=== PATIENT | female | born 1960 | race Caucasian/White ===

== ENCOUNTER 2023-10-16 20:24 | Inpatient (IN) ==
[2023-10-16 20:45] LABS: iSTAT Creatinine 1.2 mg/dl (0.6-1.3); iSTAT Hemoglobin 15.3 g/dl (12.0-16.0); iSTAT Ionized Calcium 1.15 mmol/l (1.12-1.32); iSTAT Potassium 4.1 mmol/L (3.3-5.0)
[2023-10-16] MEDS: fentaNYL citrate PF 100 MCG/2 ML VIAL IV PRN (20:45)
[2023-10-16] MEDS: ACETAMINOPHEN 1,000 MG/100 ML VIAL IV STA (20:45)
[2023-10-16 21:02] LABS: Albumin Globulin Ratio 1.7 (0.9-2); Albumin Level 4.5 gm/dl (3.4-5.0); BUN Creatinine Ratio 12.5 (10-20); Bilirubin,Total 0.4 mg/dl (0.2-1.0); Calcium 9.3 mg/dl (8.6-10.3); Creatinine Clr Calc Pharmacy 49.1 ml/min; Est GFR (African American) 55.7 ml/min; Est GFR (Non-African American) 48.1 ml/min; Globulin 2.6 gm/dl (2.5-4.0); Total Protein 7.1 gm/dl (6.0-8.3)
[2023-10-16 21:11] LABS: Prothrombin Time 10.6 Seconds (9.0-12.0)
[2023-10-16] MEDS: SODIUM CHLORIDE 0.9% 1,000 ML IV SCH (21:21)
[2023-10-16 21:30] LABS: Basophils # (auto) 0.02 K/uL (0.00-0.20); Basophils % (auto) 0.2 %; Eosinophils # (auto) 0.17 K/uL (0.00-0.50); Eosinophils % (auto) 2.1 %; Hematocrit (blood only) 43.4 % (37.0-47.0); Hemoglobin 14.9 g/dl (12.0-16.0); Immature Granulocytes # (auto) 0.02 K/uL (0.01-0.20); Immature Granulocytes % (auto) 0.2 %; Lymphocytes # (auto) 3.69 K/uL (1.20-3.40); Mean Corpuscular Hemoglobin 30.4 pg (25.0-34.0); Mean Corpuscular Hgb Conc 34.3 g/dL (32.0-36.0); Mean Corpuscular Volume 88.6 fL (80.0-100.0); Mean Platelet Volume 10.3 fL (9.4-12.4); Monocytes # (auto) 0.56 K/uL (0.11-0.59); Neutrophils # (auto) 3.56 K/uL (1.40-6.50); Neutrophils % (auto) 44.5 %; Platelet Count 295 K/uL (130-400); RDW Coefficient of Variation 13.2 % (11.5-14.5); White Blood Count 8.02 K/ul (4.8-10.8)
--- NOTE | 2023-10-16 22:10 | CT Scan Report ---
Exam(s): CT C SPINE EXAM: CT Cervical Spine Without Intravenous Contrast CLINICAL HISTORY: Reason for exam: trauma. TECHNIQUE: Axial computed tomography images of the cervical spine without intravenous contrast. CTDI is 21.38 mGy and DLP is 403.33 mGy-cm. Automated exposure control was utilized for the study. A dose lowering technique was utilized adhering to the principles of ALARA. COMPARISON: No relevant prior studies available. FINDINGS: Vertebrae: Straightening of the cervical spine. No acute fracture or subluxation. Discs/spinal canal/neural foramina: Disc and uncovertebral joint degeneration at C4-C5 and C5-C6. No significant canal or foraminal narrowing. Soft tissues: Unremarkable. IMPRESSION: Straightening of the cervical spine. No acute fracture or subluxation. Electronically signed by: Bib Garcias M.D. 10/16/23 22:09 PM
--- NOTE | 2023-10-16 22:12 | CT Scan Report ---
Exam(s): CT HEAD Without Contrast EXAM: CT Head Without Intravenous Contrast CLINICAL HISTORY: Reason for exam: trauma. TECHNIQUE: Axial computed tomography images of the head/brain without intravenous contrast. CTDI is hole 37.95 mGy and DLP is 629.85 mGy-cm. Automated exposure control was utilized for the study. A dose lowering technique was utilized adhering to the principles of ALARA. COMPARISON: No relevant prior studies available. FINDINGS: Brain: Unremarkable. No hemorrhage. No significant white matter disease. No edema. No midline shift. Kinney-white matter differentiation maintained. Ventricles: Unremarkable. No hydrocephalus. Bones/joints: Unremarkable. No acute fracture. Soft tissues: Right superior frontal scalp laceration/degloving injury with broad region of soft tissue swelling. Sinuses: Unremarkable as visualized. Mastoid air cells: Unremarkable as visualized. No mastoid effusion. IMPRESSION: Right superior frontal scalp laceration/degloving injury with broad region of soft tissue swelling. No acute intracranial findings. Electronically signed by: Bib Garcias M.D. 10/16/23 22:11 PM
--- NOTE | 2023-10-16 23:09 | Emergency Department Note ---
Impression & Plan CHI (closed head injury), Contaminated complex laceration of scalp, Contusion of knee, right ED Provider Note ED Provider Note NAME: LOVE TALAVERA AGE:63 SEX: Female : 1960 ARRIVES VIA: EMS INFORMANT: Patient ED PROVIDER(s): Delaney Brito DO CHIEF COMPLAINT: Scalp laceration, head injury HPI: This is a 63-year-old female who presents emergency department due to concern for head injury and scalp laceration following an accidental fall into a trash can lid outside. Patient states she felt well, and accidentally fell forward striking her head on the lid of the trash can and then falling to the sidewalk on her knee. She denies any loss of consciousness. She denies any other concern for injury. No use of antiplatelet or anticoagulation medication. PAST MEDICAL HISTORY:See Below PAST SURGICAL HISTORY:See Below FAMILY HISTORY:See Below SOCIAL HISTORY:See Below HOME MEDICATIONS:See Below ALLERGIES:See Below VITALS:See Below PHYSICAL EXAMINATION: GENERAL: alert, well appearing, well nourished, no distress, non-toxic HEAD: nc, large flap noted to frontal scalp measuring approximately 20cm, no evidence of facial injury, no corona signs, no raccoon eyes EYE EXAM: normal conjunctiva, PERRL and EOM's grossly intact OROPHARYNX: no exudate, no erythema, lips, buccal mucosa, and tongue normal and mucous membranes are moist NECK: supple, no nuchal rigidity, no adenopathy, non-tender, patient placed in a c-collar as a precaution LUNGS: Clear to auscultation. Normal chest wall mechanics, no w/r/r HEART: no murmurs, S1 normal and S2 normal CHEST WALL: No crepitus, no step-off, nontender with palpation ABDOMEN: abdomen soft, non-tender, normo-active bowel sounds, no masses, no rebound or guarding. PELVIS: stable to compression, nontender with palpation BACK: Back is symmetrical on inspection and there is no deformity, no midline tenderness, no CVA tenderness. SKIN: no rashes, petechiae, orbruising UPPER EXTREMITIES: upper extremities are grossly normal. FROM, nml pulses b/l. No evidence of trauma or deformity. LOWER EXTREMITIES: No pitting edema. FROM, nml pulses b/l. Contusion noted to right prepatellar region, well-healed vertical midline incision noted to right knee that patient states is from prior knee replacement, no other evidence of trauma or deformity. NEURO EXAM: Normal sensorium, cranial nerves II-XII grossly intact, normal speech, no facial droop,nogross weakness of arms, no gross weakness of legs. Gross sensation intact. No ataxia. Vital Signs: reviewed and remarkable Differential Diagnosis: CHI, ICH, occult fracture, laceration, contusion, spinal injury, patellar dislocation, joint effusion, hemarthrosis, as well as others were considered MEDICAL DECISION MAKING: This is a 63-year-old female who presents emerged department following an accidental head injury at home when she fell into a trash can which caused a large laceration to the head. She was otherwise awake and talking, afebrile vital signs stable. Labs drawn and sent, IV established, x-rays performed at bedside patient monitored on telemetry. She was given IV fluids, IV fentanyl, and IV Tylenol for pain. She was sent for CT of the head and C-spine additionally. Patient's labs and imaging reassuring. ED Tx spent significant time trying to debride obvious organic matter from the wound. I then tried to irrigate the wound at bedside. Bleeding was controlled. Patient had no other new or evolving symptoms. Given complexity and size of laceration, I did reach out to Dr. Dorsey, on-call for oral/plastics. We discussed the case via [place] text and he recommended that if patient could be admitted by the medicine team that he would take the patient to the OR in the morning for a more extensive washout and repair. I did give the patient IV antibiotics prophylactically. She stated her tetanus shot was up-to-date. I did discuss options for treatment and disposition with the patient and her at bedside. They would prefer patient be taken to the OR for repair which I feel is reasonable. Case discussed with the hospitalist team for additional evaluation and management. Consultation(s): 2300: Discussed with Dr. Dorsey given extent of laceration and contamination. Given complexity we discussed possible primary closure in the OR. Patient would prefer this compared to bedside repair. Dr. Dorsey states he would be able to take the patient to the OR in the morning for washout, debridement, and primary closure if medicine can admit her overnight. 0002: Discussed with Dr. Matthews, [facility] hospitalist team, for additional evaluation and mgmt. ER Treatment Provided: See below Diagnostics Interpreted By Me: -ECG: Normal sinus at 74, normal axis, normal intervals, no acute ST/T wave changes -Cardiac Monitoring: An order was placed for continuous cardiac monitoring. The monitor shows a rate of 80 with normal sinus rhythm. -Laboratory studies: As stated above and show below. -Imaging studies: xr right knee: Hardware intact, no obvious fracture Triage Nursing Note Reviewed Prior/Outside Records Reviewed Past Med/Surg History Problem List (Updated 10/17/23 @ 08:03 by Tyrone Dorsey DMD) Contaminated complex laceration of scalp (Acute) CHI (closed head injury) (Acute) Contusion of knee, right (Acute) Social History Smoking Status: Never smoker Hx Alcohol Use: No Hx Substance Use: No Preferred Language: Chilean Communication Ability: Effective Sales Operations Lead Required: No Beliefs That Will Affect Care: None Current Living Situation: Spouse and Family Feels Safe at Home: Yes Allergies Allergies Allergy/AdvReac Type Severity Reaction Status Date / Time aspirin Allergy Hives Verified 10/17/23 00:40 Penicillins Allergy Hives Verified 10/17/23 03:14 Home Meds Home Medications Medication Instructions Recorded Confirmed bupropion HCl 300 mg 24 hr tablet, 300 mg PO DAILY 10/17/23 10/17/23 extended release duloxetine 60 mg capsule,delayed 60 mg PO DAILY 10/17/23 10/17/23 release ergocalciferol (vitamin D2) 1,250 1,250 mcg PO DIRECTED 10/17/23 10/17/23 mcg (50,000 unit) capsule estradiol 1 mg tablet 1 mg PO DAILY 10/17/23 10/17/23 hydroxyzine HCl 10 mg tablet 10 mg PO DAILY PRN Itching 10/17/23 10/17/23 levothyroxine 100 mcg tablet 100 mcg PO DAILY 10/17/23 10/17/23 methocarbamol 500 mg tablet 500 mg PO DIRECTED PRN Pain 10/17/23 10/17/23 pantoprazole 40 mg tablet,delayed 40 mg PO DIRECTED PRN Heartburn 10/17/23 10/17/23 release pravastatin 80 mg tablet 80 mg PO HS 10/17/23 10/17/23 progesterone micronized 200 mg 200 mg PO HS 10/17/23 10/17/23 capsule triamcinolone acetonide 0.1 % 0.1 applic topical DIRECTED PRN 10/17/23 10/17/23 topical ointment Itching Results & Data (ED) Vital Signs Vital Signs - 24 hr 10/16/23 20:24 10/16/23 20:24 10/16/23 20:24 Temperature 37.2 C 37.2 C 37.2 C Temperature Source Oral Oral Pulse Rate 89 89 Pulse Rate [Apical] 89 Pulse Rate from SpO2 Sensor Respiratory Rate 20 18 20 Respiratory Effort / Characteristics Non-Labored Non-Labored Respiratory Depth Normal Normal Respiratory Pattern Regular Regular Blood Pressure 151/121 H 151/121 H Blood Pressure [Left Arm] 151/121 H Blood Pressure Mean 131 Blood Pressure Mean [Left Arm] 131 Blood Pressure Position [Left Arm] Pulse Oximetry 98 98 98 Oxygen Delivery Method Room Air Room Air Room Air Oxygen Flow Rate Sepsis Recent Fever Within 48 Hours No Sepsis New/Unexplained Change in Mental Status N/A Sepsis Action Taken by Nursing No Action Required Oxygen Flow Rate - Titration Pulse Oximetry Post Tiitration 10/16/23 20:24 10/16/23 20:33 10/16/23 21:15 Temperature Temperature Source Pulse Rate 85 80 Pulse Rate [Apical] Pulse Rate from SpO2 Sensor Respiratory Rate 20 Respiratory Effort / Characteristics Respiratory Depth Respiratory Pattern Blood Pressure 149/100 H Blood Pressure [Left Arm] Blood Pressure Mean 125 Blood Pressure Mean [Left Arm] Blood Pressure Position [Left Arm] Pulse Oximetry 98 97 Oxygen Delivery Method Room Air Room Air Oxygen Flow Rate Sepsis Recent Fever Within 48 Hours Sepsis New/Unexplained Change in Mental Status Sepsis Action Taken by Nursing Oxygen Flow Rate - Titration Pulse Oximetry Post Tiitration 10/16/23 21:16 10/16/23 21:30 10/16/23 21:51 Temperature Temperature Source Pulse Rate 80 Pulse Rate [Apical] 81 Pulse Rate from SpO2 Sensor Respiratory Rate 20 16 Respiratory Effort / Characteristics Non-Labored Respiratory Depth Normal Respiratory Pattern Regular Blood Pressure 154/93 H Blood Pressure [Left Arm] 149/100 H Blood Pressure Mean 124 Blood Pressure Mean [Left Arm] 116 Blood Pressure Position [Left Arm] Pulse Oximetry 95 98 89 L Oxygen Delivery Method Room Air Room Air Room Air Nasal Cannula Oxygen Flow Rate Sepsis Recent Fever Within 48 Hours Sepsis New/Unexplained Change in Mental Status Sepsis Action Taken by Nursing Oxygen Flow Rate - Titration 2 Pulse Oximetry Post Tiitration 99 10/16/23 22:00 10/16/23 22:00 10/16/23 22:30 Temperature Temperature Source Pulse Rate 80 85 Pulse Rate [Apical] 80 Pulse Rate from SpO2 Sensor Respiratory Rate 18 18 22 Respiratory Effort / Characteristics Non-Labored Respiratory Depth Normal Respiratory Pattern Regular Blood Pressure 161/101 H 171/111 H Blood Pressure [Left Arm] 161/101 H Blood Pressure Mean 124 147 Blood Pressure Mean [Left Arm] 121 Blood Pressure Position [Left Arm] Pulse Oximetry 98 99 99 Oxygen Delivery Method Nasal Cannula Nasal Cannula Room Air Oxygen Flow Rate 2 2 Sepsis Recent Fever Within 48 Hours Sepsis New/Unexplained Change in Mental Status Sepsis Action Taken by Nursing Oxygen Flow Rate - Titration Pulse Oximetry Post Tiitration 10/16/23 23:00 10/16/23 23:00 10/16/23 23:30 Temperature Temperature Source Pulse Rate 82 85 Pulse Rate [Apical] 82 Pulse Rate from SpO2 Sensor Respiratory Rate 18 16 24 Respiratory Effort / Characteristics Non-Labored Spontaneous Respiratory Depth Normal Respiratory Pattern Regular Blood Pressure 153/104 H 155/87 H Blood Pressure [Left Arm] 153/104 H Blood Pressure Mean 120 109 Blood Pressure Mean [Left Arm] 120 Blood Pressure Position [Left Arm] Pulse Oximetry 98 100 98 Oxygen Delivery Method Nasal Cannula Oxygen Flow Rate 2 Sepsis Recent Fever Within 48 Hours Sepsis New/Unexplained Change in Mental Status Sepsis Action Taken by Nursing Oxygen Flow Rate - Titration Pulse Oximetry Post Tiitration 10/17/23 00:00 10/17/23 00:00 10/17/23 00:06 Temperature Temperature Source Pulse Rate 88 85 Pulse Rate [Apical] 88 Pulse Rate from SpO2 Sensor Respiratory Rate 16 20 30 H Respiratory Effort / Characteristics Non-Labored Spontaneous Respiratory Depth Normal Respiratory Pattern Regular Blood Pressure 134/80 134/80 Blood Pressure [Left Arm] 134/80 Blood Pressure Mean 98 98 Blood Pressure Mean [Left Arm] 98 Blood Pressure Position [Left Arm] Pulse Oximetry 98 98 98 Oxygen Delivery Method Room Air Oxygen Flow Rate Sepsis Recent Fever Within 48 Hours Sepsis New/Unexplained Change in Mental Status Sepsis Action Taken by Nursing Oxygen Flow Rate - Titration Pulse Oximetry Post Tiitration 10/17/23 00:36 10/17/23 01:05 10/17/23 01:21 Temperature Temperature Source Pulse Rate 84 84 89 Pulse Rate [Apical] Pulse Rate from SpO2 Sensor Respiratory Rate 16 12 Respiratory Effort / Characteristics Respiratory Depth Respiratory Pattern Blood Pressure 136/84 117/83 Blood Pressure [Left Arm] Blood Pressure Mean 101 94 Blood Pressure Mean [Left Arm] Blood Pressure Position [Left Arm] Pulse Oximetry 97 97 Oxygen Delivery Method Oxygen Flow Rate Sepsis Recent Fever Within 48 Hours Sepsis New/Unexplained Change in Mental Status Sepsis Action Taken by Nursing Oxygen Flow Rate - Titration Pulse Oximetry Post Tiitration 10/17/23 01:30 10/17/23 02:00 10/17/23 02:00 Temperature Temperature Source Pulse Rate 86 92 H Pulse Rate [Apical] 89 Pulse Rate from SpO2 Sensor 91 H Respiratory Rate 18 18 18 Respiratory Effort / Characteristics Non-Labored Spontaneous Respiratory Depth Normal Respiratory Pattern Blood Pressure 123/79 122/89 Blood Pressure [Left Arm] 122/89 Blood Pressure Mean 107 100 Blood Pressure Mean [Left Arm] 100 Blood Pressure Position [Left Arm] Lying Pulse Oximetry 96 98 96 Oxygen Delivery Method Room Air Oxygen Flow Rate Sepsis Recent Fever Within 48 Hours Sepsis New/Unexplained Change in Mental Status Sepsis Action Taken by Nursing Oxygen Flow Rate - Titration Pulse Oximetry Post Tiitration 10/17/23 02:31 10/17/23 02:31 10/17/23 03:00 Temperature Temperature Source Pulse Rate 81 82 Pulse Rate [Apical] Pulse Rate from SpO2 Sensor Respiratory Rate 20 28 H Respiratory Effort / Characteristics Respiratory Depth Respiratory Pattern Blood Pressure 124/77 124/77 109/79 Blood Pressure [Left Arm] Blood Pressure Mean 84 84 90 Blood Pressure Mean [Left Arm] Blood Pressure Position [Left Arm] Pulse Oximetry 95 95 Oxygen Delivery Method Oxygen Flow Rate Sepsis Recent Fever Within 48 Hours Sepsis New/Unexplained Change in Mental Status Sepsis Action Taken by Nursing Oxygen Flow Rate - Titration Pulse Oximetry Post Tiitration Laboratory Data 10/17/23 04:09 10/17/23 04:09 Lab Results 10/16/23 10/16/23 10/16/23 Range/Units 20:28 20:31 20:32 WBC 8.02 (4.8-10.8) K/ul RBC 4.90 (4.20-5.40) M/uL Hgb 14.9 (12.0-16.0) g/dl POC Hgb 15.3 (12.0-16.0) g/dl Hct 43.4 (37.0-47.0) % POC Hct 45 (37-47) % MCV 88.6 (80.0-100.0) fL MCH 30.4 (25.0-34.0) pg MCHC 34.3 (32.0-36.0) g/dL RDW Std Deviation 43.0 (36.4-46.3) fL RDW Coeff of Robert 13.2 (11.5-14.5) % Plt Count 295 (130-400) K/uL MPV 10.3 (9.4-12.4) fL Immature Gran % (Auto) 0.2 % Neut % (Auto) 44.5 % Lymph % (Auto) 46.0 % [place] % (Auto) 7.0 % Eos % (Auto) 2.1 % Baso % (Auto) 0.2 % Neut # (Auto) 3.56 (1.40-6.50) K/uL Lymph # (Auto) 3.69 H (1.20-3.40) K/uL [place] # (Auto) 0.56 (0.11-0.59) K/uL Eos # (Auto) 0.17 (0.00-0.50) K/uL Baso # (Auto) 0.02 (0.00-0.20) K/uL Immature Gran # (Auto) 0.02 (0.01-0.20) K/uL PT 10.6 (9.0-12.0) Seconds INR 1.0 (0.9-1.1) POC Sodium 140 (135-144) mmol/L Sodium 138 (136-145) mmol/L POC Potassium 4.1 (3.3-5.0) mmol/L Potassium 4.0 (3.5-5.1) mmol/L POC Chloride 106 (101-112) mmol/L Chloride 106 (98-107) mmol/L Carbon Dioxide 23 (21-32) mmol/L POC Total CO2 20 L (24-31) mmol/L Anion Gap 9 (3-11) POC Anion Gap 19.0 (16-25) mmol/L POC BUN 15 (7-18) mg/dl BUN 15 (6-23) mg/dl Creatinine 1.20 (0.6-1.2) mg/dl POC Creatinine 1.2 (0.6-1.3) mg/dl Est Cr Clr Drug Dosing 49.1 ml/min Est GFR ( Amer) 55.7 ml/min Est GFR (Non-Af Amer) 48.1 ml/min BUN/Creatinine Ratio 12.5 (10-20) Glucose 102 H (70-99(Fasting)) mg/dl POC Glucose (other) 100 H (70-99) mg/dl Calcium 9.3 (8.6-10.3) mg/dl POC Ioniz Calcium Puneet 1.15 (1.12-1.32) mmol/l Total Bilirubin 0.4 (0.2-1.0) mg/dl AST 29 (13-39) U/L ALT 26 (7-52) U/L Alkaline Phosphatase 69 (34-104) U/L Total Protein 7.1 (6.0-8.3) gm/dl Albumin 4.5 (3.4-5.0) gm/dl Globulin 2.6 (2.5-4.0) gm/dl Albumin/Globulin Ratio 1.7 (0.9-2) Lipase 17 (11-82) U/L Blood Type O Positive Antibody Screen NEGATIVE Administered Medications Bupropion HCl (Bupropion Xl 300 Mg Tabcr) 300 mg PO DAILY YOSELYN Stop: 11/16/23 08:59 Last Admin: 10/17/23 08:28 Dose: 300 mg Documented By: LUIS EDUARDO Duloxetine HCl (Duloxetine Hcl 60 Mg Cap) 60 mg PO DAILY YOSELYN Stop: 11/16/23 08:59 Last Admin: 10/17/23 08:28 Dose: 60 mg Documented By: LUIS EDUARDO Estradiol (Estradiol 1 Mg Tab) 1 mg PO DAILY YOSELYN Stop: 11/16/23 08:59 Last Admin: 10/17/23 08:28 Dose: 1 mg Documented By: LUIS EDUARDO Ampicillin Sodium/Sulbactam Sodium (Unasyn) 3,000 mg in 100 mls @ 200 mls/hr IV Q6H YOSELYN Stop: 10/24/23 05:59 Last Infusion: 10/17/23 17:01 Dose: Infused Documented By: Admin: 10/17/23 15:49 Dose: 200 mls/hr Documented By: Infusion: 10/17/23 08:29 Dose: Infused Documented By: LUIS EDUARDO Admin: 10/17/23 06:25 Dose: 200 mls/hr Documented By: ALLYSON Sodium Chloride (Nss) 1,000 mls @ 100 mls/hr IV .Q10H YOSELYN Stop: 11/16/23 16:14 Last Admin: 10/17/23 16:44 Dose: 100 mls/hr Documented By: PARUL Levothyroxine Sodium (Levothyroxine Sodium 100 Mcg Tablet) 100 mcg PO DAILYBB [facility] Stop: 11/16/23 06:29 Last Admin: 10/17/23 06:25 Dose: 100 mcg Documented By: ALLYSON Pravastatin Sodium (Pravastatin Sod 40 Mg Tab) 80 mg PO [facility] Stop: 11/16/23 02:24 Last Admin: 10/17/23 03:28 Dose: 80 mg Documented By: KAMAR Progesterone (Progesterone, Micronized 100 Mg Cap) 200 mg PO [facility] Stop: 11/16/23 02:59 Last Admin: 10/17/23 03:28 Dose: 200 mg Documented By: KAMAR Discontinued Medications Bacitracin (Bacitracin Oint 14 Gm Tube) Confirm Administered Dose 45 appln .ROUTE .STK-MED ONE Stop: 10/17/23 11:27 Last Admin: 10/17/23 13:22 Dose: 45 appln Documented By: GIANNA Clindamycin HCl (Clindamycin Hcl 150 Mg Cap) 300 mg PO NOW ONE Stop: 10/17/23 01:23 Last Admin: 10/17/23 02:25 Dose: 300 mg Documented By: PARUL(2) Famotidine (Famotidine/Pf 20 Mg/2 Ml Vial) Confirm Administered Dose 20 mg IV .STK-MED ONE Stop: 10/17/23 11:33 Last Admin: 10/17/23 15:38 Dose: Not Given Documented By: PARUL Fentanyl Citrate (Fentanyl Citrate Pf 100 Mcg/2 Ml Vial) 50 mcg IV Q15M PRN PRN Reason: Pain Stop: 10/30/23 20:29 Last Admin: 10/16/23 22:13 Dose: 50 mcg Documented By: Admin: 10/16/23 21:29 Dose: 50 mcg Documented By: Admin: 10/16/23 20:45 Dose: 50 mcg Documented By: RAULITO Acetaminophen (Ofirmev) 1,000 mg in 100 mls @ 400 mls/hr IV NOW STA Stop: 10/16/23 20:44 Last Infusion: 10/16/23 21:21 Dose: Infused Documented By: Admin: 10/16/23 20:45 Dose: 400 mls/hr Documented By: RAULITO Sodium Chloride (Nss) 1,000 mls @ 125 mls/hr IV .Q8H YOSELYN Stop: 11/15/23 20:29 Last Infusion: 10/17/23 02:36 Dose: Infused Documented By: PARUL(2) Admin: 10/16/23 21:21 Dose: 125 mls/hr Documented By: RAULITO Ceftriaxone Sodium (Rocephin) 2,000 mg in 50 mls @ 100 mls/hr IV NOW STA Stop: 10/17/23 00:24 Last Infusion: 10/17/23 02:17 Dose: Infused Documented By: PARUL(2) Admin: 10/17/23 00:14 Dose: 100 mls/hr Documented By: DASHAWN Sodium Chloride (Nss) 1,000 mls @ 75 mls/hr IV .[id number] ONE Stop: 10/17/23 13:24 Last Infusion: 10/17/23 15:39 Dose: Infused Documented By: Admin: 10/17/23 02:26 Dose: 75 mls/hr Documented By: PARUL(2) Famotidine (Pepcid 20mg Iv Push) 20 mg in 5 mls @ 2.5 mls/min IV NOW STA Stop: 10/17/23 03:15 Last Admin: 10/17/23 03:27 Dose: 2.5 mls/min Documented By: KAMAR Cefazolin Sodium (Ancef 1000mg) 1,000 mg in 7.5 mls @ 2.5 mls/min IV ONCE ONE Stop: 10/17/23 13:18 Last Admin: 10/17/23 13:20 Dose: 2.5 mls/min Documented By: GIANNA Sodium Chloride (Nss) 500 mls @ 999 mls/hr IV .Q31M ONE Stop: 10/17/23 17:15 Last Infusion: 10/17/23 17:43 Dose: Infused Documented By: Admin: 10/17/23 17:01 Dose: 999 mls/hr Documented By: PARUL Ketorolac Tromethamine (Ketorolac Tromethamine 15 Mg/Ml Vial) 15 mg IV NOW ONE Stop: 10/17/23 02:37 Last Admin: 10/17/23 02:51 Dose: 15 mg Documented By: PARUL(2) Lidocaine/Epinephrine (Lidocaine 1%/Epinephrine 1:100,000 50 Ml Vial) 20 ml INFIL NOW ONE Stop: 10/16/23 22:23 Last Admin: 10/17/23 00:27 Dose: 20 ml Documented By: ROMAN Lidocaine/Epinephrine (Lidocaine 1%/Epinephrine 1:100,000 50 Ml Vial) Confirm Administered Dose 1 ml .ROUTE .STK-MED ONE Stop: 10/16/23 22:24 Last Admin: 10/17/23 00:27 Dose: Not Given Documented By: DASHAWN Lidocaine/Epinephrine (Lidocaine 1%/Epinephrine 1:100,000 50 Ml Vial) Confirm Administered Dose 15 ml .ROUTE .STK-MED ONE Stop: 10/17/23 11:27 Last Admin: 10/17/23 13:21 Dose: 10 ml Documented By: GIANNA Lorazepam (Lorazepam 1 Mg/1 Ml Syr Ed Inj Use) 0.5 mg IV ONE STA Stop: 10/16/23 22:24 Last Admin: 10/17/23 02:26 Dose: Not Given Documented By: PARUL(2) Morphine Sulfate (Morphine Sulfate 4 Mg/Ml 1 Ml Carp\\Vial) 4 mg IV NOW STA Stop: 10/16/23 22:24 Last Admin: 10/16/23 23:12 Dose: 4 mg Documented By: DASHAWN Morphine Sulfate (Morphine Sulfate 4 Mg/Ml 1 Ml Carp\\Vial) 4 mg IV NOW STA Stop: 10/17/23 00:11 Last Admin: 10/17/23 00:13 Dose: 4 mg Documented By: DASHAWN Ondansetron HCl (Ondansetron Inj 2 Mg/Ml 2 Ml Vial) 4 mg IV NOW STA Stop: 10/16/23 23:10 Last Admin: 10/16/23 23:12 Dose: 4 mg Documented By: DASHAWN Imaging Data Radiologist's Impression: Knee X-Ray 10/16/23 20:30 XR knee RT 3V HISTORY: 63 years-old Female trauma acute right knee pain COMPARISON: None TECHNIQUE: 2 views of the right knee FINDINGS: Moderate prepatellar/infrapatellar anterior soft tissue swelling. Total arthroplasty. Trace joint effusion. No acute fracture, dislocation or osseous erosion. IMPRESSION: Anterior soft tissue swelling without acute fracture or dislocation identified. ACT 112: Negative or not required by law. The above report was generated using voice recognition software. It may contain grammatical, syntax or spelling errors. Electronically signed by: Kamron Felix M.D. 10/17/2023 8:57 AM Pelvis X-Ray 10/16/23 20:31 XR pelvis 1-2V routine HISTORY: 63 years-old Female trauma acute pelvic trauma COMPARISON: None TECHNIQUE: AP view of the pelvis FINDINGS: Right hip arthroplasty. [id number] left hip osteoarthritis. No acute fracture, dislocation or avascular necrosis. Unremarkable soft tissues. IMPRESSION: No acute fracture or dislocation. ACT 112: Negative or not required by law. The above report was generated using voice recognition software. It may contain grammatical, syntax or spelling errors. Electronically signed by: Kamron Felix M.D. 10/17/2023 8:50 AM Discharge Plan Visit Data Chief Complaint: Trauma Stated Complaint: GLF, 8" Laceration to Head ED Provider: Delaney Brito Discharge Problem: CHI (closed head injury), Contaminated complex laceration of scalp, Contusion of knee, right Patient Disposition: Admitted As Inpatient Discharge Instructions Interventions: ED Discharge Assessment Last Done: 10/17/23 10:46 Discharge Problem: CHI (closed head injury) Qualifiers: Encounter type: subsequent encounter Qualified Code(s): S09.90XD - Unspecified injury of head, subsequent encounter
[2023-10-16] MEDS: MoRPHine SULFATE 4 MG/ML 1 ML CARP\\VIAL IV STA (23:12)
[2023-10-16] MEDS: ONDANSETRON INJ 2 MG/ML 2 ML VIAL IV STA (23:12)
[2023-10-17] MEDS: MoRPHine SULFATE 4 MG/ML 1 ML CARP\\VIAL IV STA (00:13)
[2023-10-17] MEDS: cefTRIAXone SODIUM 2,000 MG/50 ML BAG IV STA (00:14)
[2023-10-17] MEDS ORDERED: AMPICILLIN/SULBACTAM SOD 3,000 MG/100 ML BAG IV STA (00:25)
[2023-10-17] MEDS: LIDOCAINE 1%/EPINEPHRINE 1:100,000 50 ML VIAL ONE ×2 (00:27→13:21)
[2023-10-17] MEDS: LIDOCAINE 1%/EPINEPHRINE 1:100,000 50 ML VIAL INFIL ONE (00:27)
[2023-10-17] MEDS: CLINDAMYCIN HCL 150 MG CAP PO ONE (02:25)
[2023-10-17] MEDS: LORazepam 1 MG/1 ML SYR ED Inj Use IV STA (02:26)
[2023-10-17] MEDS: SODIUM CHLORIDE 0.9% 1,000 ML IV ONE (02:26)
[2023-10-17] MEDS: KETOROLAC TROMETHAMINE 15 MG/ML VIAL IV ONE (02:51)
--- NOTE | 2023-10-17 03:15 | History & Physical Report ---
Date of Service October 17, 2023 Assessment & Plan (1) Contaminated complex laceration of scalp: Plan: Traumatic scalp laceration Traumatic left knee injury Hyperlipidemia on statin Rx hypothyroidism, outpatient TSH from 4 months ago noted to be low at 0.15 prediabetes, hemoglobin A1c of 5.9 from July 2023 ZOHREH, outpatient sleep study to be scheduled ADHD/anxiety/mood disorder, stable Admit to [facility] for antibiotic coverage Maxillofacial consult re: traumatic scalp laceration (ED provider already in touch with Dr. Dorsey. Possible procedure in a.m.) Follow official left knee x-ray Orthopedics eval contingent on results Recheck TSH DVT prophylaxis. SCDs Re: Traumatic scalp wound Full code Patient requesting updates from providers. Mr. Edmundo Haider, contact #[phone]. Text document was generated using Wise Connect voice recognition software. It may contain grammatical or spelling errors. Kindly contact undersigned for clarification of any documentation item in question. History of Present Illness Chief Complaint: Bleeding head injury Primary Care Provider: KAYCEE Rivas History obtained from patient, family, and records. Medical history significant for hyperlipidemia, hypothyroidism, prediabetes, ZOHREH, ADHD/anxiety/mood disorder. Patient fell forward hitting her head and left knee on the surface of a trash can lid. No LOC. Bleeding scalp wound noted. No chest pain, no SOB. Patient brought to ER for evaluation. Ceftriaxone administered at the ER. 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 Allergies Allergy/AdvReac Type Severity Reaction Status Date / Time aspirin Allergy Hives Verified 10/17/23 00:40 Penicillins Allergy Hives Verified 10/17/23 03:14 Home Medications Medication Instructions Recorded Confirmed Type bupropion HCl 300 mg 24 hr tablet, 300 mg PO DAILY 10/17/23 10/17/23 History extended release duloxetine 60 mg capsule,delayed 60 mg PO DAILY 10/17/23 10/17/23 History release ergocalciferol (vitamin D2) 1,250 1,250 mcg PO DIRECTED 10/17/23 10/17/23 History mcg (50,000 unit) capsule estradiol 1 mg tablet 1 mg PO DAILY 10/17/23 10/17/23 History hydroxyzine HCl 10 mg tablet 10 mg PO DAILY PRN Itching 10/17/23 10/17/23 History levothyroxine 100 mcg tablet 100 mcg PO DAILY 10/17/23 10/17/23 History methocarbamol 500 mg tablet 500 mg PO DIRECTED PRN Pain 10/17/23 10/17/23 History pantoprazole 40 mg tablet,delayed 40 mg PO DIRECTED PRN Heartburn 10/17/23 10/17/23 History release pravastatin 80 mg tablet 80 mg PO HS 10/17/23 10/17/23 History progesterone micronized 200 mg 200 mg PO HS 10/17/23 10/17/23 History capsule triamcinolone acetonide 0.1 % 0.1 applic topical DIRECTED PRN 10/17/23 10/17/23 History topical ointment Itching Past Med/Surg History Problem List (Updated 10/17/23 @ 08:03 by Tyrone Dorsey DMD) Contaminated complex laceration of scalp (Acute) CHI (closed head injury) (Acute) Contusion of knee, right (Acute) Social History Smoking Status: Never smoker Hx Alcohol Use: No Hx Substance Use: No Preferred Language: Occitan Communication Ability: Effective Microsoft Infrastructure Consultant Required: No Beliefs That Will Affect Care: None Current Living Situation: Spouse and Family Feels Safe at Home: Yes Safety Concerns: Feels Safe At This Time Review of Systems Review of Systems: As per HPI, all other systems reviewed and negative Physical Exam Physical Exam: GENERAL: Pleasant, slightly uncomfortable, obese, no respiratory distress SKIN: Normal color, warm HEENT: Dressing over scalp, pink palpebral conjunctivae, no ptosis, dry buccal mucosa NECK : Supple, no tenderness CHEST : CTA, no tenderness HEART : RRR, no obvious murmurs ABDOMEN: Some distention, nontender EXTREMITIES : Tender left knee swelling, no other conspicuous deformities noted NEUROLOGIC : Coherent, no facial asymmetry, no other gross focality Results & Data Results & Data Vital Signs (Past 12 Hours) Vital Signs Temp Pulse Pulse Resp BP BP Pulse Ox 10/17/23 02:00 89 18 122/89 98 10/17/23 01:21 89 12 117/83 97 10/17/23 01:05 84 10/17/23 00:36 84 16 136/84 97 10/17/23 00:06 85 30 H 134/80 98 10/17/23 00:00 88 20 134/80 98 10/17/23 00:00 88 16 134/80 98 10/16/23 23:30 85 24 155/87 H 98 10/16/23 23:00 82 16 153/104 H 100 10/16/23 23:00 82 18 153/104 H 98 10/16/23 22:30 85 22 171/111 H 99 10/16/23 22:00 80 18 161/101 H 99 10/16/23 22:00 80 18 161/101 H 98 10/16/23 21:51 89 L 10/16/23 21:30 80 16 154/93 H 98 10/16/23 21:16 81 20 149/100 H 95 10/16/23 21:15 80 20 149/100 H 97 10/16/23 20:33 85 10/16/23 20:24 98 10/16/23 20:24 37.2 C 89 20 151/121 H 98 10/16/23 20:24 37.2 C 89 18 151/121 H 98 10/16/23 20:24 37.2 C 89 20 151/121 H 98 O2 Del Method O2 Flow Rate 10/17/23 02:00 Room Air 10/17/23 01:21 10/17/23 01:05 10/17/23 00:36 10/17/23 00:06 10/17/23 00:00 10/17/23 00:00 Room Air 10/16/23 23:30 10/16/23 23:00 10/16/23 23:00 Nasal Cannula 2 10/16/23 22:30 Room Air 10/16/23 22:00 Nasal Cannula 2 10/16/23 22:00 Nasal Cannula 2 10/16/23 21:51 Room Air, Nasal Cannula 10/16/23 21:30 Room Air 10/16/23 21:16 Room Air 10/16/23 21:15 Room Air 10/16/23 20:33 10/16/23 20:24 Room Air 10/16/23 20:24 Room Air 10/16/23 20:24 Room Air 10/16/23 20:24 Room Air Laboratory Results Laboratory Results WBC 8.02 K/ul (4.8-10.8) 10/16/23 20:31 RBC 4.90 M/uL (4.20-5.40) 10/16/23 20:31 Hgb 14.9 g/dl (12.0-16.0) 10/16/23 20: POC Hgb 15.3 g/dl (12.0-16.0) 10/16/23 20:32 Hct 43.4 % (37.0-47.0) 10/16/23 20: POC Hct 45 % (37-47) 10/16/23 20:32 MCV 88.6 fL (80.0-100.0) 10/16/23 20: MCH 30.4 pg (25.0-34.0) 10/16/23 20: MCHC 34.3 g/dL (32.0-36.0) 10/16/23 20: RDW Std Deviation 43.0 fL (36.4-46.3) 10/16/23 20: RDW Coeff of Robert 13.2 % (11.5-14.5) 10/16/23: Plt Count 295 K/uL (130-400) 10/16/23 20: MPV 10.3 fL (9.4-12.4) 10/16/23 20:31 Immature Gran % (Auto) 0.2 % 10/16/23 20: Neut % (Auto) 44.5 % 10/16/23 20: Lymph % (Auto) 46.0 % 10/16/23 20:31 Cochran % (Auto) 7.0 % 10/16/23 20:31 Eos % (Auto) 2.1 % 10/16/23 20:31 Baso % (Auto) 0.2 % 10/16/23 20:31 Neut # (Auto) 3.56 K/uL (1.40-6.50) 10/16/23 20:31 Lymph # (Auto) 3.69 K/uL (1.20-3.40) H 10/16/23 20:31 Cochran # (Auto) 0.56 K/uL (0.11-0.59) 10/16/23 20: Eos # (Auto) 0.17 K/uL (0.00-0.50) 10/16/23 20: Baso # (Auto) 0.02 K/uL (0.00-0.20) 10/16/23 20:31 Immature Gran # (Auto) 0.02 K/uL (0.01-0.20) 10/16/23 20:31 PT 10.6 Seconds (9.0-12.0) 10/16/23 20:31 INR 1.0 (0.9-1.1) 10/16/23 20:31 POC Sodium 140 mmol/L (135-144) 10/16/23 20:32 Sodium 138 mmol/L (136-145) 10/16/23 20:31 POC Potassium 4.1 mmol/L (3.3-5.0) 10/16/23 20:32 Potassium 4.0 mmol/L (3.5-5.1) 10/16/23 20:31 POC Chloride 106 mmol/L (101-112) 10/16/23 20:32 Chloride 106 mmol/L (98-107) 10/16/23 20:31 Carbon Dioxide 23 mmol/L (21-32) 10/16/23 20:31 POC Total CO2 20 mmol/L (24-31) L 10/16/23 20:32 Anion Gap 9 (3-11) 10/16/23 20:31 POC Anion Gap 19.0 mmol/L (16-25) 10/16/23 20:32 POC BUN 15 mg/dl (7-18) 10/16/23 20:32 BUN 15 mg/dl (6-23) 10/16/23 20:31 Creatinine 1.20 mg/dl (0.6-1.2) 10/16/23 20:31 POC Creatinine 1.2 mg/dl (0.6-1.3) 10/16/23 20:32 Est Cr Clr Drug Dosing 49.1 ml/min 10/16/23 20:31 Est GFR ( Amer) 55.7 ml/min 10/16/23 20:31 Est GFR (Non-Af Amer) 48.1 ml/min 10/16/23 20:31 BUN/Creatinine Ratio 12.5 (10-20) 10/16/23 20:31 Glucose 102 mg/dl (70-99(Fasting)) H 10/16/23 20:31 POC Glucose (other) 100 mg/dl (70-99) H 10/16/23 20:32 Calcium 9.3 mg/dl (8.6-10.3) 10/16/23 20:31 POC Ioniz Calcium Puneet 1.15 mmol/l (1.12-1.32) 10/16/23 20:32 Total Bilirubin 0.4 mg/dl (0.2-1.0) 10/16/23 20:31 AST 29 U/L (13-39) 10/16/23 20:31 ALT 26 U/L (7-52) 10/16/23 20:31 Alkaline Phosphatase 69 U/L (34-104) 10/16/23 20:31 Total Protein 7.1 gm/dl (6.0-8.3) 10/16/23 20:31 Albumin 4.5 gm/dl (3.4-5.0) 10/16/23 20:31 Globulin 2.6 gm/dl (2.5-4.0) 10/16/23 20:31 Albumin/Globulin Ratio 1.7 (0.9-2) 10/16/23 20:31 Lipase 17 U/L (11-82) 10/16/23 20:[address] 10/16/23 20:31 Exam(s): CT C SPINE EXAM: CT Cervical Spine Without Intravenous Contrast CLINICAL HISTORY: Reason for exam: trauma. TECHNIQUE: Axial computed tomography images of the cervical spine without intravenous contrast. CTDI is 21.38 mGy and DLP is 403.33 mGy-cm. Automated exposure control was utilized for the study. A dose lowering technique was utilized adhering to the principles of ALARA. COMPARISON: No relevant prior studies available. FINDINGS: Vertebrae: Straightening of the cervical spine. No acute fracture or subluxation. Discs/spinal canal/neural foramina: Disc and uncovertebral joint degeneration at C4-C5 and C5-C6. No significant canal or foraminal narrowing. Soft tissues: Unremarkable. IMPRESSION: Straightening of the cervical spine. No acute fracture or subluxation. Electronically signed by: Bib Garcias M.D. 10/16/23 22:[address] 10/16/23 20:31 Exam(s): CT HEAD Without Contrast EXAM: CT Head Without Intravenous Contrast CLINICAL HISTORY: Reason for exam: trauma. TECHNIQUE: Axial computed tomography images of the head/brain without intravenous contrast. CTDI is hole 37.95 mGy and DLP is 629.85 mGy-cm. Automated exposure control was utilized for the study. A dose lowering technique was utilized adhering to the principles of ALARA. COMPARISON: No relevant prior studies available. FINDINGS: Brain: Unremarkable. No hemorrhage. No significant white matter disease. No edema. No midline shift. Kinney-white matter differentiation maintained. Ventricles: Unremarkable. No hydrocephalus. Bones/joints: Unremarkable. No acute fracture. Soft tissues: Right superior frontal scalp laceration/degloving injury with broad region of soft tissue swelling. Sinuses: Unremarkable as visualized. Mastoid air cells: Unremarkable as visualized. No mastoid effusion. IMPRESSION: Right superior frontal scalp laceration/degloving injury with broad region of soft tissue swelling. No acute intracranial findings. Electronically signed by: Bib Garcias M.D. 10/16/23 22:11 PM Diagnostic Findings EKG as per my interpretation : Rate 75, NSR, normal axis, no ischemia
[2023-10-17] MEDS ORDERED: PROMETHAZINE 6.25 MG/50.25 ML BAG IV PRN (03:18)
[2023-10-17] MEDS: FAMOTIDINE 20MG IV PUSH 20 MG/5 ML SYR IV STA (03:27)
[2023-10-17] MEDS: PROGESTERONE, MICRONIZED 100 MG CAP PO SCH (03:28)
[2023-10-17] MEDS: PRAVASTATIN SOD 40 MG TAB PO SCH (03:28)
[2023-10-17] MEDS ORDERED: hydrOXYzine HCl 10 MG TAB PO PRN (03:57)
--- OUTSIDE RECORDS SUMMARY | 2023-10-17 04:02 | External Medical Summary | Summary of Care ---
Author Name Unknown Organization [facility] Address [address] [place] [address] Phone [phone] Care Team Providers Care Signal Tester Name Role Phone Brittany Howard Primary Care Provider [phone] Reason for Visit * Reason Onset Date Comments Med Request 10/06/2023 Encounter Details Date Type Department Care Team ([facility] Contact Info) Description 10/06/[address] [facility] [address] [facility] [address] Brittany Howard CRNP [address] [facility] [place] [address] Med Request Allergies Active Allergy Reactions Criticality Noted Date Comments Aspirin Rash 06/18/2023 Penicillins Hives 06/08/2023 documented as of this encounter (statuses as of 10/07/2023) Medications Medication Sig Dispensed Refills Start Date End Date Status buPROPion HCl ER (XL) 300 MG Oral Tablet Extended Release 24 Hour (Wellbutrin XL) TK 1 T PO D Active Methocarbamol 500 MG Oral Tablet (Robamol) Take 1 Tablet by mouth in the morning and 1 Tablet at noon and 1 Tablet in the evening and 1 Tablet before bedtime. Active Pravastatin Sodium 80 MG Oral Tablet Take 1 Tablet by mouth at bedtime. Active Pantoprazole Sodium 40 MG Oral Tablet Delayed Release (Protonix) Take 1 Tablet by mouth in the morning. 90 Tablet 3 08/12/2023 Active Dicyclomine HCl 10 MG Oral Capsule (Bentyl) One tab by mouth twice daily as needed for abdominal pain. 120 Capsule 2 08/20/2023 Active Triamcinolone Acetonide 0.1 % External Ointment (Aristocort)Loulou cations:Vulvar pruritus Apply to vulva as needed for itching 30 g 6 08/26/2023 Active Estradiol 1 MG Oral Tablet (Estrace)Indicat ions:Vasomotor symptoms due to menopause Take 1 Tablet by mouth every morning. 90 Tablet 3 08/26/2023 Active Progesterone 200 MG Oral Capsule (Prometrium)Loulou cations:Vasomoto r symptoms due to menopause Take 1 Capsule by mouth at bedtime. 90 Capsule 3 08/26/2023 Active hydrOXYzine HCl 10 MG Oral Tablet (Atarax) Take 1 Tablet by mouth 3 times a day as needed for Itching. Active DULoxetine HCl 60 MG Oral Capsule Delayed Release Particles (Cymbalta) Take 1 Capsule by mouth in the morning. 30 Capsule 09/11/2023 Active Vitamin D (Ergocalciferol) 1.25 MG (34484 UT) Oral Capsule (Drisdol) Take 1 Capsule by mouth every 4 weeks. 12 Capsule 09/11/2023 Active Levothyroxine Sodium 100 MCG Oral Tablet (Levoxyl) Take 1 Tablet by mouth at bedtime. 30 Tablet 11 10/07/2023 Active Levothyroxine Sodium 100 MCG Oral Tablet (Levoxyl) Take 1 Tablet by mouth at bedtime. 10/06/2023 Discontinue d(Refill) documented as of this encounter (statuses as of 10/07/2023) Active Problems Problem Noted Date Diagnosed Date Hypothyroidism 10/07/2023 Obstructive sleep apnea 09/24/2023 Prediabetes 07/20/2023 documented as of this encounter (statuses as of 10/07/2023) Social History Tobacco Use Types Packs/Day Years Used Date Smoking Tobacco: Never Smokeless Tobacco: Never Alcohol Use Standard Drinks/Week Comments Never 0 (1 standard drink = 0.6 oz pur e alcohol) Hunger Vital Sign Answer Date Recorded Within the past 12 months, y ou worried that your food would run out before you got the money to buy more. Never true 07/20/19 24 Within the past 12 months, t he food you bought just didn't last and you didn't have money to get more. Never true 07/20/2023 Childcare Answer Date Recorded Do you feel overwhelmed with taking care of a child, family member or friend? No 07/20/2023 Does your family need help f inding childcare? (Household - for ages 0-17 years) Not on file 07/20/2023 Clothing Answer Date Recorded Have you been unable to get clothing when it was really needed? Yes 07/20/2023 Is your family able to get c lothes or diapers when needed? (Household - for ages 0-17 years) Not on file 07/20/2023 Personal Safety Answer Date Recorded Do you feel unsafe or have concerns for your saf ety? No 07/20/2023 Do you have concerns for you r family's safety? (Household - for ages 0-17 years) Not on file 07/20/2023 Utilities Answer Date Recorded Do you have trouble paying y our heating, water, or electric bill? No 07/20/2023 Is your family able to pay t he heat, water, or electric bill? (Household - for ages 0-17 years) Not on file 07/20/2023 Does your family have access to good internet? (Household - for ages 0-17 years) Not on file 07/20/2023 Employment Status Answer Date Recorded Are you unemployed or without regular income? No 07/20/2023 Does the household have a [facility] source of income? (Household - for ages 0-17 years) Not on file 07/20/2023 Social Connections Answer Date Recorded How often do you feel lonely or isolated from th ose around you? Never 07/20/2023 Financial Resource Strain Answer Date R ecorded Do you have any trouble payi ng for your medications, or do you think you might in the future? No 07/20/2023 Does your family have troubl e paying for medicine? (Household - for ages 0-17 years) Not on file 07/20/2023 Transportation Needs Answer Date Record ed READ ONLY Do you have troubl e getting a ride to medical visits or work? Never True 07/20/2023 Does your family have a hard time getting a ride to doctors visits? (Household - for ages 0-17 years) Not on file 07/20/2023 Has lack of transportation k ept you from medical appointments, meetings, work, or from getting things needed for daily living? Check all that apply. (Adult - for ages 18 years and over) Not on file 07/20/2023 Do you (or your family) have trouble finding or paying for a ride (transportation)? (Household - for ages 0-17 years) Not on file 07/20/2023 Housing Stability Answer Date Recorded Do you currently live in a s helter or have no steady place to sleep at night? No 07/20/2023 READ ONLY Do you think you a re at risk of becoming homeless? No 07/20/2023 Does your family worry about paying for your home or becoming homeless? (Household - for ages 0-17 years) Not on file 0 07/20/2023 Are you homeless or worried that you might be in the future? (Adult - for ages 18 years and over) Not on file Are you (or your family) jose eduardo eless or worried that you might be in the future? (Household - for ages 0-17 years) Not on file Food Insecurity Answer Date Recorded Do you need food for this week? No 07/20/2023 Are you able to get enough f ood for your family? (Household - for ages 0-17 years) Not on file 07/20/2023 Does your family need food t his week? (Household - for ages 0-17 years) Not on file 07/20/2023 Do you always have enough fo od for your family? (Household - for ages 0-17 years) Not on file 07/20/2023 Sex and Gender Information Value Date Recorded Sex Assigned at Female 07/16/2023 8:44 AM EDT Gender Identity Female 07/16/2023 8:44 AM EDT Sexual Orientation Straight 07/20/2023 1: 06 PM EDT Sexual Orientation Choose not to disclose 2023 1:06 PM EDT Job Start Date Occupation Industry Not on file Not on file Not on file documented as of this encounter Miscellaneous Notes * Telephone Encounter - Brittany Howard CRNP - 10/07/2023 12:05 PM EDT Sent -- her tsh was a little low on last check in june so would like her to get it checked again 2-4weeks to make sure she is on right dose * Telephone Encounter - Isidra Daniels LPN - 10/06/2023 4:03 PM EDT Did you pend patient's preferred pharmacy and medication before forwarding?yes Pharmacy: [facility] [address] [place] [address] Pending Prescriptions: Disp Refills Levothyroxine Sodium 100 MCG Oral Tablet *30 Tab*11 Sig: Take 1 Tablet by mouth at bedtime. Last Visit: 09/14/2023 (in office), Visit date not found (telemedicine) Next Visit: 01/12/2024 If no future appointments scheduled, and last appointment is greater than a year ago, please schedule patient for a follow-up appointment Last date the medication was ordered: Is this request for a controlled substance?No Urine Drug Screen:No results found for this or any previous visit. Patient Phone Numbers Labs: Lab Results Component Value Date/Time CREAT 1.0 06/19/2023 01:33 PM POTASSIUM 4.3 06/19/2023 01:33 PM TSH 0.15 (L) 06/19/2023 01:33 PM LDLDIRECT 85 06/19/2023 01:33 PM ALT 31 06/19/2023 01:33 PM HGBA1C 5.9 (H) 07/16/2023 12:44 PM * Telephone Encounter - Angela Harman CPhT - 10/06/2023 2:46 PM EDT Patient calling to request a refill on Levothyroxine Sodium 100 MCG Oral Tablet (Levoxyl) . Medication was last prescribed by Gynecology/Obstetrics Kenia Contreras but patient is asking if PCP can take over the medication. Please advise if this is appropriate and send to [facility] [id number] if agreeable. Thank you, Iesha Harman CPhT Service Center Manager III [facility] [address] [place] [address], [address] [place] [phone] documented in this encounter Plan of Treatment Upcoming Encounters Date Type Department Care Team (Late st Contact Info) Description 01/12/2024 9:40 AM EST Office Visit Family Practice [facility] [address] [facility] [place] [address] Virginia Pacheco DO [address] [place] [address] 01/13/2024 12:00 PM EST Office Visit Gastroenterology, [facility] [address] [facility] [place] [address] Dean Hebert CRNP [address] [facility] [place] [address] Scheduled Orders Name Type Priority Associated Diagnoses Orde r Schedule TSH WITH FREE T4 IF INDICATED Lab Routine Hypothyroidism, unspecified type Expected: 10/07/2023 (Approximate), Expires: 10/06/2024 Scheduled Procedures Name Priority Associated Diagnoses Date/Ti me COLONOSCOPY FLEXIBLE PROXIMA L DIAGNOSTIC Recall History of colonic polyps Health Maintenance Due Date Last Done Comments Depression Screening 1972 HIV Screening 02/07/1975 Hepatitis C Screening 02/07/1978 DTap/Tdap Vaccines (1 - Tdap) 02/07/1979 Cologuard 02/07/2005 Fecal Occult Blood Test 02/07/2005 Sigmoidoscopy 02/07/2005 Zoster Vaccines (1 of 2) 02/07/2010 COVID-19 Vaccine (1 - 2022-2 4 season) 2022 Influenza Vaccine (FLU shot) (#1) 2023 12/03/2020 TSH 06/18/2024 06/19/2023 HbA1c 07/15/2024 07/16/2023 Mammogram 08/05/2024 08/06/2023 Pap Smear 08/25/2026 08/26/2023 Lipid Panel 06/18/2028 06/19/2023 Colonoscopy 06/24/2028 06/25/2023, 06/25/2023 Colorectal Cancer Screening 06/24/2028 Cervical Cancer Screening 08/25/2028 HPV/Co-Test 08/25/2028 08/26/2023 HPV (Gardasil) Vaccine Aged Out No lo nger eligible based on patient's age to complete this topic Hepatitis B Vaccine Aged Out No longe r eligible based on patient's age to complete this topic MENINGOCOCCAL (MENACTRA/MENVEO) Aged Out No longer eligible b ased on patient's age to complete this topic Pneumococcal Vaccine: Pediatrics (0 to 5 Years) and At-Risk Patients (6 to 64 Years) Aged Out No longer eligible b ased on patient's age to complete this topic documented as of this encounter Medical Devices Implanted Type Area New Client Banking Services Clerk Device Identifier Shelf Expiration Date Model / Serial / Lot Hemostatic Clip Res 235cm - [id number] Implanted:Qty: 1 on 06/25/2023 by Johnny Sethi DO at ENDOSCOPY [facility] [employer] : ENDOSCOPY 11/17/2025 [id number] / / [id number] documented as of this encounter Visit Diagnoses Diagnosis Hypothyroidism, unspecified type- Primary documented in this encounter Care Teams Signal Tester Relationship Specialty Start Date End Date Brittany Howard CRNP [address] [place] [address] PCP - General Nurse Practitioner 09/14/23 documented as of this encounter
--- OUTSIDE RECORDS SUMMARY | 2023-10-17 04:02 | External Medical Summary | Summary of Care ---
Author Name Unknown Organization [facility] Address [address] [place] [address] Phone [phone] Care Team Providers Care Rehabilitation Nurse Name Role Phone Brittany Howard Primary Care Provider [phone]- [phone] Reason for Referral * Precert (Diagnostic Medical) (Within 10 days (routine)) - Pending Review Specialty Diagnoses / Procedures Referred By Mechelle carmona Referred To Contact Sleep Disorders Diagnoses Obstructive sleep apnea Snoring Fatigue, unspecified type Dream enactment behavior Procedures SLEEP STUDY, W/ CPAP (TREATMENT SETTINGS) Sydnee Dc DO [address] [place] [address] Referral ID Status Reason Start Date Expiration Date V isits Requested Visits Authorized [id number] Pending Review 09/24/2023 999 999 * Precert (Diagnostic Medical) (Within 10 days (routine)) - Pending Review Specialty Diagnoses / Procedures Referred By Mechelle carmona Referred To Contact Sleep Disorders Diagnoses Obstructive sleep apnea Snoring Fatigue, unspecified type Dream enactment behavior Procedures SLEEP STUDY, W/O CPAP Sydnee Dc DO [address] [place] [address] Referral ID Status Reason Start Date Expiration Date V isits Requested Visits Authorized [id number] Pending Review 09/24/2023 999 999 Reason for Visit * Reason Comments NEW PATIENT New sleep. Snoring. Wakes herself gasping. Has a dental sleeping device. Does notice a difference. Having a lot nightmare. 2019 had unpleasant work environment. Woke up screaming. Nightmares badly for 1 year. Needed therapy for PTSD. * Evaluate & Treat - Unlimited Visits (Within 10 days (routine)) - Pending Review Specialty Diagnoses / Procedures Referred By Mechelle t Referred To Contact Sleep Medicine / Sleep Disorders Diagnoses Snoring Brittany Howard CRNP [address] [place] [address] Referral ID Status Reason Start Date Expiration Date Visits Requested Visits Authorized [id number] Pending Review Specialty Services Required 06/19/2023 2 2 Encounter Details Date Type Department Care Team (Late st Contact Info) Description 09/24/2023 9:20 AM EDT Office Visit Sleep Disorders Ctr [facility] [address] [place] [address] Sydnee Dc DO [address] [place] [address] Obstructive sleep apnea*; Snoring; Fatigue, unspecified type; Dream enactment behavior Allergies Active Allergy Reactions Criticality Noted Date Comments Aspirin Rash 06/18/2023 Penicillins Hives 06/08/2023 documented as of this encounter (statuses as of 09/28/2023) Medications Medication Sig Dispensed Refills Start Date End Date Status buPROPion HCl ER (XL) 300 MG Oral Tablet Extended Release 24 Hour (Wellbutrin XL) TK 1 T PO D Active Levothyroxine Sodium 100 MCG Oral Tablet (Levoxyl) Take 1 Tablet by mouth at bedtime. Active Methocarbamol 500 MG Oral Tablet (Robamol) [...] Active Triamcinolone Acetonide 0.1 % External Ointment (Aristocort)Indicat ions:Vulvar pruritus Apply to vulva as needed for itching 30 g 6 08/26/2023 Active Estradiol 1 MG Oral Tablet (Estrace)Indication s:Vasomotor symptoms due to menopause Take 1 Tablet by mouth every morning. 90 Tablet 3 08/26/2023 Active Progesterone 200 MG Oral Capsule (Prometrium)Indicat ions:Vasomotor symptoms due to menopause Take 1 Capsule [...] 09/11/2023 Active Vitamin D (Ergocalciferol) 1.25 MG (59574 UT) Oral Capsule (Drisdol) Take 1 Capsule by mouth every 4 weeks. 12 Capsule 09/11/2023 Active documented as of this encounter (statuses as of 09/28/2023) Active Problems Problem Noted Date Diagnosed Date Obstructive sleep apnea 09/24/2023 Prediabetes 07/20/2023 documented as of this encounter (statuses as of 09/28/2023) Social History Tobacco Use Types Packs/Day Years [...] No 07/20/2023 Does the [facility] have a [facility]? (Household - for ages [...] on file documented as of this encounter Last Filed Vital Signs Vital Sign Reading Time Taken Comments Blood Pressure 108/82 09/24/2023 9:33 AM EDT Pulse 86 09/24/2023 9:33 AM EDT Temperature 36.7 C (98 F) 09/24/2023 9:33 AM EDT Respiratory Rate 16 09/24/2023 9:33 AM EDT Oxygen Saturation 96% 09/24/2023 9:33 AM EDT Inhaled Oxygen Concentration - - Weight 76.7 kg (169 lb) 09/24/2023 9:33 AM EDT Height 165.1 cm (5' 5") 09/24/2023 9:33 AM EDT Body Mass Index 28.12 09/24/2023 9:33 AM EDT documented in this encounter Patient Instructions * Patient Instructions* Sydnee Dc, - 09/24/2023 10:30 AM EDT SLEEP APNEA Sleep apnea is when someone has difficulties with breathing only during sleep. This typically happens without the patient being aware they are having breathing issues. Obstructive sleep apnea is verycommon. It can be seen in kids and adults. It can cause symptoms of excessive daytime sleepiness, fatigue, morning headaches, and poor memory and cognition. It can also lead to difficulties at work or school and motor vehicle accidents. If left untreated, it puts people at risk for heart attacks, strokes, and diabetes. When you come in for an in lab sleep study, a trained air conditioning technician will be present at the sleepcenter to administer and monitor the test. They will be putting sensors on you that monitor your brain waves, breathing, movements, and respiratory effort. They will not be putting in any IV's or using any needles, and none of the sensors should be painful, though they may be annoying or uncomfortable to some patients when they are trying to sleep. You will have a private room with your own bathroom. Please feel free to bring your own pillow or blanket if you feel this would help you sleep morecomfortably. They provide these things for you, but we want you to feel as comfortable and relaxed as possible when you are spending the night in the sleep center. [facility] is accredited by the [employer] (AASM). To receive accreditation, a sleep center must meet or exceed all standards for professional quality sleep medicine care as designated bythe Academy. More information can be obtained at: SleepEducation.org Medication for nightmares in PTSD: prazosin documented in this encounter Progress Notes * Sydnee Dc DO - 09/24/2023 9:47 AM EDT Sleep Medicine Evaluation emilia Kin[address] [place] [address] Consultation was requested by: KAYCEE Rivas for: snoring, fatigue, using dental device and a copy of this report is being sent to the provider electronically. Relevant available records reviewed. HPI: Christina Haider is a(n) 63 year old female presenting for evaluation and management of sleep apnea. Nursing note: New sleep. Snoring. Wakes herself gasping. Has a dental sleeping device. Does notice a difference. Having a lot nightmare. 2019 had unpleasant work environment. Woke up screaming. Nightmares badly for 1 year. Needed therapy for PTSD. About 10 years ago she had a sleep study, CPAP was recommended but she did not tolerate FFM at thattime. Uses oral appliance therapy (made through a dentist in [place]). The bottom part still fits, but the top part no longer fits. She had stopped wearing it for 2-3 years, and now it feels too tight on her upper teeth. Sleeping with just the bottom part of the dental device, which does seem to hold her jaw forward some. She feels like the roof of her mouth has fallen, and she feels a fullness in her throat. + itchy rash that keeps her up, takes hydroxyzine PRN for this. Patient reports a typical bedtime of 11 pm. It takes not long to fall asleep. Patient awakens once overnight, to urinate. She removes the dental device in her sleep. Patient awakens for the day at 7 AM, feeling still tired (less tired with the dental device than without it). Patient does get sleepy or tired during the day. Patient does sometimes take naps. Recently started napping, in the past couple months, but makes itharder to get to sleep at night. Patient does have caffeine, watered-down coffee in the morning, and half a Coke She tends to sleep on her back with a pillow under her neck to tilt her head back, changes positionin her sleep. The patient reports having ("+" indicates reports, "-" indicates denies): +/- Snoring (not with the dental device), she does seem she is snoring herself awake without the dental device - Choking/gasping awakenings + Nocturia - Morning headaches + Teeth grinding Restless Legs Syndrome Symptoms ("+" indicates reports, "-" indicates denies): - Urge to move legs at night + jerking movements of arms and legs as she relaxes to try to get to sleep Parasomnias Symptoms ("+" indicates reports, "-" indicates denies): - Sleepwalking + Dream-enactment, no episodes of getting out of bed, falling out of bed, or self-injury in sleep. + Hx PTSD, but dream enactment seemed to start prior (maybe 20 years). No current issues with balance or falling (aside from a medication reaction that caused her to havetrouble with dizziness/double vision) PTSD: waking up panicked, having nightmares related to hx trauma. Excessive Daytime Sleepiness: Mansfield Sleepiness Scale 4 Modified F.O.S.Q. 32 no Drowsy driving Not usually Sleepy with sedentary activity, but she does feel tired. Travel Screening Question 09/24/2023 9:25 AM EDT - Filed by Patient Do you have any of the following new or worsening symptoms? None of these Have you recently been in contact with someone who was sick? No / Unsure Mansfield Sleepiness Scale Question 09/24/2023 9:30 AM EDT - Filed by Janae Oropeza LPN What is the chance you will doze off in the following situation? Sitting and reading Slight chance of dozing Watching TV No chance of dozing Sitting inactive in a public place, such as a theater or meeting No chance of dozing As a passenger in a car for an hour without a break Slight chance of dozing Lying down to rest in the afternoon when circumstances permit Moderate chance of dozing When sitting and talking to someone No chance of dozing When sitting quietly after lunch without alcohol No chance of dozing In a car, while stopped for a few minutes in traffic No chance of dozing Score (range: 0 - 24) 4 Functional Outcomes Of Sleep Question 09/24/2023 9:32 AM EDT - Filed by Janae Oropeza LPN Please complete the following questions. Do you have difficulty concentrating because you are sleepy or tired? No Do you have difficulty remembering things because you are sleepy or tired? Yes, a little Do you have difficulty operating a motor vehicle for short distances (less than 100 miles) because you become sleepy? Yes, a little Do you have difficulty operating a motor vehicle for long distances (more than 100 miles) because you become sleepy? Yes, moderate Do you have difficulty visiting family or friends in their home because you become sleepy or tired?No Has your relationship with family, friends, or work colleagues been affected because you are sleepyor tired? No Do you have difficulty watching a movie or video because you become sleepy or tired? No Do you have difficulty being as active as you want to be in the evening because you are tired or sleepy? Yes, moderate Do you have difficulty being as active as you want to be in the morning because you are tired or sleepy? Yes, moderate Has your mood been affected because you are sleepy or tired? No Score (range: 10 - 40) 32 Prior sleep study: report not available. PMH: ZOHREH, PTSD, ADHD (previously took Focalin which helped with focus) Past Medical History: Diagnosis Date Hyperlipidemia Osteoarthritis RUQ pain Thyroid disease Past Surgical History: Procedure Laterality Date COLONOSCOPY, DIAGNOSTIC (RECTUM) 06/25/2023 hemorrhoids/mild diverticulosis/biopsies show adenomatous polyps/recall 5 years/COLONOSCOPY FLEXIBLE PROXIMAL DIAGNOSTIC performed by Johnny Sethi DO at [facility] EGD, FLEXIBLE, DIAGNOSTIC 06/25/2023 gastritis/biopsies normal/ESOPHAGOGASTRODUODENOSCOPY (EGD), FLEXIBLE, TRANSORAL, DIAGNOSTIC performed by Johnny Sethi DO at ENDOSCOPY [facility] MAMMOGRAM BREAST NEEDLE BIOPSY CORE RIGHT Right 2003 Benign REDUCTION OF BREAST Bilateral 2020 Hx knee surgeries and hip replacement. ALLERGIES: Review of patient's allergies indicates: Allergen Reactions Aspirin Rash Penicillins Hives MEDS: Current Outpatient Medications Medication Sig Dispense Refill DULoxetine HCl 60 MG Oral Capsule Delayed Release Particles (Cymbalta) Take 1 Capsule by mouth in the morning. 30 Capsule 0 Vitamin D (Ergocalciferol) 1.25 MG (00360 UT) Oral Capsule (Drisdol) Take 1 Capsule by mouth every 4 weeks. 12 Capsule 0 hydrOXYzine HCl 10 MG Oral Tablet (Atarax) Take 1 Tablet by mouth 3 times a day as needed for Itching. Estradiol 1 MG Oral Tablet (Estrace) Take 1 Tablet by mouth every morning. 90 Tablet 3 Progesterone 200 MG Oral Capsule (Prometrium) Take 1 Capsule by mouth at bedtime. 90 Capsule 3 Triamcinolone Acetonide 0.1 % External Ointment (Aristocort) Apply to vulva as needed for itching 30 g 6 Dicyclomine HCl 10 MG Oral Capsule (Bentyl) One tab by mouth twice daily as needed for abdominal pain. 120 Capsule 2 Pantoprazole Sodium 40 MG Oral Tablet Delayed Release (Protonix) Take 1 Tablet by mouth in the morning. 90 Tablet 3 buPROPion HCl ER (XL) 300 MG Oral Tablet Extended Release 24 Hour (Wellbutrin XL) TK 1 T PO D Levothyroxine Sodium 100 MCG Oral Tablet (Levoxyl) Take 1 Tablet by mouth at bedtime. Methocarbamol 500 MG Oral Tablet (Robamol) Take 1 Tablet by mouth in the morning and 1 Tablet at noon and 1 Tablet in the evening and 1 Tablet before bedtime. Pravastatin Sodium 80 MG Oral Tablet Take 1 Tablet by mouth at bedtime. No current facility-administered medications for this visit. FHx: brother snores Father has Parkinson's disease Social hx: Tobacco use: none Alcohol use: none Drug use: none Employment: retired PE: VITAL SIGNS: Filed Vitals: 09/24/23 0933 BP: 108/82 Pulse: 86 Resp: 16 Temp: 36.7 C (98 F) TempSrc: Tympanic SpO2: 96% Weight: 76.7 kg (169 lb) Height: 1.651 m (5' 5") Body mass index is 28.12 kg/m. GEN: Ambulatory, non-obese, NAD NECK: Circumference not enlarged RESP: Unlabored respirations Breath sounds clear, no wheezes or rales CVS: Regular rate and rhythm NEURO: Speech clear and appropriate IMPRESSION/RECOMMENDATIONS: Hx ZOHREH Snoring, fatigue - Discussed the pathophysiology, implications on short- and long-term health, diagnostic evaluation, and likely treatment of ZOHREH - Schedule an overnight PSG - split night protocol if meets criteria. In-lab study recommended due to dream enactment. - Avoid driving when sleepy/drowsy. Dream enactment behavior - discussed safety - look for RBD vs pseudo-RBD on PSG (also consider trauma-associated, though dream enactment seemedto start prior to trauma) Follow Up: Return for 3 weeks after PSG. | For: 3 weeks after PSG | Check-out note: PSG [facility]; f/u after for results Sydnee Dc DO documented in this encounter Nursing Notes * Janae Oropeza LPN - 09/24/2023 9:35 AM EDT Chief Complaint Patient presents with NEW PATIENT New sleep. Snoring. Wakes herself gasping. Neck: 13". Travel Screening Question 09/24/2023 9:25 AM EDT - Filed by Patient Do you have any of the following new or worsening symptoms? None of these Have you recently been in contact with someone who was sick? No / Unsure [place] Sleepiness Scale Question 09/24/2023 9:30 AM EDT - Filed by Janae Oropeza LPN What is the chance you will doze off in the following situation? Sitting and reading Slight chance of dozing Watching TV No chance of dozing Sitting inactive in a public place, such as a theater or meeting No chance of dozing As a passenger in a car for an hour without a break Slight chance of dozing Lying down to rest in the afternoon when circumstances permit Moderate chance of dozing When sitting and talking to someone No chance of dozing When sitting quietly after lunch without alcohol No chance of dozing In a car, while stopped for a few minutes in traffic No chance of dozing Score (range: 0 - 24) 4 Functional Outcomes Of Sleep Question 09/24/2023 9:32 AM EDT - Filed by Janae Oropeza LPN Please complete the following questions. Do you have difficulty concentrating because you are sleepy or tired? No Do you have difficulty remembering things because you are sleepy or tired? Yes, a little Do you have difficulty operating a motor vehicle for short distances (less than 100 miles) because you become sleepy? Yes, a little Do you have difficulty operating a motor vehicle for long distances (more than 100 miles) because you become sleepy? Yes, moderate Do you have difficulty visiting family or friends in their home because you become sleepy or tired?No Has your relationship with family, friends, or work colleagues been affected because you are sleepyor tired? No Do you have difficulty watching a movie or video because you become sleepy or tired? No Do you have difficulty being as active as you want to be in the evening because you are tired or sleepy? Yes, moderate Do you have difficulty being as active as you want to be in the morning because you are tired or sleepy? Yes, moderate Has your mood been affected because you are sleepy or tired? No Score (range: 10 - 40) 32 documented in this encounter Plan of Treatment Upcoming Encounters Date Type Department Care Team (Late st Contact Info) Description 01/12/2024 9:40 AM EST Office Visit Family Practice [facility] [address] [place] [address] Virginia Pacheco DO [address] [place] [address] 01/13/2024 12:00 PM EST Office Visit Gastroenterology, [facility] [address] [place] [address] Dean Hebert CRNP [address] [place] [address] Scheduled Orders Name Type Priority Associated Diagnoses Orde r Schedule SLEEP STUDY, W/O CPAP Procedures Routine Obstructive sleep apnea Snoring Fatigue, unspecified type Dream enactment behavior Ordered: 09/24/2023 SLEEP STUDY, W/ CPAP (TREATMENT SETTINGS) Procedures Routine Obstructive sleep apnea Snoring Fatigue, unspecified type Dream enactment behavior Ordered: 09/24/2023 Scheduled Procedures Name Priority Associated Diagnoses Date/Ti me COLONOSCOPY FLEXIBLE PROXIMA L DIAGNOSTIC Recall History of colonic polyps Health Maintenance Due Date Last Done Comments Depression Screening 1972 HIV Screening 02/07/1975 Hepatitis C Screening 02/07/1978 DTaP,Tdap,and Td Vaccines (1 - Tdap) 02/07/1979 Cologuard 02/07/2005 [...] this encounter Medical Devices Implanted Type Area Pallet Rectifier Device Identifier Shelf Expiration Date Model / Serial / Lot Hemostatic Clip Res 235cm - [id number] Implanted:Qty: 1 on 06/25/2023 by Johnny Sethi DO at [facility] : ENDOSCOPY 11/17/2025 [id number] / / [id number] documented as of this encounter Visit Diagnoses Diagnosis Obstructive sleep apnea- Primary Obstructive sleep apnea (adult) (pediatric) Snoring Other dyspnea and respiratory abnormality Fatigue, unspecified type Dream enactment behavior documented in this encounter Care Teams Rehabilitation Nurse Relationship Specialty Start Date End Date Brittany Howard CRNP [address] [place] [address] PCP - General Nurse Practitioner 09/14/23 documented as of this encounter
--- OUTSIDE RECORDS SUMMARY | 2023-10-17 04:02 | External Medical Summary | Summary of Care ---
Author Name Unknown Organization [facility] Address [address] [place] [address] Phone [phone] Care Team Providers Care Waxing Machine Operator Name Role Phone Sauravbeni Brittany BENOIT Primary Care Provider +1- [phone] Reason for Visit * Reason Comments eRx-Medication Refill Encounter Details Date Type Department Care Team ([facility] st Contact Info) Description 10/11/2023 [facility] [address] [facility] [address] Iron Acharya DO [address] [place] [address] Allergies Active Allergy Reactions Criticality Noted Date Comments Aspirin Rash 06/18/2023 Penicillins Hives 06/08/2023 documented as of this encounter (statuses as of 10/13/2023) Medications Medication Sig Dispensed Refills Start Date [...] a day as needed for Itching. Active Vitamin D (Ergocalciferol) 1.25 MG (88610 UT) Oral Capsule (Drisdol) Take 1 Capsule by mouth every 4 weeks. 12 Capsule 09/11/2023 Active Levothyroxine Sodium 100 MCG Oral Tablet (Levoxyl) Take 1 Tablet by mouth at bedtime. 30 Tablet 11 10/07/2023 Active DULoxetine HCl 60 MG Oral Capsule Delayed Release Particles (Cymbalta) TAKE 1 CAPSULE BY MOUTH EVERY MORNING 30 Capsule 5 10/13/2023 Active DULoxetine HCl 60 MG Oral Capsule Delayed Release Particles (Cymbalta) Take 1 Capsule by mouth in the morning. 30 Capsule 09/11/2023 Discontinued documented as of this encounter (statuses as of 10/13/2023) Active Problems Problem Noted Date Diagnosed Date Hypothyroidism 10/07/2023 Obstructive sleep apnea 09/24/2023 Prediabetes 07/20/2023 documented as of this encounter (statuses as of 10/13/2023) Social History Tobacco Use Types Packs/Day Years [...] No 07/20/2023 Does the household have a re lar source of income? (Household - for ages [...] encounter Miscellaneous Notes * Telephone Encounter - Minesh Hooker RPh - 10/13/2023 12:01 PM EDT Signed Prescriptions: Disp Refills DULoxetine HCl 60 MG Oral Capsule Delayed *30 Cap*5 Sig: TAKE 1 CAPSULE BY MOUTH EVERY MORNINGAuthorizing Provider: IRON ACHARYA User: MINESH HOOKER documented in this encounter Plan of Treatment Upcoming Encounters Date Type Department Care Team (Late st Contact Info) Description 01/12/2024 9:40 AM EST Office Visit Family Practice [facility] [address] [place] [address] Iron Acharya DO [address] [place] [address] 01/13/2024 12:00 PM EST Office Visit Gastroenterology, [facility] [address] [place] [address] Dean Hebert CRNP [address] [place] [address] Scheduled Procedures Name Priority Associated Diagnoses Date/Ti me COLONOSCOPY FLEXIBLE PROXIMA L DIAGNOSTIC Recall History of colonic polyps Health Maintenance Due Date Last Done Comments Depression Screening 1972 HIV Screening 02/07/1975 Hepatitis C Screening 02/07/1978 DTap/Tdap Vaccines (1 - Tdap) 02/07/1979 Cologuard 02/07/2005 Fecal Occult Blood Test 02/07/2005 Sigmoidoscopy 02/07/2005 Zoster Vaccines (1 of 2) 02/07/2010 COVID-19 Vaccine (1 - 2022-2 4 season) 2023 Influenza Vaccine (FLU shot) (#1) 2023 12/03/2020 [...] this encounter Medical Devices Implanted Type Area Felt Hanger Device Identifier Shelf Expiration Date Model / Serial / Lot Hemostatic Clip Res 235cm - [id number] Implanted:Qty: 1 on 06/25/2023 by Johnny Sethi DO at [facility] : ENDOSCOPY 11/17/2025 [id number] / / [id number] documented as of this encounter Care Teams Waxing Machine Operator Relationship Specialty Start Date End Date Brittany Howard CRNP [address] [place] [address] PCP - General Nurse Practitioner 09/14/23 documented as of this encounter
--- OUTSIDE RECORDS SUMMARY | 2023-10-17 04:02 | External Medical Summary | Summary of Care ---
Author Name Unknown Organization [facility] Address [address] [place] [address] Phone [phone] Care Team Providers Care Machine Pecan Gatherer Name Role Phone Brittany Howard Primary Care Provider [phone] Reason for Visit * Reason Onset Date Comments Med Request 10/06/2023 Encounter Details Date Type Department Care Team ([facility] Contact Info) Description 10/06/2023 Telephone Family Practice [facility] [address] [facility] [address] Brittany Howard CRNP [address] [place] [address] Med Request Allergies Active Allergy Reactions Criticality [...] 09/11/2023 Active Vitamin D (Ergocalciferol) 1.25 MG (07752 UT) Oral Capsule (Drisdol) Take 1 Capsule [...] No 07/20/2023 Does the household have a [facility] source of income? (Household - for [...] encounter Miscellaneous Notes * Telephone Encounter - Camelia Smith MED ASSIST - 10/07/2023 4:31 PM EDT Patient made aware * Telephone Encounter - Brittany Howard CRNP [...] preferred pharmacy and medication before forwarding?yes Pharmacy: [id number] [address] [facility] Pending Prescriptions: Disp Refills Levothyroxine Sodium 100 [...] . Medication was last prescribed by Gynecology/Obstetrics [facility] but patient is asking if PCP can take over the medication. Please advise if this is appropriate and send to [id number] [address] [facility] if agreeable. Thank you, Iesha Harman CPhT Hypo Dipper III [facility] ([facility] [address] [place] [address], [address] [place] [address] [phone] documented in this encounter Plan of Treatment Upcoming Encounters Date Type Department Care Team (Late st Contact Info) Description 01/12/2024 9:40 AM EST Office Visit Family Practice [facility] [address] [place] [address] Virginia Pacheco DO [address] [place] [address] 01/13/2024 12:00 PM EST Office Visit Gastroenterology, [facility] [address] [place] [address] Dean Hebert CRNP [address] [facility] [place] [address] Scheduled Orders Name Type Priority Associated Diagnoses [...] this encounter Medical Devices Implanted Type Area Electrician Chief Device Identifier Shelf Expiration Date Model / Serial / Lot Hemostatic Clip Res 235cm - [id number] Implanted:Qty: 1 on 06/25/2023 by Johnny Sethi DO at ENDOSCOPY [facility] : ENDOSCOPY 11/17/2025 [id number] / / [id number] documented as of this encounter Visit Diagnoses Diagnosis Hypothyroidism, unspecified type- Primary documented in this encounter Care Teams Machine Pecan Gatherer Relationship Specialty Start Date End Date Brittany Howard CRNP [address] [place] [address] PCP - General Nurse Practitioner 09/14/23 documented as of this encounter
--- OUTSIDE RECORDS SUMMARY | 2023-10-17 04:02 | External Medical Summary | Summary of Care ---
Author Name Unknown Organization [facility] Address [address] [place] [address] Phone [phone] Care Team Providers Care Personnel Interviewer Name Role Phone Brittany Howard Primary Care Provider [phone]- [phone] Reason for Visit * Reason Comments Follow Up 4 wk rash f/u Encounter Details Date Type Department Care Team ([facility] st Contact Info) Description 09/14/2023 3:20 PM EDT Office Visit Family Practice [facility] [address] [facility] [place] [address] Brittany Howard CRNP [address] [place] [address] Rash and nonspecific skin eruption*; Dizziness; Dry mouth; OAB (overactive bladder); Lower abdominal pain Allergies Active Allergy Reactions Criticality Noted Date [...] Active Triamcinolone Acetonide 0.1 % External Ointment (Aristocort)Indic ations:Vulvar pruritus Apply to vulva as needed for itching 30 g 6 08/26/2023 Active Estradiol 1 MG Oral Tablet (Estrace)Indicati ons:Vasomotor symptoms due to menopause Take 1 Tablet by mouth every morning. 90 Tablet 3 08/26/2023 Active Progesterone 200 MG Oral Capsule (Prometrium)Indic ations:Vasomotor symptoms due to menopause Take 1 Capsule [...] 09/11/2023 Active Vitamin D (Ergocalciferol) 1.25 MG (48345 UT) Oral Capsule (Drisdol) Take 1 Capsule by mouth every 4 weeks. 12 Capsule 09/11/2023 Active predniSONE 10 MG Oral Tablet (Deltasone)Indica tions:Rash and nonspecific skin eruption Take 5 tabs for 2 days, 4 tabs for 2 days, 3 tabs for 2 days, 2 tabs for 2 days 1 tab for 2 days 30 Tablet 09/07/2023 4 Discontinue d(Medicatio n List Clean Up) documented as of this encounter (statuses as [...] 07/20/2023 Does the household have a re gular source of income? (Household - for ages [...] Sign Reading Time Taken Comments Blood Pressure 116/72 09/14/2023 3:26 PM EDT Pulse 88 09/14/2023 3:26 PM EDT Temperature 36.3 C (97.4 F) 09/14/2023 3:26 PM ED T Respiratory Rate - - Oxygen Saturation 96% 09/14/2023 3:26 PM EDT Inhaled Oxygen Concentration - - Weight - - Height - - Body Mass Index - - documented in this encounter Progress Notes * Brittany Howard CRNP - 09/14/2023 3:33 PM EDT Images from the original note were not included. History of Present Illness Christina Haider is a 63 year old female that presents for Follow Up (4 wk rash f/u) HPI Here for recheck of dizziness, dry mouth, rash. These symptoms resolved after she stopped her enablex for OAB. Bladder symptoms have not been bothersome since stopping it. Separately complains of lower abdominal pain starting last night. This seems to be a chronic issue of intermittent pain as we have already done numerous tests (labs, CTAP, colonoscopy and endoscopy) and they are normal. I will have her follow up with GI who she saw last month for the above. Diverticuli noted on colonoscopy -- discuss symptoms of diverticulitis and need for ER if those develop rapidly/pain becomes severe. Current Outpatient Medications Medication Sig Dispense Refill DULoxetine HCl 60 MG Oral Capsule Delayed Release Particles (Cymbalta) Take 1 Capsule by mouth in the morning. 30 Capsule 0 Vitamin D (Ergocalciferol) 1.25 MG (26707 UT) Oral Capsule (Drisdol) Take 1 Capsule [...] No current facility-administered medications for this visit. Physical Exam Vitals: 09/14/23 1526 Temp: 36.3 C (97.4 F) Pulse: 88 SpO2: 96% BP: 116/72 Physical Exam Vitals reviewed. Constitutional: General: She is not in acute distress. HENT: Head: Normocephalic and atraumatic. Nose: Nose normal. Mouth/Throat: Mouth: Mucous membranes are moist. Eyes: Extraocular Movements: Extraocular movements intact. Conjunctiva/sclera: Conjunctivae normal. Pupils: Pupils are equal, round, and reactive to light. Cardiovascular: Rate and Rhythm: Normal rate and regular rhythm. Heart sounds: Normal heart sounds. Pulmonary: Effort: Pulmonary effort is normal. Breath sounds: Normal breath sounds. Abdominal: General: Bowel sounds are normal. Palpations: Abdomen is soft. Musculoskeletal: Cervical back: Neck supple. Right lower leg: No edema. Left lower leg: No edema. Skin: General: Skin is warm and dry. Capillary Refill: Capillary refill takes less than 2 seconds. Neurological: Mental Status: She is alert and oriented to person, place, and time. Psychiatric: Behavior: Behavior normal. Thought Content: Thought content normal. Assessment and Plan Lower abdominal pain Episodic Monitor for now ER if worsening/severe Otherwise follow up with GI as scheduled Rash and nonspecific skin eruption resolving Dizziness Resolved -- suspect anticholinergic effect of her OAB medication Dry mouth Also resolved OAB (overactive bladder) Monitor symptoms for now -- if worsening consider urogyn Wrap-Up Follow Up: Return if symptoms worsen or fail to improve. Time: I spent a total of 20-29 minutes (exact time 20 mins) on the date of service in preparation, delivery, and documentation of the care provided to Christina Haider excluding any time spent in the performance of separately billed services. documented in this encounter Nursing Notes * Sandee Joel LPN - 09/14/2023 3:25 PM EDT The patient has been properly identified by confirmation of name and date of . Chief Complaint Patient presents with Follow Up 4 wk rash f/u Rash on torso gotten better-- dots present, no itch. documented in this encounter Plan of Treatment Upcoming Encounters Date Type Department Care Team (Late st Contact Info) Description 01/12/2024 9:40 AM EST Office Visit Family Practice [facility] [address] [place] [address] Virginia Pacheco DO [address] [place] [address] 01/13/2024 12:00 PM EST Office Visit Gastroenterology, [facility] [address] [place] [address] Dean Hebert CRNP [address] [place] [address] Scheduled Procedures Name Priority Associated Diagnoses Date/Ti [...] this encounter Medical Devices Implanted Type Area Environmental Compliance Specialist Device Identifier Shelf Expiration Date Model / Serial / Lot Hemostatic Clip Res 235cm - [id number] Implanted:Qty: 1 on 06/25/2023 by Johnny Sethi DO at ENDOSCOPY [facility] : ENDOSCOPY 11/17/2025 [id number] / / [id number] documented as of this encounter Visit Diagnoses Diagnosis Rash and nonspecific skin eruption- Primary Rash and other nonspecific skin eruption Dizziness Dizziness and giddiness Dry mouth Disturbance of salivary secretion OAB (overactive bladder) Hypertonicity of bladder Lower abdominal pain Abdominal pain, other specified site documented in this encounter Care Teams Personnel Interviewer Relationship Specialty Start Date End Date Brittany Howard CRNP [address] [facility] [place] [address] PCP - General Nurse Practitioner 09/14/23 documented as of this encounter
--- OUTSIDE RECORDS SUMMARY | 2023-10-17 04:02 | External Medical Summary | Summary of Care ---
Author Name Unknown Organization [facility] Address [address] [place] [address] Phone [phone] Care Team Providers Care Chain Repairer Name Role Phone Brittany Howard Primary Care Provider [phone]- [phone] Reason for Visit * Reason Onset Date Comments Med Request 10/06/2023 Encounter Details Date Type Department Care Team ([facility] Contact Info) Description 10/06/2023 Telephone Family Practice [facility] [address] [facility] [address] Brittany Howard CRNP [address] [facility] [place] [address] Med Request Allergies Active Allergy Reactions Criticality [...] 09/11/2023 Active Vitamin D (Ergocalciferol) 1.25 MG (31434 UT) Oral Capsule (Drisdol) Take 1 Capsule [...] No 07/20/2023 Does the household have a [facility] source of income? (Household - for [...] pharmacy and medication before forwarding?yes Pharmacy: [facility] [address] [place] [address] Pending Prescriptions: Disp Refills Levothyroxine Sodium 100 [...] this is appropriate and send to [facility] [id number] if agreeable. Thank you, Iesha Harman CPhT Lead Simulation Modeling Engineer III [facility]) [address] [place] [address], [address] [place] [phone] documented in this encounter Plan of Treatment Upcoming Encounters Date Type Department Care Team (Late st Contact Info) Description 01/12/2024 9:40 AM EST Office Visit Family Practice [facility] [address] [facility] [place] [address] Virginia Pacheco DO [address] [place] [address] 01/13/2024 12:00 PM EST Office Visit Gastroenterology, [facility] [address] [facility] [place] [address] Dean Hebert CRNP 132 [facility] [place] [address] Scheduled Orders Name Type Priority Associated Diagnoses [...] this encounter Medical Devices Implanted Type Area Wire Lather Device Identifier Shelf Expiration Date Model / Serial / Lot Hemostatic Clip Res 235cm - [id number] Implanted:Qty: 1 on 06/25/2023 by Johnny Sethi DO at [facility]COPY [facility] : ENDOSCOPY 11/17/2025 [id number] / / [id number] documented as of this encounter Visit Diagnoses Diagnosis Hypothyroidism, unspecified type- Primary documented in this encounter Care Teams Chain Repairer Relationship Specialty Start Date End Date Brittany Howard CRNP [address] [place] [address] PCP - General Nurse Practitioner 09/14/23 documented as of this encounter
--- OUTSIDE RECORDS SUMMARY | 2023-10-17 04:02 | External Medical Summary | Summary of Care ---
Author Name Unknown Organization [facility] Address [address] [place] [address] Phone [phone] Care Team Providers Care Technical Training Specialist Name Role Phone Iron Acharya DO Primary Care Provider [phone] Reason for Visit * Reason Onset Date Comments Medication Refill 09/11/2023 Encounter Details Date Type Department Care Team ([facility] st Contact Info) Description 09/11/2023 Refill Family Practice [facility] [address] [place] [address] Iron Acharya DO [address] [address] Allergies Active Allergy Reactions Criticality Noted Date Comments Aspirin Rash 06/18/2023 Penicillins Hives 06/08/2023 documented as of this encounter (statuses as of 09/11/2023) Medications Medication Sig Dispensed Refills Start Date [...] a day as needed for Itching. Active predniSONE 10 MG Oral Tablet (Deltasone)Indica tions:Rash and nonspecific skin eruption Take 5 tabs for 2 days, 4 tabs for 2 days, 3 tabs for 2 days, 2 tabs for 2 days 1 tab for 2 days 30 Tablet 09/07/2023 Active DULoxetine HCl 60 MG Oral Capsule Delayed Release Particles (Cymbalta) Take 1 Capsule by mouth in the morning. 30 Capsule 09/11/2023 Active Vitamin D (Ergocalciferol) 1.25 MG (09687 UT) Oral Capsule (Drisdol) Take 1 Capsule by mouth every 4 weeks. 12 Capsule 09/11/2023 Active DULoxetine HCl 60 MG Oral Capsule Delayed Release Particles (Cymbalta) 06/04/2023 4 Discontinue d(Refill) Vitamin D (Ergocalciferol) 1.25 MG (67312 UT) Oral Capsule (Drisdol) 06/04/2023 4 Discontinue d(Refill) documented as of this encounter (statuses as of 09/11/2023) Active Problems Problem Noted Date Diagnosed Date Prediabetes 07/20/2023 documented as of this encounter (statuses as of 09/11/2023) Social History Tobacco Use Types Packs/Day Years [...] encounter Miscellaneous Notes * Telephone Encounter - Iron Acharya DO - 09/11/2023 1:50 PM EDTSigned Prescriptions: Disp Refills DULoxetine HCl 60 MG Oral Capsule Delayed *30 Cap*0 Sig: Take 1 Capsule by mouth in the morning.Authorizing Provider: IRON ACHARYA Vitamin D (Ergocalciferol) 1.25 MG (48220 *12 Cap*0 Sig: Take 1 Capsule by mouth every 4 weeks.Authorizing Provider: IRON ACHARYA * Telephone Encounter - Jeff Gagnon CPhT - 09/11/2023 12:40 PM EDT Pt requesting high priority due to being down to two days of medication and weekend coming up. Pt calling requesting the following medication below that is listed as "Historical". The following information was provided: Medication Name: Duloxetine Strength: 60 MG Directions: Take 1 Capsule by mouth daily in the morning. Preferred Quantity: 90 Previous Prescriber: N/A, PCP that she was previously seeing in [place] Medication Name: Vitamin D Strength: 1.25 MG (90713 UT) Directions: Take 1 Capsule by mouth once a week. Preferred Quantity: 12 Previous Prescriber: N/A, PCP that she was previously seeing in [place] Pref[facility]: [id number] [address] [place] [address] Please review and approve if appropriate. Thank you, Jeff Gagnon Welt Sole Layer [facility] 09/11/2023,12:40 PM documented in this encounter Plan of Treatment Upcoming Encounters Date Type Department Care Team (Late st Contact Info) Description 09/14/2023 3:20 PM EDT Office Visit [address] [place] [address] Brittany Howard CRNP 132 [facility] [place] [address] 09/24/2023 9:20 AM EDT Office Visit Sleep Disorders Ctr [facility] 132 [facility] [place] [address] Sydnee Dc, DO 132 [facility] [place] [address] 01/12/2024 9:40 AM EST Office Visit Family Practice [facility] 132 [facility] [place] [address] Iron Acharya, DO 132 [facility] [place] [address] 01/13/2024 12:00 PM EST Office Visit Gastroenterology, [facility] 132 [facility] [place] [address] Dean Hebert CRNP 132 [facility] [place] [address] Scheduled Procedures Name Priority Associated Diagnoses Date/Ti [...] this encounter Medical Devices Implanted Type Area Vice President Medical Affairs Device Identifier Shelf Expiration Date Model / Serial / Lot Hemostatic Clip Res 235cm - [id number] Implanted:Qty: 1 on 06/25/2023 by Johnny Sethi DO at [facility]COPY [facility] : ENDOSCOPY 11/17/2025 [id number] / / [id number] documented as of this encounter Care Teams Technical Training Specialist Relationship Specialty Start Date End Date Iron Acharya DO [address] [place] [address] PCP - General Family Medicine 07/20/23 documented as of this encounter
--- OUTSIDE RECORDS SUMMARY | 2023-10-17 04:03 | External Medical Summary | Summary of Care ---
Author Name Unknown Organization [facility] Address [address] [place] [address] Phone [phone] Care Team Providers Care Assistant Signal Maintainer Name Role Phone Unavailable Primary Care Provider Unavailabl e Encounter Details Date Type Department Care Team (Latest Contact Info) Description 05/28/2020 11:05 AM EDT - 05/28/2020 11:59 PM EDT Hospital Encounter Radiology Film File [address] [place] [address] Discharge Disposition: Home - Self Care Allergies Active Allergy Reactions Criticality Noted Date Comments Aspirin Rash 06/18/2023 Penicillins Hives 06/08/2023 documented as of this encounter (statuses as of 09/04/2023) Medications No known medicationsdocumented as of this encounter (statuses as of 09/04/2023) Active Problems Problem Noted Date Diagnosed Date Prediabetes 07/20/2023 documented as of this encounter (statuses as of 09/04/2023) Social History Tobacco Use Types Packs/Day Years Used Date Smoking Tobacco: Never Assessed Hunger Vital Sign Answer Date Recorded Within [...] No 07/20/2023 Does the household have a [facility] source of income? (Household - for [...] on file documented as of this encounter Plan of Treatment Upcoming Encounters Date Type Department Care Team (Late st Contact Info) Description 09/14/2023 3:20 PM EDT Office Visit Family Practice [facility] [address] [place] [address] Brittany Howard CRNP 132 [place] [address] 09/24/2023 9:20 AM EDT Office Visit [facility]tr [facility] [address] [place] [address] DcSydnee Tova, DO [address] [place] [address] 01/12/2024 9:40 AM EST Office Visit Family Practice [facility] [address] [place] [address] Virginia Pacheco, DO [address] [place] [address] 01/13/2024 12:00 PM EST Office Visit Gastroenterology, [facility] [address] [place] [address] Dean Hebert CRNP [address] [place] [address] Scheduled Procedures Name Priority Associated Diagnoses Date/Ti [...] this encounter Medical Devices Implanted Type Area Diet Kitchen Cook Device Identifier Shelf Expiration Date Model / Serial / Lot Hemostatic Clip Res 235cm - [id number] Implanted:Qty: 1 on 06/25/2023 by Johnny Sethi DO at ENDOSCOPY [facility] : ENDOSCOPY 11/17/2025 [id number] / / [id number] documented as of this encounter Procedures Procedure Name Priority Date/Time Associated Diagnosis Comments RADIOLOGY EXAM - MAMMOGRAPHY (IMAGES ONLY, NO REPORT) Routine 05/28/2020 11:05 AM EDT documented in this encounter Results * RADIOLOGY EXAM - MAMMOGRAPHY (IMAGES ONLY, NO REPORT) (05/28/2020 11:05 AM EDT) 05/28/2020 10:5 7 AM EDT Narrative Scheduling, Silent - 09/03/2023 1:01 PM EDT This is an imaging study not interpreted or resulted by a [facility] or [facility] contracted radiologist. Claudine Murillo Backer KAYCEE RAD MAMMOGR APHY documented in this encounter
--- OUTSIDE RECORDS SUMMARY | 2023-10-17 04:03 | External Medical Summary | Summary of Care ---
Author Name Unknown Organization [facility] Address [address] [place] [address] Phone [phone] Care Team Providers Care News Production Assistant Name Role Phone Sunday Pachecokristopher Banks DO Primary Care Provider [phone] Reason for Visit * Reason Comments PAP Encounter Details Date Type Department Care Team ([facility] Contact Info) Description 08/26/2023 11:00 AM EDT Office Visit Gynecology/Obstetri [facility] [address] [facility] [place] [address] Claudine Kasper CRNP [address] [facility] [place] [address] Encounter for annual routine gynecological examination*; Encounter for screening mammogram for malignant neoplasm of breast; Vulvar pruritus; Vasomotor symptoms due to menopause Allergies Active Allergy Reactions Criticality Noted Date Comments Aspirin Rash 06/18/2023 Penicillins Hives 06/08/2023 documented as of this encounter (statuses as of 08/26/2023) Medications Medication Sig Dispensed Refills Start Date End Date Status buPROPion HCl ER (XL) 300 MG Oral Tablet Extended Release 24 Hour (Wellbutrin XL) TK 1 T PO D Active DULoxetine HCl 60 MG Oral Capsule Delayed Release Particles (Cymbalta) 4 Active Levothyroxine Sodium 100 MCG Oral Tablet (Levoxyl) Take 1 Tablet by mouth at bedtime. Active Vitamin D (Ergocalciferol) 1.25 MG (22910 UT) Oral Capsule (Drisdol) 4 Active Methocarbamol 500 MG Oral Tablet (Robamol) [...] mouth in the morning. 90 Tablet 3 4 Active Dicyclomine HCl 10 MG Oral Capsule (Bentyl) One tab by mouth twice daily as needed for abdominal pain. 120 Capsule 2 4 Active Triamcinolone Acetonide 0.1 % External Ointment (Aristocort)Loulou cations:Vulvar pruritus Apply to vulva as needed for itching 30 g 6 4 Active Estradiol 1 MG Oral Tablet (Estrace)Indicat ions:Vasomotor symptoms due to menopause Take 1 Tablet by mouth every morning. 90 Tablet 3 4 Active Progesterone 200 MG Oral Capsule (Prometrium)Loulou cations:Vasomoto r symptoms due to menopause Take 1 Capsule by mouth at bedtime. 90 Capsule 3 4 Active Progesterone 100 MG Oral Capsule (Prometrium) Take 1 Capsule by mouth at bedtime. 08/26/19 24 Discontinued(Ref ill) Famotidine 20 MG Oral Tablet (Pepcid)Indicati ons:Gastroesopha geal reflux disease, unspecified whether esophagitis present Take 1 Tablet by mouth 2 times a day as needed for Heartburn. 60 Tablet 11 4 08/26/19 24 [facility] Clobetasol Propionate 0.05 % External Ointment (Temovate)Indica tions:Vulvar pruritus Rub pea sized amount onto labia twice a day for 2 weeks, then daily for 2 weeks, then 2 days a week 30 g 4 08/26/19 24 Discontinued Estradiol 1 MG Oral Tablet (Estrace)Indicat ions:Vasomotor symptoms due to menopause Take 1 Tablet by mouth every morning. 30 Tablet 3 4 08/26/19 24 Discontinued(Ref ill) documented as of this encounter (statuses as of 08/26/2023) Active Problems Problem Noted Date Diagnosed Date Prediabetes 07/20/2023 documented as of this encounter (statuses as of 08/26/2023) Social History Tobacco Use Types Packs/Day Years [...] Sign Reading Time Taken Comments Blood Pressure 116/64 08/26/2023 10:44 AM EDT Pulse - - Temperature - - Respiratory Rate - - Oxygen Saturation - - Inhaled Oxygen Concentration - - Weight 76.2 kg (168 lb) 08/26/2023 10:44 AM EDT Height 165.1 cm (5' 5") 08/26/2023 10:44 AM EDT Body Mass Index 27.96 08/26/2023 10:44 AM EDT documented in this encounter Progress Notes * Claudine Kasper CRNP - 08/26/2023 11:07 AM EDT HPI: The patient is a 63 year old who presents for annual gynecological examination. 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 No LMP recorded. Patient is postmenopausal. Denies vaginal bleeding. 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 Has found good relief with this, using clobetasol 3x/week. Up to date with mammogram. Thinks her last pap was 3 yrs ago, reports normal history. Infrequently sexually active, . On oral estradiol and Prometrium, started about 9 yrs ago. Wishes to continue this. OB HISTORY: OB History Para Term AB Living 2 2 2 SAB IAB Ectopic Multiple Live Births # Outcome Date GA Lbr Steven/2nd Weight Sex Type Anes PTL Lv 2 Term 1 Term Past Medical History: Diagnosis Date Hyperlipidemia Osteoarthritis RUQ pain Thyroid disease Past Surgical History: Procedure Laterality Date COLONOSCOPY, DIAGNOSTIC (RECTUM) 06/25/2023 hemorrhoids/mild diverticulosis/biopsies show adenomatous polyps/recall 5 years/COLONOSCOPY FLEXIBLE PROXIMAL DIAGNOSTIC performed by Johnny Sethi DO at [facility]COPY [facility] EGD, FLEXIBLE, DIAGNOSTIC 06/25/2023 gastritis/biopsies normal/ESOPHAGOGASTRODUODENOSCOPY (EGD), FLEXIBLE, TRANSORAL, DIAGNOSTIC performed by Johnny Sethi DO at [facility] MAMMOGRAM BREAST NEEDLE BIOPSY CORE RIGHT Right 2003 Benign REDUCTION OF BREAST Bilateral 2021 Current Outpatient Medications Medication Sig Dispense Refill buPROPion HCl ER (XL) 300 MG Oral Tablet Extended Release 24 Hour (Wellbutrin XL) TK 1 T PO D DULoxetine HCl 60 MG Oral Capsule Delayed Release Particles (Cymbalta) Levothyroxine Sodium 100 MCG Oral Tablet (Levoxyl) Take 1 Tablet by mouth at bedtime. Vitamin D (Ergocalciferol) 1.25 MG (26091 UT) Oral Capsule (Drisdol) Methocarbamol 500 MG Oral Tablet (Robamol) Take 1 Tablet by mouth in the morning and 1 Tablet at noon and 1 Tablet in the evening and 1 Tablet before bedtime. Pravastatin Sodium 80 MG Oral Tablet Take 1 Tablet by mouth at bedtime. Progesterone 100 MG Oral Capsule (Prometrium) Take 1 Capsule by mouth at bedtime. Clobetasol Propionate 0.05 % External Ointment (Temovate) Rub pea sized amount onto labia twice a day for 2 weeks, then daily for 2 weeks, then 2 days a week 30 g 0 Estradiol 1 MG Oral Tablet (Estrace) Take 1 Tablet by mouth every morning. 30 Tablet 3 Pantoprazole Sodium 40 MG Oral Tablet Delayed Release (Protonix) Take 1 Tablet by mouth in the morning. 90 Tablet 3 Dicyclomine HCl 10 MG Oral Capsule (Bentyl) One tab by mouth twice daily as needed for abdominal pain. 120 Capsule 2 Famotidine 20 MG Oral Tablet (Pepcid) Take 1 Tablet by mouth 2 times a day as needed for Heartburn.(Patient not taking: Reported on 08/20/2023) 60 Tablet 11 No current facility-administered medications for this visit. Review of patient's allergies indicates: Allergen Reactions Aspirin Rash Penicillins Hives Social History Socioeconomic History Marital status: Spouse name: Not on file Number of children: Not on file Years of education: Not on file Highest education level: Not on file Occupational History Not on file Tobacco Use Smoking status: Never Smokeless tobacco: Never Vaping Use Vaping status: Never Used Substance and Sexual Activity Alcohol use: Never Drug use: Never Sexual activity: Yes Other Topics Concern Not on file Social History Narrative Not on file Social Determinants of Health Financial Resource Strain: Low Risk (07/20/2023) Financial Resource Strain Do you have any trouble paying for your medications, or do you think you might in the future? (Adult - for ages 18 years and over): No Does your family have trouble paying for medicine? (Household - for ages 0-17 years): Not on file Food Insecurity: No Food Insecurity (07/20/2023) Food Insecurity Do you need food for this week? (Adult - for ages 18 years and over): No Are you able to get enough food for your family? (Household - for ages 0-17 years): Not on file Does your family need food this week? (Household - for ages 0-17 years): Not on file Do you always have enough food for your family? (Household - for ages 0-17 years): Not on file Transportation Needs: No Transportation Needs (07/20/2023) Transportation Needs Do you have trouble getting a ride to medical visits or work? (Adult - for ages 18 years and over):Never True Does your family have a hard time getting a ride to doctors visits? (Household - for ages 0-17 years): Not on file Has lack of transportation kept you from medical appointments, meetings, work, or from getting things needed for daily living? Check all that apply. (Adult - for ages 18 years and over): Not on file Do you (or your family) have trouble finding or paying for a ride (transportation)? (Household - for ages 0-17 years): Not on file Social Connections: Socially Integrated (07/20/2023) Social Connections How often do you feel lonely or isolated from those around you? (Adult - for ages 18 years and over): Never Housing Stability: Low Risk (07/20/2023) Housing Stability Do you currently live in a alf or have no steady place to sleep at night? (Adult - for ages 18 years and over): No Do you think you are at risk of becoming homeless? (Adult - for ages 18 years and over): No Does your family worry about paying for your home or becoming homeless? (Household - for ages 0-17 years): Not on file Are you homeless or worried that you might be in the future? (Adult - for ages 18 years and over): Not on file Are you (or your family) homeless or worried that you might be in the future? 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 ROS EXAM: CONSTITUTIONAL: No change in weight, No weakness, No fatigue, and No fevers, sweats, or chills BREASTS: No new breast lumps or masses, No severe breast pain, No nipple discharge, No recent change in shape/color, and Performs self breast exam FEMALE: No STDs, No dysuria, No frequency, No incontinence, No urgency, and No vaginal discharge/bleeding PHYSICAL EXAM BP 116/64 | Ht 1.651 m (5' 5") | Wt 76.2 kg (168 lb) | BMI 27.96 kg/m | BSA 1.87 m Environmental Associate Documentation Provider requested nitroglycerin separator operator. Name of nitroglycerin separator operator: Brittni General: No acute distress, sitting comfortably, normal interaction Psych: appropriate affect and insight. No depressive symptoms. Neck: supple, no adenopathy Abdomen: abdomen soft, non-tender, no masses or organomegaly, and no rebound or guarding Breasts: Inspection negative No nipple retraction or dimpling No nipple discharge or bleeding No axillary or supraclavicular adenopathy Normal to palpation without dominant masses Scars noted bilaterally secondary to breast reduction. Inguinal Nodes: No palpable nodes. External: normal anatomy. Vagina: atrophic with decreased rugation. Cervix: pap smear performed, no cervical motion tenderness, without lesions, and non-friable. Uterus: mobile and non-tender. Adnexa: no palpable mass bilaterally and non-tender bilaterally Rectal: deferred. Extremeties: No deep calf tenderness, bilaterally Neurological: Grossly intact. IMPRESSION/PLAN: 1. Encounter for annual routine gynecological examination - RAIL TRANSPORTATION OPERATOR PAP SCREEN; Future 2. Encounter for screening mammogram for malignant neoplasm of breast - MAMMOGRAM SCREENING BRITANY BILATERAL; Future 3. Vulvar pruritus Normal exam. D/c clobetasol in favor of less potent steroid ointment. Call office if needing to useit >3 times a week, or if symptoms persist/worsen. Would consider biopsy at that time. - Triamcinolone Acetonide 0.1 % External Ointment (Aristocort); Apply to vulva as needed for itching Dispense: 30 g; Refill: 6 4. Vasomotor symptoms due to menopause Doing well on HRT. Denies vaginal bleeding. Discussed increase in general risks with advancing age, specifically CVD/stroke. Her ASCVD 10 yr risk score is <5, so it is reasonable to continue PO at this time. Advised that transdermal may be more appropriate down the road, or if health issues change. Discussed benefit of osteoporosis prevention and symptom management. Recommend increasing Prometrium to 200 mg if on 1 mg estradiol, she is agreeable. Call office with any post menopausal bleeding or other concerns. - Estradiol 1 MG Oral Tablet (Estrace); Take 1 Tablet by mouth every morning. Dispense: 90 Tablet; Refill: 3 - Progesterone 200 MG Oral Capsule (Prometrium); Take 1 Capsule by mouth at bedtime. Dispense: 90 Capsule; Refill: 3 Follow Up: Return in about 1 year (around 08/25/2024) for med check. | For: med check | Check-out note: Mammogram 2024 [facility] [place] 08/26/23 documented in this encounter Nursing Notes * Brittni Shahid LPN - 08/26/2023 10:53 AM EDT Patient identified Christina Haider by name and date of . Patient here for yearly exam. Complaints: none Last pap: ? 3 yrs ago Last Mammogram: 08/06/23 Last Dexa: none Last Colonoscopy: 06/25/23 Type of Contraception: menopause Pt here for chlamydia screen. no Have you heard about the Gardasil Vaccine? yes Would you be interested in discussing this with your provider? no My [facility] is a way you can talk to your provider online through e-mail. May I activate it for you? ALREADY ACTIVE Do you need any refills while you are here? No Brittni Shahid LPN 08/26/2023 10:53 AM documented in this encounter Plan of Treatment Upcoming Encounters Date Type Department Care Team (Late st Contact Info) Description 09/14/2023 3:20 PM EDT Office Visit Family [facility] [address] [facility] [place] [address] Brittany Howard CRNP [address] [place] [address] 09/24/2023 9:20 AM EDT Office Visit [facility] [address] [place] [address] Sydnee Dc, DO [address] [place] [address] 01/12/2024 9:40 AM EST Office Visit Family Practice [facility] [address] [place] [address] Virginia Pacheco, DO [address] [place] [address] 01/13/2024 12:00 PM EST Office Visit Gastroenterology, [facility] [address] [place] [address] Dean Hebert CRNP [address] [place] [address] Pending Results Name Type Priority Associated Diagnoses Date /Time RAIL TRANSPORTATION OPERATOR PAP SCREEN Pathology Routine Encounter for annual routine gynecological examination 08/26/2023 11:21 AM EDT Scheduled Orders Name Type Priority Associated Diagnoses Orde r Schedule MAMMOGRAM SCREENING BRITANY BILATERAL Medical Imaging Routine Encounter for screening mammogram for malignant neoplasm of breast Expected: 08/08/2024 (Approximate), Expires: 09/25/2024 RAIL TRANSPORTATION OPERATOR PAP SCREEN Pathology Routine Encounter for annual routine gynecological examination Expected: 08/26/2023, Expires: 09/25/2024 Scheduled Procedures Name Priority Associated Diagnoses Date/Ti me COLONOSCOPY FLEXIBLE PROXIMA L DIAGNOSTIC Recall History of colonic polyps Health Maintenance Due Date Last Done Comments Depression Screening 1972 HIV Screening 02/07/1975 Hepatitis C Screening 02/07/1978 DTaP,Tdap,and Td Vaccines (1 - Tdap) 02/07/1979 Pap Smear 02/07/1981 Cervical Cancer Screening 02/07/1990 HPV/Co-Test 02/07/1990 Cologuard 02/07/2005 Fecal Occult Blood Test 02/07/2005 Sigmoidoscopy 02/07/2005 Zoster Vaccines (1 of 2) 02/07/2010 COVID-19 Vaccine (1 - 2022-2 4 season) 2022 Influenza Vaccine (FLU shot) (#1) 2023 12/03/2020 TSH 06/18/2024 06/19/2023 HbA1c 07/15/2024 07/16/2023 Mammogram 08/05/2024 08/06/2023 Lipid Panel 06/18/2028 06/19/2023 Colonoscopy 06/24/2028 06/25/2023, 06/25/2023 Colorectal Cancer Screening 06/24/2028 HPV (Gardasil) Vaccine Aged Out No lo [...] this encounter Medical Devices Implanted Type Area Picking Supervisor Device Identifier Shelf Expiration Date Model / Serial / Lot Hemostatic Clip Res 235cm - [id number] Implanted:Qty: 1 on 06/25/2023 by Johnny Sethi DO at ENDOSCOPY [facility] 11/17/2025 [id number] / / [id number] documented as of this encounter Visit Diagnoses Diagnosis Encounter for annual routine gynecological examination- Primary Encounter for screening mammogram for malignant neoplasm of breast Other screening mammogram Vulvar pruritus Pruritus of genital organs Vasomotor symptoms due to menopause documented in this encounter Care Teams News Production Assistant Relationship Specialty Start Date End Date Virginia Pacheco DO [address] [place] [address] PCP - General Family Medicine 07/20/23 documented as of this encounter
--- OUTSIDE RECORDS SUMMARY | 2023-10-17 04:03 | External Medical Summary | Summary of Care ---
Author Name Unknown Organization [facility] Address [address] [place] [address] Phone [phone] Care Team Providers Care Mail Carrier And Clerk Name Role Phone Iron Pacheco Primary Care Provider [phone] Reason for Visit * Reason Comments NEW PATIENT New pt ref by Dee BENOIT for LUQ pain. * Evaluate & Treat - Unlimited Visits (Within 10 days (routine)) - Authorized Specialty Diagnoses / Procedures Referred By Mechelle carmona Referred To Contact Gastroenterology Diagnoses Left upper quadrant pain Brittany Howard CRNP [address] [facility] [address] Referral ID Status Reason Start Date Expiration Date Visits Requested Visits Authorized [id number] Authorized Specialty Services Required 07/16/2023 07/15/2024 [id number] Encounter Details Date Type Department Care Team ([facility] Contact Info) Description 08/20/2023 1:00 PM EDT Office Visit Gastroenterology, [facility] [address] [place] [address] Dean Hebert CRNP [address] [place] [address] LUQ abdominal pain* Allergies Active Allergy Reactions Criticality Noted Date Comments Aspirin Rash 06/18/2023 Penicillins Hives 06/08/2023 documented as of this encounter (statuses as of 08/20/2023) Medications Medication Sig Dispensed Refills Start Date End Date Status buPROPion HCl ER (XL) 300 MG Oral Tablet Extended Release 24 Hour (Wellbutrin XL) TK 1 T PO D Active DULoxetine HCl 60 MG Oral Capsule Delayed Release Particles (Cymbalta) 06/04/2023 Active Levothyroxine Sodium 100 MCG Oral Tablet (Levoxyl) Take 1 Tablet by mouth at bedtime. Active Vitamin D (Ergocalciferol) 1.25 MG (60580 UT) Oral Capsule (Drisdol) 06/04/2023 Active Methocarbamol 500 MG Oral Tablet (Robamol) Take 1 Tablet by mouth in the morning and 1 Tablet at noon and 1 Tablet in the evening and 1 Tablet before bedtime. Active Pravastatin Sodium 80 MG Oral Tablet Take 1 Tablet by mouth at bedtime. Active Progesterone 100 MG Oral Capsule (Prometrium) Take 1 Capsule by mouth at bedtime. Active Famotidine 20 MG Oral Tablet (Pepcid)Indication s:Gastroesophageal reflux disease, unspecified whether esophagitis present Take 1 Tablet by mouth 2 times a day as needed for Heartburn. 60 Tablet 11 06/19/2023 Active Additional Information Patient not taking.Reported on 08/20/2023 Clobetasol Propionate 0.05 % External Ointment (Temovate)Indicati ons:Vulvar pruritus Rub pea sized amount onto labia twice a day for 2 weeks, then daily for 2 weeks, then 2 days a week 30 g 08/11/2023 Active Estradiol 1 MG Oral Tablet (Estrace)Indicatio ns:Vasomotor symptoms due to menopause Take 1 Tablet by mouth every morning. 30 Tablet 3 08/11/2023 Active Pantoprazole Sodium 40 MG Oral Tablet Delayed Release (Protonix) Take 1 Tablet by mouth in the morning. 90 Tablet 3 08/12/2023 Active Dicyclomine HCl 10 MG Oral Capsule (Bentyl) One tab by mouth twice daily as needed for abdominal pain. 120 Capsule 2 08/20/2023 Active documented as of this encounter (statuses as of 08/20/2023) Active Problems Problem Noted Date Diagnosed Date Prediabetes 07/20/2023 documented as of this encounter (statuses as of 08/20/2023) Social History Tobacco Use Types Packs/Day Years [...] No 07/20/2023 Does the household have a [facility] source of income? (Household - for ages [...] Sign Reading Time Taken Comments Blood Pressure 118/68 08/20/2023 1:04 PM EDT Pulse 78 08/20/2023 1:04 PM EDT Temperature 36.7 C (98.1 F) 08/20/2023 1:04 PM ED T Respiratory Rate - - Oxygen Saturation - - Inhaled Oxygen Concentration - - Weight 76.4 kg (168 lb 6.4 oz) 08/20/2023 1:04 P M EDT Height - - Body Mass Index 28.02 06/25/2023 10:58 AM EDT documented in this encounter Progress Notes * Dean Hebert CRNP - 08/20/2023 1:20 PM EDT Consult requested by Ref: IRON PACHECO[[id number]] [address] [place] [address] (office) [phone] (fax) CC: LUQ abdominal pain HPI: 63 year old female pt of Iron Pacheco DO presents for LUQ which began in May and radiating around the left side to her back. Began after eating ice cream and was in a car, during travelingto move to [place] from [place] where they had lived for a year and were babysitting a grandchild for a year.She was seen in Urgent care for this pain, cough and was tx for UTI and got established w a PCP. Can't sleep on her left side because uncomfortable in the LUQ. Pain is episodic and is worse after eating high fat foods. The episodes of pain are less frequent w cleaning up her diet recently (less refined foods, less sugar and fats). Has gassiness, bloating after eating. No N/V or blood in BMs. Diagnostic Testing: CTAP w IV July 2021: normal. EGD June 2023: Normal esophagus. - Z-line regular, 35 cm from the incisors. - Gastritis. Biopsied. - Normal cardia, gastric fundus and gastric body. - Normal examined duodenum. Colonoscopy June 2023: Hemorrhoids found on perianal exam. - The examined portion of the ileum was normal. - One 6 mm polyp in the cecum, removed with a cold snare. Resected and retrieved. Clip (MR conditional) was placed. - One 4 mm polyp in the descending colon, removed with a cold snare. Resected and retrieved. - Mild diverticulosis in the sigmoid colon. - Non-bleeding internal hemorrhoids. - The examination was otherwise normal. A. Duodenum, biopsy: Unremarkable duodenal mucosa with intact villous architecture No evidence of celiac disease B. Stomach, biopsy: Antral and oxyntic type mucosa with minimal chronic inactive gastritis C. Colon, Cecum, polyp, polypectomy: Polypoid colonic mucosa with lymphoid aggregate Negative for dysplasia D. Colon, Descending, polyp, polypectomy: Tubular adenoma ROS: + dizzy spells (episodic) + sleeps many hours every day and still so tired, fatigued + feels SOB, unable to exercise. GI + as per HPI, otherwise (-). A total of 12 systems were reviewed, all others (-). ALLERGIES: Review of patient's allergies indicates: Allergen Reactions Aspirin Rash Penicillins Hives PMH/PSH/Soc Hx reviewed, significant for: Past Medical History: Diagnosis Date RUQ pain Past Surgical History: Procedure Laterality Date COLONOSCOPY, DIAGNOSTIC (RECTUM) 06/25/2023 hemorrhoids/mild diverticulosis/biopsies show adenomatous polyps/recall 5 years/COLONOSCOPY FLEXIBLE PROXIMAL DIAGNOSTIC performed by Johnny Sethi DO at ENDOSCOPY [facility] EGD, FLEXIBLE, DIAGNOSTIC 06/25/2023 gastritis/biopsies normal/ESOPHAGOGASTRODUODENOSCOPY (EGD), FLEXIBLE, TRANSORAL, DIAGNOSTIC performed by Johnny Sethi DO at ENDOSCOPY [facility] MAMMOGRAM BREAST NEEDLE BIOPSY CORE RIGHT Right 2003 Benign REDUCTION OF BREAST Bilateral 2020 Social History Socioeconomic History Marital status: Tobacco Use Smoking status: Never Smokeless tobacco: Never Vaping Use Vaping status: Never Used Substance and Sexual Activity Alcohol use: Never Drug use: Never Sexual activity: Yes Social Determinants of Health Financial Resource Strain: Low Risk (07/20/2023) Financial Resource Strain Do you have any trouble paying for your medications, or do you think you might in the future? (Adult - for ages 18 years and over): No Food Insecurity: No Food Insecurity (07/20/2023) Food Insecurity Do you need food for this week? (Adult - for ages 18 years and over): No Transportation Needs: No Transportation Needs (07/20/2023) Transportation Needs Do you have trouble getting a ride to medical visits or work? (Adult - for ages 18 years and over):Never True Social Connections: Socially Integrated (07/20/2023) Social Connections How often do you feel lonely or isolated from those around you? (Adult - for ages 18 years and over): Never Housing Stability: Low Risk (07/20/2023) Housing Stability Do you currently live in a longterm or have no steady place to sleep at night? (Adult - for ages 18 years and over): No Do you think you are at risk of becoming homeless? (Adult - for ages 18 years and over): No Family history reviewed and significant for: Family History Problem Relation Name Age of Onset Breast Cancer No significant family history Current Outpatient Medications Medication Sig Dispense Refill Pantoprazole Sodium 40 MG Oral Tablet Delayed Release (Protonix) Take 1 Tablet by mouth in the morning. 90 Tablet 3 Clobetasol Propionate 0.05 % External Ointment (Temovate) Rub pea sized amount onto labia twice a day for 2 weeks, then daily for 2 weeks, then 2 days a week 30 g 0 Estradiol 1 MG Oral Tablet (Estrace) Take 1 Tablet by mouth every morning. 30 Tablet 3 buPROPion HCl ER (XL) 300 MG Oral Tablet Extended Release 24 Hour (Wellbutrin XL) TK 1 T PO D DULoxetine HCl 60 MG Oral Capsule Delayed Release Particles (Cymbalta) Levothyroxine Sodium 100 MCG Oral Tablet (Levoxyl) Take 1 Tablet by mouth at bedtime. Pravastatin Sodium 80 MG Oral Tablet Take 1 Tablet by mouth at bedtime. Progesterone 100 MG Oral Capsule (Prometrium) Take 1 Capsule by mouth at bedtime. Vitamin D (Ergocalciferol) 1.25 MG (98843 UT) Oral Capsule (Drisdol) Famotidine 20 MG Oral Tablet (Pepcid) Take 1 Tablet by mouth 2 times a day as needed for Heartburn.(Patient not taking: Reported on 08/20/2023) 60 Tablet 11 Methocarbamol 500 MG Oral Tablet (Robamol) Take 1 Tablet by mouth in the morning and 1 Tablet at noon and 1 Tablet in the evening and 1 Tablet before bedtime. No current facility-administered medications for this visit. EXAM: BP 118/68 | Pulse 78 | Temp 36.7 C (98.1 F) | Wt 76.4 kg (168 lb 6.4 oz) | BMI 28.02 kg/m | BSA 1.87 m GENERAL: 63 year old female well developed and well nourished in no acute distress SKIN: no rashes, ulcers, or spider angiomata HEENT: normocephalic, sclera clear, pharynx normal NECK: supple, no lymphadenopathy, no masses or thyroid enlargement LUNGS: clear to auscultation anterior and posterior HEART: regular rate & rhythm, no murmurs and no gallops ABDOMEN: normo-active bowel sounds, soft, mildly tender in the LUQ, non- distended no masses, no hepatosplenomegaly, no rebound or guarding, no bruits EXTREMITIES: no palmar erythema, no edema, no skin discoloration, no clubbing, no cyanosis NEURO: no lateralizing findings, Sensory/Motor grossly normal IMPRESSION/RECOMMENDATIONS: 63 year old female with LUQ abdominal pain (Primary), with normal EGD, Colonoscopy and CT this most likely secondary to IBS. Her post prandial bloating may represent SIBO - Dicyclomine HCl 10 MG Oral Capsule (Bentyl); One tab by mouth twice daily as needed for abdominal pain. Avoid in between meal snacks, avoid dairy, eliminate soda, high fructose corn syrup and artificial sweeteners. Avoid dairy or take a Lactaid pill prior to eating any milk or ice cream. The pathophysiology of IBS was discussed. Stress management encouraged. Taught the alarm signals that are not part of IBS and encouraged to call if she experiences those (night time stooling, night time abdominal pain, pain with fever, weight loss). She is worried that she could possibly have pancreas cancer. I reassured her that CT scan of the pancreas and lipase were normal. It is very unlikely she has any cancer anywhere in the abdomen or pelvis because she has had a normal EGD colonoscopy and CT scan. It is also unlikely that she has any cancers in the chest because she has had normal chest x-ray two views. I think this may be related to the stress of [place]oc[place] to [place] encouraged her to considerthat possibility. Recheck in January I spent a total of 60 minutes on the date of service in review of patient's record, and previously obtained information in person and appropriate medical visit, discussion and education of plan, withpatient and/or caregiver, placing orders for tests/referral/procedures as medically necessary and documentation of pertinent clinical information in patient's medical records for their visit today. KAYCEE Lloyd [facility] documented in this encounter Nursing Notes * Mireya Kirk CMA - 08/20/2023 1:04 PM EDT Chief Complaint Patient presents with NEW PATIENT New pt ref by Brittany BENOIT for LUQ pain. documented in this encounter Plan of Treatment Upcoming Encounters Date Type Department Care Team (Late st Contact Info) Description 08/26/2023 11:00 AM EDT Office Visit Gynecology/Obstetrics [facility] [address] [place] [address] Claudine Kasper CRNP [address] [place] [address] 09/14/2023 3:20 PM EDT Office Visit [facility] [address] [place] [address] Brittany Howard CRNP [address] [place] [address] 09/24/2023 9:20 AM EDT Office Visit [facility] [address] [place] [id number] Sydnee Dc, DO [address] [place] [address] 01/12/2024 9:40 AM EST Office Visit [facility] [address] [place] [address] Iron Pacheco, DO [address] [place] [address] 01/13/2024 12:00 PM EST Office Visit Gastroenterology, [facility] [address] [place] [address] Dean Hebert CRNP [address] [place] [address] Scheduled Procedures Name Priority Associated Diagnoses Date/Ti [...] Vaccines (1 of 2) 02/07/2010 COVID-19 Vaccine ( - 2022-2 4 season) 2022 Influenza Vaccine [...] this encounter Medical Devices Implanted Type Area Charger Operator Device Identifier Shelf Expiration Date Model / Serial / Lot Hemostatic Clip Res 235cm - [id number] Implanted:Qty: 1 on 06/25/2023 by Johnny Sethi DO at ENDOSCOPY [facility] [employer] : ENDOSCOPY 11/17/2025 [id number] / / [id number] documented as of this encounter Visit Diagnoses Diagnosis LUQ abdominal pain- Primary Abdominal pain, left upper quadrant documented in this encounter Care Teams Mail Carrier And Clerk Relationship Specialty Start Date End Date Iron Pacheco DO [address] [place] [address] PCP - General Family Medicine 07/20/23 documented as of this encounter"
--- OUTSIDE RECORDS SUMMARY | 2023-10-17 04:03 | External Medical Summary | Summary of Care ---
Author Name Unknown Organization [facility] Address [address] [place] [address] Phone [phone] Care Team Providers Care Nurse Case Management Name Role Phone Virginia Pacheco Jocelyn GAMING Primary Care Provider [phone] Reason for Referral * Precert (Within 10 days (routine)) - Authorized Specialty Diagnoses / Procedures Referred By Contcamelia t Referred To Contact Radiology Diagnoses Balance problem Transient vision disturbance Procedures MRI BRAIN W WO CONTRAST Brittany Howard CRNP [address] [place] [address] Referral ID Status Reason Start Date Expiration Date V isits Requested Visits Authorized [id number] Authorized 08/11/2023 02/07/2024 999 999 Reason for Visit * Reason Comments Return Visit Return, discuss resu lts from CT Encounter Details Date Type Department Care Team ([facility] Contact Info) Description 08/11/2023 9:40 AM EDT Office Visit Family Practice [facility] [address] [place] [address] Brittany Howard CRNP [address] [place] [address] Balance problem*; Vulvar pruritus; Transient vision disturbance; Nightmares; JING (generalized anxiety disorder); Vasomotor symptoms due to menopause; Dyslipidemia; Dry mouth; OAB (overactive bladder) Allergies Active Allergy Reactions Criticality Noted Date Comments Aspirin Rash 06/18/2023 Penicillins Hives 06/08/2023 documented as of this encounter (statuses as of 08/24/2023) Medications Medication Sig Dispensed Refills Start Date End Date Status buPROPion HCl ER (XL) 300 MG Oral Tablet Extended Release 24 Hour (Wellbutrin XL) TK 1 T PO D Active DULoxetine HCl 60 MG Oral Capsule Delayed Release Particles (Cymbalta) 4 Active Levothyroxine Sodium 100 MCG Oral Tablet (Levoxyl) Take 1 Tablet by mouth at bedtime. Active Vitamin D (Ergocalciferol) 1.25 MG (36120 UT) Oral Capsule (Drisdol) 4 Active Methocarbamol [...] bedtime. Active Famotidine 20 MG Oral Tablet (Pepcid)Indicatio ns:Gastroesophage al reflux disease, unspecified whether esophagitis present Take 1 Tablet by mouth 2 times a day as needed for Heartburn. 60 Tablet 11 4 Active Additional Information Patient not taking.Reported on 08/20/2023 Clobetasol Propionate 0.05 % External Ointment (Temovate)Indicat ions:Vulvar pruritus Rub pea sized amount onto labia twice a day for 2 weeks, then daily for 2 weeks, then 2 days a week 30 g 4 Active Estradiol 1 MG Oral Tablet (Estrace)Indicati ons:Vasomotor symptoms due to menopause Take 1 Tablet by mouth every morning. 30 Tablet 3 4 Active Pantoprazole Sodium 40 MG Oral Tablet Delayed Release (Protonix) Take 1 Tablet by mouth in the morning. 08/12/19 24 Discontinued(Ref ill) Darifenacin Hydrobromide ER 7.5 MG Oral Tablet Extended Release 24 Hour (Enablex) TK 1 T PO D 08/11/19 24 Discontinued Clobetasol Propionate 0.05 % External Ointment (Temovate)Indicat ions:Vulvar pruritus Rub pea sized amount onto labia twice a day for 2 weeks, then daily for 2 weeks, then 2 days a week 30 g 1 4 08/11/19 24 Discontinued(Ref ill) Estradiol 1 MG Oral Tablet (Estrace) Take 1 Tablet by mouth every morning. 08/11/19 24 Discontinued(Ref ill) Clotrimazole 10 MG Mouth/Throat Tata (Mycelex Tata)Indication s:Oral candidiasis Take 1 Lozenge by mouth 5 times a day. Allow tablet to slowly dissolve in your mouth 70 Tata 4 08/11/19 24 Discontinued documented as of this encounter (statuses as of 08/24/2023) Active Problems Problem Noted Date Diagnosed Date Prediabetes 07/20/2023 documented as of this encounter (statuses as of 08/24/2023) Social History Tobacco Use Types Packs/Day Years Used Date Smoking Tobacco: Never Smokeless Tobacco: Never Tobacco Cessation:Counseling Given: Not Answered Alcohol Use Standard Drinks/Week Comments Never 0 [...] Sign Reading Time Taken Comments Blood Pressure 122/76 08/11/2023 9:42 AM EDT Pulse 86 08/11/2023 9:42 AM EDT Temperature - - Respiratory Rate - - Oxygen Saturation 94% 08/11/2023 9:42 AM EDT Inhaled Oxygen Concentration - - Weight 76.1 kg (167 lb 11.2 oz) 08/11/2023 9:42 AM EDT Height - - Body Mass Index 27.91 06/25/2023 10:58 AM EDT documented in this encounter Progress Notes * Brittany Howard CRNP - 08/11/2023 10:23 AM EDT Images from the original note were not included. History of Present Illness Christina Haider is a 63 year old female that presents for Return Visit (Return, discuss results from CT ) HPI Here for ongoing issues with dry mouth, postprandial abdominal pain, severe fatigue, not feeling well. She has had EGD, colonoscopy, CTAP, and labs which have all been normal with exception of gastritis on EGD for which she takes protonix. She now complains of balance issues and generalized weakness. She is very concerned she has pancreatic cancer because she knows it is often asymptomatic until it is advanced and with the LUQ pain she wants to be sure this is not what is causing her symptoms. CTAP noted no abnormalities on the pancreas and her lipase is normal. She has no family history of pancreatic cancer. At this point I'm advising GI follow up for the LUQ pain. She is on anticholinergic for OAB as well as cymbalta and wellbutrin. At this point it might be worth considering whether some of these symptoms are from medications or possibly health anxiety. She is requesting clobetasol refill for vulvar pruritus that was previously prescribed by outside can capper until she can get in [facility]. She is also on HRT. Current Outpatient Medications Medication Sig Dispense Refill Clobetasol Propionate 0.05 % External Ointment (Temovate) Rub pea sized amount onto labia twice a day for 2 weeks, then daily for 2 weeks, then 2 days a week 30 g 0 Estradiol 1 MG Oral Tablet (Estrace) Take 1 Tablet by mouth every morning. 30 Tablet 3 Famotidine 20 MG Oral Tablet (Pepcid) Take 1 Tablet by mouth 2 times a day as needed for Heartburn.60 Tablet 11 buPROPion HCl ER (XL) 300 MG Oral [...] the evening and 1 Tablet before bedtime. Pantoprazole Sodium 40 MG Oral Tablet Delayed Release (Protonix) Take 1 Tablet by mouth in the morning. Pravastatin Sodium 80 MG Oral Tablet Take 1 Tablet by mouth at bedtime. Progesterone 100 MG Oral Capsule (Prometrium) Take 1 Capsule by mouth at bedtime. Vitamin D (Ergocalciferol) 1.25 MG (23061 UT) Oral Capsule (Drisdol) No current facility-administered medications for this visit. Physical Exam Vitals: 08/11/23 0942 Pulse: 86 SpO2: 94% BP: 122/76 Physical Exam Vitals reviewed. Constitutional: Appearance: Normal appearance. HENT: Head: Normocephalic and atraumatic. Nose: Nose [...] No edema. Left lower leg: No edema. Lymphadenopathy: Cervical: No cervical adenopathy. Skin: General: Skin is warm and dry. Capillary Refill: Capillary refill takes less than 2 seconds. Neurological: Mental Status: She is alert and oriented to person, place, and time. Cranial Nerves: No cranial nerve deficit. Sensory: No sensory deficit. Motor: No weakness. Gait: Gait normal. Psychiatric: Behavior: Behavior normal. Thought Content: Thought content normal. Assessment and Plan Balance problem ER if acutely worseneing - MRI BRAIN W WO CONTRAST; Future Vulvar pruritus - Clobetasol Propionate 0.05 % External Ointment (Temovate); Rub pea sized amount onto labia twice a day for 2 weeks, then daily for 2 weeks, then 2 days a week Transient vision disturbance - MRI BRAIN W WO CONTRAST; Future Nightmares Uncontrolled anxiety -- declines medication adjustment JING (generalized anxiety disorder) As above Consider switching from cymbalta to an SSRI or effexor Consider decreased wellbutrin Consider psych referral Vasomotor symptoms due to menopause Schedule can capper follow up - Estradiol 1 MG Oral Tablet (Estrace); Take 1 Tablet by mouth every morning. Dyslipidemia - LIPID PANEL WITH DIRECT LDL IF TG IS HIGH; Future Dry mouth Stop enablex OAB (overactive bladder) Consider urogyn referral Wrap-Up Follow-up: Return in about 4 weeks (around 09/08/2023). | Check-out note: Schedule MRI Time: I spent a total of 30-39 minutes (exact time 30 mins) on the date of service in preparation, delivery, and documentation of the care provided to Christina Haider excluding any time spent in the performance of separately billed services. documented in this encounter Nursing Notes * Tito Lemon MED ASSIST - 08/11/2023 9:42 AM EDT The patient has been properly identified by confirmation of name and date of . Chief Complaint Patient presents with Return Visit Return, discuss results from CT documented in this encounter Plan of Treatment Upcoming Encounters Date Type Department Care Team (Late st Contact Info) Description 08/26/2023 11:00 AM EDT Office Visit Gynecology/Obstetrics [facility] [address] [place] [address] Claudine Kasper CRNP [address] [place] [address] 09/14/2023 3:20 PM EDT Office Visit [facility] [address] [place] [address] Brittany Howard CRNP [address] [place] [address] 09/24/2023 9:20 AM EDT Office Visit Sleep Disorders Ctr [facility] [address] [place] [phone] Sydnee Dc, [address] [place] [address] 01/12/2024 9:40 AM EST Office Visit [facility] [address] [place] [address] Virginia Pacheco, DO [address] [place] [address] 01/13/2024 12:00 PM EST Office Visit Gastroenterology, [facility] [address] [place] [address] Dean Hebert CRNP [address] [place] [address] Scheduled Orders Name Type Priority Associated Diagnoses Orde r Schedule LIPID PANEL WITH DIRECT LDL IF TG IS HIGH Lab Routine Dyslipidemia Expected: 08/11/2023, Expires: 08/10/2024 Scheduled Procedures Name Priority Associated Diagnoses Date/Ti [...] this encounter Medical Devices Implanted Type Area Project Engineer Chemicals Device Identifier Shelf Expiration Date Model / Serial / Lot Hemostatic Clip Res 235cm - [id number] Implanted:Qty: 1 on 06/25/2023 by Johnny Sethi DO at ENDOSCOPY [facility] : ENDOSCOPY 11/17/2025 [id number] / / [id number] documented as of this encounter Results * MRI BRAIN W WO CONTRAST (08/20/2023 9:56 AM EDT) Anatomical Region Laterality Modality Neuro, Head Magnetic Resonan ce 08/21/2023 8:02 AM EDT Impressions 08/21/2023 8:00 AM EDT IMPRESSION 1. No significant intracranial abnormality. Narrative 08/21/2023 8:00 AM EDT EXAM MRI BRAIN W WO CONTRAST-08/20/2023 9:56 am HISTORY new onset balance problems, transient vision changes TECHNIQUE Axial T2, FLAIR, GRE, DWI, ADC, T1, sagittal T1, post contrast axial sagittal and coronal views are obtained. COMPARISON none FINDINGS There is no acute infarct. There is no intracranial hemorrhage. There is no mass, mass effect or midline shift. There is no abnormal enhancement. Ventricles and basal cisterns are normal. There is no extra-axial fluid collection. Midline structures are normal. The arterial flow voids are normal. The dural venous sinuses are patent. Orbits are normal. Paranasal sinus are patent. Calvarium is normal. Parotid glands are normal. Nasopharynx is normal. Procedure Note Sajan Marte MD - 08/21/2023 EXAM MRI BRAIN W WO CONTRAST-08/20/2023 9:56 am HISTORY new onset balance problems, transient vision changes TECHNIQUE Axial T2, FLAIR, GRE, DWI, ADC, T1, sagittal T1, post contrast axialsagittal and coronal views are obtained. COMPARISON none FINDINGS There is no acute infarct. There is no intracranial hemorrhage. There is no mass, mass effect or midline shift. There is no abnormal enhancement. Ventricles and basal cisterns are normal. There is no extra-axial fluid collection. Midline structures are normal. The arterial flow voids are normal. The dural venous sinuses are patent. Orbits are normal. Paranasal sinus are patent. Calvarium is normal. Parotid glands are normal. Nasopharynx is normal. IMPRESSION IMPRESSION 1. No significant intracranial abnormality. Brittany BENOIT RAD MRI-MRA documented in this encounter Visit Diagnoses Diagnosis Balance problem- Primary Other symptoms involving nervous and musculoskeletal systems Vulvar pruritus Pruritus of genital organs Transient vision disturbance Unspecified visual disturbance Nightmares Other dysfunctions of sleep stages or arousal from sleep JING (generalized anxiety disorder) Generalized anxiety disorder Vasomotor symptoms due to menopause Dyslipidemia Other and unspecified hyperlipidemia Dry mouth Disturbance of salivary secretion OAB (overactive bladder) Hypertonicity of bladder Balance problem Other symptoms involving nervous and musculoskeletal systems Transient vision disturbance Unspecified visual disturbance documented in this encounter Care Teams Nurse Case Management Relationship Specialty Start Date End Date Virginia Pacheco DO [address] [place] [address] PCP - General Family Medicine 07/20/23 documented as of this encounter"
--- OUTSIDE RECORDS SUMMARY | 2023-10-17 04:03 | External Medical Summary ---
Author Name Unknown Address Unknown Organization K01:LAB[facility] [address] [address] Laboratory Report Ordering Provider Test Date Status KI AGUILERA 08/26/2023 11:21:00 Final Observation Date Value Abnormality Reference (Units ) Status Human papilloma virus E6+E7 mRNA [Presence] in Cervix by SWATHI with probe detection 08/26/2023 11:21:00 Negative Not Applicable Final No high/intermediate-risk Hu man Papillomavirus (HPV E6/E7 messenger RNA) detected by nucleic acid amplification.

This assay looks for high/intermediate risk Human Papillomavirus (HPV E6/E7 messenger RNA) by nucleic acid amplification. This assay includes the qualitative detection of HPV types 16,18,31,33,35,39,45,51,52,56,58,59,66 and 68 from cervical specimens.
This assay has been FDA cleared for Thin prep collection vials.
This assay has not been approved for use as a primary screening test for HPV and should be tested in conjunction with a PAP screen.
If collected utilizing a Surepath vial, the collection and specimen preparation of this test was developed, and its performance characteristics determined by [employer]. It has not been cleared or approved by the U.S. Food and Drug Administration (FDA). The FDA has determined that such clearance or approval is not necessary.
This assay has been performed at [facility], [address] [place] [address], [place]. [address]. Performing Location LABORATORY [address] [facility] [address]
--- OUTSIDE RECORDS SUMMARY | 2023-10-17 04:03 | External Medical Summary | Summary of Care ---
Author Name Unknown Organization [facility] Address [address] [place] [address] Phone [phone] Care Team Providers Care Ballistic Expert Name Role Phone Unavailable Primary Care Provider Unavailabl e Encounter Details Date Type Department Care Team (Latest Contact Info) Description 06/20/2016 8:45 AM EDT - 06/20/2016 11:59 PM EDT Hospital Encounter Radiology Film File [address] [place] [address] Discharge Disposition: Home - Self [...] No 07/20/2023 Does the household have a [facility] source of income? (Household - for [...] 3:20 PM EDT Office Visit Family Practice [facility] [address] [address] Brittany Howard CRNP [address] [place] [address] 09/24/2023 9:20 AM EDT Office Visit Sleep Disorders Ctr [facility] [address] [phone] DcSydnee Tova, DO [address] [place] [address] 01/12/2024 9:40 AM EST Office Visit Family Practice [facility] [address] [place] [address] Virginia Pacheco, DO [address] [place] [address] 01/13/2024 12:00 PM EST Office Visit Gastroenterology, [facility] [address] [place] [address] Dean Hebert CRNP [address] [place] [address] Scheduled Procedures Name Priority Associated Diagnoses Date/Ti [...] this encounter Medical Devices Implanted Type Area Airset Caster Device Identifier Shelf Expiration Date Model / Serial / Lot Hemostatic Clip Res 235cm - [id number] Implanted:Qty: 1 on 06/25/2023 by Johnny Sethi DO at ENDOSCOPY [facility] : ENDOSCOPY 11/17/2025 [id number] / / [id number] documented as of this encounter Procedures Procedure Name Priority Date/Time Associated Diagnosis Comments RADIOLOGY EXAM - MAMMOGRAPHY (IMAGES ONLY, NO REPORT) Routine 06/20/2016 8:45 AM EDT documented in this encounter Results * RADIOLOGY EXAM - MAMMOGRAPHY (IMAGES ONLY, NO REPORT) (06/20/2016 8:45 AM EDT) 06/20/2016 8:45 AM EDT Narrative Scheduling, Silent - 09/03/2023 12:48 PM EDT This is an imaging study not interpreted or resulted by a [facility] or [facility] contracted radiologist. Claudine Haleer KAYCEE RAD MAMMOGR APHY documented in this encounter
--- OUTSIDE RECORDS SUMMARY | 2023-10-17 04:03 | External Medical Summary | Summary of Care ---
Author Name Unknown Organization [facility] Address [address] [place] [address] Phone [phone] Care Team Providers Care Business Systems Lead Name Role Phone Virginia Prado DO Primary Care Provider [phone] Reason for Visit * Reason Onset Date Comments Referral 08/05/2023 Encounter Details Date Type Department Care Team ([facility] Contact Info) Description 08/05/2023 Telephone Family Practice [facility] [address] [place] [facility] [place] [address] Virginia Prado DO [address] [facility] [address] Referral Allergies Active Allergy Reactions Criticality Noted Date Comments Aspirin Rash 06/18/2023 Penicillins Hives 06/08/2023 documented as of this encounter (statuses as of 08/05/2023) Medications Medication Sig Dispensed Refills Start Date End Date Status buPROPion HCl ER (XL) 300 MG Oral Tablet Extended Release 24 Hour (Wellbutrin XL) TK 1 T PO D Act selvin DULoxetine HCl 60 MG Oral Capsule Delayed Release Particles (Cymbalta) 06/04/2023 Active Levothyroxine Sodium 100 MCG Oral Tablet (Levoxyl) Take 1 Tablet by mouth at bedtime. Active Pantoprazole Sodium 40 MG Oral Tablet Delayed Release (Protonix) Take 1 Tablet by mouth in the morning. Active Darifenacin Hydrobromide ER 7.5 MG Oral Tablet Extended Release 24 Hour (Enablex) TK 1 T PO D Active Vitamin D (Ergocalciferol) 1.25 MG (72238 UT) Oral Capsule (Drisdol) 06/04/2023 Active Clobetasol Propionate 0.05 % External Ointment (Temovate)Indications :Vulvar pruritus Rub pea sized amount onto labia twice a day for 2 weeks, then daily for 2 weeks, then 2 days a week 30 g 1 06/18/2023 Active Methocarbamol 500 MG Oral Tablet (Robamol) Take 1 Tablet by mouth in the morning and 1 Tablet at noon and 1 Tablet in the evening and 1 Tablet before bedtime. Active Pravastatin Sodium 80 MG Oral Tablet Take 1 Tablet by mouth at bedtime. Active Estradiol 1 MG Oral Tablet (Estrace) Take 1 Tablet by mouth every morning. Active Progesterone 100 MG Oral Capsule (Prometrium) Take 1 Capsule by mouth at bedtime. Active Famotidine 20 MG Oral Tablet (Pepcid)Indications:G astroesophageal reflux disease, unspecified whether esophagitis present Take 1 Tablet by mouth 2 times a day as needed for Heartburn. 60 Tablet 11 06/19/2023 Active Clotrimazole 10 MG Mouth/Throat Tata (Mycelex Tata)Indications:Or al candidiasis Take 1 Lozenge by mouth 5 times a day. Allow tablet to slowly dissolve in your mouth 70 Tata 07/09/2023 Active documented as of this encounter (statuses as of 08/05/2023) Active Problems Problem Noted Date Diagnosed Date Prediabetes 07/20/2023 documented as of this encounter (statuses as of 08/05/2023) Social History Tobacco Use Types Packs/Day Years [...] No 07/20/2023 Does the household have a [facility] source [facility] income? (Household - for [...] encounter Miscellaneous Notes * Telephone Encounter - Antonia Nayak OSA - 08/05/2023 1:33 PM EDT Spoke to pt's , no sooner appt's available at this time. Pt on cancellation list. * Telephone Encounter - Adelaida Vallejo LPN - 08/05/2023 11:35 AM EDT There was already a GI ref placed on 07/15 by Lee. Appt in August scheduled already. S/w , aware that appt is scheduled for 08/19, but asked if "that department has a Fast Pass capability" I do not know. Meaning getting pt in sooner than 08/19 for an acute abd issue. Can you advise please if that is possible? * Telephone Encounter - Cate Malni OSA - 08/05/2023 11:12 AM EDT Has the patient been seen for this problem? (Y/N)?: Yes If No, an appt needs to be scheduled before a referral will be placed (exception: proceed with referral request if referral request is for a yearly routine appointment with speciality) Patient Name: Christina Haider Patient Primary care provider: Virginia Prado, DO Does this need to be an insurance referral (Y/N)?: N If Yes, does the insurance referral need to be placed into the [employer] system? Name of preferred specialist: n/a Type of specialist: Gastro Location of specialist: [facility] to [facility] Phone #: n/a Specialist's Fax #: n/a Reason for visit: Evaluate patient's stomach issues Date of visit: n/a documented in this encounter Plan of Treatment Upcoming Encounters Date Type Department Care Team (Late st Contact Info) Description 08/06/2023 10:45 AM EDT Imaging Radiology [facility] [address] [facility] [place] [address] 08/20/2023 1:00 PM EDT Office Visit Gastroenterology, [facility] [address] [facility] [place] [address] Dean Hebert CRNP [address] [facility] [place] [address] 08/26/2023 11:00 AM EDT Office Visit Gynecology/Obstetrics [facility] [address] [place] [address] Claudine Kasper CRNP [address] [place] [address] 09/07/2023 3:20 PM EDT Office Visit [facility] [address] [place] [address] Brittany Howard CRNP [address] [place] [address] 09/24/2023 9:20 AM EDT Office Visit Sleep Disorders Ctr [facility] [address] [place] [phone] Sydnee Dc, DO [address] [place] [address] 01/12/2024 9:40 AM EST Office Visit [facility] [address] [place] [address] Virginia Prado, DO [address] [place] [address] Scheduled Procedures Name Priority Associated Diagnoses Date/Ti me COLONOSCOPY FLEXIBLE PROXIMA L DIAGNOSTIC Recall History of colonic polyps Health Maintenance Due Date Last Done Comments Depression Screening 1972 HIV Screening 02/07/1975 Hepatitis C Screening 02/07/1978 DTaP,Tdap,and Td Vaccines (1 - Tdap) 02/07/1979 Pap Smear 02/07/1981 Cervical Cancer Screening 02/07/1990 HPV/Co-Test 02/07/1990 Mammogram 2000 Cologuard 02/07/2005 Fecal Occult Blood Test 02/07/2005 Sigmoidoscopy 02/07/2005 Zoster Vaccines (1 of 2) 02/07/2010 COVID-19 Vaccine ( - 2022-2 4 season) 2022 Influenza Vaccine (FLU shot) (Season Ended) 2023 12/03/2020 TSH 06/18/2024 06/19/2023 HbA1c 07/15/2024 07/16/2023 Lipid Panel 06/18/2028 06/19/2023 Colonoscopy 06/24/2028 06/25/2023, 06/25/2023 Colorectal Cancer Screening 06/24/2028 GARDASIL-HPV IMMUNIZATION SERIES Aged Out No longer eligible b ased on patient's age to complete this topic Hepatitis B Aged Out No longer eligi ble based on patient's age to complete this topic MENINGOCOCCAL (MENACTRA/MENVEO) Aged Out No longer eligible b ased on patient's age to complete this topic Pneumococcal Vaccine: Pediatrics (0 to 5 Years) and At-Risk Patients (6 to 64 Years) Aged Out No longer eligible b ased on patient's age to complete this topic documented as of this encounter Medical Devices Implanted Type Area Funeral Director And Embalmer Device Identifier Shelf Expiration Date Model / Serial / Lot Hemostatic Clip Res 235cm - [id number] Implanted:Qty: 1 on 06/25/2023 by Johnny Sethi DO at END[facility]COPY [facility] : ENDOSCOPY 11/17/2025 [id number] / / [id number] documented as of this encounter Care Teams Business Systems Lead Relationship Specialty Start Date End Date Virginia Prado DO [address] [place] [address] PCP - General Family Medicine 07/20/23 documented as of this encounter
--- OUTSIDE RECORDS SUMMARY | 2023-10-17 04:03 | External Medical Summary | Summary of Care ---
Author Name Unknown Organization [facility] Address [address] [place] [address] Phone [phone] Care Team Providers Care Advertising Operations Coordinator Name Role Phone Unavailable Primary Care Provider Unavailabl e Encounter Details Date Type Department Care Team (Latest Contact Info) Description 06/30/2014 3:15 PM EDT - 06/30/2014 11:59 PM EDT Hospital Encounter Radiology Film File [address] [place] [address] Discharge Disposition: Home - Self [...] No 07/20/2023 Does the household have a [employer] source of income? (Household - for ages [...] 3:20 PM EDT Office Visit Family Practice [facility] [address] [address] Brittany Howard CRNP [address] [address] 09/24/2023 9:20 AM EDT Office Visit Sleep Disorders Ctr [facility] [address] [address] DcSydnee Tova, DO [address] [place] [address] 01/12/2024 9:40 AM EST Office Visit Family Practice [facility] [address] [place] [address] Virginia Pacheco, DO [address] [place] [address] 01/13/2024 12:00 PM EST Office Visit Gastroenterology, [facility] [address] [place] [address] Dean Hebert CRNP [address] [place] [address] Scheduled Procedures Name Priority Associated Diagnoses Date/Ti [...] this encounter Medical Devices Implanted Type Area Shaper Set Up Operator Device Identifier Shelf Expiration Date Model / Serial / Lot Hemostatic Clip Res 235cm - [id number] Implanted:Qty: 1 on 06/25/2023 by Johnny Sethi DO at ENDOSCOPY [facility] : ENDOSCOPY 11/17/2025 [id number] / / [id number] documented as of this encounter Procedures Procedure Name Priority Date/Time Associated Diagnosis Comments RADIOLOGY EXAM - MAMMOGRAPHY (IMAGES ONLY, NO REPORT) Routine 06/30/2014 3:15 PM EDT documented in this encounter Results * RADIOLOGY EXAM - MAMMOGRAPHY (IMAGES ONLY, NO REPORT) (06/30/2014 3:15 PM EDT) 06/30/2014 3:11 PM EDT Narrative Scheduling, Silent - 09/03/2023 12:50 PM EDT This is an imaging study not interpreted or resulted by a [facility] or [facility] contracted radiologist. Claudine BENOIT RAD MAMMOGR APHY documented in this encounter
--- OUTSIDE RECORDS SUMMARY | 2023-10-17 04:03 | External Medical Summary | Summary of Care ---
Author Name Unknown Organization [facility] Address [address] [facility] [address] Phone [phone] Care Team Providers Care Transit Proof Machine Operator Name Role Phone Virginia Pacheco DO Primary Care Provider [phone] Encounter Details Date Type Department Care Team ([facility] Contact Info) Description 08/14/2023 Orders Only PATIENT PORTAL DO NOT DELETE THIS DEPT USED BY [place] [address] Allergies Active Allergy Reactions Criticality Noted Date Comments Aspirin Rash 06/18/2023 Penicillins Hives 06/08/2023 documented as of this encounter (statuses as of 08/14/2023) Medications Medication Sig Dispensed Refills Start Date End Date Status buPROPion HCl ER (XL) 300 MG Oral Tablet Extended Release 24 Hour (Wellbutrin XL) TK 1 T PO D Act selvin DULoxetine HCl 60 MG Oral Capsule Delayed Release Particles (Cymbalta) 06/04/2023 Active Levothyroxine Sodium 100 MCG Oral Tablet (Levoxyl) Take 1 Tablet by mouth at bedtime. Active Vitamin D (Ergocalciferol) 1.25 MG (04226 UT) Oral Capsule (Drisdol) 06/04/2023 Active Methocarbamol [...] for Heartburn. 60 Tablet 11 06/19/2023 Active Clobetasol Propionate 0.05 % External Ointment (Temovate)Indications :Vulvar pruritus Rub pea sized amount onto labia twice a day for 2 weeks, then daily for 2 weeks, then 2 days a week 30 g 08/11/2023 Active Estradiol 1 MG Oral Tablet (Estrace)Indications: Vasomotor symptoms due to menopause Take 1 Tablet by mouth every morning. 30 Tablet 3 08/11/2023 Active Pantoprazole Sodium 40 MG Oral Tablet Delayed Release (Protonix) Take 1 Tablet by mouth in the morning. 90 Tablet 3 08/12/2023 Active documented as of this encounter (statuses as of 08/14/2023) Active Problems Problem Noted Date Diagnosed Date Prediabetes 07/20/2023 documented as of this encounter (statuses as of 08/14/2023) Social History Tobacco Use Types Packs/Day Years [...] 8:44 AM EDT Sexual Orientation Straight 07/20/2023 1 :06 PM EDT Sexual Orientation Choose not to disclose 2023 1:06 PM EDT Job Start Date Occupation Industry Not on file Not on file Not on file documented as of this encounter Plan of Treatment Upcoming Encounters Date Type Department Care Team (Late st Contact Info) Description 08/20/2023 9:30 AM EDT Imaging Radiology [address] [place] [address] 08/20/2023 1:00 PM EDT Office Visit Gastroenterology, [facility] [address] [address] Dean Hebert CRNP [address] [address] 08/26/2023 11:00 AM EDT Office Visit Gynecology/Obstetrics [facility] [address] [address] Claudine Kasper CRNP [address] [address] 09/14/2023 3:20 PM EDT Office Visit Family Practice [facility] [address] [place] [address] Brittany Howard CRNP [address] [place] [address] 09/24/2023 9:20 AM EDT Office Visit Sleep Disorders Ctr [facility] [address] [place] [phone] Sydnee Dc, DO [address] [place] [address] 01/12/2024 9:40 AM EST Office Visit [facility] [address] [place] [address] Virginia Pacheco, DO [address] [place] [address] Scheduled Procedures Name Priority Associated Diagnoses Date/Ti [...] this encounter Medical Devices Implanted Type Area Specialty Foods Cook Device Identifier Shelf Expiration Date Model / Serial / Lot Hemostatic Clip Res 235cm - [id number] Implanted:Qty: 1 on 06/25/2023 by Johnny Sethi DO at ENDOSCOPY [facility] : ENDOSCOPY 11/17/2025 [id number] / / [id number] documented as of this encounter Care Teams Transit Proof Machine Operator Relationship Specialty Start Date End Date Virginia Pacheco DO [address] [place] [address] PCP - General Family Medicine 07/20/23 documented as of this encounter
--- OUTSIDE RECORDS SUMMARY | 2023-10-17 04:03 | External Medical Summary | Summary of Care ---
Author Name Unknown Organization [facility] Address [address] [place] [address] Phone [phone] Care Team Providers Care Embedded Firmware Engineer Name Role Phone Unavailable Primary Care Provider Unavailabl e Encounter Details Date Type Department Care Team (Latest Contact Info) Description 05/28/2020 11:00 AM EDT - 05/28/2020 11:04 AM EDT Hospital Encounter Radiology Film File [address] [place] [address] Discharge Disposition: Home - Self [...] No 07/20/2023 Does the household have a [facility] source [facility] income? (Household - for [...] 3:20 PM EDT Office Visit Family Practice [facility] [address] [address] Brittany Howard CRNP [address] [address] 09/24/2023 9:20 AM EDT Office Visit [facility] [address] [address] DcSydnee Tova, DO [address] [place] [address] 01/12/2024 9:40 AM EST Office Visit Family Practice [facility] [address] [place] [address] Virginia Pacheco, DO [address] [place] [address] 01/13/2024 12:00 PM EST Office Visit Gastroenterology, [facility] [address] [place] [address] Dean Hebert CRNP [address] [place] [address] Scheduled Procedures Name Priority Associated Diagnoses Date/Ti [...] this encounter Medical Devices Implanted Type Area Hand Outside Cutter Device Identifier Shelf Expiration Date Model / Serial / Lot Hemostatic Clip Res 235cm - [id number] Implanted:Qty: 1 on 06/25/2023 by Johnny Sethi DO at ENDOSCOPY [facility] : ENDOSCOPY 11/17/2025 [id number] / / [id number] documented as of this encounter Procedures Procedure Name Priority Date/Time Associated Diagnosis Comments RADIOLOGY EXAM - MAMMOGRAPHY (IMAGES ONLY, NO REPORT) Routine 05/28/2020 11:00 AM EDT documented in this encounter Results * RADIOLOGY EXAM - MAMMOGRAPHY (IMAGES ONLY, NO REPORT) (05/28/2020 11:00 AM EDT) 05/28/2020 10:5 7 AM EDT Narrative Scheduling, Silent - 09/03/2023 12:44 PM EDT This is an imaging study not interpreted or resulted by a [facility] or [facility] contracted radiologist. Claudine Murillo Backer KAYCEE RAD MAMMOGR APHY documented in this encounter
--- OUTSIDE RECORDS SUMMARY | 2023-10-17 04:03 | External Medical Summary | Summary of Care ---
Author Name Unknown Organization [facility] Address [address] [place] [address] Phone [phone] Care Team Providers Care Quality Director Name Role Phone Virginia Pacheco DO Primary Care Provider [phone] Reason for Visit * Reason Onset Date Comments Medical Records Request 08/27/2023 Pt is re questing release of med records Encounter Details Date Type Department Care Team ([facility] Contact Info) Description 08/27/2023 Telephone Family Practice [facility] [address] [facility] [address] Virginia Pacheco DO [address] [facility] [place] [address] Medical Records Request (Pt is requesting ... Allergies Active Allergy Reactions Criticality Noted Date Comments Aspirin Rash 06/18/2023 Penicillins Hives 06/08/2023 documented as of this encounter (statuses as of 08/27/2023) Medications Medication Sig Dispensed Refills Start Date End Date Status buPROPion HCl ER (XL) 300 MG Oral Tablet Extended Release 24 Hour (Wellbutrin XL) TK 1 T PO D Active DULoxetine HCl 60 MG Oral Capsule Delayed Release Particles (Cymbalta) 06/04/2023 Active Levothyroxine Sodium 100 MCG Oral Tablet (Levoxyl) Take 1 Tablet by mouth at bedtime. Active Vitamin D (Ergocalciferol) 1.25 MG (24089 UT) Oral Capsule (Drisdol) 06/04/2023 Active Methocarbamol [...] at bedtime. 90 Capsule 3 08/26/2023 Active documented as of this encounter (statuses as of 08/27/2023) Active Problems Problem Noted Date Diagnosed Date Prediabetes 07/20/2023 documented as of this encounter (statuses as of 08/27/2023) Social History Tobacco Use Types Packs/Day Years [...] encounter Miscellaneous Notes * Telephone Encounter - Monse Romero OSA - 08/27/2023 11:16 AM EDT Pt is requesting release of med records be sent to [facility], for PHI purposes Forward to [facility] documented in this encounter Plan of Treatment Upcoming Encounters Date Type Department Care Team (Late st Contact Info) Description 09/14/2023 3:20 PM EDT Office Visit Family Practice [facility] [address] [address] Brittany Howard CRNP [address] [address] 09/24/2023 9:20 AM EDT Office Visit Sleep Disorders Ctr [facility] [address] [place] [phone] Sydnee Dcaret, DO [address] [place] [address] 01/12/2024 9:40 AM EST Office Visit Family Practice [facility] [address] [place] [address] Virginia Pacheco, DO [address] [place] [address] 01/13/2024 12:00 PM EST Office Visit Gastroenterology, [facility] [address] [place] [address] Dean Hebert CRNP [address] [place] [address] Scheduled Procedures Name Priority Associated Diagnoses Date/Ti [...] this encounter Medical Devices Implanted Type Area Beveling Machine Operator Device Identifier Shelf Expiration Date Model / Serial / Lot Hemostatic Clip Res 235cm - [id number] Implanted:Qty: 1 on 06/25/2023 by Johnny Sethi DO at ENDOSCOPY [facility] : ENDOSCOPY 11/17/2025 [id number] / / [id number] documented as of this encounter Care Teams Quality Director Relationship Specialty Start Date End Date Virginia Pacheco DO [address] [address] PCP - General Family Medicine 07/20/23 documented as of this encounter
--- OUTSIDE RECORDS SUMMARY | 2023-10-17 04:03 | External Medical Summary | Summary of Care ---
Author Name Unknown Organization [facility] Address [address] [place] [address] Phone [phone] Care Team Providers Care Sheet Metal Insulator Name Role Phone Unavailable Primary Care Provider Unavailabl e Encounter Details Date Type Department Care Team (Latest Contact Info) Description 07/23/2018 1:30 PM EDT - 07/23/2018 11:59 PM EDT Hospital Encounter Radiology Film File [address] [place] [address] Discharge Disposition: Home - Self [...] No 07/20/2023 Does the household have a [facility] source of income? (Household - for [...] 3:20 PM EDT Office Visit Family Practice [facility] [address] [address] Brittany Howard CRNP [address] [address] 09/24/2023 9:20 AM EDT Office Visit [facility] [address] [address] DcSydnee Tova, DO [address] [place] [address] 01/12/2024 9:40 AM EST Office Visit Family Practice [facility] [address] [place] [address] Virginia Pacheco, DO [address] [place] [address] 01/13/2024 12:00 PM EST Office Visit Gastroenterology, [facility] [address] [place] [address] Dean Hebert CRNP [address] [place] [address] Scheduled Procedures Name Priority Associated Diagnoses Date/Ti [...] this encounter Medical Devices Implanted Type Area Magazine Designer Device Identifier Shelf Expiration Date Model / Serial / Lot Hemostatic Clip Res 235cm - [id number] Implanted:Qty: 1 on 06/25/2023 by Johnny Sethi DO at ENDOSCOPY [facility] : ENDOSCOPY 11/17/2025 [id number] / / [id number] documented as of this encounter Procedures Procedure Name Priority Date/Time Associated Diagnosis Comments RADIOLOGY EXAM - MAMMOGRAPHY (IMAGES ONLY, NO REPORT) Routine 07/23/2018 1:30 PM EDT documented in this encounter Results * RADIOLOGY EXAM - MAMMOGRAPHY (IMAGES ONLY, NO REPORT) (07/23/2018 1:30 PM EDT) 07/23/2018 1:29 PM EDT Narrative Scheduling, Silent - 09/03/2023 12:46 PM EDT This is an imaging study not interpreted or resulted by a [facility] or [employer] contracted radiologist. Claudine Haleer KAYCEE RAD MAMMOGR APHY documented in this encounter
--- OUTSIDE RECORDS SUMMARY | 2023-10-17 04:03 | External Medical Summary | Summary of Care ---
Author Name Unknown Organization [facility] Address [address] [place] [address] Phone [phone] Care Team Providers Care Blending Kettle Tender Name Role Phone TaraIron DO Primary Care Provider [phone] Reason for Visit * Reason Onset Date Comments Medication Refill 08/12/2023 Encounter Details Date Type Department Care Team ([facility] st Contact Info) Description 08/12/2023 Refill Family Practice [facility] [address] [facility] [place] [address] Brittany Howard CRNP [address] [place] [address] Allergies Active Allergy Reactions Criticality Noted Date Comments Aspirin Rash 06/18/2023 Penicillins Hives 06/08/2023 documented as of this encounter (statuses as of 08/12/2023) Medications Medication Sig Dispensed Refills Start Date End Date Status buPROPion HCl ER (XL) 300 MG Oral Tablet Extended Release 24 Hour (Wellbutrin XL) TK 1 T PO D Active DULoxetine HCl 60 MG Oral Capsule Delayed Release Particles (Cymbalta) 06/04/2023 Active Levothyroxine Sodium 100 MCG Oral Tablet (Levoxyl) Take 1 Tablet by mouth at bedtime. Active Vitamin D (Ergocalciferol) 1.25 MG (56811 UT) Oral Capsule (Drisdol) 06/04/2023 Active Methocarbamol [...] Active Clobetasol Propionate 0.05 % External Ointment (Temovate)Indicati [...] the morning. 90 Tablet 3 08/12/2023 Active Pantoprazole Sodium 40 MG Oral Tablet Delayed Release (Protonix) Take 1 Tablet by mouth in the morning. 08/12/2023 Discontinued (Refill) documented as of this encounter (statuses as of 08/12/2023) Active Problems Problem Noted Date Diagnosed Date Prediabetes 07/20/2023 documented as of this encounter (statuses as of 08/12/2023) Social History Tobacco Use Types Packs/Day Years [...] Telephone Encounter - Iron Acharya DO - 08/12/2023 1:57 PM EDTSigned Prescriptions: Disp Refills Pantoprazole Sodium 40 MG Oral Tablet Linda*90 Tab*3 Sig: Take 1 Tablet by mouth in the morning. Authorizing Provider: IRON ACHARYA * Telephone Encounter - Cristy Oneil CPhT - 08/12/2023 1:02 PM EDT Pt states not taking famotidine pt calling requesting the following medication below that is listed as "Historical". The following information was provided: Medication Name: pantoprazole Strength: 40mg Directions: qd Preferred Quantity: 30 Previous Prescriber: Dr Sauceda Preferred Pharmacy: [id number] Medication Name: Vit D2 Strength: 50,000 unit Directions: one weekly Preferred Quantity: 12 Previous Prescriber: Dr Sauceda Preferred Pharmacy: [facility] [address] [place] [address] Please review and approve if appropriate. Thank you, Cristy Oneil CphT Machine Bunch Maker III [facility] 08/12/23 documented in this encounter Plan of Treatment Upcoming Encounters Date Type Department Care Team (Late st Contact Info) Description 08/20/2023 9:30 AM EDT Imaging Radiology [address] [place] [address] 08/20/2023 1:00 PM EDT Office Visit Gastroenterology, [facility] [address] [address] Dean Hebert CRNP [address] [place] [address] 08/26/2023 11:00 AM EDT Office Visit Gynecology/Obstetrics [facility] [address] [address] Claudine Kasper CRNP [address] [place] [address] 09/14/2023 3:20 PM EDT Office Visit Family Practice [facility] [address] [address] Brittany Howard CRNP [address] [place] [address] 09/24/2023 9:20 AM EDT Office Visit Sleep Disorders Ctr [facility] [address] [place] [phone] Sydnee Dc, DO [address] [place] [address] 01/12/2024 9:40 AM EST Office Visit Family Practice [facility] [address] [place] [address] Iron Acharya, DO [address] [place] [address] Scheduled Procedures Name Priority Associated Diagnoses Date/Ti [...] this encounter Medical Devices Implanted Type Area Iron Pellet Tester Device Identifier Shelf Expiration Date Model / Serial / Lot Hemostatic Clip Res 235cm - [id number] Implanted:Qty: 1 on 06/25/2023 by Johnny Sethi DO at ENDOSCOPY [facility] : ENDOSCOPY 11/17/2025 [id number] / / [id number] documented as of this encounter Care Teams Blending Kettle Tender Relationship Specialty Start Date End Date Iron Acharya DO [address] [place] [address] PCP - General Family Medicine 07/20/23 documented as of this encounter
--- OUTSIDE RECORDS SUMMARY | 2023-10-17 04:03 | External Medical Summary | Summary of Care ---
Author Name Unknown Organization [facility] Address [address] [place] [address] Phone [phone] Care Team Providers Care Controls Engineer Name Role Phone Virginia Pacheco DO Primary Care Provider [phone] Reason for Visit * Reason Comments Acute worsening itching al l over torso x 3 weeks Encounter Details Date Type Department Care Team ([facility] st Contact Info) Description 09/07/2023 3:00 PM EDT Office Visit Family Practice [facility] [address] [facility] [address] Brittany Howard CRNP [address] [facility] [place] [address] Rash and nonspecific skin eruption* Allergies Active Allergy Reactions Criticality Noted Date Comments Aspirin Rash 06/18/2023 Penicillins Hives 06/08/2023 documented as of this encounter (statuses as of 09/07/2023) Medications Medication Sig Dispensed Refills Start Date End Date Status buPROPion HCl ER (XL) 300 MG Oral Tablet Extended Release 24 Hour (Wellbutrin XL) TK 1 T PO D Active DULoxetine HCl 60 MG Oral Capsule Delayed Release Particles (Cymbalta) 06/04/2023 Active Levothyroxine Sodium 100 MCG Oral Tablet (Levoxyl) Take 1 Tablet by mouth at bedtime. Active Vitamin D (Ergocalciferol) 1.25 MG (29665 UT) Oral Capsule (Drisdol) 06/04/2023 Active Methocarbamol [...] Itching. Active predniSONE 10 MG Oral Tablet (Deltasone)Indicati ons:Rash and nonspecific skin eruption Take 5 tabs for 2 days, 4 tabs for 2 days, 3 tabs for 2 days, 2 tabs for 2 days 1 tab for 2 days 30 Tablet 09/07/2023 Active documented as of this encounter (statuses as of 09/07/2023) Active Problems Problem Noted Date Diagnosed Date Prediabetes 07/20/2023 documented as of this encounter (statuses as of 09/07/2023) Social History Tobacco Use Types Packs/Day Years [...] Sign Reading Time Taken Comments Blood Pressure 112/68 09/07/2023 2:50 PM EDT Pulse 81 09/07/2023 2:50 PM EDT Temperature 36.4 C (97.6 F) 09/07/2023 2:50 PM ED T Respiratory Rate - - Oxygen Saturation 95% 09/07/2023 2:50 PM EDT Inhaled Oxygen Concentration - - Weight - - Height - - Body Mass Index - - documented in this encounter Progress Notes * Brittany Howard CRNP - 09/07/2023 2:54 PM EDT Images from the original note were not included. History of Present Illness Christina Haider is a 63 year old female that presents for Acute (worsening itching all over torso x3 weeks) HPI Christina is here for rash on back, trunk, chest (no arm or leg involvement). Very small papules. Started 08/26/2023 -- itchy back but no rash until a few days after. No known viruses. had shingles around this time. Was traveling in [place] spending time with [place]. No fever, chills, n/v/d. No joint swelling. Current Outpatient Medications Medication Sig Dispense Refill hydrOXYzine HCl 10 MG Oral Tablet (Atarax) [...] at bedtime. Vitamin D (Ergocalciferol) 1.25 MG (15168 UT) Oral Capsule (Drisdol) No current facility-administered medications for this visit. Physical Exam Vitals: 09/07/23 1450 Temp: 36.4 C (97.6 F) Pulse: 81 SpO2: 95% BP: 112/68 Physical Exam Vitals reviewed. Constitutional: General: She is not in acute distress. Musculoskeletal: Right lower leg: No edema. Left lower leg: No edema. Skin: General: Skin is warm and dry. Findings: Rash (generalized pinpoint erythematous papules) present. Neurological: Mental Status: She is alert and oriented to person, place, and time. Psychiatric: Behavior: Behavior normal. Thought Content: Thought content normal. Assessment and Plan Rash and nonspecific skin eruption Can also do histamine blockade with 2 OTC zyrtec and 2 pepcid 20mg tabs together -- written down for patient Will see he rin 1 week for regular follow up -- can message if rash worsens as her prednisone dose decreases - predniSONE 10 MG Oral Tablet (Deltasone); Take 5 tabs for 2 days, 4 tabs for 2 days, 3 tabs for 2days, 2 tabs for 2 days 1 tab for 2 days Wrap-Up Follow Up: Return if symptoms worsen or fail to improve. Time: I spent a total of 20-29 minutes (exact time 20 mins) on the date of service in preparation, delivery, and documentation of the care provided to Christina Haider excluding any time spent in the performance of separately billed services. documented in this encounter Nursing Notes * Sandee Joel LPN - 09/07/2023 2:48 PM EDT The patient has been properly identified by confirmation of name and date of . Chief Complaint Patient presents with Acute worsening itching all over torso x 3 weeks Front and back-- very itchy, no color changes, bumpy. Pt has been taking the hydroxyzine for itching, makes her very sleepy then itching returns fast. Left ear itchy as well. No change in detergents, soaps, lotions. documented in this encounter Plan of Treatment Upcoming Encounters Date Type Department Care Team (Late st Contact Info) Description 09/14/2023 3:20 PM EDT Office Visit [facility] [address] [place] [address] Brittany Howard CRNP [address] [place] [address] 09/24/2023 9:20 AM EDT Office Visit Sleep Disorders Ctr [facility] [address] [place] [phone] Sydnee Dc, DO [address] [place] [address] 01/12/2024 9:40 AM EST Office Visit [facility] [address] [place] [address] Virginia Pacheco, DO [address] [place] [address] 01/13/2024 12:00 PM EST Office Visit Gastroenterology, [facility] [address] [place] [address] Dean Hebert CRNP [address] [place] [address] Scheduled Procedures Name Priority Associated Diagnoses Date/Ti [...] this encounter Medical Devices Implanted Type Area Agricultural Scientist Device Identifier Shelf Expiration Date Model / Serial / Lot Hemostatic Clip Res 235cm - [id number] Implanted:Qty: 1 on 06/25/2023 by Johnny Sethi DO at ENDOSCOPY [facility] : ENDOSCOPY 11/17/2025 [id number] / / [id number] documented as of this encounter Visit Diagnoses Diagnosis Rash and nonspecific skin eruption- Primary Rash and other nonspecific skin eruption documented in this encounter Care Teams Controls Engineer Relationship Specialty Start Date End Date Virginia Pacheco DO [address] [place] [address] PCP - General Family Medicine 07/20/23 documented as of this encounter
--- OUTSIDE RECORDS SUMMARY | 2023-10-17 04:03 | External Medical Summary | Summary of Care ---
Author Name Unknown Organization [facility] Address [address] [place] [address] Phone [phone] Care Team Providers Care Web Support Engineer Name Role Phone TaraVirginia DO Primary Care Provider [phone] Reason for Visit * Reason Onset Date Comments Other 08/12/2023 Encounter Details Date Type Department Care Team ([facility] Contact Info) Description 08/12/2023 Telephone Family Practice [facility] [address] [place] [address] Brittany Howard CRNP [address] [facility] [address] Other Allergies Active Allergy Reactions Criticality Noted Date [...] bedtime. Active Vitamin D (Ergocalciferol) 1.25 MG (54609 UT) Oral Capsule (Drisdol) 06/04/2023 Active Methocarbamol [...] bedtime. Active Famotidine 20 MG Oral Tablet (Pepcid)Indications :Gastroesophageal reflux disease, unspecified whether esophagitis present Take 1 Tablet by mouth 2 times a day as needed for Heartburn. 60 Tablet 11 06/19/2023 Active Clobetasol Propionate 0.05 % External Ointment (Temovate)Indicatio ns:Vulvar pruritus Rub pea sized amount onto labia twice a day for 2 weeks, then daily for 2 weeks, then 2 days a week 30 g 08/11/2023 Active Estradiol 1 MG Oral Tablet (Estrace)Indication s:Vasomotor symptoms due to menopause Take 1 Tablet by mouth every morning. 30 Tablet 3 08/11/2023 Active Pantoprazole Sodium 40 MG Oral Tablet Delayed Release (Protonix) Take 1 Tablet by mouth in the morning. 90 Tablet 3 08/12/2023 Active Amoxicillin 500 MG Oral Capsule (Amoxil) Take 4 Capsules by mouth once for 1 dose. 1 hour before dental procedure 4 Capsule 3 08/12/2023 08/12/2023 Active documented as of this encounter [...] encounter Miscellaneous Notes * Telephone Encounter - Adelaida Vallejo LPN - 08/12/2023 1:58 PM EDT Called pt, had double knee replacement in 2017 and was told by Ortho that she should have 4 Amoxil 500mg 1 hour prior to dental cleaning. Has been doing prior to dental cleaning for years, since 2017 Not on our medication list, as it's been prescribed by ortho, but no longer seeing them, so needs to ask PCP. * Telephone Encounter - Cristy Oneil CPhT - 08/12/2023 1:12 PM EDT Pt calling requesting a prescription for an antibiotic to take before their dental work scheduled for not scheduled yet due to cleaning. Please send an appropriate prescription to [id number] [address] [place] [address] , pt can be reached at [phone]. Thank you, Cristy Oneil CphT Cement Mason Helper III [facility] 08/12/23 documented in this encounter Plan of Treatment Upcoming Encounters Date Type Department Care Team (Late st Contact Info) Description 08/20/2023 9:30 AM EDT Imaging Radiology [address] [place] [address] 08/20/2023 1:00 PM EDT Office Visit Gastroenterology, [facility] [address] [place] [address] Dean Hebert CRNP [address] [place] [address] 08/26/2023 11:00 AM EDT Office Visit Gynecology/Obstetrics [facility] [place] [address] Claudine Kasper CRNP [address] [place] [address] 09/14/2023 3:20 PM EDT Office Visit Family Practice [facility] [address] [place] [address] Brittany Howard CRNP [address] [place] [address] 09/24/2023 9:20 AM EDT Office Visit Sleep Disorders Ctr [facility] [address] [place] [phone] VandaSydnee Tova, DO [address] [place] [address] 01/12/2024 9:40 AM EST Office Visit Family [facility] [address] [place] [address] Virginia Pacheco, DO [address] [place] [address] Scheduled Procedures Name Priority Associated Diagnoses Date/Ti [...] Vaccines (1 of 2) 02/07/2010 COVID-19 Vaccine (2022-2 4 season) 2022 Influenza Vaccine (FLU shot) [...] this encounter Medical Devices Implanted Type Area Janitor Head Device Identifier Shelf Expiration Date Model / Serial / Lot Hemostatic Clip Res 235cm - [id number] Implanted:Qty: 1 on 06/25/2023 by Johnny Sethi DO at ENDOSCOPY [facility] [employer] : ENDOSCOPY 11/17/2025 [id number] / / [id number] documented as of this encounter Care Teams Web Support Engineer Relationship Specialty Start Date End Date Virginia Pacheco DO [address] [place] [address] PCP - General Family Medicine 07/20/23 documented as of this encounter
--- OUTSIDE RECORDS SUMMARY | 2023-10-17 04:04 | External Medical Summary | Summary of Care ---
Author Name Unknown Organization [facility] Address [address] [place] [address] Phone [phone] Care Team Providers Care Storekeeper Helper Name Role Phone Unavailable Primary Care Provider Unavailabl e Reason for Visit * Reason Comments Outpatient Testing Encounter Details Date Type Department Care Team ([facility] Contact Info) Description 07/16/2023 12:50 PM EDT Laboratory Laboratory, [facility] [address] [place] [phone] [facility] [address] [place] [address] Left upper quadrant pain; Fatigue, unspecified type; Polyuria Allergies Active Allergy Reactions Criticality Noted Date Comments Aspirin Rash 06/18/2023 Penicillins Hives 06/08/2023 documented as of this encounter (statuses as of 07/16/2023) Medications Medication Sig Dispensed Refills Start Date [...] D Active Vitamin D (Ergocalciferol) 1.25 MG (98182 UT) Oral Capsule (Drisdol) 06/04/2023 Active hydrOXYzine HCl 10 MG Oral Tablet (Atarax)Indications:V ulvar pruritus Take 1 Tablet by mouth at bedtime as needed for Itching. 120 Tablet 1 06/18/2023 Active Clobetasol Propionate 0.05 % External Ointment [...] as of this encounter (statuses as of 07/16/2023) Active Problems No known active problems documented as of this encounter (statuses as of 07/16/2023) Social History Tobacco Use Types Packs/Day Years Used Date Smoking Tobacco: Never Smokeless Tobacco: Never Alcohol Use Standard Drinks/Week Comments Never 0 (1 standard drink = 0.6 oz pur e alcohol) Hunger Vital Sign Answer Date Recorded Within the past 12 months, y ou worried that your food would run out before you got the money to buy more. Never true 07/16/19 24 Within the past 12 months, t he food you bought just didn't last and you didn't have money to get more. Never true 07/16/2023 Sex and Gender Information Value Date Recorded Sex Assigned at Female 07/16/2023 8:44 AM EDT Gender Identity Female 07/16/2023 8:44 AM EDT Sexual Orientation Choose not to disclose 2023 8:52 AM EDT Job Start Date Occupation Industry Not on file Not on file Not on file documented as of this encounter Plan of Treatment Upcoming Encounters Date Type Department Care Team (Late st Contact Info) Description 08/26/2023 11:00 AM EDT Office Visit Gynecology/Obstetrics [facility] [address] [place] [address] Claudnie Kasper CRNP [address] [place] [address] 09/16/2023 12:20 PM EDT Office Visit Family Practice [facility] [address] [place] [address] Virginia Pacheco DO [address] [place] [address] 09/24/2023 9:20 AM EDT Office Visit Sleep Disorders Ctr [facility] [address] [place] [phone] Sydnee Dc, DO [address] [place] [address] Pending Results Name Type Priority Associated Diagnoses Date /Time LIPASE Lab Routine Left upper quadrant pain 07/16/2023 12:44 PM EDT GGTP Lab Routine Left upper quadrant pain 07/16/2023 12:44 PM EDT HEMOGLOBIN A1C Lab Routine Fatigue, unspecified type Polyuria 07/16/2023 12:44 PM EDT FERRITIN Lab Routine Fatigue, unspecified type 07/16/2023 12:44 PM EDT LYME DISEASE ANTIBODY SCREEN WITH REFLEX TO CONFIRMATION Lab Routine Fatigue, unspecified type 07/16/2023 12:44 PM EDT LYME DISEASE ANTIBODY SCREEN Lab Routine Fatigue, unspecified type 07/16/2023 12:44 PM EDT URINALYSIS WITH MICROSCOPIC EXAM Lab Routine Polyuria 07/16/2023 3:49 PM EDT Scheduled Procedures Name Priority Associated Diagnoses Date/Ti [...] (Season Ended) 2023 12/03/2020 TSH 06/18/2024 06/19/2023 Diabetes Screening 06/18/2026 06/19/2023 Lipid Panel 06/18/2028 06/19/2023 Colonoscopy 06/24/2028 06/25/2023, [...] this encounter Medical Devices Implanted Type Area Substation Operator Helper Device Identifier Shelf Expiration Date Model / Serial / Lot Hemostatic Clip Res 235cm - [id number] Implanted:Qty: 1 on 06/25/2023 by Johnny Sethi DO at ENDOSCOPY [facility] : ENDOSCOPY 11/17/2025 [id number] / / [id number] documented as of this encounter Visit Diagnoses Diagnosis Left upper quadrant pain Abdominal pain, left upper quadrant Fatigue, unspecified type Polyuria documented in this encounter
--- OUTSIDE RECORDS SUMMARY | 2023-10-17 04:04 | External Medical Summary ---
Author Name Unknown Address Unknown Organization [id number]:[facility] [place] [address] [facility] [address] Laboratory Report Ordering Provider Test Date Status JORDAN CAMPBELL 07/16/2023 12:44:24 Final Observation Date Value Abnormality Reference (Units ) Status HbA1C 07/16/2023 12:44:24 5.9 Above high normal 4. 0-5.6 (%) Final The use of HbA1c to monitor glycemic status is based on normal hemoglobin and HbA composition. This test should not be used in patients with abnormal hemoglobin that affects the half life of the red blood cell or the in vivo glycation rates. Glucose, estimated average 07/16/2023 12:44:24 123 <126 (mg/dL) Final Performing Location [facility] [place] [facility] [address] [facility] [address]
--- OUTSIDE RECORDS SUMMARY | 2023-10-17 04:04 | External Medical Summary | Summary of Care ---
Author Name Unknown Organization [facility] Address [address] [place] [address] Phone [phone] Care Team Providers Care Clothing Sorter Name Role Phone Unavailable Primary Care Provider Unavailabl e Reason for Visit * Reason Onset Date Comments Test Results 06/23/2023 Encounter Details Date Type Department Care Team ([facility] Contact Info) Description 06/23/2023 Telephone Family Practice [facility] [address] [facility] [address] Brittany Howard CRNP [address] [facility] [place] [address] Test Results Allergies Active Allergy Reactions Criticality Noted Date Comments Aspirin Rash 06/18/2023 Penicillins Hives 06/08/2023 documented as of this encounter (statuses as of 06/25/2023) Medications Medication Sig Dispensed Refills Start Date End Date Status buPROPion HCl ER (XL) 300 MG Oral Tablet Extended Release 24 Hour (Wellbutrin XL) TK 1 T PO D 0 Active DULoxetine HCl 60 MG Oral Capsule Delayed Release Particles (Cymbalta) 0 06/04/2023 Active Levothyroxine Sodium 100 MCG Oral Tablet (Levoxyl) Take 1 Tablet by mouth at bedtime. 0 Active Pantoprazole Sodium 40 MG Oral Tablet Delayed Release (Protonix) Take 1 Tablet by mouth in the morning. 0 Active Darifenacin Hydrobromide ER 7.5 MG Oral Tablet Extended Release 24 Hour (Enablex) TK 1 T PO D 0 Active Vitamin D (Ergocalciferol) 1.25 MG (68696 UT) Oral Capsule (Drisdol) 0 06/04/2023 Active hydrOXYzine HCl 10 MG Oral Tablet (Atarax)Indications: Vulvar pruritus Take 1 Tablet by mouth at bedtime as needed for Itching. 120 Tablet 1 06/18/2023 Active Clobetasol Propionate 0.05 % External Ointment (Temovate)Indication s:Vulvar pruritus Rub pea sized amount onto labia twice a day for 2 weeks, then daily for 2 weeks, then 2 days a week 30 g 1 06/18/2023 Active Methocarbamol 500 MG Oral Tablet (Robamol) Take 1 Tablet by mouth in the morning and 1 Tablet at noon and 1 Tablet in the evening and 1 Tablet before bedtime. 0 Active Pravastatin Sodium 80 MG Oral Tablet Take 1 Tablet by mouth at bedtime. 0 Active Estradiol 1 MG Oral Tablet (Estrace) Take 1 Tablet by mouth every morning. 0 Active Progesterone 100 MG Oral Capsule (Prometrium) Take 1 Capsule by mouth at bedtime. 0 Active Clotrimazole 10 MG Mouth/Throat Tata (Mycelex Tata)Indications:O ral candidiasis Take 1 Lozenge by mouth 5 times a day for 14 days. Allow tablet to slowly dissolve in your mouth 70 Tata 0 06/19/2023 07/03/2023 Active Famotidine 20 MG Oral Tablet (Pepcid)Indications: Gastroesophageal reflux disease, unspecified whether esophagitis present Take 1 Tablet by mouth 2 times a day as needed for Heartburn. 60 Tablet 11 06/19/2023 Active documented as of this encounter (statuses as of 06/25/2023) Active Problems No known active problems documented as of this encounter (statuses as of 06/25/2023) Social History Tobacco Use Types Packs/Day Years Used Date Smoking Tobacco: Never Smokeless Tobacco: Never Alcohol Use Standard Drinks/Week Comments Never 0 (1 standard drink = 0.6 oz pur e alcohol) Sex and Gender Information Value Date Recorded Sex Assigned at Not on file Gender Identity Not on file Sexual Orientation Not on file Job Start Date Occupation Industry Not on file Not on file Not on file documented as of this encounter Miscellaneous Notes * Telephone Encounter - Jerrica De Leon LPN - 06/25/2023 4:42 PM EDT Patient is aware and verbalizes understanding. Troches are working well and seem to be helping She has had improvement with the Miralax too She will call back if needed * Telephone Encounter - Ivette Melvin LPN - 06/25/2023 12:09 PM EDT is returning call. His is having a colonoscopy today. Yes, the troches have helped a lot. Had a poor connection. Call was lost. Attempted to call , Edmundo back. Left message to return call to triage. * Telephone Encounter - Sandee Joel LPN - 06/25/2023 11:10 AM EDT Called pt-- NO answer on mobile, not able to LM on VM. Called spouse-- NO answer LM on VM to call nurse line back to give message below. * Telephone Encounter - Brittany Howard CRNP - 06/23/2023 11:01 AM EDT Sjogren's blood tests are negative TSH a lttle low but thyroid hormone normal -- can keep an eye on this Has she had any improvement with clotrimazole troches? Any improvement yet with miralax? documented in this encounter Plan of Treatment Upcoming Encounters Date Type Department Care Team (Late st Contact Info) Description 07/30/2023 1:00 PM EDT Office Visit Family Practice [facility] [address] [place] [address] Virginia Pacheco DO [address] [place] [address] 08/26/2023 11:00 AM EDT Office Visit Gynecology/Obstetrics [facility] [address] [place] [address] Claudine Kasper CRNP [address] [place] [address] 09/24/2023 9:20 AM EDT Office Visit Sleep Disorders Ctr [facility] [address] [place] [phone] Sydnee Dc DO [address] [place] [address] Scheduled Procedures Name Priority Associated Diagnoses Date/Ti me COLONOSCOPY FLEXIBLE PROXIMA L DIAGNOSTIC Constipation 06/25/2023 11:53 AM EDT ESOPHAGOGASTRODUODENOSCOPY ( EGD), FLEXIBLE, TRANSORAL, DIAGNOSTIC Constipation 06/25/2023 11:53 AM EDT Health Maintenance Due Date Last Done Comments [...] 06/18/2026 06/19/2023 Lipid Panel 06/18/2028 06/19/2023 Colonoscopy 06/24/2033 06/25/2023 Colorectal Cancer Screening 06/24/2033 GARDASIL-HPV IMMUNIZATION SERIES Aged Out No longer eligible based on patient's age to complete this topic Hepatitis B Aged Out No longer eligi ble based on patient's age to complete this topic MENINGOCOCCAL (MENACTRA/MENVEO) Aged Out No longer eligible based on patient's age to complete this topic Pneumococcal Vaccine: Pediat rics (0 to 5 Years) and At-Risk Patients (6 to 64 Years) Aged Out No longer eligi ble based on patient's age to complete this topic documented as of this encounter Medical Devices Implanted Type Area Ground Crew Supervisor Device Identifier Shelf Expiration Date Model / Serial / Lot Hemostatic Clip Res 235cm - [id number] Implanted:Qty: 1 on 06/25/2023 by Johnny Sethi DO at ENDOSCOPY [facility] [employer] : ENDOSCOPY 11/17/2025 [id number] / / [id number] documented as of this encounter
--- OUTSIDE RECORDS SUMMARY | 2023-10-17 04:04 | External Medical Summary | Summary of Care ---
Author Name Unknown Organization [facility] Address [address] [place] [address] Phone [phone] Care Team Providers Care Manager Call Name Role Phone Virginia Pacheco Primary Care Provider [phone] Reason for Visit * Reason Onset Date Comments MyCode - Took Form To Consider 07/20/2023 Encounter Details Date Type Department Care Team ([facility] Contact Info) Description 07/20/2023 Orders Only Outcomes Research Department [address] [place] [address] Marilu Cantu CHRA MyCode Nonconsent Documentation Allergies Active Allergy Reactions Criticality Noted Date Comments Aspirin Rash 06/18/2023 Penicillins Hives 06/08/2023 documented as of this encounter (statuses as of 07/20/2023) Medications Medication Sig Dispensed Refills Start Date [...] D Active Vitamin D (Ergocalciferol) 1.25 MG (42504 UT) Oral Capsule (Drisdol) 06/04/2023 Active Clobetasol [...] as of this encounter (statuses as of 07/20/2023) Active Problems Problem Noted Date Diagnosed Date Prediabetes 07/20/2023 documented as of this encounter (statuses as of 07/20/2023) Social History Tobacco Use Types Packs/Day Years [...] on file documented as of this encounter Progress Notes * Marilu Cantu CHRA - 07/20/2023 3:05 PM EDT MyCode Nonconsent Documentation Christina Haider was approached in the clinic regarding participation in the MyCode Project and did not consent. documented in this encounter Plan of Treatment Upcoming Encounters Date Type Department Care Team (Late st Contact Info) Description 08/06/2023 10:45 AM EDT Imaging Radiology [facility] 1st Floor, [place] [address] [place] [id number] 08/26/2023 11:00 AM EDT Office Visit Gynecology/Obstetrics [facility] [address] [place] [id number] Claudine Kasper CRNP [address] [place] [id number] 09/24/2023 9:20 AM EDT Office Visit Sleep Disorders [facility] [address] [place] [phone] Sydnee Dc, DO [address] [place] [phone] 01/12/2024 9:40 AM EST Office Visit Family Practice [facility] [address] [place] [phone] Virginia Pacheco, DO [address] [place] [address] Scheduled Procedures Name Priority Associated Diagnoses Date/Ti [...] this encounter Medical Devices Implanted Type Area Traveling Phlebotomist Device Identifier Shelf Expiration Date Model / Serial / Lot Hemostatic Clip Res 235cm - [id number] Implanted:Qty: 1 on 06/25/2023 by Johnny Sethi DO at ENDOSCOPY [facility] : ENDOSCOPY 11/17/2025 [id number] / / [id number] documented as of this encounter Care Teams Manager Call Relationship Specialty Start Date End Date Virginia Pacheco DO [address] [place] [id number] PCP - General Family Medicine 07/20/23 documented as of this encounter
--- OUTSIDE RECORDS SUMMARY | 2023-10-17 04:04 | External Medical Summary ---
Author Name Unknown Address Unknown Organization [id number]:[facility] [place] [address] [place] [address] Laboratory Report Ordering Provider Test Date Status JORDAN CAMPBELL 07/16/2023 12:44:24 Final Observation Date Value Abnormality Reference (Units ) Status Ferritin 07/16/2023 12:44:24 60 13-150 (ng /mL) Final Postmenopausal women have hi gher ferritin levels than pre-menopausal women. The above reference interval is based on pre-menopausal women. Performing Location [facility] [place] [address] [place] [address]
--- OUTSIDE RECORDS SUMMARY | 2023-10-17 04:04 | External Medical Summary | Summary of Care ---
Author Name Unknown Organization [facility] Address [address] [place] [address] Phone [phone] Care Team Providers Care Lumber Piler Operator Name Role Phone Unavailable Primary Care Provider Unavailabl e Reason for Visit * Auth/Cert Specialty Diagnoses / Procedures Referred By Mechelle carmona Referred To Contact Diagnoses Constipation Constipation [K59.00] Procedures COLONOSCOPY, DIAGNOSTIC (RECTUM) EGD, FLEXIBLE, DIAGNOSTIC COLONOSCOPY FLEXIBLE PROXIMAL DIAGNOSTIC ESOPHAGOGASTRODUODENOSCOPY (EGD), FLEXIBLE, TRANSORAL, DIAGNOSTIC Johnny Sethi DO [address] [place] [address] [facility] [address] [place] [address] Referral ID Status Reason Start Date Expiration Date Visits Re quested Visits Authorized [id number] Encounter Details Date Type Department Care Team (Latest Contact Info) Description 06/25/2023 10:52 AM EDT - 06/25/2023 1:24 PM EDT Hospital Encounter [facility], Endoscopy Room [facility] [address] [place] [phone] Johnny Sethi DO [address] [place] [address] Various: UGI,GICOLON Discharge Disposition: Home - Self Care Allergies Active Allergy Reactions Criticality Noted Date Comments Aspirin Rash 06/18/2023 Penicillins Hives 06/08/2023 documented as of this encounter (statuses as of 06/26/2023) Medications Medication Sig Dispensed Refills Start Date [...] 0 Active Vitamin D (Ergocalciferol) 1.25 MG (57099 UT) Oral Capsule (Drisdol) 0 06/04/2023 Active hydrOXYzine HCl 10 MG Oral Tablet (Atarax)Indication s:Vulvar pruritus Take 1 Tablet by mouth at [...] Active Clotrimazole 10 MG Mouth/Throat Tata (Mycelex Tata)Indications :Oral candidiasis Take 1 Lozenge by mouth 5 times a day for 14 days. Allow tablet to slowly dissolve in your mouth 70 Tata 0 06/19/2023 Active Famotidine 20 MG Oral Tablet (Pepcid)Indication s:Gastroesophageal reflux disease, unspecified whether esophagitis present Take 1 Tablet by mouth 2 times a day as needed for Heartburn. 60 Tablet 11 06/19/2023 Active Atorvastatin Calcium 20 MG Oral Tablet (Lipitor) TAKE 1 TABLET (20 MG TOTAL) BY MOUTH DAILY. 0 4 Discontinued documented as of this encounter (statuses as of 06/26/2023) Active Problems No known active problems documented as of this encounter (statuses as of 06/26/2023) Social History Tobacco Use Types Packs/Day Years [...] Sign Reading Time Taken Comments Blood Pressure 95/61 06/25/2023 12:41 PM EDT Pulse 89 06/25/2023 12:41 PM EDT Temperature 36.5 C (97.7 F) 06/25/2023 12:41 PM E DT Respiratory Rate 16 06/25/2023 12:41 PM EDT Oxygen Saturation 96% 06/25/2023 12:41 PM EDT Inhaled Oxygen Concentration - - Weight 78 kg (172 lb) 06/25/2023 10:58 AM EDT Height 165.1 cm (5' 5") 06/25/2023 10:58 AM EDT Body Mass Index 28.62 06/25/2023 10:58 AM EDT documented in this encounter H&P Notes * Johnny Sethi, - 06/25/2023 11:39 AM EDT Endoscopy Pre-Procedure Assessment Name: Christina Haider Date: 06/25/2023 Time: 11:39 AM Procedure(s): Colonoscopy; with Indication(s) of altered bowel habit and average risk screening Upper GI Endoscopy; with Indication(s) of upper abdominal symptoms that persist despite an appropriate trial of therapy. The patient did have difficulty with swallowing but notes that the symptoms are much improved after a recent course of therapy for thrush Endoscopy Pre-Procedure Assessment: Prior to the procedure, the patient is identified. The patient's history, medications and allergieshave been reviewed. The patient is competent. The risks and benefits of the proposed procedure and the planned sedation have been discussed with the patient. All questions have been answered and informed consent for the procedure has been obtained. Prior to Admission medications Medication Sig Last Dose Discont. Clotrimazole 10 MG Mouth/Throat Tata (Mycelex Tata) Take 1 Lozenge by mouth 5 times a day for 14 days. Allow tablet to slowly dissolve in your mouth 06/24/2023 Famotidine 20 MG Oral Tablet (Pepcid) Take 1 Tablet by mouth 2 times a day as needed for Heartburn.06/24/2023 buPROPion HCl ER (XL) 300 MG Oral Tablet Extended Release 24 Hour (Wellbutrin XL) TK 1 T PO D 06/25/2023 Clobetasol Propionate 0.05 % External Ointment (Temovate) Rub pea sized amount onto labia twice a day for 2 weeks, then daily for 2 weeks, then 2 days a week Past Month Darifenacin Hydrobromide ER 7.5 MG Oral Tablet Extended Release 24 Hour (Enablex) TK 1 T PO D 06/24/2023 DULoxetine HCl 60 MG Oral Capsule Delayed Release Particles (Cymbalta) 06/25/2023 Estradiol 1 MG Oral Tablet (Estrace) Take 1 Tablet by mouth every morning. 06/24/2023 hydrOXYzine HCl 10 MG Oral Tablet (Atarax) Take 1 Tablet by mouth at bedtime as needed for Itching.Past Week Levothyroxine Sodium 100 MCG Oral Tablet (Levoxyl) Take 1 Tablet by mouth at bedtime. 06/25/2023 Methocarbamol 500 MG Oral Tablet (Robamol) Take 1 Tablet by mouth in the morning and 1 Tablet at noon and 1 Tablet in the evening and 1 Tablet before bedtime. Past Week Pantoprazole Sodium 40 MG Oral Tablet Delayed Release (Protonix) Take 1 Tablet by mouth in the morning. 06/25/2023 Pravastatin Sodium 80 MG Oral Tablet Take 1 Tablet by mouth at bedtime. 06/24/2023 Progesterone 100 MG Oral Capsule (Prometrium) Take 1 Capsule by mouth at bedtime. 06/24/2023 Vitamin D (Ergocalciferol) 1.25 MG (52251 UT) Oral Capsule (Drisdol) Past Week Sulfamethoxazole-Trimethoprim 800-160 MG Oral Tablet (Bactrim DS) Take 1 Tablet by mouth in the morning and 1 Tablet before bedtime. Do all this for 7 days. Until gone.. Review of patient's allergies indicates: Allergen Reactions Aspirin Rash Penicillins Hives BP 124/75 | Pulse 81 | Temp 36.2 C (97.1 F) (Tympanic) | Resp 15 | Ht 1.651 m (5' 5") | Wt 78 kg (172 lb) | SpO2 98% | BMI 28.62 kg/m | BSA 1.89 m Physical Exam: Mental Status Examination: alert and oriented. Airway Examination: normal oropharyngeal airway and neck mobility. Respiratory Examination: clear to auscultation. CV Examination: regular rate and rhythm. ASA Grade: II - A patient with mild systemic disease. Abdomen: soft This patient has undergone a preprocedural evaluation. A determination has been made to proceed with the planned procedure under [facility] procedural guidelines and the [facility] Non-Emergent, Elective Medical Services and Treatment Recommendations (published on 05-17-19). The community and hospital prevalence of COVID-19 has been discussed as well as this patient's specific risks associated with SARS-CoV-19 infection. Based upon the clinical acuity and patient-specific care considerations, this procedure is deemed a Tier II - Intermediate acuity treatment or service with either progression or the threat of progressive disease related to the delay in treatment. Not providing the service has the potential for increasing morbidity or mortality. After reviewing the risks and benefits, the patient is deemed in satisfactory condition to undergo the procedure. The anesthesia plan is to use general anesthesia. We have discussed the risks and benefits of upper endoscopy to include bleeding, infection, perforation, discomfort, aspiration and need for follow-up studies. I have discussed the risks of colonoscopy to include bleeding, infection, perforation, pain, missedpolyps, and need for follow-up studies. Johnny Sethi DO 06/25/2023 documented in this encounter Procedure Notes * Brittany Howard CRNP - 06/25/2023 11:50 AM EDTAssociated Order(s): UPPER GI ENDOSCOPY [facility] Patient Name: Christina Haider Procedure Date: 06/25/2023 11:50 AM Date of : 1960 Admit Type: Outpatient Note Status: Finalized Date of : 1960 Admit Type: Outpatient Age: 63 Room: Advanced Endo Gender: Female Note Status: Finalized Procedure: Upper GI endoscopy Indications: Epigastric abdominal pain, Abdominal pain in the left upper quadrant Providers: Johnny Sethi DO (Doctor) Referring MD: Brittany Howard (Referring MD) Medicines: General Anesthesia Complications: No immediate complications. Estimated blood loss: Minimal. Procedure: Pre-Anesthesia Assessment: - Prior to the procedure, a History and Physical was performed, and patient medications, allergies and sensitivities were reviewed. The patient's tolerance of previous anesthesia was reviewed. - The risks and benefits of the procedure and the sedation options and risks were discussed with the patient. All questions were answered and informed consent was obtained. - Patient identification and proposed procedure were verified prior to the procedure by the physician, the nurse and the spanish instructor. The procedure was verified in the procedure room. - Pre-procedure physical examination revealed no contraindications to sedation. - ASA Grade Assessment: II - A patient with mild systemic disease. - After reviewing the risks and benefits, the patient was deemed in satisfactory condition to undergo the procedure. - The anesthesia plan was to use general anesthesia. - Immediately prior to administration of medications, the patient was re- assessed for adequacy to receive sedatives. - The heart rate, respiratory rate, oxygen saturations, blood pressure, adequacy of pulmonary ventilation, and response to care were monitored throughout the procedure. - The physical status of the patient was re-assessed after the procedure. After obtaining informed consent, the endoscope was passed under direct vision. All instruments were visually inspected immediately before and after removal from the patient to ensure they are fully intact. Throughout the procedure, the patient's blood pressure, pulse, and oxygen saturations were monitored continuously. The PCF-[id number] Colonoscope ([id number]) was introduced through the mouth, and advanced to the third part of duodenum. The upper GI endoscopy was accomplished without difficulty. The patient tolerated the procedure well. Findings & Specimens: The examined esophagus was normal. The Z-line was regular and was found 35 cm from the incisors. Localized mild inflammation characterized by erythema and granularity was found in the gastric antrum. Biopsies were taken with a cold forceps for histology. The pathology specimen was placed into Bottle Number 2. Estimated blood loss was minimal. The cardia, gastric fundus and gastric body were normal. The examined duodenum was normal. Biopsies were taken with a cold forceps for histology. The pathology specimen was placed into Bottle Number 1. Estimated blood loss was minimal. Impression: - Normal esophagus. - Z-line regular, 35 cm from the incisors. - Gastritis. Biopsied. - Normal cardia, gastric fundus and gastric body. - Normal examined duodenum. Biopsied. Recommendation: - Perform a colonoscopy today. - Await pathology results. - Return to referring physician as previously scheduled. Johnny Sethi DO 06/25/2023 12:05:12 PM This report has been signed electronically. * Brittany Howard CRNP - 06/25/2023 11:49 AM EDTAssociated Order(s): COLONOSCOPY [facility] Patient Name: Christina Haider Procedure Date: 06/25/2023 11:49 AM Date of : 1960 Admit Type: Outpatient Note Status: Finalized Date of : 1960 Admit Type: Outpatient Age: 63 Room: Advanced [facility] Gender: Female Note Status: Finalized Procedure: Colonoscopy Indications: Screening for colorectal malignant neoplasm Providers: Johnny Sethi DO (Doctor) Referring MD: Brittany Howard (Referring MD) Medicines: General Anesthesia Complications: No immediate complications. Estimated blood loss: Minimal. Procedure: Pre-Anesthesia Assessment: - Prior to the procedure, a History and Physical was performed, and patient medications, allergies and sensitivities were reviewed. The patient's tolerance of previous anesthesia was reviewed. - The risks and benefits of the procedure and the sedation options and risks were discussed with the patient. All questions were answered and informed consent was obtained. - Patient identification and proposed procedure were verified prior to the procedure by the physician, the nurse and the spanish instructor. The procedure was verified in the procedure room. - Pre-procedure physical examination revealed no contraindications to sedation. - ASA Grade Assessment: II - A patient with mild systemic disease. - After reviewing the risks and benefits, the patient was deemed in satisfactory condition to undergo the procedure. - The anesthesia plan was to use general anesthesia. - Immediately prior to administration of medications, the patient was re- assessed for adequacy to receive sedatives. - The heart rate, respiratory rate, oxygen saturations, blood pressure, adequacy of pulmonary ventilation, and response to care were monitored throughout the procedure. - The physical status of the patient was re-assessed after the procedure. After I obtained informed consent, the scope was passed under direct vision. All instruments were visually inspected immediately before and after removal from the patient to ensure they are fully intact. Throughout the procedure, the patient's blood pressure, pulse, and oxygen saturations were monitored continuously. The PCF-H190DL Colonoscope ([id number]) was introduced through the anus and advanced to the terminal ileum. The colonoscopy was performed without difficulty. The patient tolerated the procedure well. The quality of the bowel preparation was good. Findings & Specimens: Hemorrhoids were found on perianal exam. The terminal ileum appeared normal. A 6 mm polyp was found in the cecum. The polyp was semi-sessile. The polyp was removed with a cold snare. Resection and retrieval were complete. The pathology specimen was placed into Bottle Number 3. To prevent bleeding after the polypectomy, one hemostatic clip was successfully placed (MR conditional). There was no bleeding at the end of the procedure. A 4 mm polyp was found in the descending colon. The polyp was sessile. The polyp was removed with a cold snare. Resection and retrieval were complete. The pathology specimen was placed into Bottle Number 4. Estimated blood loss was minimal. A few small-mouthed diverticula were found in the sigmoid colon. Non-bleeding internal hemorrhoids were found during retroflexion. The hemorrhoids were mild. The exam was otherwise without abnormality. Impression: - Hemorrhoids found on perianal exam. - The [...] hemorrhoids. - The examination was otherwise normal. Recommendation: - The patient will be observed post-procedure, until all discharge criteria are met. - Advance diet as tolerated today. - Await pathology results. - Repeat colonoscopy in 5 years for surveillance. - Return to referring physician as previously scheduled. Johnny Sethi DO 06/25/2023 12:23:29 PM This report has been signed electronically. documented in this encounter Nursing Notes * Cierra Chapman RN - 06/25/2023 1:24 PM EDT Patient is alert, pain free, and tolerating po fluids prior to discharge. Patient has been visited by Dr. Johnny Sethi. Patient has received and demonstrates understanding of discharge instructions. Patient is escorted to private auto accompanied by endo staff. * Rajni Miner RN - 06/25/2023 12:[address] Sethi in to visit pt and discusses her procedures with her. * Rajni Miner RN - 06/25/2023 12:36 PM EDT Received pt into PACU II, room 2 via stretcher from the ENDO procedure room s/p EGD and colonoscopy. VSS. Awake and conversing with staff appropriately. O2 sats 98% on RA, resps easy and unlabored. IV fluids infusing to her right wrist without issue. Denies pain or nausea. Sipping water at intervals. * Gold El RN - 06/25/2023 12:26 PM EDT Specimen(s) and location(s) verified with physician post procedure 12:26 PM Gold El RN Mid abdominal pressure given per Dr. Johnny Sethi to assist with scope advancement. Pt tolerated well See anesthesia record for medication administered during procedure. Gold El RN Pre cleaning of scope at the bedside started by claim technician. * Virginia Jacob, SANDRINE - 06/25/2023 11:16 AM EDT The following pt discharge instructions reviewed with pt prior to prodedure: No driving today. No alcohol today. No signing of legal documents. Rest as much as possible today and can return to normal activities tomorrow. No operating any heavy equipment today. Diet as tolerated. Pt verbalized understanding. documented in this encounter Plan of Treatment Upcoming Encounters Date Type Department Care Team (Late st Contact Info) Description 07/30/2023 1:00 PM EDT Office Visit Family Practice [facility] [address] [place] [address] Virginia Pacheco, [address] [place] [address] 08/26/2023 11:00 AM EDT Office Visit Gynecology/Obstetrics [facility] [address] [place] [address] Claudine Kasper CRNP [address] [place] [address] 09/24/2023 9:20 AM EDT Office Visit Sleep Disorders Ctr [facility] [address] [place] [phone] Sydnee Dc DO [address] [place] [address] Pending Results Name Type Priority Associated Diagnoses Date /Time SURGICAL PATHOLOGY Pathology Routine Constipation 06/25/2023 12:24 PM EDT Scheduled Orders Name Type Priority Associated Diagnoses Orde r Schedule SURGICAL PATHOLOGY Pathology Routine Constipation Release Upon Ordering for 1 Occurrences starting 06/25/2023, 1 completed Health Maintenance Due Date Last Done Comments [...] this encounter Medical Devices Implanted Type Area Scrap Hoist Operator Device Identifier Shelf Expiration Date Model / Serial / Lot Hemostatic Clip Res 235cm - [id number] Implanted:Qty: 1 on 06/25/2023 by Johnny Sethi DO at ENDOSCOPY [facility] : ENDOSCOPY 11/17/2025 [id number] / / [id number] documented as of this encounter Procedures Procedure Name Priority Date/Time Associated Diagnosis Comments UPPER GI ENDOSCOPY 06/25/2023 11 :50 AM EDT COLONOSCOPY 06/25/2023 11:49 AM EDT documented in this encounter Results * UPPER GI ENDOSCOPY (06/25/2023 11:50 AM EDT) 06/25/2023 11:5 0 AM EDT Narrative Procedure Note Brittany Howard CRNP - 06/25/2023 11:50 AM EDT [facility] Patient Name: Christina Haider Procedure Date: 06/25/2023 11:50 AM Date of : 1960 Admit Type: Outpatient Note Status:Finalized Date of : 1960 Admit Type: Outpatient Age: 63 Room: Advanced Endo Gender: Female Note Status: Finalized Procedure: Upper GI endoscopy Indications: Epigastric abdominal pain, Abdominal pain in theleft upper quadrant Providers: Johnny Sethi DO (Doctor) Referring MD: Brittany Howard (Referring MD) Medicines: General Anesthesia Complications: No immediate complications. Estimated blood loss:Minimal. Procedure: Pre-Anesthesia Assessment: - Prior to the procedure, a History and Physicalwas performed, and patient medications, allergies and sensitivities werereviewed. The patient's tolerance of previous anesthesia was reviewed. - The risks and benefits of the procedure and thesedation options and risks were discussed with the patient. All questions wereanswered and informed consent was obtained. - Patient identification and proposed procedurewere verified prior to the procedure by the physician, the nurse and the spanish instructor.The procedure was verified in the procedure room. - Pre-procedure physical examination revealed nocontraindications to sedation. - ASA Grade Assessment: II - A patient with mildsystemic disease. - After reviewing the risks and benefits, thepatient was deemed in satisfactory condition to undergo the procedure. - The anesthesia plan was to use generalanesthesia. - Immediately prior to administration ofmedications, the patient was re-assessed for adequacy to receive sedatives. - The heart rate, respiratory rate, oxygensaturations, blood pressure, adequacy of pulmonary ventilation, and response to care weremonitored throughout the procedure. - The physical status of the patient wasre-assessed after the procedure. After obtaining informed consent, the endoscope waspassed under direct vision. All instruments were visually inspected immediatelybefore and after removal from the patient to ensure they are fully intact. Throughout the procedure, the patient's bloodpressure, pulse, and oxygen saturations were monitored continuously. The [facility]-[id number] ([id number]) was introduced through the mouth, and advanced to the third partof duodenum. The upper GI endoscopy was accomplished without difficulty. The patienttolerated the procedure well. Findings & Specimens: The examined esophagus was normal. The Z-line was regular and was found 35 cm from the incisors. Localized mild inflammation characterized by erythema and granularitywas found in the gastric antrum. Biopsies were taken with a cold forceps for histology. The pathologyspecimen was placed into Bottle Number 2. Estimated blood loss was minimal. The cardia, gastric fundus and gastric body were normal. The examined duodenum was normal. Biopsies were taken with a coldforceps for histology. The pathology specimen was placed into Bottle Number 1. Estimated blood loss wasminimal. Impression: - Normal esophagus. - Z-line regular, 35 cm from the incisors. - Gastritis. Biopsied. - Normal cardia, gastric fundus and gastric body. - Normal examined duodenum. Biopsied. Recommendation: - Perform a colonoscopy today. - Await pathology results. - Return to referring physician as previouslyscheduled. Johnny Sethi DO 06/25/2023 12:05:12 PM This report has been signed electronically. Brittany BENOIT GASTRO UPPER * COLONOSCOPY (06/25/2023 11:49 AM EDT) 06/25/2023 11:4 9 AM EDT Narrative Procedure Note Brittany Howard CRNP - 06/25/2023 11:49 AM EDT [facility] Patient Name: Christina Haider Procedure Date: 06/25/2023 11:49 AM Date of : 1960 Admit Type: Outpatient Note Status:Finalized Date of : 1960 Admit Type: Outpatient Age: 63 Room: Advanced [facility] Gender: Female Note Status: Finalized Procedure: Colonoscopy Indications: Screening for colorectal malignant neoplasm Providers: Johnny Sethi DO (Doctor) Referring MD: Brittany Howard (Referring MD) Medicines: General Anesthesia Complications: No immediate complications. Estimated blood loss:Minimal. Procedure: Pre-Anesthesia Assessment: - Prior to the procedure, a History and Physicalwas performed, and patient medications, allergies and sensitivities werereviewed. The patient's tolerance of previous anesthesia was reviewed. - The risks and benefits of the procedure and thesedation options and risks were discussed with the patient. All questions wereanswered and informed consent was obtained. - Patient identification and proposed procedurewere verified prior to the procedure by the physician, the nurse and the spanish instructor.The procedure was verified in the procedure room. - Pre-procedure physical examination revealed nocontraindications to sedation. - ASA Grade Assessment: II - A patient with mildsystemic disease. - After reviewing the risks and benefits, thepatient was deemed in satisfactory condition to undergo the procedure. - The anesthesia plan was to use generalanesthesia. - Immediately prior to administration ofmedications, the patient was re-assessed for adequacy to receive sedatives. - The heart rate, respiratory rate, oxygensaturations, blood pressure, adequacy of pulmonary ventilation, and response to care weremonitored throughout the procedure. - The physical status of the patient wasre-assessed after the procedure. After I obtained informed consent, the scope waspassed under direct vision. All instruments were visually inspected immediatelybefore and after removal from the patient to ensure they are fully intact. Throughout the procedure, the patient's bloodpressure, pulse, and oxygen saturations were monitored continuously. The [id number] ([id number]) was introduced through the anus and advanced to the terminalileum. The colonoscopy was performed without difficulty. The patient tolerated theprocedure well. The quality of the bowel preparation was good. Findings & Specimens: Hemorrhoids were found on perianal exam. The terminal ileum appeared normal. A 6 mm polyp was found in the cecum. The polyp was semi-sessile. Thepolyp was removed with a cold snare. Resection and retrieval were complete. The pathology specimenwas placed into Bottle Number 3. To prevent bleeding after the polypectomy, one hemostatic clip wassuccessfully placed (MR conditional). There was no bleeding at the end of the procedure. A 4 mm polyp was found in the descending colon. The polyp wassessile. The polyp was removed with a cold snare. Resection and retrieval were complete. The pathologyspecimen was placed into Bottle Number 4. Estimated blood loss was minimal. A few small-mouthed diverticula were found in the sigmoid colon. Non-bleeding internal hemorrhoids were found during retroflexion. Thehemorrhoids were mild. The exam was otherwise without abnormality. Impression: - Hemorrhoids found on perianal exam. - The examined portion of the ileum was normal. - One 6 mm polyp in the cecum, removed with a coldsnare. Resected and retrieved. Clip (MR conditional) was placed. - One 4 mm polyp in the descending colon, removedwith a cold snare. Resected and retrieved. - Mild diverticulosis in the sigmoid colon. - Non-bleeding internal hemorrhoids. - The examination was otherwise normal. Recommendation: - The patient will be observed post-procedure,until all discharge criteria are met. - Advance diet as tolerated today. - Await pathology results. - Repeat colonoscopy in 5 years for surveillance. - Return to referring physician as previouslyscheduled. Johnny Sethi DO 06/25/2023 12:23:29 PM This report has been signed electronically. Brittany BENOIT GASTRO LOWER documented in this encounter Visit Diagnoses Diagnosis Constipation Unspecified constipation documented in this encounter Administered Medications Inactive Administered Medications - up to 3 most recent administrations Medication Order MAR Action Action Date Dose Rate Site Acetaminophen (Tylenol) tab 650 mg 650 mg, Oral, PRN Pain, Mild, Starting on Rosamaria 06/25/23 at 1222, Until Rosamaria 06/25/23 at 1732, For 1 dose, Maximum of 4 grams (4000 mg) per day., Post-op isolyte-S pH 7.4 infusion Intravenous, at 100 mL/hr, Plasma-LYTE 148, isolyte-S, and isolyte-S pH 7.4 are considered equivalent - including for MAR barcode scanning., CONTINUOUS, Starting on Rosamaria 06/25/23 at 1145, Until Rosamaria 06/25/23 at 1732, Pre-Op Continue from Pre-Op 06/25/2023 11:51 AM EDT 100 mL/hr New Bag 06/25/2023 11:33 AM EDT 100 mL/hr documented in this encounter Active and Recently Administered Medications Times are shown in EDT. Continuous Medication Order 06/23/2023 06/24/2023 06/25/2023 isolyte-S pH 7.4 infusion Intravenous, at 100 mL/hr, Plasma-LYTE 148, isolyte-S, and isolyte-S pH 7.4 are considered equivalent - including for MAR barcode scanning., CONTINUOUS, Starting on Rosamaria 06/25/23 at 1145, Until Rosamaria 06/25/23 at 1732, Pre-Op 1133 (New Bag - Prov ider: Virginia Jacob RN)1151 (Continue from Pre-Op - Provider: Stephan Joe CRNA) PRN Medication Order 06/23/2023 06/24/2023 06/25/2023 Acetaminophen (Tylenol) tab 650 mg 650 mg, Oral, PRN Pain, Mild, Starting on Rosamaria 06/25/23 at 1222, Until Rosamaria 06/25/23 at 1732, For 1 dose, Maximum of 4 grams (4000 mg) per day., Post-op documented in this encounter
--- OUTSIDE RECORDS SUMMARY | 2023-10-17 04:04 | External Medical Summary | Summary of Care ---
Author Name Unknown Organization [facility] Address [address] [place] [address] Phone [phone] Care Team Providers Care Clinical Support Associate Name Role Phone Virginia Prado DO Primary Care Provider [phone] Reason for Visit * Reason Comments NEW PATIENT New pt to get establ ished in care with PCP, was seen previous and pain in side not better. She has CT scan after the apt today. * Evaluate & Treat - Unlimited Visits (Within 3 days (urgent)) - Pending Review Specialty Diagnoses / Procedures Referred By Mechelle carmona Referred To Contact Family Medicine Diagnoses Flank pain Acute cough Cloudy urine Leslee Ni PA-C [address] [place] [address] Referral ID Status Reason Start Date Expiration Date Visits Requested Visits Authorized [id number] Pending Review Specialty Services Required 06/08/[phone] Encounter Details Date Type Department Care Team ([facility] Contact Info) Description 07/20/2023 1:20 PM EDT Office Visit Family Practice [facility] [address] [facility] [place] [address] Virginia Prado DO [address] [facility] [address] Well adult exam*; Hypothyroidism, unspecified type; Dyslipidemia, goal LDL below 70; OAB (overactive bladder); Gastroesophageal reflux disease without esophagitis; Prediabetes; Encounter for screening mammogram for breast cancer Allergies Active Allergy Reactions Criticality Noted Date [...] D Active Vitamin D (Ergocalciferol) 1.25 MG (20070 UT) Oral Capsule (Drisdol) 06/04/2023 Active Clobetasol [...] in your mouth 70 Tata 07/09/2023 Active hydrOXYzine HCl 10 MG Oral Tablet (Atarax)Indication s:Vulvar pruritus Take 1 Tablet by mouth at bedtime as needed for Itching. 120 Tablet 1 06/18/2023 4 Discontinued documented as of this encounter [...] Sign Reading Time Taken Comments Blood Pressure 120/74 07/20/2023 1:31 PM EDT Pulse 75 07/20/2023 1:31 PM EDT Temperature 36.4 C (97.5 F) 07/20/2023 1:31 PM ED T Respiratory Rate 16 07/20/2023 1:31 PM EDT Oxygen Saturation - - Inhaled Oxygen Concentration - - Weight 76.7 kg (169 lb) 07/20/2023 1:31 PM EDT Height - - Body Mass Index 28.12 06/25/2023 10:58 AM EDT documented in this encounter Progress Notes * Virgiina Prado DO - 07/20/2023 1:35 PM EDT Subjective: Christina Haider is a 63 year old female. Chief Complaint Patient presents with NEW PATIENT New pt to get established in care with PCP, was seen previous and pain in side not better. She has CT scan after the apt today. HPI: This is a 63 year old female with PMHx as below presents for annual well check. Gerd - pepcid, protonix Wellbutrin, cymbalta - moods depression Enablex - OAB Estrace, progesterone - urogynecology physician - hormones Statin - dl Levothyroxine hypothyroidism Robamol - hip pain prn CT scan for abd pain ordered by prior provider - ongoing issues with LUQ/flank/back pain. Had EGD/colo VSS Pap set up for 08/2023 There is no problem list on file for this patient. Current Outpatient Medications Medication Sig Dispense Refill buPROPion HCl ER (XL) 300 MG Oral Tablet Extended Release 24 Hour (Wellbutrin XL) TK 1 T PO D DULoxetine HCl 60 MG Oral Capsule Delayed Release Particles (Cymbalta) Levothyroxine Sodium 100 MCG Oral Tablet (Levoxyl) Take 1 Tablet by mouth at bedtime. Pantoprazole Sodium 40 MG Oral Tablet Delayed Release (Protonix) Take 1 Tablet by mouth in the morning. Darifenacin Hydrobromide ER 7.5 MG Oral Tablet Extended Release 24 Hour (Enablex) TK 1 T PO D Vitamin D (Ergocalciferol) 1.25 MG (07856 UT) Oral Capsule (Drisdol) hydrOXYzine HCl 10 MG Oral Tablet (Atarax) Take 1 Tablet by mouth at bedtime as needed for Itching.120 Tablet 1 Clobetasol Propionate 0.05 % External Ointment (Temovate) Rub pea sized amount onto labia twice a day for 2 weeks, then daily for 2 weeks, then 2 days a week 30 g 1 Methocarbamol 500 MG Oral Tablet (Robamol) Take 1 Tablet by mouth in the morning and 1 Tablet at noon and 1 Tablet in the evening and 1 Tablet before bedtime. Pravastatin Sodium 80 MG Oral Tablet Take 1 Tablet by mouth at bedtime. Estradiol 1 MG Oral Tablet (Estrace) Take 1 Tablet by mouth every morning. Progesterone 100 MG Oral Capsule (Prometrium) Take 1 Capsule by mouth at bedtime. Famotidine 20 MG Oral Tablet (Pepcid) Take 1 Tablet by mouth 2 times a day as needed for Heartburn.60 Tablet 11 Clotrimazole 10 MG Mouth/Throat Tata (Mycelex Tata) Take 1 Lozenge by mouth 5 times a day. Allow tablet to slowly dissolve in your mouth 70 Tata 0 No current facility-administered medications for this visit. No past medical history on file. Past Surgical History: Procedure Laterality Date COLONOSCOPY, DIAGNOSTIC (RECTUM) 06/25/2023 hemorrhoids/mild diverticulosis/biopsies show adenomatous polyps/recall 5 years/COLONOSCOPY FLEXIBLE PROXIMAL DIAGNOSTIC performed by Johnny Sethi DO at ENDOSCOPY [facility] EGD, FLEXIBLE, DIAGNOSTIC 06/25/2023 gastritis/biopsies normal/ESOPHAGOGASTRODUODENOSCOPY (EGD), FLEXIBLE, TRANSORAL, DIAGNOSTIC performed by Johnny Sethi DO at ENDOSCOPY [facility] Review of patient's allergies indicates: Allergen Reactions Aspirin Rash Penicillins Hives No family history on file. No family status information on file. Social History Socioeconomic History Marital status: Spouse [...] Social Determinants of Health Financial Resource Strain: Not on file Food Insecurity: No Food Insecurity (07/20/2023) Hunger Vital Sign Worried About Running Out of Food in the Last Year: Never true Ran Out of Food in the Last Year: Never true Transportation Needs: Not on file Physical Activity: Not on file Stress: Not on file Social Connections: Not on file Intimate Partner Violence: Not on file Housing Stability: Not on file Did the patient complete the screening questionnaire for Depression: Yes. In general, compared to other people your age, what would you say that your health is? Fair Not Applicable Hospital ER within 30 days: No Patient is able to obtain all of his medications? Yes Patient takes medications as prescribed? Yes Tobacco screening completed today: Yes Non-smoker Alcohol screening completed today: Yes Does not use alcohol Spirometry: Not applicable Dental Exam: due Eye Screening: due Exercise Screening: only the exercise associated with activities at work Nutrition Assessment: does not eat a balanced diet but recently started to Pain Screening: Yes Are you having any pain? Abd pain Review of Systems: As per HPI all other ROS negative. Results for orders placed or performed in visit on 07/16/23 LIPASE Result Value Ref Range Lipase 26 13 - 60 U/L GGTP Result Value Ref Range GGTP 25 <=40 U/L HEMOGLOBIN A1C Result Value Ref Range Hemoglobin A1C 5.9 (H) 4.0 - 5.6 % Estimated Average Glucose 123 <126 mg/dL FERRITIN Result Value Ref Range Ferritin 60 13 - 150 ng/mL LYME DISEASE ANTIBODY SCREEN Result Value Ref Range Lyme Disease Antibody Screen Negative Negative URINALYSIS WITH MICROSCOPIC EXAM Result Value Ref Range Color, Urine Yellow Light Yellow, Yellow, Dark Yellow Clarity, Urine Clear Clear Glucose, Urine Negative Negative mg/dL Bilirubin, Urine Negative Negative Ketone, Urine Negative Negative mg/dL Specific [place], Urine 1.020 1.003 - 1.030 Blood, Urine Negative Negative pH, Urine 5.5 5.0 - 7.5 Units Protein, Urine Negative Negative mg/dL Urobilinogen, Urine 0.2 0.2, 1.0 mg/dL Nitrite, Urine Negative Negative Esterase, Urine Negative Negative RBC, Urine 0-2 0 - 2 /HPF WBC, Urine 0-2 0 - 2 /HPF Bacteria, Urine 0-25 0 - 25 /HPF Wt Readings from Last 3 Encounters: 07/20/23 76.7 kg (169 lb) 07/16/23 77.1 kg (170 lb) 06/25/23 78 kg (172 lb) Health Maintenance Due Topic Date Due Depression Screening Never done HIV Screening Never done Hepatitis C Screening Never done DTaP,Tdap,and Td Vaccines (1 - Tdap) Never done Cervical Cancer Screening Never done Mammogram Never done Zoster Vaccines (1 of 2) Never done COVID-19 Vaccine ( - season) Never done OBJECTIVE: Physical Exam: BP 120/74 | Pulse 75 | Temp 36.4 C (97.5 F) (Tympanic) | Resp 16 | Wt 76.7 kg (169 lb) | BMI 28.12 kg/m | BSA 1.88 m General: alert, healthy, and no distress Head: Normocephalic, No masses, lesions, tenderness or abnormalities Eye Exam: PERRLA, extraocular movements intact, conjunctiva are pink and non- injected, sclera clear Oropharynx: no exudate, no erythema, lips, buccal mucosa, and tongue normal, and mucous membranes are moist Neck: supple, no adenopathy, no bruits Heart: regular rate & rhythm, no murmur, and no gallops Lungs: lungs clear to auscultation Abdomen: abdomen soft, non-tender, normal bowel sounds, and no masses or organomegaly Extremities: no joint deformities, effusion, or inflammation, no edema Well adult exam (Primary) Hypothyroidism, unspecified type Dyslipidemia, goal LDL below 70 OAB (overactive bladder) Gastroesophageal reflux disease without esophagitis Prediabetes Encounter for screening mammogram for breast cancer - MAMMOGRAM SCREENING BRITANY BILATERAL; Future; Expected date: 07/21/2023 Follow Up: Return in about 6 months (around 01/19/2024), or if symptoms worsen or fail to improve, for Clinic Visit. | For: Clinic Visit Discussed with patient: -HEALTH PROMOTION: Adequate sleep (8-10 hours/night), regular exercise, balanced diet, dental care,limiting sedentary activities (TV, computer, Internet) -MENTAL HEALTH: Discuss feelings with an someone that they can trust -INJURY PREVENTION: Driving Safety, Seat Belts, Sun Safety, No Weapons, Conflict Resolution, Personal Safety -SUBSTANCE ABUSE: Tobacco, Drugs, Alcohol Virginia Prado DO documented in this encounter Plan of Treatment Upcoming Encounters Date Type Department Care Team (Late st Contact Info) Description 07/20/2023 3:15 PM EDT Imaging Radiology [address] [place] [address] Left upper quadrant pain; Fatigue, unspecified type; Chronic left-sided thoracic back pain; Unintentional weight loss 08/06/2023 10:45 AM EDT Imaging Radiology [address] [place] [address] 08/26/2023 11:00 AM EDT Office Visit Gynecology/Obstetric s [facility] [address] [place] [address] Claudine Kasper CRNP [address] [place] [address] 09/24/2023 9:20 AM EDT Office Visit Sleep Disorders [facility]tr [facility] [address] [place] [id number] Sydnee Dc DO [address] [place] [address] 01/12/2024 9:40 AM EST Office Visit Family Practice [facility] [address] [place] [address] Virginia Prado, [address] [place] [address] Scheduled Orders Name Type Priority Associated Diagnoses Orde r Schedule MAMMOGRAM SCREENING BRITANY BILATERAL Medical Imaging Routine Encounter for screening mammogram for breast cancer Expected: 07/21/2023 (Approximate), Expires: 08/18/2024 Scheduled Procedures Name Priority Associated Diagnoses Date/Ti [...] this encounter Medical Devices Implanted Type Area Special Skills Officer Device Identifier Shelf Expiration Date Model / Serial / Lot Hemostatic Clip Res 235cm - [id number] Implanted:Qty: 1 on 06/25/2023 by Johnny Sethi DO at ENDOSCOPY [facility] [employer] [facility] : ENDOSCOPY 11/17/2025 [id number] / / [id number] documented as of this encounter Visit Diagnoses Diagnosis Left upper quadrant pain Abdominal pain, left upper quadrant Fatigue, unspecified type Chronic left-sided thoracic back pain Unintentional weight loss Loss of weight Well adult exam- Primary Routine general medical examination at a health care facility Hypothyroidism, unspecified type Dyslipidemia, goal LDL below 70 Other and unspecified hyperlipidemia OAB (overactive bladder) Hypertonicity of bladder Gastroesophageal reflux disease without esophagitis Esophageal reflux Prediabetes Other abnormal glucose Encounter for screening mammogram for breast cancer documented in this encounter Care Teams Clinical Support Associate Relationship Specialty Start Date End Date Virginia Prado DO [address] [place] [address] PCP - General Family Medicine 07/20/23 documented as of this encounter"
--- OUTSIDE RECORDS SUMMARY | 2023-10-17 04:04 | External Medical Summary | Summary of Care ---
Author Name Unknown Organization [facility] Address [address] [place] [address] Phone [phone] Care Team Providers Care Footwear Sales Associate Name Role Phone Unavailable Primary Care Provider Unavailabl e Reason for Visit * Reason Comments NEW [...] Cloudy urine Leslee Ni PA-C [address] [place] [address] Referral ID Status Reason Start Date Expiration Date Visits Requested Visits Authorized [id number] Pending Review Specialty Services Required 06/08/[phone] Encounter Details Date Type Department Care Team ([facility] Contact Info) Description 07/20/2023 1:20 PM EDT Office Visit Family Practice [facility] [address] [facility] [place] [address] Virginia Prado DO [address] [facility] [place] [address] Well adult exam*; Hypothyroidism, unspecified type; Dyslipidemia, [...] D Active Vitamin D (Ergocalciferol) 1.25 MG (22980 UT) Oral Capsule (Drisdol) 06/04/2023 Active Clobetasol [...] needed for Itching. 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 Statin - dl Levothyroxine hypothyroidism [...] PO D Vitamin D (Ergocalciferol) 1.25 MG (52227 UT) Oral Capsule (Drisdol) hydrOXYzine HCl 10 [...] performed by Johnny Sethi DO at ENDOSCOPY [facility] EGD, FLEXIBLE, DIAGNOSTIC 06/25/2023 gastritis/biopsies normal/ESOPHAGOGASTRODUODENOSCOPY (EGD), FLEXIBLE, TRANSORAL, DIAGNOSTIC performed by Johnny Sethi DO at ENDOSCOPY [facility] Review of patient's allergies indicates: Allergen Reactions [...] Negative Ketone, Urine Negative Negative mg/dL Specific [place], Urine 1.020 1.003 - 1.030 Blood, Urine [...] Description 07/20/2023 3:15 PM EDT Imaging Radiology [address] [place] [address] 08/26/2023 11:00 AM EDT Office Visit Gynecology/Obstetrics [facility] [address] [place] [address] Claudine Kasper CRNP [address] [place] [address] 09/24/2023 9:20 AM EDT Office Visit Sleep Disorders [facility]tr [facility] [address] [place] [phone] Sydnee Dc DO [address] [place] [address] Scheduled Orders Name Type Priority Associated Diagnoses [...] 2023 12/03/2020 TSH 06/18/2024 06/19/2023 Diabetes Screening 07/15/2026 07/16/2023, 06/19/2023 Lipid Panel 06/18/2028 06/19/2023 Colonoscopy 06/24/2028 [...] this encounter Medical Devices Implanted Type Area Shuttle Spotter Device Identifier Shelf Expiration Date Model / Serial / Lot Hemostatic Clip Res 235cm - [id number] Implanted:Qty: 1 on 06/25/2023 by Johnny Sethi DO at ENDOSCOPY [facility] : ENDOSCOPY 11/17/2025 [id number] / / [id number] documented as of this encounter Visit Diagnoses Diagnosis Well adult exam- Primary Routine general medical examination at a health care facility Hypothyroidism, unspecified type Dyslipidemia, goal LDL below 70 Other and unspecified hyperlipidemia OAB (overactive bladder) Hypertonicity of bladder Gastroesophageal reflux disease without esophagitis Esophageal reflux Prediabetes Other abnormal glucose Encounter for screening mammogram for breast cancer documented in this encounter"
--- OUTSIDE RECORDS SUMMARY | 2023-10-17 04:04 | External Medical Summary | Summary of Care ---
Author Name Unknown Organization [facility] Address [address] [place] [address] Phone [phone] Care Team Providers Care Career Education Teacher Name Role Phone Unavailable Primary Care Provider Unavailabl e Reason for Referral * Precert (Within 10 days (routine)) - Pending Review Specialty Diagnoses / Procedures Referred By Mechelle carmona Referred To Contact Radiology Diagnoses Left upper quadrant pain Fatigue, unspecified type Chronic left-sided thoracic back pain Unintentional weight loss Procedures CT ABD/PELVIS W WO IV CONTRAST AND W ORAL CONT CT ABD/PELVIS W WO IV CONTRAST AND W ORAL CONT Brittany Howard CRNP [address] [place] [address] Referral ID Status Reason Start Date Expiration Date V isits Requested Visits Authorized [id number] Pending Review 07/16/2023 999 999 * Evaluate & Treat - Unlimited Visits (Within 10 days (routine)) - Pending Review Specialty Diagnoses / Procedures Referred By Mechelle carmona Referred To Contact Gastroenterology Diagnoses Left upper quadrant pain Brittany Howard CRNP [address] [place] [address] Referral ID Status Reason Start Date Expiration Date Visits Requested Visits Authorized [id number] Pending Review Specialty Services Required 07/16/2023 999 999 Question Answer Referral Priority Within 10 days (routine) Where should this appointment be scheduled? [facility] For what condition is the patient being referred? All Gastro Conditions Reason for Visit * Reason Comments Return Visit F/u Encounter Details Date Type Department Care Team (Late st Contact Info) Description 07/16/2023 11:40 AM EDT Office Visit Family [facility] [address] [place] [address] Brittany Howard CRNP [address] [place] [address] Left upper quadrant pain*; Fatigue, unspecified type; Polyuria; Chronic left-sided thoracic back pain; Unintentional weight loss; Gastroesophageal reflux disease, unspecified whether esophagitis present Allergies Active Allergy Reactions Criticality Noted Date [...] D Active Vitamin D (Ergocalciferol) 1.25 MG (23814 UT) Oral Capsule (Drisdol) 06/04/2023 Active hydrOXYzine [...] Sign Reading Time Taken Comments Blood Pressure 99/70 07/16/2023 11:50 AM EDT Pulse 74 07/16/2023 11:50 AM EDT Temperature 36.1 C (97 F) 07/16/2023 11:50 AM EDT Respiratory Rate - - Oxygen Saturation 98% 07/16/2023 11:50 AM EDT Inhaled Oxygen Concentration - - Weight 77.1 kg (170 lb) 07/16/2023 11:50 AM EDT Height - - Body Mass Index 28.29 06/25/2023 10:58 AM EDT documented in this encounter Progress Notes * Brittany Howard CRNP - 07/16/2023 12:04 PM EDT Images from the original note were not included. History of Present Illness Christina Haider is a 63 year old female that presents for Return Visit (F/u) HPI Here in follow up She is still having LUQ pain, often postprandial Still very fatigued Notes she is urinating a lot and will get sweaty sometimes during the day -- on Enablex Colonoscopy showed polyps but otherwise normal Endoscopy showed gastritis despite being on protonix No measured fevers No rashes She is concerned that she has pancreatic cancer after reading about her symptoms Recall that renal US showed a cyst but no stone on L side Reports unintentional weight loss as well Denies polydipsia She is on oral estrogen and prometrium daily Synthroid -- TSH low but T4 normal Wellbutrin, cymbalta for mood Current Outpatient Medications Medication Sig Dispense Refill Clotrimazole 10 MG Mouth/Throat Tata (Mycelex Tata) Take 1 Lozenge by mouth 5 times a day. Allow tablet to slowly dissolve in your mouth 70 Tata 0 Famotidine 20 MG Oral Tablet (Pepcid) Take 1 Tablet by mouth 2 times a day as needed for Heartburn.60 Tablet 11 buPROPion HCl ER (XL) 300 MG Oral Tablet Extended Release 24 Hour (Wellbutrin XL) TK 1 T PO D Clobetasol Propionate 0.05 % External Ointment (Temovate) Rub pea sized amount onto labia twice a day for 2 weeks, then daily for 2 weeks, then 2 days a week 30 g 1 Darifenacin Hydrobromide ER 7.5 MG Oral Tablet Extended Release 24 Hour (Enablex) TK 1 T PO D DULoxetine HCl 60 MG Oral Capsule Delayed Release Particles (Cymbalta) Estradiol 1 MG Oral Tablet (Estrace) Take 1 Tablet by mouth every morning. hydrOXYzine HCl 10 MG Oral Tablet (Atarax) Take 1 Tablet by mouth at bedtime as needed for Itching.120 Tablet 1 Levothyroxine Sodium 100 MCG Oral Tablet (Levoxyl) [...] at bedtime. Vitamin D (Ergocalciferol) 1.25 MG (60436 UT) Oral Capsule (Drisdol) No current facility-administered medications for this visit. Physical Exam Vitals: 07/16/23 1150 Temp: 36.1 C (97 F) Pulse: 74 SpO2: 98% BP: 99/70 Physical Exam Vitals reviewed. Constitutional: Appearance: Normal [...] Breath sounds: Normal breath sounds. Abdominal: General: There is no distension. Palpations: Abdomen is soft. Tenderness: There is abdominal tenderness (LLQ, LUQ). Musculoskeletal: Cervical back: Neck supple. Right lower leg: No edema. Left lower leg: No edema. Lymphadenopathy: Cervical: No cervical adenopathy. Skin: General: Skin is warm and dry. Capillary Refill: Capillary refill takes less than 2 seconds. Neurological: Mental Status: She is alert and oriented to person, place, and time. Psychiatric: Behavior: Behavior normal. Thought Content: Thought content normal. Assessment and Plan Left upper quadrant pain - LIPASE; Future - GGTP; Future - ADULT GASTROENTEROLOGY REFERRAL OP - CT ABD/PELVIS W WO IV CONTRAST AND W ORAL CONT; Future Fatigue, unspecified type Keep sleep med follow up - HEMOGLOBIN A1C; Future - FERRITIN; Future - LYME DISEASE ANTIBODY SCREEN WITH REFLEX TO CONFIRMATION; Future - CT ABD/PELVIS W WO IV CONTRAST AND W ORAL CONT; Future Polyuria - HEMOGLOBIN A1C; Future - URINALYSIS WITH MICROSCOPIC EXAM; Future Chronic left-sided thoracic back pain - CT ABD/PELVIS W WO IV CONTRAST AND W ORAL CONT; Future Unintentional weight loss Normal EGD, colonoscopy Will r/o DM - CT ABD/PELVIS W WO IV CONTRAST AND W ORAL CONT; Future Gastroesophageal reflux disease, unspecified whether esophagitis present On protonix Will have her follow up with GI given persistent GI symptoms/gastritis on upper endoscopy Wrap-Up Follow Up: Return if symptoms worsen or fail to improve, for Labs Today. | For: Labs Today | Check-out note: Schedule CT Labs today Reschedule pcp follow up Schedule GI Time: I spent a total of 30-39 minutes (exact time 30 mins) on the date of service in preparation, delivery, and documentation of the care provided to Christina Haider excluding any time spent in the performance of separately billed services. documented in this encounter Nursing Notes * Mehreen Mao MED ASSIST - 07/16/2023 11:45 AM EDT The patient has been properly identified by confirmation of name and date of . Chief Complaint Patient presents with Return Visit F/u Mid back pain, front upper side. Aching uncomfortable with movement. dizzy when head position changes, weak fatigued,internal warm feeling sweat. documented in this encounter Plan of Treatment Upcoming Encounters Date Type Department Care Team (Late st Contact Info) Description 08/26/2023 11:00 AM EDT Office Visit Gynecology/Obstetrics [facility] [address] [address] Claudine Kasper CRNP [address] [address] 09/16/2023 12:20 PM EDT Office Visit Family Practice [facility] [address] [address] Virginia Pacheco, DO [address] [place] [address] 09/24/2023 9:20 AM EDT Office Visit Sleep Disorders Ctr [facility] [address] [place] [phone] Sydnee Dc, DO [address] [place] [address] Pending Results Name Type Priority Associated Diagnoses [...] Fatigue, unspecified type 07/16/2023 12:44 PM EDT Scheduled Orders Name Type Priority Associated Diagnoses Orde r Schedule LIPASE Lab Routine Left upper quadrant pain Expected: 07/16/2023 (Approximate), Expires: 07/15/2024 GGTP Lab Routine Left upper quadrant pain Expected: 07/16/2023 (Approximate), Expires: 07/15/2024 HEMOGLOBIN A1C Lab Routine Fatigue, unspecified type Polyuria Expected: 07/16/2023 (Approximate), Expires: 07/15/2024 FERRITIN Lab Routine Fatigue, unspecified type Expected: 07/16/2023 (Approximate), Expires: 07/15/2024 URINALYSIS WITH MICROSCOPIC EXAM Lab Routine Polyuria Expected: 07/16/2023 (Approximate), Expires: 07/15/2024 LYME DISEASE ANTIBODY SCREEN WITH REFLEX TO CONFIRMATION Lab Routine Fatigue, unspecified type Expected: 07/16/2023 (Approximate), Expires: 07/15/2024 CT ABD/PELVIS W WO IV CONTRAST AND W ORAL CONT Medical Imaging Routine Left upper quadrant pain Fatigue, unspecified type Chronic left-sided thoracic back pain Unintentional weight loss Expected: 07/16/2023, Expires: 08/14/2024 Scheduled Procedures Name Priority Associated Diagnoses Date/Ti me COLONOSCOPY FLEXIBLE PROXIMA L DIAGNOSTIC Recall History of colonic polyps Scheduled Referrals Name Type Priority Associated Diagnoses Order Schedule ADULT GASTROENTEROLOGY REFERRAL OP Referral Within 10 days (routine) Left upper quadrant pain Ordered: 07/16/2023 Health Maintenance Due Date Last Done Comments [...] this encounter Medical Devices Implanted Type Area Patient'S Librarian Device Identifier Shelf Expiration Date Model / Serial / Lot Hemostatic Clip Res 235cm - [id number] Implanted:Qty: 1 on 06/25/2023 by Johnny Sethi DO at ENDOSCOPY [facility] [employer] : ENDOSCOPY 11/17/2025 [id number] / / [id number] documented as of this encounter Visit Diagnoses Diagnosis Left upper quadrant pain- Primary Abdominal pain, left upper quadrant Fatigue, unspecified type Polyuria Chronic left-sided thoracic back pain Unintentional weight loss Loss of weight Gastroesophageal reflux disease, unspecified whether esophagitis present documented in this encounter"
--- OUTSIDE RECORDS SUMMARY | 2023-10-17 04:04 | External Medical Summary | Summary of Care ---
Author Name Unknown Organization [facility] Address [address] [place] [address] Phone [phone] Care Team Providers Care Clinical Esthetician Name Role Phone Unavailable Primary Care Provider Unavailabl e Reason for Visit * Reason Onset Date Comments Test Results 06/23/2023 Encounter Details Date Type Department Care Team ([facility] Contact Info) Description 06/23/2023 Telephone Family Practice [facility] [address] [facility] [address] [facility] [address] [facility] [address] Test Results Allergies Active Allergy Reactions Criticality Noted Date Comments Aspirin Rash 06/18/2023 Penicillins Hives 06/08/2023 documented as of this encounter (statuses as of 06/25/2023) Medications Medication Sig Dispensed Refills Start Date End Date Status buPROPion HCl ER (XL) 300 MG Oral Tablet Extended Release 24 Hour (Wellbutrin XL) TK 1 T PO D 0 Suspende d DULoxetine HCl 60 MG Oral Capsule Delayed Release Particles (Cymbalta) 0 06/04/2023 Suspended Levothyroxine Sodium 100 MCG Oral Tablet (Levoxyl) Take 1 Tablet by mouth at bedtime. 0 Suspended Pantoprazole Sodium 40 MG Oral Tablet Delayed Release (Protonix) Take 1 Tablet by mouth in the morning. 0 Suspended Darifenacin Hydrobromide ER 7.5 MG Oral Tablet Extended Release 24 Hour (Enablex) TK 1 T PO D 0 Suspen ded Vitamin D (Ergocalciferol) 1.25 MG (11795 UT) Oral Capsule (Drisdol) 0 06/04/2023 Suspended hydrOXYzine HCl 10 MG Oral Tablet (Atarax)Indication s:Vulvar pruritus Take 1 Tablet by mouth at bedtime as needed for Itching. 120 Tablet 1 06/18/2023 Suspended Additional Information Clobetasol Propionate 0.05 % External Ointment (Temovate)Indicati ons:Vulvar pruritus Rub pea sized amount onto labia twice a day for 2 weeks, then daily for 2 weeks, then 2 days a week 30 g 1 06/18/2023 Suspended Additional Information Methocarbamol 500 MG Oral Tablet (Robamol) Take 1 Tablet by mouth in the morning and 1 Tablet at noon and 1 Tablet in the evening and 1 Tablet before bedtime. 0 Suspended Pravastatin Sodium 80 MG Oral Tablet Take 1 Tablet by mouth at bedtime. 0 Suspended Estradiol 1 MG Oral Tablet (Estrace) Take 1 Tablet by mouth every morning. 0 Suspended Progesterone 100 MG Oral Capsule (Prometrium) Take 1 Capsule by mouth at bedtime. 0 Suspended Clotrimazole 10 MG Mouth/Throat Tata (Mycelex Tata)Indications :Oral candidiasis Take 1 Lozenge by mouth 5 times a day for 14 days. Allow tablet to slowly dissolve in your mouth 70 Tata 0 06/19/2023 Suspended Additional Information Famotidine 20 MG Oral Tablet (Pepcid)Indication s:Gastroesophageal reflux disease, unspecified whether esophagitis present Take 1 Tablet by mouth 2 times a day as needed for Heartburn. 60 Tablet 11 06/19/2023 Suspended Additional Information documented as of this encounter (statuses as [...] encounter Miscellaneous Notes * Telephone Encounter - Ivette Melvin LPN [...] 1:00 PM EDT Office Visit Family Practice [facility] [address] [address] Virginia Pacheco DO [address] [address] 08/26/2023 11:00 AM EDT Office Visit Gynecology/Obstetrics [facility] [address] [address] Claudine Kasper CRNP [address] [address] 09/24/2023 9:20 AM EDT Office Visit Sleep Disorders Ctr [facility] [address] [place] [phone] Sydnee Dc DO [address] [place] [address] Scheduled Procedures Name Priority Associated Diagnoses Date/Ti [...] 02/07/1990 HPV/Co-Test 02/07/1990 Mammogram 2000 Cologuard 02/07/2005 Colonoscopy 02/07/2005 Colorectal Cancer Screening 02/07/2005 Fecal Occult Blood Test 02/07/2005 Sigmoidoscopy 02/07/2005 Zoster Vaccines (1 of 2) 02/07/2010 COVID-19 Vaccine ( - 2022-2 4 season) 2022 Influenza Vaccine (FLU shot) (Season Ended) 2023 12/03/2020 TSH 06/18/2024 06/19/2023 Diabetes Screening 06/18/2026 06/19/2023 Lipid Panel 06/18/2028 06/19/2023 GARDASIL-HPV IMMUNIZATION SERIES Aged Out No longer [...] documented as of this encounter Medical Devices Not on filedocumented as of this encounter
--- OUTSIDE RECORDS SUMMARY | 2023-10-17 04:04 | External Medical Summary ---
Author Name Unknown Address Unknown Organization [id number]:[facility] [place] [facility] [facility] - [address] [place] [address] Laboratory Report Ordering Provider Test Date Status JORDAN CAMPBELL 07/16/2023 15:49:20 Final Observation Date Value Abnormality Reference (Units ) Status Color of Urine by Auto 07/16/2023 15:49:20 Yellow Light Yellow, Yellow, Dark Yellow Final Clarity, Urine 07/16/2023 15:49:20 Clear Clear Final Glucose [Mass/volume] in Urine by Automated test strip 07/16/2023 15:49:20 Negative Negative (mg/dL) Final Bilirubin.total [Presence] in Urine by Automated test strip 07/16/2023 15:49:20 Negative Negative Final Ketones [Mass/volume] in Urine by Automated test strip 07/16/2023 15:49:20 Negative Negative (mg/dL) Final Specific gravity, Urine 07/16/2023 15:49:20 1.020 1.003-1.030 Final Hemoglobin [Presence] in Urine by Automated test strip 07/16/2023 15:49:20 Negative Negative Final pH, Urine 07/16/2023 15:49:20 5.5 5.0-7.5 (Units) Final Protein [Mass/volume] in Urine by Automated test strip 07/16/2023 15:49:20 Negative Negative (mg/dL) Final Urobilinogen [Mass/volume] in Urine by Automated test strip 07/16/2023 15:49:20 0.2 0.2, 1.0 (mg/dL) Final Nitrite [Presence] in Urine by Automated test strip 07/16/2023 15:49:20 Negative Negative Final Leukocyte esterase [Presence] in Urine by Automated test strip 07/16/2023 15:49:20 Negative Negative Final RBC, Urine 07/16/2023 15:49:20 0-2 0-2 (/HPF) Final WBC, Urine 07/16/2023 15:49:20 0-2 0-2 (/HPF) Final Bacteria [#/area] in Urine sediment by Microscopy high power field 07/16/2023 15:49:20 0-25 0-25 (/HPF) Final Performing Location [facility] [place] [facility] - [address] [facility] [address]
--- OUTSIDE RECORDS SUMMARY | 2023-10-17 04:04 | External Medical Summary ---
Author Name Unknown Address Unknown Organization K01:[facility] [place] [address] [place] [address] Laboratory Report Ordering Provider Test Date Status JORDAN CAMPBELL 07/16/2023 12:44:24 Final Observation Date Value Abnormality Reference (Units ) Status Lipase 07/16/2023 12:44:24 26 13-60 (U/L ) Final Performing Location LAB[facility]ATORY [facility] - [address] [place] [address]
--- OUTSIDE RECORDS SUMMARY | 2023-10-17 04:04 | External Medical Summary | Summary of Care ---
Author Name Unknown Organization [facility] Address [address] [place] [address] Phone [phone] Care Team Providers Care Program Research Specialist Name Role Phone Unavailable Primary Care Provider Unavailabl e Reason for Visit * Reason Comments Outpatient Testing Encounter Details Date Type Department Care Team ([facility] Contact Info) Description 07/16/2023 12:50 PM EDT Laboratory Laboratory, [facility] [address] [place] [phone] [facility] [address] [place] [address] Left upper quadrant pain; Fatigue, unspecified type; [...] D Active Vitamin D (Ergocalciferol) 1.25 MG (86191 UT) Oral Capsule (Drisdol) 06/04/2023 Active hydrOXYzine [...] 08/26/2023 11:00 AM EDT Office Visit Gynecology/Obstetrics [facility] [address] [place] [address] Claudine Kasper CRNP [address] [place] [address] 09/16/2023 12:20 PM EDT Office Visit Family Practice [facility] [address] [address] Virginia Pacheco, [address] [place] [address] 09/24/2023 9:20 AM EDT Office Visit Sleep Disorders Ctr [facility] [address] [place] [phone] Sydnee Dc, DO [address] [place] [address] Pending Results Name Type Priority Associated Diagnoses [...] unspecified type 07/16/2023 12:44 PM EDT Scheduled Procedures Name Priority Associated [...] this encounter Medical Devices Implanted Type Area Prosthetics Lab Technician Device Identifier Shelf Expiration Date Model / Serial / Lot Hemostatic Clip Res 235cm - [id number] Implanted:Qty: 1 on 06/25/2023 by Johnny Sethi DO at ENDOSCOPY [facility] [employer] : ENDOSCOPY 11/17/2025 [id number] / / [id number] documented as of this encounter Visit Diagnoses Diagnosis Left upper quadrant pain Abdominal pain, left upper quadrant Fatigue, unspecified type Polyuria documented in this encounter
--- OUTSIDE RECORDS SUMMARY | 2023-10-17 04:04 | External Medical Summary | Summary of Care ---
Author Name Unknown Organization [facility] Address [address] [place] [address] Phone [phone] Care Team Providers Care Tool Machine Shop Supervisor Name Role Phone Unavailable Primary Care Provider Unavailabl e Reason for Visit * Reason Onset Date Comments Medication Refill 07/03/2023 Encounter Details Date Type Department Care Team ([facility] Contact Info) Description 07/03/2023 Refill Family Practice [facility] [address] [facility] [place] [address] Brittany Ortega CRNP [address] [facility] [address] Oral candidiasis Allergies Active Allergy Reactions Criticality Noted Date Comments Aspirin Rash 06/18/2023 Penicillins Hives 06/08/2023 documented as of this encounter (statuses as of 07/09/2023) Medications Medication Sig Dispensed Refills Start Date [...] D Active Vitamin D (Ergocalciferol) 1.25 MG (11883 UT) Oral Capsule (Drisdol) 06/04/2023 Active hydrOXYzine [...] in your mouth 70 Tata 07/09/2023 Active Clotrimazole 10 MG Mouth/Throat Tata (Mycelex Tata)Indications :Oral candidiasis Take 1 Lozenge by mouth 5 times a day for 14 days. Allow tablet to slowly dissolve in your mouth 70 Tata 06/19/2023 07/09/2023 Discontinue d(Refill) documented as of this encounter (statuses as of 07/09/2023) Active Problems No known active problems documented as of this encounter (statuses as of 07/09/2023) Social History Tobacco Use Types Packs/Day Years [...] as of this encounter Miscellaneous Notes * Addendum Note - Brittany Ortega CRNP - 07/09/2023 11:10 AM EDTAddended by: BRITTANY ORTEGA on: 07/09/2023 11:10 AM Modules accepted: Orders * Telephone Encounter - Brittany Ortega CRNP - 07/09/2023 11:09 AM EDT Refill sent Please keep scheduled follow up to discuss ongoing symptom management/further testing * Telephone Encounter - Sandee Joel LPN - 07/03/2023 3:55 PM EDTRefused Prescriptions: Disp Refills Clotrimazole 10 MG Mouth/Throat Tata (My*70 Tro*0 Sig: Take 1Lozenge by mouth 5 times a day. Allow tablet to slowly dissolve in your mouthRefused By: BABS ORTEGAeason for Refusal: Course of treatment complete * Telephone Encounter - Sandee Joel LPN - 07/03/2023 3:55 PM EDT Sent my g * Telephone Encounter - Brittany Ortega CRNP - 07/03/2023 3:49 PM EDTRefused Prescriptions: Disp Refills Clotrimazole 10 MG Mouth/Throat Tata (My*70 Tro*0 Sig: Take 1 Lozenge by mouth 5 times a day. Allow tablet to slowly dissolve in your mouth Refused By: BRITTANY ORTEGA Reason for Refusal: Course of treatment complete * Telephone Encounter - Brittany Ortega CRNP - 07/03/2023 3:49 PM EDT Course of treatment complete * Telephone Encounter - Angela Harman CPhT - 07/03/2023 1:33 PM EDT Pt is asking for high priority because [place]. Did you pend patient's preferred pharmacy and medication before forwarding?yes Pharmacy: [id number] [address] [place] [address] Pending Prescriptions: Disp Refills Clotrimazole 10 MG Mouth/Throat Tata (M*70 Tro*0 Sig: Take 1 Lozenge by mouth 5 times a day. Allow tablet to slowly dissolve in your mouth Last Visit: 06/19/2023 (in office), Visit date not found (telemedicine) Next Visit: 07/30/2023 If no future appointments scheduled, and last appointment is greater than a year ago, please schedule patient for a follow-up appointment Last date the medication was ordered: 06/19/23 Is this request for a controlled substance?No Urine Drug Screen:No results found for this or any previous visit. Patient Phone Numbers Labs: Lab Results Component Value Date/Time CREAT 1.0 06/19/2023 01:33 PM POTASSIUM 4.3 06/19/2023 01:33 PM TSH 0.15 (L) 06/19/2023 01:33 PM LDLDIRECT 85 06/19/2023 01:33 PM ALT 31 06/19/2023 01:33 PM documented in this encounter Plan of Treatment Upcoming Encounters Date Type Department Care Team (Late st Contact Info) Description 07/30/2023 1:00 PM EDT Office Visit Family Practice [facility] [address] [place] [address] Virginia Pacheco, DO [address] [place] [address] 08/26/2023 11:00 AM EDT Office Visit Gynecology/Obstetrics [facility] [address] [place] [address] Claudine Kasper CRNP [address] [place] [address] 09/24/2023 9:20 AM EDT Office Visit Sleep Disorders Ctr [facility] [address] [place] [phone] Sydnee Dc, [address] [place] [address] Scheduled Procedures Name Priority Associated Diagnoses Date/Ti [...] this encounter Medical Devices Implanted Type Area Seasonal Warehouse Associate Device Identifier Shelf Expiration Date Model / Serial / Lot Hemostatic Clip Res 235cm - [id number] Implanted:Qty: 1 on 06/25/2023 by Johnny Sethi DO at ENDOSCOPY [facility] : ENDOSCOPY 11/17/2025 [id number] / / [id number] documented as of this encounter Visit Diagnoses Diagnosis Oral candidiasis Candidiasis of mouth documented in this encounter
--- OUTSIDE RECORDS SUMMARY | 2023-10-17 04:04 | External Medical Summary ---
Author Name Unknown Address Unknown Organization K01:[facility] - [address] [place] [address] Laboratory Report Ordering Provider Test Date Status JORDAN CAMPBELL 07/16/2023 12:44:24 Final Observation Date Value Abnormality Reference (Units ) Status Borrelia burgdorferi IgG and IgM [Interpretation] in Serum by Immunoassay 07/16/2023 12:44:24 Negative Negative Final Performing Location LABORATORY [facility] - [address] [place] [address]
--- OUTSIDE RECORDS SUMMARY | 2023-10-17 04:04 | External Medical Summary ---
Author Name Unknown Address Unknown Organization [id number]:LAB[facility]ATORY [facility] - [address] [place] [address] Laboratory Report Ordering Provider Test Date Status JORDAN CAMPBELL 07/16/2023 12:44:24 Final Observation Date Value Abnormality Reference (Units ) Status GGT 07/16/2023 12:44:24 25 <=40 (U/L) Final Performing Location LAB[facility]ATORY [facility] - [address] [place] [address]
--- OUTSIDE RECORDS SUMMARY | 2023-10-17 04:04 | External Medical Summary | Summary of Care ---
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 [place] [address] Brittany Ortega CRNP [address] [facility] [place] [address] Oral candidiasis Allergies Active Allergy Reactions Criticality Noted Date Comments Aspirin Rash 06/18/2023 Penicillins Hives 06/08/2023 documented as of this encounter (statuses as of 07/03/2023) Medications Medication Sig Dispensed Refills Start Date [...] D Active Vitamin D (Ergocalciferol) 1.25 MG (89769 UT) Oral Capsule (Drisdol) 06/04/2023 Active hydrOXYzine [...] 1 Capsule by mouth at bedtime. Active Clotrimazole 10 MG Mouth/Throat Tata (Mycelex Tata)Indications:O ral candidiasis Take 1 Lozenge by mouth 5 times a day for 14 days. Allow tablet to slowly dissolve in your mouth 70 Tata 06/19/2023 07/03/2023 Active Famotidine 20 MG Oral Tablet (Pepcid)Indications: Gastroesophageal reflux disease, unspecified whether esophagitis present Take 1 Tablet by mouth 2 times a day as needed for Heartburn. 60 Tablet 11 06/19/2023 Active documented as of this encounter (statuses as of 07/03/2023) Active Problems No known active problems documented as of this encounter (statuses as of 07/03/2023) Social History Tobacco Use Types Packs/Day Years [...] encounter Miscellaneous Notes * Telephone Encounter - Sandee Joel LPN [...] pharmacy and medication before forwarding?yes Pharmacy: [id number] [address] [facility] Pending Prescriptions: Disp Refills Clotrimazole 10 MG [...] 1:00 PM EDT Office Visit Family Practice [facility] [address] [address] Virginia Pacheco DO [address] [place] [address] 08/26/2023 11:00 AM EDT Office Visit Gynecology/Obstetrics [facility] [address] [address] Claudine Kasper CRNP [address] [address] 09/24/2023 9:20 AM EDT Office Visit Sleep Disorders Ctr [facility] [address] [place] [phone] Sydnee Dc, [address] [place] [address] Scheduled Procedures Name Priority Associated Diagnoses Date/Ti [...] this encounter Medical Devices Implanted Type Area Glass Polisher Device Identifier Shelf Expiration Date Model / Serial / Lot Hemostatic Clip Res 235cm - [id number] Implanted:Qty: 1 on 06/25/2023 by Johnny Sethi DO at ENDOSCOPY [facility] : ENDOSCOPY 11/17/2025 [id number] / / [id number] documented as of this encounter Visit Diagnoses Diagnosis Oral candidiasis Candidiasis of mouth documented in this encounter
--- OUTSIDE RECORDS SUMMARY | 2023-10-17 04:04 | External Medical Summary | Summary of Care ---
Author Name Unknown Organization [facility] Address [address] [place] [address] Phone [phone] Care Team Providers Care Windows Application Developer Name Role Phone Unavailable Primary Care Provider Unavailabl e Encounter Details Date Type Department Care Team ([facility] Contact Info) Description 06/23/2023 Telephone Family Practice [facility] [address] [facility] [address] Brittany Howard [facility] [address] [facility] [address] Allergies Active Allergy Reactions Criticality Noted Date [...] Suspen ded Vitamin D (Ergocalciferol) 1.25 MG (26143 UT) Oral Capsule (Drisdol) 0 06/04/2023 Suspended [...] 1:00 PM EDT Office Visit Family Practice [facility] [address] [place] [address] Virginia Pacheco, DO [address] [place] [address] 08/26/2023 11:00 AM EDT Office Visit Gynecology/Obstetrics [facility] [address] [place] [address] [address] Claudine Kasper CRNP [address] [place] [address] 09/24/2023 9:20 AM EDT Office Visit Sleep Disorders [facility] [address] [place] [phone] Sydnee Dc, [address] [place] [address] Scheduled Procedures Name Priority Associated Diagnoses Date/Ti me COLONOSCOPY FLEXIBLE PROXIMA L DIAGNOSTIC Constipation 06/25/2023 11:32 AM EDT ESOPHAGOGASTRODUODENOSCOPY ( EGD), FLEXIBLE, TRANSORAL, DIAGNOSTIC Constipation 06/25/2023 11:32 AM EDT Health Maintenance Due Date Last [...]
--- OUTSIDE RECORDS SUMMARY | 2023-10-17 04:05 | External Medical Summary ---
Author Name Unknown Address Unknown Organization K0G:LAB[facility]ATORY [facility] - [address] [place] [address] Laboratory Report Ordering Provider Test Date Status JORDAN CAMPBELL 06/19/2023 13:33:53 Final Observation Date Value Abnormality Reference (Units ) Status WBC, Total 06/19/2023 13:33:53 7.57 4.00-10.8 0 (K/uL) Final RBC 06/19/2023 13:33:53 4.93 3.85-5.15 (M/uL) Final Hemoglobin 06/19/2023 13:33:53 15.2 12.0-15.3 (g/dL) Final HCT 06/19/2023 13:33:53 45.2 36.0-45.2 (%) Final MCV 06/19/2023 13:33:53 91.7 81.5-97.5 (fL) Final MCH 06/19/2023 13:33:53 30.8 27.0-34.0 (pg) Final MCHC 06/19/2023 13:33:53 33.6 32.0-36.0 (g/dL) Final RDW 06/19/2023 13:33:53 13.8 11.5-15.5 (%) Final Platelets 06/19/2023 13:33:53 289 140-400 (K /uL) Final MPV 06/19/2023 13:33:53 9.9 6.6-11.1 ( fL) Final Performing Location LAB[facility]ATORY [facility] - [address] [place] [address]
--- OUTSIDE RECORDS SUMMARY | 2023-10-17 04:05 | External Medical Summary | Summary of Care ---
Author Name Unknown Organization [facility] Address [address] [place] [address] Phone [phone] Care Team Providers Care Boiler Tube Blower Name Role Phone Unavailable Primary Care Provider Unavailabl e Reason for Visit * Reason Onset Date Comments Pre Op Discussion 06/22/2023 Encounter Details Date Type Department Care Team ([facility] st Contact Info) Description 06/22/2023 Telephone OR [facility], Operating Room [facility] [address] [place] [phone] Johnny Sethi, [address] [place] [address] Pre Op Discussion Allergies Active Allergy Reactions Criticality Noted Date Comments Aspirin Rash 06/18/2023 Penicillins Hives 06/08/2023 documented as of this encounter (statuses as of 06/22/2023) Medications Medication Sig Dispensed Refills Start Date [...] 0 Active Vitamin D (Ergocalciferol) 1.25 MG (84238 UT) Oral Capsule (Drisdol) 0 06/04/2023 Active [...] as of this encounter (statuses as of 06/22/2023) Active Problems No known active problems documented as of this encounter (statuses as of 06/22/2023) Social History Tobacco Use Types Packs/Day Years [...] Upcoming Encounters Date Type Department Care Team (Latest Contact Info) Description 06/25/2023 11:30 AM EDT Hospital Encounter ENDO [facility], Endoscopy Room [facility] [address] [facility] [place] [phone] Johnny Sethi, DO [address] [place] [address] 06/25/2023 11:30 AM EDT - 06/25/2023 12:15 PM EDT Surgery ENDO [facility], Endoscopy Room [facility] [address] [place] [phone] Johnny Sethi, DO [address] [place] [address] COLONOSCOPY FLEXIBLE PROXIMAL DIAGNOSTIC 07/30/2023 1:00 PM EDT Office Visit Family Practice [facility] [address] [place] [address] Virginia Pacheco, DO [address] [place] [address] 08/26/2023 11:00 AM EDT Office Visit Gynecology/Obstetri [facility] [address] [place] [address] Claudine Kasper CRNP [address] [place] [address] 09/24/2023 9:20 AM EDT Office Visit Sleep Disorders Ctr [facility] [address] [place] [phone] Sydnee Dc, DO [address] [place] [address] Scheduled Procedures Name Priority Associated Diagnoses Date/Ti me COLONOSCOPY FLEXIBLE PROXIMA L DIAGNOSTIC Constipation 06/25/2023 11:30 AM EDT ESOPHAGOGASTRODUODENOSCOPY ( EGD), FLEXIBLE, TRANSORAL, DIAGNOSTIC Constipation 06/25/2023 11:30 AM EDT Health Maintenance Due Date Last [...]
--- OUTSIDE RECORDS SUMMARY | 2023-10-17 04:05 | External Medical Summary | Summary of Care ---
Author Name Unknown Organization [facility] Address [address] [place] [address] Phone [phone] Care Team Providers Care Revenue Research Analyst Name Role Phone Unavailable Primary Care Provider Unavailabl e Reason for Referral * Evaluate & Treat - Unlimited Visits (Within 10 days (routine)) - Pending Review Specialty Diagnoses / Procedures Referred By Mechelle carmona Referred To Contact Sleep Medicine / Sleep Disorders Diagnoses Snoring Brittany Howard CRNP [address] [place] [address] Referral ID Status Reason Start Date Expiration Date Visits Requested Visits Authorized [id number] Pending Review Specialty Services Required 06/19/2023 2 2 Question Answer Referral Priority Within 10 days (routine) Where should this appointment be scheduled? [facility] Sleep Apnea Testing and Management Does the patient snore and/or gasp at night or has been told they stop breathing at night? Yes, document patient's symptoms in progress note * Ancillary Services (Within 10 days (routine)) - Pending Review Specialty Diagnoses / Procedures Referred By Mechelle carmona Referred To Contact Gastroenterology Diagnoses Upper abdominal pain Constipation, unspecified constipation type Britatny Howard CRNP [address] [place] [address] Referral ID Status Reason Start Date Expiration Date Visits Requested Visits Authorized [id number] Pending Review Ancillary Services Required 06/19/[phone] Question Answer Referral Priority Within 10 days (routine) Where should this appointment be scheduled? [facility] Cho ALERT: Do not order for pediatric patients (18 years or younger). Cancel off screen and order PEDS GASTROENTEROLOGY CONSULT (Type: 1 visit only-Evaluate and Treat) The following Pt. Instructions are available: - Gastro Colonoscopy Prep Instructions [[id number]] - Gastro Colonoscopy Prep Instructions (Eritrean Version) [[id number]] Go to the Pt. Instructions section within the Visit Navigator to access. Colonoscopy ASGE Guidelines: Altered bowel habit, chronic constipation ADDITIONAL INFORMATION 1. Is the patient on Coumadin? No 2. Is the patient on Pradaxa? No * Ancillary Services (Within 10 days (routine)) - Pending Review Specialty Diagnoses / Procedures Referred By Mechelle carmona Referred To Contact Gastroenterology Diagnoses Gastroesophageal reflux disease, unspecified whether esophagitis present Upper abdominal pain Dysphagia, unspecified type Brittany Howard CRNP [address] [place] [address] Referral ID Status Reason Start Date Expiration Date Visits Requested Visits Authorized [id number] Pending Review Ancillary Services Required 06/19/[phone] Question Answer Referral Priority Within 10 days (routine) Where should this appointment be scheduled? [facility]hsan Comments Upper Endoscopy ASGE Guidelines Upper abdominal symptoms that persist despite an appropriate trial of therapy and Dysphagia or odynophagia ADDITIONAL INFORMATION 1. Is the patient on Coumadin? No 2. Is the patient on Pradaxa? No Reason for Visit * Reason Comments NEW PATIENT New pt here for issu es with dry tongue and mouth and sores on her tongue, has had for 3 months. Has pain in Lt lower abdomen and was seen in [place] yesterday. Was told not her kidney. Encounter Details Date Type Department Care Team (Late st Contact Info) Description 06/19/2023 12:00 PM EDT Office Visit Family [facility] [address] [place] [address] Brittany Howard CRNP [address] [place] [address] Oral candidiasis*; Gastroesophageal reflux disease, unspecified whether esophagitis present; Upper abdominal pain; Dysphagia, unspecified type; Snoring; Constipation, unspecified constipation type; Hypothyroidism, unspecified type; Lipid screening; Screening for diabetes mellitus; Dry mouth Allergies Active Allergy Reactions Criticality Noted Date Comments Aspirin Rash 06/18/2023 Penicillins Hives 06/08/2023 documented as of this encounter (statuses as of 06/19/2023) Medications Medication Sig Dispensed Refills Start Date End Date Status Atorvastatin Calcium 20 MG Oral Tablet (Lipitor) TAKE 1 TABLET (20 MG TOTAL) BY MOUTH DAILY. 0 Active buPROPion HCl ER (XL) 300 MG Oral Tablet Extended Release 24 Hour (Wellbutrin XL) TK 1 T PO D 0 Active DULoxetine HCl 60 MG Oral Capsule Delayed Release Particles (Cymbalta) 0 06/04/2023 Active Levothyroxine Sodium 100 MCG Oral Tablet (Levoxyl) Take 1 Tablet by mouth in the morning. 0 Active Pantoprazole Sodium 40 MG Oral Tablet Delayed Release (Protonix) Take 1 Tablet by mouth in the morning. 0 Active Darifenacin Hydrobromide ER 7.5 MG Oral Tablet Extended Release 24 Hour (Enablex) TK 1 T PO D 0 Active Vitamin D (Ergocalciferol) 1.25 MG (34827 UT) Oral Capsule (Drisdol) 0 06/04/2023 Active hydrOXYzine HCl 10 MG Oral Tablet (Atarax)Indications :Vulvar pruritus Take 1 Tablet by mouth at bedtime as needed for Itching. 120 Tablet 1 06/18/2023 Active Additional Information Patient not taking.Reported on 06/18/2023 Clobetasol Propionate 0.05 % External Ointment (Temovate)Indicatio [...] Oral Tablet Take 1 Tablet by mouth in the morning. 0 Active Estradiol 1 MG Oral Tablet (Estrace) Take 1 Tablet by mouth in the morning. 0 Active Progesterone 100 MG Oral Capsule (Prometrium) Take 1 Capsule by mouth in the morning. 0 Active Clotrimazole 10 MG Mouth/Throat Tata (Mycelex Tata)Indications: Oral candidiasis Take 1 Lozenge by mouth 5 times a day for 14 days. Allow tablet to slowly dissolve in your mouth 70 Tata 0 06/19/2023 07/03/2023 Active Famotidine 20 MG Oral Tablet (Pepcid)Indications :Gastroesophageal reflux disease, unspecified whether esophagitis present Take 1 Tablet by mouth 2 times a day as needed for Heartburn. 60 Tablet 11 06/19/2023 Active documented as of this encounter (statuses as of 06/19/2023) Active Problems No known active problems documented as of this encounter (statuses as of 06/19/2023) Social History Tobacco Use Types Packs/Day Years [...] Sign Reading Time Taken Comments Blood Pressure 110/72 06/19/2023 12:17 PM EDT Pulse 88 06/19/2023 12:17 PM EDT Temperature 36.4 C (97.5 F) 06/19/2023 12:17 PM E DT Respiratory Rate 16 06/19/2023 12:17 PM EDT Oxygen Saturation - - Inhaled Oxygen Concentration - - Weight 78 kg (172 lb) 06/19/2023 12:17 PM EDT Height - - Body Mass Index - - documented in this encounter Progress Notes * Brittany Howard CRNP - 06/19/2023 12:28 PM EDT Images from the original note were not included. History of Present Illness Christina Haider is a 63 year old female that presents for NEW PATIENT (New pt here for issues with dry tongue and mouth and sores on her tongue, has had for 3 months. Has pain in Lt lower abdomen andwas seen in [place] yesterday. Was told not her kidney. ) HPI Here as new patient. Had been living in [place] and then [place] and hasn't been able to establishcare yet but recently seen at urgent care for abdominal pain. States it'd been worsening over about3 weeks. In LUQ/epigastric area and radiates to L back. Urgent care thought her pain could be related to a stone and her imaging did not show a stone but did show renal cyst which was evaluated by urology in [place] yesterday and is benign. States she has a burning/stabbing pain in stomach especially when hungry or stomach is empty. She is on protonix. She's also had a bit of a cough since she had covid in April. She'd also been struggling with dry mouth for past three months so had been sleeping with a werther's candy in her mouth and had candy in her mouth most of the day while awake as well. She then developed a very sore throat worse on R side of her mouth and tongue. Sometimes food gets stuck in back throat because mouth painful/dry. Tried biotin mouth was without relief. Sister has Sjogren's. She isvery very fatigued as well. Has had knee and hip replacements already but had negative rheumatoid arthritis testing in past. She also snores and uses a device from her dentist to sleep. Reviewed recent imaging from urgent care. CXR WNL however abdominal xray showed moderate stool burden. States she has BM every other day and often hard to get it out. Not dark or tarry. Last colonoscopy a few years ago and WNL per patient report. Denies unintentional weight loss, fevers, sweats, chills, dyspnea. Also requesting routine screening labs Outpatient Medications Marked as Taking for the 06/19/23 encounter (Office Visit) with Brittany Howard CRNP Medication Sig Clotrimazole 10 MG Mouth/Throat Tata (Mycelex Tata) Take 1 Lozenge by mouth 5 times a day for 14 days. Allow tablet to slowly dissolve in your mouth Famotidine 20 MG Oral Tablet (Pepcid) Take 1 Tablet by mouth 2 times a day as needed for Heartburn. Atorvastatin Calcium 20 MG Oral Tablet (Lipitor) TAKE 1 TABLET (20 MG TOTAL) BY MOUTH DAILY. buPROPion HCl ER (XL) 300 MG Oral Tablet Extended Release 24 Hour (Wellbutrin XL) TK 1 T PO D Clobetasol Propionate 0.05 % External Ointment (Temovate) Rub pea sized amount onto labia twice a day for 2 weeks, then daily for 2 weeks, then 2 days a week Darifenacin Hydrobromide ER 7.5 MG Oral Tablet Extended Release 24 Hour (Enablex) TK 1 T PO D DULoxetine HCl 60 MG Oral Capsule Delayed Release Particles (Cymbalta) Estradiol 1 MG Oral Tablet (Estrace) Take 1 Tablet by mouth in the morning. Levothyroxine Sodium 100 MCG Oral Tablet (Levoxyl) Take 1 Tablet by mouth in the morning. Methocarbamol 500 MG Oral Tablet (Robamol) Take 1 Tablet by mouth in the morning and 1 Tablet at noon and 1 Tablet in the evening and 1 Tablet before bedtime. Pantoprazole Sodium 40 MG Oral Tablet Delayed Release (Protonix) Take 1 Tablet by mouth in the morning. Pravastatin Sodium 80 MG Oral Tablet Take 1 Tablet by mouth in the morning. Progesterone 100 MG Oral Capsule (Prometrium) Take 1 Capsule by mouth in the morning. Vitamin D (Ergocalciferol) 1.25 MG (96573 UT) Oral Capsule (Drisdol) Physical Exam Vitals: 06/19/23 1217 Temp: 36.4 C (97.5 F) Pulse: 88 Resp: 16 BP: 110/72 Physical Exam Vitals reviewed. Constitutional: Appearance: Normal appearance. HENT: Head: Normocephalic and atraumatic. Right Ear: Tympanic membrane, ear canal and external ear normal. Left Ear: Tympanic membrane, ear canal and external ear normal. Nose: Nose normal. Mouth/Throat: Mouth: Mucous membranes are dry. Comments: + white patches over erythema across oropharynx + fissures and white film on tongue Eyes: Extraocular Movements: Extraocular movements intact. Conjunctiva/sclera: Conjunctivae normal. Pupils: Pupils are equal, round, and reactive to light. Cardiovascular: Rate and Rhythm: Normal rate and regular rhythm. Heart sounds: Normal heart sounds. Pulmonary: Effort: Pulmonary effort is normal. Breath sounds: Normal breath sounds. Abdominal: General: There is no distension. Palpations: Abdomen is soft. Tenderness: There is abdominal tenderness (epigastric and LUQ). Musculoskeletal: Cervical back: Neck supple. Right lower leg: No edema. Left lower leg: No edema. Lymphadenopathy: Cervical: No cervical adenopathy. Skin: General: Skin is warm and dry. Capillary Refill: Capillary refill takes less than 2 seconds. Neurological: Mental Status: She is alert and oriented to person, place, and time. Psychiatric: Behavior: Behavior normal. Thought Content: Thought content normal. Assessment and Plan Oral candidiasis Thrush likely secondary to sleeping with klever's candies in her mouth as well as a lot of use during the day time - Clotrimazole 10 MG Mouth/Throat Tata (Mycelex Tata); Take 1 Lozenge by mouth 5 times a day for 14 days. Allow tablet to slowly dissolve in your mouth Gastroesophageal reflux disease, unspecified whether esophagitis present - UPPER ENDOSCOPY GI REFERRAL OP - Famotidine 20 MG Oral Tablet (Pepcid); Take 1 Tablet by mouth 2 times a day as needed for Heartburn. Upper abdominal pain - UPPER ENDOSCOPY GI REFERRAL OP - COLONOSCOPY, GI REFERRAL OP - CBC WITH WBC DIFFERENTIAL; Future Dysphagia, unspecified type - UPPER ENDOSCOPY GI REFERRAL OP Snoring - SLEEP MEDICINE REFERRAL OP Constipation, unspecified constipation type Miralax 2-3x daily until daily soft bowel movements then titrate down to as needed - COLONOSCOPY, GI REFERRAL OP Hypothyroidism, unspecified type - TSH WITH FREE T4 IF INDICATED; Future Lipid screening - LIPID PANEL WITH DIRECT LDL IF TG IS HIGH; Future Screening for diabetes mellitus - COMPREHENSIVE METABOLIC PANEL; Future Dry mouth Sister has sjogren's She also sleeps with dental device and breaths through mouth which could be more likely cause of dry mouth -- we discussed this - SYSTEMIC LUPUS ERYTHEMATOSUS REFLEX PROFILE; Future - SSA/RO AND SSB/LA ANTIBODIES; Future Wrap-Up Follow Up: Return if symptoms worsen or fail to improve, for Labs Today. | For: Labs Today | Check-out note: Schedule sleep Schedule egd/colonoscpy Keep scheduled follow up with new PCP in July Time: I spent a total of 40-54 minutes (exact time 45 mins) on the date of service in preparation, delivery, and documentation of the care provided to Christina Haider excluding any time spent in the performance of separately billed services. documented in this encounter Plan of Treatment Upcoming Encounters Date Type Department Care Team (Latest Contact Info) Description 06/25/2023 11:30 AM EDT Hospital Encounter ENDO [facility], Endoscopy Room [facility] [address] [place] [phone] Johnny Sethi, DO [address] [place] [address] 06/25/2023 11:30 AM EDT - 06/25/2023 12:15 PM EDT Surgery ENDO [facility], Endoscopy Room [facility] [address] [place] [phone] Johnny Sethi, DO [address] [place] [address] COLONOSCOPY FLEXIBLE PROXIMAL DIAGNOSTIC 07/30/2023 1:00 PM EDT Office Visit Family Practice [facility] [address] [place] [address] Virginia Pacheco, DO [address] [place] [address] 08/26/2023 11:00 AM EDT Office Visit Gynecology/Obstetri cs [facility] [address] [place] [address] Claudine Kasper CRNP [address] [place] [address] 09/24/2023 9:20 AM EDT Office Visit Sleep Disorders Ctr [facility] [address] [place] [phone] Sydnee Dc, DO [address] [place] [address] Pending Results Name Type Priority Associated Diagnoses Date /Time TSH WITH FREE T4 IF INDICATED Lab Routine Hypothyroidism, unspecified type 06/19/2023 1:33 PM EDT LIPID PANEL WITH DIRECT LDL IF TG IS HIGH Lab Routine Lipid screening 06/19/2023 1:33 PM EDT SYSTEMIC LUPUS ERYTHEMATOSUS REFLEX PROFILE Lab Routine Dry mouth 06/19/2023 1:33 PM EDT SSA/RO AND SSB/LA ANTIBODIES Lab Routine Dry mouth 06/19/2023 1:33 PM EDT Scheduled Orders Name Type Priority Associated Diagnoses Orde r Schedule TSH WITH FREE T4 IF INDICATED Lab Routine Hypothyroidism, unspecified type Expected: 06/19/2023 (Approximate), Expires: 06/18/2024 LIPID PANEL WITH DIRECT LDL IF TG IS HIGH Lab Routine Lipid screening Expected: 06/19/2023, Expires: 06/18/2024 SYSTEMIC LUPUS ERYTHEMATOSUS REFLEX PROFILE Lab Routine Dry mouth Expected: 06/19/2023 (Approximate), Expires: 06/18/2024 SSA/RO AND SSB/LA ANTIBODIES Lab Routine Dry mouth Expected: 06/19/2023 (Approximate), Expires: 06/18/2024 Scheduled Procedures Name Priority Associated Diagnoses Date/Ti az COLONOSCOPY FLEXIBLE PROXIMA L DIAGNOSTIC Constipation 06/25/2023 11:30 AM EDT ESOPHAGOGASTRODUODENOSCOPY ( EGD), FLEXIBLE, TRANSORAL, DIAGNOSTIC Constipation 06/25/2023 11:30 AM EDT Scheduled Referrals Name Type Priority Associated Diagnoses Orde r Schedule UPPER ENDOSCOPY GI REFERRAL OP Referral Within 10 days (routine) Gastroesophageal reflux disease, unspecified whether esophagitis present Upper abdominal pain Dysphagia, unspecified type Ordered: 06/19/2023 COLONOSCOPY, GI REFERRAL OP Referral Within 10 days (routine) Upper abdominal pain Constipation, unspecified constipation type Ordered: 06/19/2023 SLEEP MEDICINE REFERRAL OP Referral Within 10 days (routine) Snoring Ordered: 06/19/2023 Health Maintenance Due Date Last Done Comments Lipid Panel 1960 Depression Screening 1972 HIV Screening 02/07/1975 Hepatitis C Screening 02/07/1978 TSH 02/07/1978 DTaP,Tdap,and Td Vaccines (1 - Tdap) 02/07/1979 Pap Smear 02/07/1981 Cervical Cancer Screening 02/07/1990 HPV/Co-Test 02/07/1990 Mammogram 2000 Cologuard 02/07/2005 Colonoscopy 02/07/2005 Colorectal Cancer Screening 02/07/2005 Fecal Occult Blood Test 02/07/2005 Sigmoidoscopy 02/07/2005 Zoster Vaccines (1 of 2) 02/07/2010 COVID-19 Vaccine ( - 2022-2 4 season) 2022 Influenza Vaccine (FLU shot) (Season Ended) 2023 12/03/2020 GARDASIL-HPV IMMUNIZATION SERIES Aged Out No longer [...] Not on filedocumented as of this encounter Results * COMPREHENSIVE METABOLIC PANEL (06/19/2023 1:33 PM EDT) BUN 15 6 - 20 mg/dL 06/19/2023 2:54 PM EDT [facility] Creatinine 1.0 0.5 - 1.0 mg/dL 06/19/2023 2:54 PM EDT [facility] Estimated Glomerular Filtration Rate 62 >=60 mL/min 06/19/2023 2:54 PM EDT [facility] Comment:eGFR is calculated b ased on the CKD-EPI 2020 equation Sodium 141 135 - 146 mmol/L 06/19/2023 2:54 PM EDT [facility] Potassium 4.3 3.5 - 5.1 mmol/L 06/19/2023 2:54 PM EDT [facility] Chloride 104 98 - 107 mmol/L 06/19/2023 2:54 PM EDT [facility] CO2 27 22 - 32 mmol/L 06/19/2023 2:54 PM EDT [facility] Anion Gap 10 7 - 15 mmol/L 06/19/2023 2:54 PM EDT [facility] Glucose 90 70 - 120 mg/dL 06/19/2023 2:54 PM EDT [facility] Albumin 4.5 3.8 - 5.0 g/dL 06/19/2023 2:54 PM EDT [facility] AST 28 10 - 35 U/L 06/19/2023 2:54 PM EDT [facility] Alkaline Phosphatase 77 35 - 130 U/L 06/19/2023 2:54 PM EDT [facility] Bilirubin, Total 0.4 <=1.2 mg/dL 06/19/2023 2:54 PM EDT [facility] Calcium 9.4 8.4 - 10.2 mg/dL 06/19/2023 2:54 PM EDT [facility] Protein 7.0 6.0 - 8.3 g/dL 06/19/2023 2:54 PM EDT [facility] ALT 31 10 - 35 U/L 06/19/2023 2:54 PM EDT [facility] Blood Venous blood specimen / Unknown Venipuncture / Unknown 06/19/2023 1:33 PM EDT 06/19/2023 1:33 PM EDT Brittany BENOIT LAB BLOOD ORDERABL ES [facility] [address] [place] [address] documented in this encounter Visit Diagnoses Diagnosis Oral candidiasis- Primary Candidiasis of mouth Gastroesophageal reflux disease, unspecified whether esophagitis present Upper abdominal pain Abdominal pain, other specified site Dysphagia, unspecified type Snoring Other dyspnea and respiratory abnormality Constipation, unspecified constipation type Hypothyroidism, unspecified type Lipid screening Screening for lipoid disorders Screening for diabetes mellitus Dry mouth Disturbance of salivary secretion Constipation Unspecified constipation documented in this encounter"
--- OUTSIDE RECORDS SUMMARY | 2023-10-17 04:05 | External Medical Summary | Summary of Care ---
Author Name Unknown Organization [facility] Address [address] [facility] [address] Phone [phone] Care Team Providers Care Procurement Clerk Name Role Phone Unavailable Primary Care Provider Unavailabl e Reason for Visit * Reason Onset Date Comments Referral 06/19/2023 EGD/Colon Encounter Details Date Type Department Care Team ([facility] Contact Info) Description 06/19/2023 Telephone Family Practice [facility] [address] [place] [address] Brittany Howard CRNP [address] [place] [address] Referral (EGD/Colon ) Allergies Active Allergy Reactions Criticality Noted Date [...] 0 Active Vitamin D (Ergocalciferol) 1.25 MG (72703 UT) Oral Capsule (Drisdol) 0 06/04/2023 Active [...] encounter Miscellaneous Notes * Telephone Encounter - Stacey Polanco OSA - 06/19/2023 1:26 PM EDT Please call to schedule EGD/Colon documented in this encounter Plan of Treatment Upcoming Encounters Date Type Department Care Team (Late st Contact Info) Description 07/30/2023 1:00 PM EDT Office Visit Family Practice [facility] [address] [place] [address] Virginia Pacheco, DO [address] [place] [address] 08/26/2023 11:00 AM EDT Office Visit Gynecology/Obstetrics [facility] [address] [place] [address] Claudine Kasper CRNP [address] [place] [address] 09/24/2023 9:20 AM EDT Office Visit Sleep Disorders Ctr [facility] [address] [place] [phone] Sydnee Dc, DO [address] [place] [address] Health Maintenance Due Date Last Done Comments [...]
--- OUTSIDE RECORDS SUMMARY | 2023-10-17 04:05 | External Medical Summary | Summary of Care ---
Author Name Unknown Organization [facility] Address [address] [place] [address] Phone [phone] Care Team Providers Care Evp Strategy Name Role Phone Unavailable Primary Care Provider Unavailabl e Encounter Details Date Type Department Care Team (Late st Contact Info) Description 06/09/2023 Telephone Careworks [facility] [address], [place] [phone] Leslee Ni PA-C [address] [facility] [address] Allergies Active Allergy Reactions Criticality Noted Date Comments Penicillins Hives 06/08/2023 documented as of this encounter (statuses as of 06/10/2023) Medications Medication Sig Dispensed Refills Start Date End Date Status Sulfamethoxazole-Tri methoprim 800-160 MG Oral Tablet (Bactrim DS)Indications:Flank pain,Cloudy urine Take 1 Tablet by mouth in the morning and 1 Tablet before bedtime. Do all this for 7 days. Until gone.. 14 Tablet 0 06/08/2023 06/15/2023 Active documented as of this encounter (statuses as of 06/10/2023) Social History Tobacco Use Types Packs/Day Years Used Date Smoking Tobacco: Never Smokeless Tobacco: Never Sex and Gender Information Value Date Recorded Sex Assigned at Not on file Gender Identity Not on file Sexual Orientation Not on file Job Start Date Occupation Industry Not on file Not on file Not on file documented as of this encounter Miscellaneous Notes * Telephone Encounter - Isidra Daniels LPN - 06/10/2023 10:10 AM EDT Called and spoke with pt. Relayed information to pt. Pt voiced understanding. Appointment with pcp being addressed in another encounter. * Telephone Encounter - Leslee Ni PA-C - 06/09/2023 7:59 PM EDT Patient imaging came back. Without signs of infection or stone. Small renal cyst. No changes made to plan of care. To follow up with PCP regarding cyst monitoring. documented in this encounter Plan of Treatment Health Maintenance Due Date Last Done Comments [...]
--- OUTSIDE RECORDS SUMMARY | 2023-10-17 04:05 | External Medical Summary | Summary of Care ---
Author Name Unknown Organization [facility] Address [address] [place] [address] Phone [phone] Care Team Providers Care Claims Supervisor Name Role Phone Unavailable Primary Care Provider Unavailabl e Reason for Visit * Reason Comments NEW PATIENT Encounter Details Date Type Department Care Team ([facility] Contact Info) Description 06/18/2023 3:30 PM EDT Office Visit Urology, [place] [address] [place] [address] Rebecca Delvalle MD [address] [place] [address] Renal cyst, left* Allergies Active Allergy Reactions Criticality Noted Date Comments Aspirin Rash 06/18/2023 Penicillins Hives 06/08/2023 documented as of this encounter (statuses as of 06/18/2023) Medications Medication Sig Dispensed Refills Start Date [...] 0 Active Vitamin D (Ergocalciferol) 1.25 MG (74009 UT) Oral Capsule (Drisdol) 0 06/04/2023 Active [...] by mouth in the morning. 0 Active documented as of this encounter (statuses as of 06/18/2023) Active Problems No known active problems documented as of this encounter (statuses as of 06/18/2023) Social History Tobacco Use Types Packs/Day Years [...] Sign Reading Time Taken Comments Blood Pressure 122/75 06/18/2023 3:33 PM EDT Pulse 79 06/18/2023 3:33 PM EDT Temperature 36.6 C (97.8 F) 06/18/2023 3:33 PM ED T Respiratory Rate - - Oxygen Saturation - - Inhaled Oxygen Concentration - - Weight - - Height - - Body Mass Index - - documented in this encounter Progress Notes * Rebecca Delvalle MD - 06/18/2023 3:23 PM EDT Images from the original note were not included. Chief Complaint Patient presents with NEW PATIENT Christina Haider is a 63 year old female who is seen today for left renal cyst. She has a history of acute onset of left flank pain for the last 3 weeks. She describes it as dull aches that is constant in nature. She takes Tylenol which helps a bit and nothing in particular makes it worse. She denies any urgency, frequency, dysuria, gross hematuria, fevers, chills or gastrointestinal symptoms. She had a right hip replacement in 01/2022. She had a renal ultrasound on 06/09/2023 that showed a 2.9 cm left renal cyst. She denies a family history of kidney/bladder cancer. She denies any prior abdominal surgery or anticoagulation. She denies smoking cigarettes, chewing tobacco or exposures to chemicals or dyes. 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 She is here with her . PAST MEDICAL HISTORY: No past medical history on file. PAST SURGICAL HISTORY: No past surgical history on file. CURRENT MEDS: Current Outpatient Medications Medication Sig Dispense Refill Atorvastatin Calcium 20 MG Oral Tablet (Lipitor) TAKE 1 TABLET (20 MG TOTAL) BY MOUTH DAILY. buPROPion HCl ER (XL) 300 MG Oral Tablet Extended Release 24 Hour (Wellbutrin XL) TK 1 T PO D DULoxetine HCl 60 MG Oral Capsule Delayed Release Particles (Cymbalta) Levothyroxine Sodium 100 MCG Oral Tablet (Levoxyl) Take 1 Tablet by mouth in the morning. Pantoprazole Sodium 40 MG Oral Tablet Delayed Release (Protonix) Take 1 Tablet by mouth in the morning. Darifenacin Hydrobromide ER 7.5 MG Oral Tablet Extended Release 24 Hour (Enablex) TK 1 T PO D Vitamin D (Ergocalciferol) 1.25 MG (43374 UT) Oral Capsule (Drisdol) Clobetasol Propionate 0.05 % External Ointment (Temovate) Rub pea sized amount onto labia twice a day for 2 weeks, then daily for 2 weeks, then 2 days a week 30 g 1 hydrOXYzine HCl 10 MG Oral Tablet (Atarax) Take 1 Tablet by mouth at bedtime as needed for Itching.(Patient not taking: Reported on 06/18/2023) 120 Tablet 1 No current facility-administered medications for this visit. ALLERGIES: Review of patient's allergies indicates: Allergen Reactions Aspirin Rash Penicillins Hives FAMILY HISTORY: No family history on file. SOCIAL HISTORY: Social History Socioeconomic History Marital status: Spouse name: Not on file Number of children: Not on file Years of education: Not on file Highest education level: Not on file Occupational History Not on file Tobacco Use Smoking status: Never Smokeless tobacco: Never Substance and Sexual Activity Alcohol use: Not on file Drug use: Not on file Sexual activity: Not on file Other Topics Concern Not on file Social History Narrative Not on file Social Determinants of Health Financial Resource Strain: Not on file Food Insecurity: Not on file Transportation Needs: Not on file Physical Activity: Not on file Stress: Not on file Social Connections: Not on file Intimate Partner Violence: Not on file Housing Stability: Not on file ROS EXAM: Constitutional: no fever, no chills, no sweats, no weight loss, no weakness and no fatigue Resp: no cough, no wheezing, no shortness of breath,and no dyspnea on exertion Cardiac: no chest pain, no heart palpitation GI: no pain, no diarrhea, no constipation, no blood/melena, no nausea, no vomiting Musculoskeletal: as above, no significant joint or muscle pain and no swelling : as above Neuro: no memory loss, no weakness, no numbness or tingling and no vertigo Heme: No abnormal bleeding, no bruising, no anticoagulation Skin: no rash, no itching, no new/changing skin lesions, no color change and no bleeding Physical exam Blood pressure 122/75, pulse 79, temperature 36.6 C (97.8 F), temperature source Tympanic. Constitutional: Well developed, well nourished, no distress, no weight loss Pulmonary: respiratory effort within normal limits, no audible wheezes Abd: soft, non tender, non distended, no guarding, no masses Musculoskeletal: left flank pain isolated to the ribs, no deformities, range of motion within normal limits, no edema Neurological: alert, oriented x 3, no abnormal coordination Skin: warm, dry, no erythema, no new skin lesions or rashes Psychiatric: appropriate behavior, normal affect, no mood changes Labs: I personally and independently reviewed the labs and these were reviewed with the patient andher . Latest Reference Range & Units 06/08/23 16:59 Color, Urine Yellow or Light Yellow Duyen Blood, Urine Negative Negative Clarity, Urine Clear Clear Glucose, Urine Negative mg/dL Negative Specific [place], Urine 1.003 - 1.030 1.030 Protein, Urine Negative mg/dL Negative Urobilinogen, Urine 0.2 - 1.0 mg/dL 0.2 Nitrite, Urine Negative Negative Imaging: I personally and independently reviewed the imaging studies and these were reviewed with the patient and her . Narrative & Impression EXAM US RENAL-06/09/2023 2:26 pm HISTORY flank pain COMPARISON None TECHNIQUE Renal ultrasound FINDINGS The right kidney measures 9.2 x 4.6 x 4.7 cm. There is no right hydronephrosis. The right renal cortical thickness and echogenicity are within normal limits. The left kidney measures 10.0 x 4.5 x 4.1 cm. There is no left hydronephrosis. The left renal cortical thickness and echogenicity are within normal limits. There is a cyst in the mid left kidney measuring 2.9 x 2.4 x 2.6 cm. The bladder is unremarkable. The abdominal aorta is normal in size. IMPRESSION IMPRESSION A left renal cyst as measured above. Otherwise unremarkable renal ultrasound. 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 . PLAN: 1. Left renal cyst - reviewed the indolent nature of hte mass - expectant management - may follow up as needed 2. Left flank pain localized to the left ribs and thus pain is likely musculoskeletal in nature Rebecca Delvalle MD 06/18/2023 3:24 PM PCP: None documented in this encounter Plan of Treatment Upcoming Encounters Date Type Department Care Team (Late st Contact Info) Description 06/19/2023 12:00 PM EDT Office Visit [facility] [address] [place] [address] Brittany Howard CRNP [address] [place] [address] 07/30/2023 1:00 PM EDT Office Visit [facility] [address] [place] [address] Virginia Pacheco DO [address] [place] [address] 08/26/2023 11:00 AM EDT Office Visit Gynecology/Obstetrics Kenia Contreras [address] [place] [address] Backer, ClaudineKAYCEE Burgos [address] [place] [address] Health Maintenance Due Date Last Done Comments [...] Not on filedocumented as of this encounter Visit Diagnoses Diagnosis Renal cyst, left- Primary Unspecified congenital cystic kidney disease documented in this encounter
--- OUTSIDE RECORDS SUMMARY | 2023-10-17 04:05 | External Medical Summary ---
Author Name Unknown Address Unknown Organization [id number]:LABORATORY C - [address] [place] [address] Laboratory Report Ordering Provider Test Date Status JORDAN CAMPBELL 06/19/2023 13:33:53 Final Observation Date Value Abnormality Reference (Units ) Status T4, Free 06/19/2023 13:33:53 1.3 0.9-1.7 (n g/dL) Final Performing Location LAB[facility]ATORY [facility] - [address] [place] [address]
--- OUTSIDE RECORDS SUMMARY | 2023-10-17 04:05 | External Medical Summary ---
Author Name Unknown Address Unknown Organization [id number]:LAB[facility]ATORY [place] [address] - [address] [place] [address] Laboratory Report Ordering Provider Test Date Status JORDAN CAMPBELL 06/19/2023 13:33:53 Final Observation Date Value Abnormality Reference (Units ) Status BUN 06/19/2023 13:33:53 15 6-20 (mg/dL) Final Creatinine 06/19/2023 13:33:53 1.0 0.5-1.0 (mg/dL) Final Glomerular filtration rate/1.73 sq M.predicted [Volume Rate/Area] in Serum, Plasma or Blood by Creatinine-based formula (CKD-EPI) 06/19/2023 13:33:53 62 >=60 (mL/min) Final eGFR is calculated based on the CKD-EPI 2020 equation Sodium 06/19/2023 13:33:53 141 135-146 (m mol/L) Final Potassium 06/19/2023 13:33:53 4.3 3.5-5.1 (m mol/L) Final Cl 06/19/2023 13:33:53 104 98-107 (mm ol/L) Final CO2 06/19/2023 13:33:53 27 22-32 (mmo l/L) Final Anion gap 06/19/2023 13:33:53 10 7-15 (mmol /L) Final Glucose 06/19/2023 13:33:53 90 70-120 (mg /dL) Final Albumin 06/19/2023 13:33:53 4.5 3.8-5.0 (g /dL) Final AST (Aspartate aminotransferase) 06/19/2023 13:33:53 28 10-35 (U/L) Final Alk Phos 06/19/2023 13:33:53 77 35-130 (U/ L) Final Bilirubin, Total 06/19/2023 13:33:53 0.4 <=1 .2 (mg/dL) Final Calcium 06/19/2023 13:33:53 9.4 8.4-10.2 ( mg/dL) Final Protein 06/19/2023 13:33:53 7.0 6.0-8.3 (g /dL) Final ALT (Alanine aminotransferase) 06/19/2023 13:33:53 31 10-35 (U/L) Final Performing Location LABORATORY [place] [address] - [address] [facility] [address]
--- OUTSIDE RECORDS SUMMARY | 2023-10-17 04:05 | External Medical Summary ---
Author Name Unknown Address Unknown Organization [id number]:LABORATORY [facility] - [facility] [address] [facility] [address] [place] [address] Laboratory Report Ordering Provider Test Date Status JORDAN CAMPBELL 06/19/2023 13:33:53 Final Observation Date Value Abnormality Reference (Units ) Status TSH 06/19/2023 13:33:53 0.15 Below low normal 0.2 7-4.20 (uIU/mL) Final Performing Location LABORATORY [facility] - [address] [place] [address]
--- OUTSIDE RECORDS SUMMARY | 2023-10-17 04:05 | External Medical Summary | Summary of Care ---
Author Name Unknown Organization [facility] Address [address] [place] [facility] [place] [address] Phone [phone] Care Team Providers Care Side Puller Name Role Phone Unavailable Primary Care Provider Unavailabl e Reason for Visit * Reason Onset Date Comments FYI 06/08/2023 Symptom Encounter Details Date Type Department Care Team ([facility] Contact Info) Description [facility]/08[facility]2023 [facility] [address] [place] [address] Leslee Ni PA-C [address] [address] (Symptom) Allergies Active Allergy Reactions Criticality Noted Date [...] Telephone Encounter - Stacey Polanco OSA - 06/10/2023 10:26 AM EDT LM for pt to call and schedule an appt with any provider * Telephone Encounter - Isidra Daniels LPN - 06/10/2023 10:08 AM EDT Called and spoke with pt. Relayed information to pt. Pt voiced understanding. Please assist pt to set up with a pcp. Would like someone at [facility]. * Telephone Encounter - Lelsee Ni PA-C - 06/08/2023 8:13 PM EDT See other TE from today. * Telephone Encounter - Leslee Ni PA-C - 06/08/2023 6:08 PM EDT Thank you. Recommend patient follow up with PCP regarding this as it does not currently explain symptoms although dehydration secondary to poor po intake may explain issue with possible UTI. * Telephone Encounter - Elizabeth Tejada OSA - 06/08/2023 5:56 PM EDT Mouth has been really dry for past couple months So much so that her tongue sticks to the top of mouth Just wanted to let you know incase it is a symptome of her issue documented in this encounter Plan of Treatment [...]
--- OUTSIDE RECORDS SUMMARY | 2023-10-17 04:05 | External Medical Summary ---
Author Name Unknown Address Unknown Organization [id number]:LABORATORY [address] [facility] [address] Laboratory Report Ordering Provider Test Date Status JORDAN CAMPBELL 06/19/2023 13:33:53 Final Observation Date Value Abnormality Reference (Units ) Status Nuclear IgG Ab [Ratio] in Serum by Immunoassay 06/19/2023 13:33:53 Negative Negative Final DNA double strand Ab [Presence] in Serum 06/19/2023 13:33:53 Negative Negative Final DOUBLE STRANDED DNA VALUE - [facility] 06/19/2023 13:33:53 1.0 <20 (IU/mL) Final Extractable nuclear Ab [Presence] in Serum 06/19/2023 13:33:53 Negative Negative Final Nuclear IgG Ab [Ratio] in Serum by Immunoassay 06/19/2023 13:33:53 0.2 <0.7 (Ratio) Final Screening is based on detect ion of the following antibodies: dsDNA, U1-PROVINCE ARCHIVIST (RNP70, A, C), SS-A/Ro, SS-B / La, Radha-1, Scl-70, Centromere B proteins and Sm proteins. In conjunction with clinical findings, this can aid in the diagnosis of systemic lupus erythematosous (SLE), mixed connective tissue disease (MCTD), Sjogren's syndrome, scleroderma and polymyositis/dermatomyositis.
However, a negative result does not rule out systemic rheumatic or other autoimmune disease. If clinically suspected, further evaluation and testing may be necessary. Please consult with Rheumatology Department.
Methodology: Fluorescent Enzyme Immunoassay. Performing Location LABORATORY [address] [facility] [address]
--- OUTSIDE RECORDS SUMMARY | 2023-10-17 04:05 | External Medical Summary ---
Author Name Unknown Address Unknown Organization [id number]:LABORATORY [facility] [place] [address] [facility] [address] [facility] [address] Laboratory Report Ordering Provider Test Date Status JORDAN CAMPBELL 06/19/2023 13:33:53 Final Observation Date Value Abnormality Reference (Units ) Status Triglyceride 06/19/2023 13:33:53 280 Above high normal <=174 (mg/dL) Final Triglyceride Reference Range s (mg/dL):
<150 Acceptable
150-174 Borderline high
175-499 High
>=500 Very high Cholesterol 06/19/2023 13:33:53 162 <200 (mg /dL) Final Total Cholesterol Reference Ranges (mg/dL):
<200 Desirable
200-239 Borderline high
>=240 High HDL 06/19/2023 13:33:53 40 Below low normal >49 (mg/dL) Final HDL Cholesterol Reference Ra nges (mg/dL):
>=60 High (Desirable)
<50 Low (Undesirable) For Females
<40 Low (Undesirable) For Males NON-HDL CHOLESTEROL 06/19/2023 13:33:53 122 <=159 (mg/dL) Final Non-HDL Cholesterol Referenc e Range (mg/dL):
<100 Target level for high risk ASCVD patient
<130 Optimal for general population
130-159 Near optimal for general population
160-189 Borderline High
190-219 High
>=220 Very High Performing Location LABORATORY [facility] - [address] [place] [address]
--- OUTSIDE RECORDS SUMMARY | 2023-10-17 04:05 | External Medical Summary | Summary of Care ---
Author Name Unknown Organization [facility] Address [address] [place] [address] Phone [phone] Care Team Providers Care Client Partner Name Role Phone Unavailable Primary Care Provider Unavailabl e Reason for Visit * Reason Onset Date Comments FYI 06/08/2023 Symptom Encounter Details Date Type Department Care Team ([facility] st Contact Info) Description 06/08/[address] [address] Leslee Ni PA-C (Symptom) Allergies Active Allergy Reactions Criticality Noted Date Comments Penicillins Hives 06/08/2023 documented as of this encounter (statuses as of 06/15/2023) Medications Medication Sig Dispensed Refills Start Date End Date Status Sulfamethoxazole-Tri methoprim 800-160 MG Oral Tablet (Bactrim DS)Indications:Flank pain,Cloudy urine Take 1 Tablet by mouth in the morning and 1 Tablet before bedtime. Do all this for 7 days. Until gone.. 14 Tablet 0 06/08/2023 06/15/2023 Active documented as of this encounter (statuses as of 06/15/2023) Social History Tobacco Use Types Packs/Day Years [...] Telephone Encounter - Stacey Polanco OSA - 06/15/2023 8:18 AM EDT Appt scheduled with pt * Telephone Encounter - Stacey Polanco OSA - 06/10/2023 10:26 AM EDT LM for pt to call and schedule an appt with any provider * Telephone Encounter - Isidra Daniels LPN - 06/10/2023 10:08 AM EDT Called and spoke with pt. Relayed information to pt. Pt voiced understanding. Please assist pt to set up with a pcp. Would like someone at [facility]. * Telephone Encounter - Leslee Ni PA-C - 06/08/2023 8:13 PM EDT [...]
--- OUTSIDE RECORDS SUMMARY | 2023-10-17 04:05 | External Medical Summary | Summary of Care ---
Author Name Unknown Organization [facility] Address [address] [place] [address] Phone [phone] Care Team Providers Care Assembler Flexible Leads Name Role Phone Unavailable Primary Care Provider Unavailabl e Encounter Details Date Type Department Care Team ([facility] Contact Info) Description 06/23/2023 Telephone Family Practice [facility] [address] [facility] [address] Britt[facility] Howard [facility] [address] [facility] [address] Allergies Active Allergy Reactions Criticality Noted Date [...] Suspen ded Vitamin D (Ergocalciferol) 1.25 MG (40694 UT) Oral Capsule (Drisdol) 0 06/04/2023 Suspended [...] 1:00 PM EDT Office Visit Family Practice [facility] [address] [place] [address] Virginia Pacheco, DO [address] [place] [address] 08/26/2023 11:00 AM EDT Office Visit Gynecology/Obstetrics [facility] [address] [place] [address] Claudine Kasper CRNP [address] [place] [address] 09/24/2023 9:20 AM EDT Office Visit [facility] Disorders [facility] [address] [place] [phone] Sydnee Dc, DO [address] [place] [address] Scheduled Procedures Name Priority Associated Diagnoses Date/Ti [...]
--- OUTSIDE RECORDS SUMMARY | 2023-10-17 04:05 | External Medical Summary | Summary of Care ---
Author Name Unknown Organization [facility] Address [address] [place] [address] Phone [phone] Care Team Providers Care Furnace Combustion Tester Name Role Phone Unavailable Primary Care Provider Unavailabl e Reason for Visit * Reason Comments Outpatient Testing Encounter Details Date Type Department Care Team ([facility] Contact Info) Description 06/19/2023 1:30 PM EDT Laboratory Laboratory, [facility] [address] [place] [address] [facility] [address] [place] [address] Upper abdominal pain; Hypothyroidism, unspecified type; Screening for diabetes mellitus; Lipid screening; Dry mouth Allergies Active Allergy Reactions Criticality [...] 0 Active Vitamin D (Ergocalciferol) 1.25 MG (91743 UT) Oral Capsule (Drisdol) 0 06/04/2023 Active [...] [facility], Endoscopy Room [facility] [address] [place] [phone] Johnny Sethi, DO [address] [place] [address] 06/25/2023 11:30 AM EDT - 06/25/2023 12:15 PM EDT Surgery ENDO [facility], Endoscopy Room [facility] [address] [place] [phone] Johnny Sethi, DO [address] [place] [address] COLONOSCOPY FLEXIBLE PROXIMAL DIAGNOSTIC 07/30/2023 1:00 PM EDT Office Visit Family Practice [facility] [address] [place] [address] Virginia Pacheco, DO [address] [place] [address] 08/26/2023 11:00 AM EDT Office Visit Gynecology/Obstetri cs [facility] [address] [place] [address] Claudine Kasper CRNP [address] [place] [address] 09/24/2023 9:20 AM EDT Office Visit Sleep Disorders Ctr [facility] [address] [place] [phone] Sydnee Dc, DO [address] [place] [address] Pending Results Name Type Priority Associated Diagnoses Date /Time CBC WITH WBC DIFFERENTIAL Lab Routine Upper abdominal pain 06/19/2023 1:33 PM EDT TSH WITH FREE T4 IF INDICATED Lab Routine Hypothyroidism, unspecified type 06/19/2023 1:33 PM EDT COMPREHENSIVE METABOLIC PANEL Lab Routine Screening for diabetes mellitus 06/19/2023 1:33 PM EDT LIPID PANEL WITH DIRECT LDL IF TG IS HIGH Lab Routine Lipid screening 06/19/2023 1:33 PM EDT SYSTEMIC LUPUS ERYTHEMATOSUS REFLEX PROFILE Lab Routine Dry mouth 06/19/2023 1:33 PM EDT SSA/RO AND SSB/LA ANTIBODIES Lab Routine Dry mouth 06/19/2023 1:33 PM EDT CBC Lab Routine Upper abdominal pain 06/19/2023 1:33 PM EDT DIFFERENTIAL, AUTOMATED Lab Routine Upper abdominal pain 06/19/2023 1:33 PM EDT ANTINUCLEAR ANTIBODY (FABIOLA) SCREEN, MARCOS Lab Routine Dry mouth 06/19/2023 1:33 PM EDT Scheduled Procedures Name Priority Associated [...] as of this encounter Visit Diagnoses Diagnosis Upper abdominal pain Abdominal pain, other specified site Hypothyroidism, unspecified type Screening for diabetes mellitus Lipid screening Screening for lipoid disorders Dry mouth Disturbance of salivary secretion Constipation Unspecified constipation documented in this encounter
--- OUTSIDE RECORDS SUMMARY | 2023-10-17 04:05 | External Medical Summary ---
Author Name Unknown Address Unknown Organization K0G:LABORATORY [place] [address] - [address] [place] [address] Laboratory Report Ordering Provider Test Date Status JORDAN CAMPBELL 06/19/2023 13:33:53 Final Observation Date Value Abnormality Reference (Units ) Status SYNC LEUKOCYTES IN BLOOD BY AUTOMATED COUNT 06/19/2023 13:33:53 7.57 4.00-10.80 (K/uL) Final Segs 06/19/2023 13:33:53 47.1 40.0-75.0 (%) Final Lymphs % 06/19/2023 13:33:53 39.8 18.0-42.0 (%) Final Monos 06/19/2023 13:33:53 7.7 1.0-11.0 (%) Final Eosinophils 06/19/2023 13:33:53 5.3 0.0-6.0 (%) Final Basos 06/19/2023 13:33:53 0.1 0.0-2.0 (%) Final Absolute Segs 06/19/2023 13:33:53 3.57 1.80-7.70 (K/uL) Final Lymphs, absolute 06/19/2023 13:33:53 3.01 1.00-4.80 (K/ul) Final Monos, Abs 06/19/2023 13:33:53 0.58 0.00-1.10 (K/uL) Final Eos, Abs 06/19/2023 13:33:53 0.40 0.00-0.70 (K/uL) Final Basos, Abs 06/19/2023 13:33:53 0.01 0.00-0.20 (K/uL) Final Performing Location LABORATORY [place] [address] - [address] [place] [address]
--- OUTSIDE RECORDS SUMMARY | 2023-10-17 04:05 | External Medical Summary ---
Author Name Unknown Address Unknown Organization K01:LABORATORY [facility] [place] - [facility] [address] [place] [address] Laboratory Report Ordering Provider Test Date Status JORDAN CAMPBELL 06/19/2023 13:33:53 Final Observation Date Value Abnormality Reference (Units ) Status SSA Ab 06/19/2023 13:33:53 Negative Negative Final Sjogrens syndrome-A extractable nuclear Ab [Units/volume] in Serum by Immunoassay 06/19/2023 13:33:53 0.5 <7 (U/mL) Final SSB Ab 06/19/2023 13:33:53 Negative Negative Final Sjogrens syndrome-B extractable nuclear Ab [Units/volume] in Serum by Immunoassay 06/19/2023 13:33:53 <0.4 <7 (U/mL) Final Performing Location LABORATORY [facility] - [facility] [address] [place] [address]
--- OUTSIDE RECORDS SUMMARY | 2023-10-17 04:05 | External Medical Summary | Summary of Care ---
Author Name Unknown Organization [facility] Address [address] [facility] [address] Phone [phone] Care Team Providers Care Model Maker Plastic Name Role Phone Unavailable Primary Care Provider Unavailabl e Reason for Visit * Reason Comments NEW PATIENT Encounter Details Date Type Department Care Team ([facility] Contact Info) Description 06/18/2023 11:30 AM EDT Office Visit Gynecology/Obstetrics Kenia Contreras [address] [place] [address] BackerClaudine CRNP [address] [place] [address] Vulvar pruritus* Allergies Active Allergy Reactions Criticality Noted Date [...] 0 Active Vitamin D (Ergocalciferol) 1.25 MG (87186 UT) Oral Capsule (Drisdol) 0 06/04/2023 Active [...] a week 30 g 1 06/18/2023 Active Vitamin D 50 MCG (2000 UT) Oral Capsule Take 2,000 Units by mouth in the morning. 0 06/18/2023 Discontinued (Medication List Clean Up) documented as of this [...] Sign Reading Time Taken Comments Blood Pressure 104/62 06/18/2023 11:42 AM EDT Pulse - - Temperature - - Respiratory Rate - - Oxygen Saturation - - Inhaled Oxygen Concentration - - Weight 77.6 kg (171 lb) 06/18/2023 11:42 AM EDT Height - - Body Mass Index - - documented in this encounter Progress Notes * Claudine Kasper CRNP - 06/18/2023 11:57 AM EDT HPI: The patient is a 63 year old who presents for vulvar irritation. No LMP recorded. Patient is postmenopausal. Denies bleeding, discharge. Notes left side vulvar itching x3 months, worse at night. Tried neosporin w/o relief, some improvement of symptoms with Vagisil. Denies new soaps, detergents, etc. No past medical history on file. No past surgical history on file. Current Outpatient Medications Medication Sig Dispense Refill [...] PO D Vitamin D (Ergocalciferol) 1.25 MG (85483 UT) Oral Capsule (Drisdol) No current facility-administered medications for this visit. Review of patient's allergies indicates: Allergen Reactions Penicillins Hives ROS EXAM: per HPI PHYSICAL EXAM BP 104/62 | Wt 77.6 kg (171 lb) Engineering Technical Analyst Documentation Provider requested phlebotomist lab assistant. Name of phlebotomist lab assistant: Brittni General: alert, healthy, and no distress L labia minora with hyperpigmented thickened tissue. Normal R labia. Vagina pink, decreased rugation, no discharge, no lesions. Cervix normal in appearance. IMPRESSION: 1. 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 Discussed this w/pt. Discussed goal of stopping the wptx-khmylpr-maqm cycle. Reviewed vulvar care: no scented soaps, detergents, etc. Wash vulva with warm water only; if soap is needed, use sensitive-skin unscented soap on hair-baring areas only. - hydrOXYzine HCl 10 MG Oral Tablet (Atarax); Take 1 Tablet by mouth at bedtime as needed for Itching. Dispense: 120 Tablet; Refill: 1 - Clobetasol Propionate 0.05 % External Ointment (Temovate); Rub pea sized amount onto labia twice a day for 2 weeks, then daily for 2 weeks, then 2 days a week Dispense: 30 g; Refill: 1 Return in about 8 weeks for recheck and well woman exam. Discussed possible vulvar biopsy if symptoms do not respond to treatment. Can also consider vaginalestrogen. KAYCEE Ellsworth documented in this encounter Nursing Notes * Brittni Shahid LPN - 06/18/2023 11:42 AM EDT Pt here today for vaginal rash that she noticed about 3 months ago Using Neosporin PRN. Also tried Vagisil. documented in this encounter Plan of Treatment Upcoming Encounters Date Type Department Care Team (Late st Contact Info) Description 06/19/2023 12:00 PM EDT Office Visit [facility] [address] [place] [address] Brittany Howard CRNP [address] [place] [address] 07/30/2023 1:00 PM EDT Office Visit [facility] [address] [place] [address] Virginia Pacheco DO [address] [place] [address] 08/26/2023 11:00 AM EDT Office Visit Gynecology/Obstetrics [facility] [address] [place] [address] Claudine Kasper CRNP [address] [place] [address] Health Maintenance Due Date Last Done Comments [...] as of this encounter Visit Diagnoses Diagnosis Vulvar pruritus- Primary Pruritus of genital organs documented in this encounter"
--- OUTSIDE RECORDS SUMMARY | 2023-10-17 04:05 | External Medical Summary | Summary of Care ---
Author Name Unknown Organization [facility] Address [address] [place] [address] Phone [phone] Care Team Providers Care Machine Stonecutter Name Role Phone Unavailable Primary Care Provider Unavailabl e Reason for Visit * Reason Onset Date Comments Advice 06/18/2023 Renal cyst Encounter Details Date Type Department Care Team ([facility] Contact Info) Description 06/18/2023 Telephone Urology, [facility] [address] [place], [place] [phone] Services, Scheduling [address] [place] [address] Advice (Renal cyst) Allergies Active Allergy Reactions Criticality Noted Date [...] encounter Miscellaneous Notes * Telephone Encounter - Bettina Griffith OSA - 06/18/2023 11:11 AM EDT I spoke to patient's and offered soonest Appointment in July in [place]. They declined appt as they want to be seen sooner. Patient was advised to call Moe Daigle to see if they have anything sooner. * Telephone Encounter - Brittany Lyman LPN - 06/18/2023 9:31 AM EDT Renal cyst is non-urgent. Patient can be scheduled for next available new patient. If they feel sooner is needed than available, can go to any outlying urology clinic. [facility] has walk in, [facility] may have sooner. * Telephone Encounter - Nano Staley OSA - 06/18/2023 9:24 AM EDT Pt spouse calling in stating pt was seen at walk in and had US done. They found pt has Renal Cyst. Pt is having pain with the cyst. Please Advise documented in this encounter Plan of Treatment Upcoming Encounters Date Type Department Care Team (Late st Contact Info) Description 06/18/2023 11:30 AM EDT Office Visit Gynecology/Obstetrics [facility] [address] [place] [address] Claudine Kasper CRNP [address] [place] [address] 06/19/2023 12:00 PM EDT Office Visit [facility] [address] [place] [address] Brittany Howard CRNP [address] [place] [address] 07/30/2023 1:00 PM EDT Office Visit [facility] [address] [place] [address] Virginia Pacheco DO [address] [place] [address] Health Maintenance Due Date Last Done Comments [...]
--- OUTSIDE RECORDS SUMMARY | 2023-10-17 04:05 | External Medical Summary | Summary of Care ---
Author Name Unknown Organization [facility] Address [address] [place] [address] Phone [phone] Care Team Providers Care Certified Emergency Vehicle Technician Name Role Phone Unavailable Primary Care Provider Unavailabl e Reason for Visit * Reason Onset Date Comments Referral 06/19/2023 EGD/Colon Encounter Details Date Type Department Care Team ([facility] Contact Info) Description 06/19/2023 Telephone Family Practice [facility] [address] [facility] [place] [address] Brittany Howard CRNP [address] [place] [address] Referral (EGD/Colon ) Allergies Active Allergy Reactions [...] 0 Active Vitamin D (Ergocalciferol) 1.25 MG (62794 UT) Oral Capsule (Drisdol) 0 06/04/2023 Active [...] encounter Miscellaneous Notes * Telephone Encounter - Chantel Sloan OSA - 06/19/2023 1:48 PM EDT Scheduled ZOHREH Hernandez 06/19/2023 1:48 PM * Telephone Encounter - Stacey Polanco OSA - 06/19/2023 1:26 PM EDT Please call to schedule EGD/Colon documented in this encounter Plan of Treatment Upcoming Encounters Date Type Department Care Team (Latest Contact Info) Description 06/25/2023 11:30 AM EDT Hospital Encounter ENDO OSSC, Endoscopy Room [facility] [address] [place] [phone] Johnny Sethi, DO [address] [place] [address] 06/25/2023 11:30 AM EDT - 06/25/2023 12:15 PM EDT Surgery ENDO OSS, Endoscopy Room [facility] [address] [place] [phone] Johnny Sethi, DO [address] [place] [address] COLONOSCOPY FLEXIBLE PROXIMAL DIAGNOSTIC 07/30/2023 1:00 PM EDT Office Visit Family Practice [facility] [address] [place] [address] Virginia Pacheco, DO [address] [place] [address] 08/26/2023 11:00 AM EDT Office Visit Gynecology/Obstetri [facility] [address] [place] [address] Claudine Kasper CRNP [address] [place] [address] 09/24/2023 9:20 AM EDT Office Visit [facility] [address] [place] [phone] Sydnee Dc, [address] [place] [address] Scheduled Procedures Name Priority Associated Diagnoses Date/Ti [...]
--- OUTSIDE RECORDS SUMMARY | 2023-10-17 04:05 | External Medical Summary ---
Author Name Unknown Address Unknown Organization K01:[facility] [place] [address] [place] [address] Laboratory Report Ordering Provider Test Date Status SHANNANJORDAN 06/19/2023 13:33:53 Final Observation Date Value Abnormality Reference (Units ) Status LDL, (direct) 06/19/2023 13:33:53 85 <=129 (mg/dL) Final LDL Cholesterol Reference Ra nges (mg/dL):
<70 Target level for high risk ASCVD patient
<100 Optimal for general population
100-129 Near optimal for general population
130-159 Borderline high
160-189 High
>=190 Very high Performing Location LABORATORY [facility] - [address] [place] [address]
--- OUTSIDE RECORDS SUMMARY | 2023-10-17 04:06 | External Medical Summary | Summary of Care ---
Author Name Unknown Organization [facility] Address [address] [place] [address] Phone [phone] Care Team Providers Care Spool Cleaner Name Role Phone Unavailable Primary Care Provider Unavailabl e Reason for Referral * Evaluate & Treat - Unlimited Visits (Within 3 days (urgent)) - Pending Review Specialty Diagnoses / Procedures Referred By Mechelle carmona Referred To Contact Family Medicine Diagnoses Flank pain Acute cough Cloudy urine Leslee Ni PA-C [address] [place] [address] Referral ID Status Reason Start Date Expiration Date Visits Requested Visits Authorized [id number] Pending Review Specialty Services Required 06/08/2023 999 999 Question Answer Referral Priority Within 3 days (urgent) Where should this appointment be scheduled? Ahsan Comments New patient establish care Reason for Visit * Reason Comments Pain Left flank pain X 2 weeks Urinary Tract Infection Symptoms Cloudy urine Encounter Details Date Type Department Care Team ([facility] st Contact Info) Description 06/08/2023 5:00 PM EDT Convenient Care Visit [facility] [address] [place] [address] Leslee Ni PA-C [address] [place] [address] Flank pain*; Acute cough; Cloudy urine Allergies Active Allergy Reactions Criticality Noted Date Comments Penicillins Hives 06/08/2023 documented as of this encounter (statuses as of 06/08/2023) Medications Medication Sig Dispensed Refills Start Date End Date Status Sulfamethoxazole-Tri methoprim 800-160 MG Oral Tablet (Bactrim DS)Indications:Flank pain,Cloudy urine Take 1 Tablet by mouth in the morning and 1 Tablet before bedtime. Do all this for 7 days. Until gone.. 14 Tablet 0 06/08/2023 06/15/2023 Active documented as of this encounter (statuses as of 06/08/2023) Social History Tobacco Use Types Packs/Day Years Used Date Smoking Tobacco: Never Smokeless Tobacco: Never Tobacco Cessation:Counseling Given: Not Answered Sex and Gender Information Value Date Recorded Sex Assigned at Not on file Gender Identity Not on file Sexual Orientation Not on file Job Start Date Occupation Industry Not on file Not on file Not on file documented as of this encounter Last Filed Vital Signs Vital Sign Reading Time Taken Comments Blood Pressure 124/82 06/08/2023 5:02 PM EDT Pulse 85 06/08/2023 5:02 PM EDT Temperature 36.7 C (98.1 F) 06/08/2023 5:02 PM ED T Respiratory Rate - - Oxygen Saturation 96% 06/08/2023 5:02 PM EDT Inhaled Oxygen Concentration - - Weight 77.8 kg (171 lb 9.6 oz) 06/08/2023 5:02 P M EDT Height - - Body Mass Index - - documented in this encounter Patient Instructions * Patient Instructions* Leslee Ni PA-C - 06/08/2023 5:19 PM EDT Drink plenty of fluids, increase intake over next 48-72 hours. Take all medications as prescribed, even if you are feeling better sooner. We will notify you of your urine culture results. F/U with PCP with no improvement in 3-5 days. Go immediately to the ED with any change or worsening symptoms including chills, fevers, back pain. documented in this encounter Progress Notes * Leslee Ni PA-C - 06/08/2023 5:06 PM EDT CONVENIENT CARE PROGRESS NOTE Christina Haider is a 63 year old female who presents with urinary tract symptoms. Patient complainsof urinary frequency x 2 weeks Patient was accompanied by Self. Reports hx of UTIs in the past ( last UTI a year ago). denies hx of kidney stones. denies blood in urine. no fever, chills, + left upper back pain. Denies dysuria. Notes cloudy urine. Denies chance of . denies new sexual partners or concern for STD's. + genital itching, denies discharge orbleeding. Constitutional: no fever, chills, sweats, or fatigue She denies anything else except for an annoying cough x months. She also notes that she is new to the area and needs to establish care. ROS: All others negative other than those noted in HPI HISTORY: No past medical history on file. No past surgical history on file. Social History Socioeconomic History Marital [...] on file Housing Stability: Not on file Current Outpatient Medications Medication Sig Dispense Refill Sulfamethoxazole-Trimethoprim 800-160 MG Oral Tablet (Bactrim DS) Take 1 Tablet by mouth in the morning and 1 Tablet before bedtime. Do all this for 7 days. Until gone.. 14 Tablet 0 No current facility-administered medications for this visit. Review of patient's allergies indicates: Allergen Reactions Penicillins Hives No family history on file. OBJECTIVE: BP 124/82 | Pulse 85 | Temp 36.7 C (98.1 F) (Tympanic) | Wt 77.8 kg (171 lb 9.6 oz) | SpO2 96% Wt Readings from Last 1 Encounters: 06/08/23 77.8 kg (171 lb 9.6 oz) General appearance: awake, alert, no apparent distress Abdominal Exam: back: no CVA tenderness and abd: +suprapubic tenderness to palpation, no R/R/G, +BS Respiratory: clear to auscultation, + left rhonchi, no wheezes, and no crackles Heart: regular rate, regular rhythm, no murmurs , no rubs, and no gallops Skin/Integumentary: Exposed skin without rashes or lesions. Results for orders placed or performed in visit on 06/08/23 URINALYSIS, POINT OF CARE (ENTER/EDIT) Result Value Ref Range Color, Urine Duyen Yellow or Light Yellow Clarity, Urine Clear Clear Glucose, Urine Negative Negative mg/dL Bilirubin, Urine Negative Negative Ketone, Urine Negative Negative mg/dL Specific [place], Urine 1.030 1.003 - 1.030 Blood, Urine Negative Negative pH, Urine 5.5 5.0 - 7.5 units Protein, Urine Negative Negative mg/dL Urobilinogen, Urine 0.2 0.2 - 1.0 mg/dL Nitrite, Urine Negative Negative Esterase, Urine Negative Negative Patient Instructions Drink plenty of fluids, increase intake over next 48-72 hours. Take all medications as prescribed, even if you are feeling better sooner. We will notify you of your urine culture results. F/U with PCP with no improvement in 3-5 days. Go immediately to the ED with any change or worsening symptoms including chills, fevers, back pain. Assessment: Flank pain (Primary) - URINALYSIS, POINT OF CARE (ENTER/EDIT) - CULTURE, URINE, QUANTITATIVE; Future; Expected date: 06/08/2023 - CULTURE, URINE, QUANTITATIVE - XR ABDOMEN 1 VIEW; Future; Expected date: 06/08/2023 - XR CHEST 2 VIEWS; Future; Expected date: 06/08/2023 - Sulfamethoxazole-Trimethoprim 800-160 MG Oral Tablet (Bactrim DS); Take 1 Tablet by mouth in the morning and 1 Tablet before bedtime. Do all this for 7 days. Until gone.. - FAMILY PRACTICE REFERRAL OP Acute cough - XR ABDOMEN 1 VIEW; Future; Expected date: 06/08/2023 - XR CHEST 2 VIEWS; Future; Expected date: 06/08/2023 - FAMILY PRACTICE REFERRAL OP Cloudy urine - XR ABDOMEN 1 VIEW; Future; Expected date: 06/08/2023 - XR CHEST 2 VIEWS; Future; Expected date: 06/08/2023 - Sulfamethoxazole-Trimethoprim 800-160 MG Oral Tablet (Bactrim DS); Take 1 Tablet by mouth in the morning and 1 Tablet before bedtime. Do all this for 7 days. Until gone.. - FAMILY PRACTICE REFERRAL OP Will treat for symptoms of UTI. To get culture guide therapy. Will contact with culture results. Spoke about preventative measures. Spoke about risk of nephrolithiasis and secondary work up for this. To get KUB and if nothing, willget renal us. Also due to exam findings will get cxr to r/o pneumonia for side pain symptoms. Care instructions given. Additional instructions per patient instructions attached. Follow up with PCP in 3-5 days if symptoms persist. Referral placed to establish care. Reasons to go to ED discussed with patient including but not limited to development of acute or severe symptoms. Patient agrees with the plan and demonstrates verbal understanding. Patient stable at the time of discharge. Patient goals for plan of care were discussed Leslee Ni PA-C [address] [phone] * Kimmy Mccollum LPN - 06/08/2023 5:04 PM EDT Chief Complaint Patient presents with Pain Left flank pain X 2 weeks Urinary Tract Infection Symptoms Cloudy urine documented in this encounter Plan of Treatment Scheduled Orders Name Type Priority Associated Diagnoses Orde r Schedule CULTURE, URINE, QUANTITATIVE Lab Routine Flank pain Expected: 06/08/2023, Expires: 06/07/2024 XR ABDOMEN 1 VIEW Medical Imaging STAT Flank pain Acute cough Cloudy urine Expected: 06/08/2023, Expires: 07/07/2024 XR CHEST 2 VIEWS Medical Imaging Routine Flank pain Acute cough Cloudy urine Expected: 06/08/2023, Expires: 07/07/2024 Scheduled Referrals Name Type Priority Associated Diagnoses Orde r Schedule FAMILY PRACTICE REFERRAL OP Referral Within 3 days (urgent) Flank pain Acute cough Cloudy urine Ordered: 06/08/2023 Health Maintenance Due Date Last Done Comments [...] Not on filedocumented as of this encounter Procedures Procedure Name Priority Date/Time Associated Diagnosis Comments URINALYSIS, POINT OF CARE (ENTER/EDIT) Routine 06/08/2023 4:59 PM EDT Flank pain documented in this encounter Results * URINALYSIS, POINT OF CARE (ENTER/EDIT) (06/08/2023 4:59 PM EDT) Color, Urine Duyen Yellow or Light Yellow Clarity, Urine Clear Clear Glucose, Urine Negative Negative mg/dL Bilirubin, Urine Negative Negative Ketone, Urine Negative Negative mg/dL Specific [place], Urine 1.030 1.003 - 1.030 Blood, Urine Negative Negative pH, Urine 5.5 5.0 - 7.5 units Protein, Urine Negative Negative mg/dL Urobilinogen, Urine 0.2 0.2 - 1.0 mg/dL Nitrite, Urine Negative Negative Esterase, Urine Negative Negative Urine 06/08/2023 4:59 PM EDT Leslee Ni PA-C LAB POINT OF CARE TEST ENTER/EDIT ORDERABLES documented in this encounter Visit Diagnoses Diagnosis Flank pain- Primary Abdominal pain, unspecified site Acute cough Cloudy urine Other nonspecific finding on examination of urine documented in this encounter"
--- OUTSIDE RECORDS SUMMARY | 2023-10-17 04:06 | External Medical Summary ---
Author Name Unknown Address Unknown Organization K01:LABORATORY [facility] [place] - [address] [place] [id number] Laboratory Report Ordering Provider Test Date Status VICELYSSA 06/08/2023 17:08:20 Final Observation Date Value Abnormality Reference (Units) Status Bacteria identified in Specimen by Culture 06/08/2023 17:08:20 No significant growth Final Test: Culture, Urine, Quanti tative
Specimen Source: Urine, Clean Catch
Specimen Type: Urine
Specimen Date: 06/08/2023 5:08 PM
Result Date: 06/09/2023 7:17 PM
Result Status: Final result
Resulting Lab: LABORATORY [facility]
[address]
[facility] [address]

CULTURE

No significant growth

null Performing Location LABORATORY [facility] [place] - [address] [facility] [address]
--- OUTSIDE RECORDS SUMMARY | 2023-10-17 04:06 | External Medical Summary | Summary of Care ---
Author Name Unknown Organization [facility] Address [address] [facility] [address] Phone [phone] Care Team Providers Care Music Publisher Name Role Phone Unavailable Primary Care Provider Unavailabl e Reason for Visit * Reason Onset Date Comments FYI 06/08/2023 Symptom Encounter Details Date Type Department Care Team ([facility] Contact Info) Description 06/08/[address] [facility] [place] [address] [place] [address] Leslee Ni PA-C [address] [facility] [place] [address] FY (Symptom) Allergies Active Allergy Reactions Criticality Noted [...] encounter Miscellaneous Notes * Telephone Encounter - Leslee Ni PA-C [...]
--- OUTSIDE RECORDS SUMMARY | 2023-10-17 04:06 | External Medical Summary | Summary of Care ---
Author Name Unknown Organization [facility] Address [address] [place] [address] Phone [phone] Care Team Providers Care Clean Room Operator Name Role Phone Unavailable Primary Care Provider Unavailabl e Reason for Visit * Reason Onset Date Comments Test Results Imaging Study 06/08/2023 Encounter Details Date Type Department Care Team ([facility] st Contact Info) Description [facility] [address] [place] [address] Leslee Ni PA-C [address] [place] [address] [place] [address] Test Results Imaging Study Allergies Active Allergy Reactions Criticality Noted Date [...] Encounter - Leslee Ni PA-C - 06/08/2023 8:09 PM EDT Confirmed patient Results neg for calcium stone, neg for pneumonia. Patient would like to move forward with renal US.Instructesd patient to Call [phone] to schedule imaging tomorrow morning. To continue antibiotic for now. To follow up with PCP regarding dry mouth. Patient expressed understanding. All questions answered. Agrees with Plan. documented in this encounter Plan of Treatment Scheduled Orders Name Type Priority Associated Diagnoses Orde r Schedule US RENAL Medical Imaging STAT Flank pain Expected: 06/08/2023, Expires: 07/07/2024 Health Maintenance Due Date Last Done Comments [...] as of this encounter Visit Diagnoses Diagnosis Flank pain- Primary Abdominal pain, unspecified site documented in this encounter
--- OUTSIDE RECORDS SUMMARY | 2023-10-17 04:06 | External Medical Summary | Summary of Care ---
Author Name Unknown Organization [facility] Address [address] [facility] [place] [address] Phone [phone] Care Team Providers Care Autos Disassembler Name Role Phone Unavailable Primary Care Provider Unavailabl e Reason for Visit * Reason Onset Date Comments FYI 06/08/2023 Symptom Encounter Details Date Type Department Care Team ([facility] Contact Info) Description [facility] [address] [address] Leslee Ni PA-C [address] [address] (Symptom) Allergies Active Allergy Reactions Criticality Noted [...] with a pcp. Would like someone at [facility]. * Telephone Encounter - Leslee Ni PA-C [...]
--- OUTSIDE RECORDS SUMMARY | 2023-10-17 04:06 | External Medical Summary | Summary of Care ---
Author Name Unknown Organization [facility] Address [address] [place] [address] Phone [phone] Care Team Providers Care Bromination Equipment Operator Name Role Phone Unavailable Primary Care Provider Unavailabl e Reason for Referral * Evaluate & Treat - Unlimited Visits (Within 3 days (urgent)) - Pending Review Specialty Diagnoses / Procedures Referred By Mechelle carmona Referred To Contact Family Medicine Diagnoses Flank pain Acute cough Cloudy urine Leslee Ni PA-C [address] [id number] Referral ID Status Reason Start Date Expiration Date Visits Requested Visits Authorized [id number] Pending Review Specialty Services Required 06/08/[phone] Question Answer Referral Priority Within 3 days (urgent) Where should this appointment be scheduled? Ahsan Comments New patient establish care Reason for Visit * Reason Comments Pain Left flank pain X 2 weeks Urinary Tract Infection Symptoms Cloudy urine Encounter Details Date Type Department Care Team ([facility] st Contact Info) Description 06/08/2023 5:00 PM EDT Convenient Care Visit [facility] [address] [place] [address] Leslee Ni PA-C [address] [phone] Flank pain*; Acute cough; Cloudy urine Allergies [...] Negative Ketone, Urine Negative Negative mg/dL Specific [place], Urine 1.030 1.003 - 1.030 Blood, Urine [...] of care were discussed Leslee Ni PA-C [address] [id number] * Kimmy Mccollum LPN - 06/08/2023 5:04 PM EDT Chief Complaint Patient presents with Pain Left flank pain X 2 weeks Urinary Tract Infection Symptoms Cloudy urine documented in this encounter Plan of Treatment Pending Results Name Type Priority Associated Diagnoses Date /Time CULTURE, URINE, QUANTITATIVE Lab Routine Flank pain 06/08/2023 5:08 PM EDT XR ABDOMEN 1 VIEW Medical Imaging STAT Flank pain Acute cough Cloudy urine 06/08/2023 6:17 PM EDT XR CHEST 2 VIEWS Medical Imaging Routine Flank pain Acute cough Cloudy urine 06/08/2023 6:17 PM EDT Scheduled Orders Name Type Priority [...] Negative Ketone, Urine Negative Negative mg/dL Specific [place], Urine 1.030 1.003 - 1.030 Blood, Urine [...]
[2023-10-17 05:12] LABS: Basophils # (auto) 0.02 K/uL (0.00-0.20); Basophils % (auto) 0.2 %; Eosinophils # (auto) 0.09 K/uL (0.00-0.50); Eosinophils % (auto) 0.7 %; Hematocrit (blood only) 38.5 % (37.0-47.0); Hemoglobin 12.9 g/dl (12.0-16.0); Immature Granulocytes # (auto) 0.04 K/uL (0.01-0.20); Immature Granulocytes % (auto) 0.3 %; Lymphocytes # (auto) 2.29 K/uL (1.20-3.40); Lymphocytes % (auto) 18.3 %; Mean Corpuscular Hemoglobin 30.4 pg (25.0-34.0); Mean Corpuscular Hgb Conc 33.5 g/dL (32.0-36.0); Mean Corpuscular Volume 90.6 fL (80.0-100.0); Mean Platelet Volume 10.5 fL (9.4-12.4); Monocytes # (auto) 0.86 K/uL (0.11-0.59); Monocytes % (auto) 6.9 %; Neutrophils # (auto) 9.21 K/uL (1.40-6.50); Neutrophils % (auto) 73.6 %; Platelet Count 240 K/uL (130-400); RDW Coefficient of Variation 13.3 % (11.5-14.5); RDW Standard Deviation 44.5 fL (36.4-46.3); Red Blood Count 4.25 M/uL (4.20-5.40); White Blood Count 12.51 K/ul (4.8-10.8)
[2023-10-17 05:26] LABS: BUN Creatinine Ratio 15.4 (10-20); Calcium 7.8 mg/dl (8.6-10.3); Creatinine Clr Calc Pharmacy 64.8 ml/min; Est GFR (African American) 77.8 ml/min; Est GFR (Non-African American) 67.1 ml/min; Potassium 3.8 mmol/L (3.5-5.1)
[2023-10-17 05:41] LABS: Thyroid Stimulating Hormone 1.899 uIu/ml (0.300-4.500)
[2023-10-17] MEDS: AMPICILLIN/SULBACTAM SOD 3,000 MG/100 ML BAG IV SCH (06:25)
[2023-10-17] MEDS: LEVOTHYROXINE SODIUM 100 MCG TABLET PO SCH (06:25)
--- NOTE | 2023-10-17 07:17 | Anesthesiology Consultation ---
Date of Service October 17, 2023 Assessment & Plan Chart Review Chart Review: electrolysist initiated History Surgery Operation Date: 10/17/23 10:30 Proposed Procedures p M. Facial Incision and Drainage - Tyrone Dorsey DMD Height/Weight Height: 5 ft 4 in Weight: 80 kg Allergies Allergy/AdvReac Type Severity Reaction Status Date / Time aspirin Allergy Hives Verified 10/17/23 00:40 Penicillins Allergy Hives Verified 10/17/23 03:14 Medications Home Medications Medication Instructions Recorded Confirmed Last Taken bupropion HCl 300 mg 24 hr tablet, 300 mg PO DAILY 10/17/23 10/17/23 10/16/23 extended release duloxetine 60 mg capsule,delayed 60 mg PO DAILY 10/17/23 10/17/23 10/16/23 release ergocalciferol (vitamin D2) 1,250 1,250 mcg PO DIRECTED 10/17/23 10/17/23 Unknown mcg (50,000 unit) capsule estradiol 1 mg tablet 1 mg PO DAILY 10/17/23 10/17/23 10/16/23 hydroxyzine HCl 10 mg tablet 10 mg PO DAILY PRN Itching 10/17/23 10/17/23 Unknown levothyroxine 100 mcg tablet 100 mcg PO DAILY 10/17/23 10/17/23 10/16/23 methocarbamol 500 mg tablet 500 mg PO DIRECTED PRN Pain 10/17/23 10/17/23 Unknown pantoprazole 40 mg tablet,delayed 40 mg PO DIRECTED PRN Heartburn 10/17/23 10/17/23 Unknown release pravastatin 80 mg tablet 80 mg PO HS 10/17/23 10/17/23 10/15/23 progesterone micronized 200 mg 200 mg PO HS 10/17/23 10/17/23 10/15/23 capsule triamcinolone acetonide 0.1 % 0.1 applic topical DIRECTED PRN 10/17/23 10/17/23 Unknown topical ointment Itching Active Medications Generic Name Dose Route Start Last Admin Trade Name Freq PRN Reason Stop Dose Admin Sodium Chloride 1,000 mls @ 75 mls/hr 10/17/23 00:05 10/17/23 02:26 Nss IV 10/17/23 13:24 75 mls/hr .[id number] ONE Administration Ampicillin Sodium/Sulbactam Sodium 3,000 mg in 100 mls @ 200 mls/hr 10/17/23 06:00 10/17/23 06:25 Unasyn IV 10/24/23 05:59 200 mls/hr Q6H YOSELYN Administration Levothyroxine Sodium 100 mcg 10/17/23 06:30 10/17/23 06:25 Levothyroxine Sodium 100 Mcg Tablet PO 11/16/23 06:29 100 mcg DAILYBB YOSELYN Administration Pravastatin Sodium 80 mg 10/17/23 02:25 10/17/23 03:28 Pravastatin Sod 40 Mg Tab PO 11/16/23 02:24 80 mg HS YOSELYN Administration Progesterone 200 mg 10/17/23 03:00 10/17/23 03:28 Progesterone, Micronized 100 Mg Cap PO 11/16/23 02:59 200 mg HS YOSELYN Administration Social History Smoking Status: Never smoker Hx Alcohol Use: No Hx Substance Use: No Physical Exam Vital Signs Last Vital Signs Temp 99.0 F 10/16/23 20:24 Pulse 82 10/17/23 06:59 Resp 28 H 10/17/23 03:00 BP 109/79 10/17/23 03:00 Pulse Ox 95 10/17/23 03:00 O2 Del Method Room Air 10/17/23 02:00 O2 Flow Rate 2 10/16/23 23:00 Testing Laboratory Results 10/17/23 04:09 10/17/23 04:09 PT 10.6 Seconds (9.0-12.0) 10/16/23 20:31 INR 1.0 (0.9-1.1) 10/16/23 20:31 10/16/23 20:32 POC Glucose (other) 100 H Electrocardiogram Date: 10/16/23 Findings: + NSR @ (74 bpm)
--- NOTE | 2023-10-17 07:57 | XRay Report ---
XR chest 1V portable HISTORY: 63 years-old Female trauma acute chest trauma COMPARISON: None TECHNIQUE: AP view of the chest FINDINGS: Cardiomediastinal and hilar silhouettes are within normal limits. No pneumothorax, pleural effusion o r airspace consolidation. Degenerative changes of the shoulders and spine. IMPRESSION: No acute process. ACT 112: Negative or not required by law. The above report was generated using voice recognition software. It may contain grammatical, syntax o r spelling errors. Electronically signed by: Kamron Felix M.D. 10/17/2023 7:55 AM
--- NOTE | 2023-10-17 08:03 | Oral/Maxillofacial Consult ---
Date of Consultation October 17, 2023 Assessment & Plan (1) Contaminated complex laceration of scalp: (2) CHI (closed head injury): History of Present Illness Reason for Consultation: Large deep scalp laceration Requesting Physician: ED Attending Physician: Mario Bledsoe MD History of Present Illness CHIEF COMPLAINT: Scalp laceration, head injury HPI: This is a 63-year-old female who presents emergency department due to concern for head injury and scalp laceration following an accidental fall into a trash can lid outside. Patient states she felt well, and accidentally fell forward striking her head on the lid of the trash can and then falling to the sidewalk on her knee. She denies any loss of consciousness. She denies any other concern for injury. No use of antiplatelet or anticoagulation medication. I met with Mrs. Haider this morning prior to the surgical procedure. There is a very large deep full thickness at least 9 inch scalp laceration (frontal area) It is covered with a large bandage--which i will remove once she under the GA. ADMITTING DIAGNOSES: Facial Laceration I discussed that the repair will be in the OR with general anesthesia. Once asleep I will remove the pressure dressing and I will irrigate and scrub the wound to insure all material is out to the wound flap. I will use an electrocautery instrument and cauterized any bleeders. Then the wound will be irrigated and scrubbed again. I will inspect the bone for any displacement--CT was negative. The closure of the laceration with sutures and maybe manuel will now be accomplished. I will consider discharge after the OR procedure depending on how Christina does afterwards. Suture removal will be set for 10 days in my office She is able to tolerate Amoxicillin and I will keep her on this for a few days post op. Will described the laceration in my OP report once the bandage is removed in the OR Consent signed PHYSICAL EXAMINATION: I reviewed the exam from the ER and no additions are required GENERAL: alert, well appearing, well nourished, no distress, non-toxic HEAD: nc, large flap noted to scalp measuring approximately 9 inches , no evidence of facial injury, no corona signs, no raccoon eyes EYE EXAM: normal conjunctiva, PERRL and EOM's grossly intact OROPHARYNX: no exudate, no erythema, lips, buccal mucosa, and tongue normal and mucous membranes are moist NECK: supple, no nuchal rigidity, no adenopathy, non-tender, patient placed in a c-collar as a precaution LUNGS: Clear to auscultation. Normal chest wall mechanics, no w/r/r HEART: no murmurs, S1 normal and S2 normal CHEST WALL: No crepitus, no step-off, nontender with palpation ABDOMEN: abdomen soft, non-tender, normo-active bowel sounds, no masses, no rebound or guarding. PELVIS: stable to compression, nontender with palpation BACK: Back is symmetrical on inspection and there is no deformity, no midline tenderness, no CVA tenderness. SKIN: no rashes, petechiae, orbruising UPPER EXTREMITIES: upper extremities are grossly normal. FROM, nml pulses b/l. No evidence of trauma or deformity. LOWER EXTREMITIES: No pitting edema. FROM, nml pulses b/l. Contusion noted to right prepatellar region, well-healed vertical midline incision noted to right knee that patient states is from prior knee replacement, no other evidence of trauma or deformity. NEURO EXAM: Normal sensorium, cranial nerves II-XII grossly intact, normal speech, no facial droop,nogross weakness of arms, no gross weakness of legs. Gross sensation intact. No ataxia. The ER called me to discuss this complex deep scalp laceration with contamination. Given complexity we discussed possible primary closure in the OR. Patient would prefer this compared to bedside repair. Dr. Dorsey states he would be able to take the patient to the OR in the morning for washout, debridement, and primary closure if medicine can admit her overnight. Allergies Allergy/AdvReac Type Severity Reaction Status Date / Time aspirin Allergy Hives Verified 10/17/23 00:40 Penicillins Allergy Hives Verified 10/17/23 03:14 Home Medications Medication Instructions Recorded Confirmed Type bupropion HCl 300 mg 24 hr tablet, 300 mg PO DAILY 10/17/23 10/17/23 History extended release duloxetine 60 mg capsule,delayed 60 mg PO DAILY 10/17/23 10/17/23 History release ergocalciferol (vitamin D2) 1,250 1,250 mcg PO DIRECTED 10/17/23 10/17/23 History mcg (50,000 unit) capsule estradiol 1 mg tablet 1 mg PO DAILY 10/17/23 10/17/23 History hydroxyzine HCl 10 mg tablet 10 mg PO DAILY PRN Itching 10/17/23 10/17/23 History levothyroxine 100 mcg tablet 100 mcg PO DAILY 10/17/23 10/17/23 History methocarbamol 500 mg tablet 500 mg PO DIRECTED PRN Pain 10/17/23 10/17/23 History pantoprazole 40 mg tablet,delayed 40 mg PO DIRECTED PRN Heartburn 10/17/23 10/17/23 History release pravastatin 80 mg tablet 80 mg PO HS 10/17/23 10/17/23 History progesterone micronized 200 mg 200 mg PO HS 10/17/23 10/17/23 History capsule triamcinolone acetonide 0.1 % 0.1 applic topical DIRECTED PRN 10/17/23 10/17/23 History topical ointment Itching Patient History Social History Smoking Status: Never smoker Hx Alcohol Use: No Hx Substance Use: No Preferred Language: Samoan Communication Ability: Effective Compliance Quality Performance Analyst Required: No Beliefs That Will Affect Care: None Current Living Situation: Spouse and Family Feels Safe at Home: Yes Safety Concerns: Feels Safe At This Time Results & Data Vital Signs (Past 12 Hours) Vital Signs Temp Pulse Pulse Resp BP BP Pulse Ox 10/17/23 06:59 82 10/17/23 03:00 82 28 H 109/79 95 10/17/23 02:31 81 20 124/77 95 10/17/23 02:31 124/77 10/17/23 02:00 92 H 18 122/89 96 10/17/23 02:00 89 18 122/89 98 10/17/23 01:30 86 18 123/79 96 10/17/23 01:21 89 12 117/83 97 10/17/23 01:05 84 10/17/23 00:36 84 16 136/84 97 10/17/23 00:06 85 30 H 134/80 98 10/17/23 00:00 88 20 134/80 98 10/17/23 00:00 88 16 134/80 98 10/16/23 23:30 85 24 155/87 H 98 10/16/23 23:00 82 16 153/104 H 100 10/16/23 23:00 82 18 153/104 H 98 10/16/23 22:30 85 22 171/111 H 99 10/16/23 22:00 80 18 161/101 H 99 10/16/23 22:00 80 18 161/101 H 98 10/16/23 21:51 89 L 10/16/23 21:30 80 16 154/93 H 98 10/16/23 21:16 81 20 149/100 H 95 10/16/23 21:15 80 20 149/100 H 97 10/16/23 20:33 85 10/16/23 20:24 98 10/16/23 20:24 37.2 C 89 20 151/121 H 98 10/16/23 20:24 37.2 C 89 18 151/121 H 98 10/16/23 20:24 37.2 C 89 20 151/121 H 98 O2 Del Method O2 Flow Rate 10/17/23 06:59 10/17/23 03:00 10/17/23 02:31 10/17/23 02:31 10/17/23 02:00 10/17/23 02:00 Room Air 10/17/23 01:30 10/17/23 01:21 10/17/23 01:05 10/17/23 00:36 10/17/23 00:06 10/17/23 00:00 10/17/23 00:00 Room Air 10/16/23 23:30 10/16/23 23:00 10/16/23 23:00 Nasal Cannula 2 10/16/23 22:30 Room Air 10/16/23 22:00 Nasal Cannula 2 10/16/23 22:00 Nasal Cannula 2 10/16/23 21:51 Room Air, Nasal Cannula 10/16/23 21:30 Room Air 10/16/23 21:16 Room Air 10/16/23 21:15 Room Air 10/16/23 20:33 10/16/23 20:24 Room Air 10/16/23 20:24 Room Air 10/16/23 20:24 Room Air 10/16/23 20:24 Room Air PG Care Time/CCT Total # of Minutes Spent Total Time Spent with Patient: Total time spent is greater than 50% in coordination of care (as documented) at patient's floor/unit and/or counseling patient: Coding Level of Care Code 51501 OFFICE CONSULT LVL Diagnoses Contaminated complex laceration of scalp S01.01XA Closed head injury, subsequent encounter S09.90XD Encounter type: subsequent encounter (2) CHI (closed head injury) Encounter type: subsequent encounter Qualified Code(s): S09.90XD - Unspecified injury of head, subsequent encounter
[2023-10-17] MEDS: buPROPion XL 300 MG TABCR PO SCH (08:28)
[2023-10-17] MEDS: estradioL 1 MG TAB PO SCH (08:28)
[2023-10-17] MEDS: DULoxetine HCL 60 MG CAP PO SCH (08:28)
--- NOTE | 2023-10-17 08:51 | XRay Report ---
XR pelvis 1-2V routine HISTORY: 63 years-old Female trauma acute pelvic trauma COMPARISON: None TECHNIQUE: AP view of the pelvis FINDINGS: Right hip arthroplasty. [id number] left hip osteoarthritis. No acute fracture, dislocation or a vascular necrosis. Unremarkable soft tissues. IMPRESSION: No acute fracture or dislocation. ACT 112: Negative or not required by law. The above report was generated using voice recognition software. It may contain grammatical, syntax o r spelling errors. Electronically signed by: Kamron Felix M.D. 10/17/2023 8:50 AM
--- NOTE | 2023-10-17 08:58 | XRay Report ---
XR knee RT 3V HISTORY: 63 years-old Female trauma acute right knee pain COMPARISON: None TECHNIQUE: 2 views of the right knee FINDINGS: Moderate prepatellar/infrapatellar anterior soft tissue swelling. Total arthroplasty. Trace joint eff usion. No acute fracture, dislocation or osseous erosion. IMPRESSION: Anterior soft tissue swelling without acute fracture or dislocation identified. ACT 112: Negative or not required by law. The above report was generated using voice recognition software. It may contain grammatical, syntax o r spelling errors. Electronically signed by: Kamron Felix M.D. 10/17/2023 8:57 AM
[2023-10-17] MEDS ORDERED: fentaNYL citrate PF 100 MCG/2 ML VIAL IV PRN (11:03)
[2023-10-17] MEDS ORDERED: ePHEDrine sulfate 50 MG/ML AMP IV PRN (11:03)
[2023-10-17] MEDS ORDERED: ONDANSETRON INJ 2 MG/ML 2 ML VIAL IV PRN (11:03)
[2023-10-17] MEDS ORDERED: ATROPINE SULFATE 0.1 MG/ML 10ML SYR IV PRN (11:03)
--- NOTE | 2023-10-17 11:13 | History & Physical Bridge Note ---
Date of Service October 17, 2023 History & Physical Bridge Note I have examined the patient, reviewed the History & Physical and in the interval since the performance of the History & Physical I have noted the following changes of clinical significance: no changes noted OK for repair of large degloving scalp laceration
[2023-10-17] MEDS ORDERED: DEXAMETHASONE SOD INJ 4 MG/ML VIAL ONE (11:18)
[2023-10-17] MEDS ORDERED: ROCURONIUM BROMIDE 10 MG/ML 5 ML VIAL IV ONE (11:18)
[2023-10-17] MEDS ORDERED: LIDOCAINE 2% 2 ML VIAL/AMP(20MG/ML) INFIL ONE (11:18)
[2023-10-17] MEDS ORDERED: ONDANSETRON INJ 2 MG/ML 2 ML VIAL ONE (11:18)
[2023-10-17] MEDS ORDERED: PROPOFOL IV EMULSION 10 MG/ML 20 ML VIAL IV ONE (11:18)
[2023-10-17] MEDS ORDERED: MIDAZOLAM HCL 1 MG/ML 2ML VIAL ONE (11:19)
[2023-10-17] MEDS ORDERED: fentaNYL citrate PF 100 MCG/2 ML VIAL ONE (11:19)
[2023-10-17] MEDS ORDERED: SUGAMMADEX SODIUM 200 MG/2 ML VIAL IV ONE (11:19)
[2023-10-17] MEDS ORDERED: ACETAMINOPHEN 1000 MG/100 ML IV IV ONE (12:15)
[2023-10-17] MEDS ORDERED: PHENYLEPHRINE 100MCG/ML 10ML SYR IV ONE (12:16)
[2023-10-17] MEDS: ceFAZolin 1000MG 1,000 MG/7.5 ML SYR IV ONE (13:20)
[2023-10-17] MEDS: BACITRACIN OINT 14 GM TUBE ONE (13:22)
--- NOTE | 2023-10-17 14:03 | Post Operative Brief Note ---
PG Immediate Post Op with CF Date of Surgery October 17, 2023 Pre & Post Diagnosis Operation Date: 10/17/23 10:30 Pre-Op Diagnosis: Scalp Laceration complex degloving 9 inches (23 cm) Post-Op Diagnosis: Scalp Laceration complex degloving 9 inches (23 cm) I identified the patient and participated in the time-out.: Yes Procedure Operation Date: 10/17/23 10:30 Actual Procedures p Repair of Large Deep scalp Laceration, and wash out(Not Applicable) - Tyrone Dorsey DMD Surgeon Tyrone Dorsey, [facility] Loss Prevention Manager none Estimated Blood Loss 25 Findings Consistent with Post-Op Diagnosis complex degloving 9 inches (23 cm) scalp Specimens Specimen Description: None per surgeon Complications none Disposition Accompanied Patient To Recovery: Yes
--- NOTE | 2023-10-17 15:31 | Anesthesiology Progress Note ---
Date of Service October 17, 2023 Anesthesia Post Procedure Vital Signs Vital Signs: Temp Pulse Pulse Pulse Resp BP BP 10/17/23 15:07 98.8 F 92 H 16 100/62 10/17/23 14:40 92/49 L 10/17/23 14:35 99.0 F 91 H 18 94/57 L 10/17/23 14:25 89 19 86/61 L 10/17/23 14:20 85/51 L 10/17/23 14:15 17 L 18 79/52 L 10/17/23 14:05 96 H 18 93/46 L 10/17/23 13:55 92 H 18 98/60 L 10/17/23 13:50 107/63 10/17/23 13:45 90 16 92/66 L 10/17/23 13:39 97.3 F L 95 H 17 107/66 10/17/23 08:27 82 18 94/67 L 10/17/23 06:59 82 10/17/23 03:00 82 28 H 109/79 10/17/23 02:31 81 20 124/77 10/17/23 02:31 124/77 10/17/23 02:00 92 H 18 122/89 10/17/23 02:00 89 18 122/89 10/17/23 01:30 86 18 123/79 10/17/23 01:21 89 12 117/83 10/17/23 01:05 84 10/17/23 00:36 84 16 136/84 10/17/23 00:06 85 30 H 134/80 10/17/23 00:00 88 20 134/80 10/17/23 00:00 88 16 134/80 10/16/23 23:30 85 24 155/87 H 10/16/23 23:00 82 16 153/104 H 10/16/23 23:00 82 18 153/104 H 10/16/23 22:30 85 22 171/111 H 10/16/23 22:00 80 18 161/101 H 10/16/23 22:00 80 18 161/101 H 10/16/23 21:51 10/16/23 21:30 80 16 154/93 H 10/16/23 21:16 81 20 149/100 H 10/16/23 21:15 80 20 149/100 H 10/16/23 20:33 85 10/16/23 20:24 10/16/23 20:24 99.0 F 89 20 151/121 H 10/16/23 20:24 99.0 F 89 18 151/121 H 10/16/23 20:24 99.0 F 89 20 151/121 H Pulse Ox O2 Del Method O2 Flow Rate 10/17/23 15:07 93 Room Air 10/17/23 14:40 10/17/23 14:35 96 Room Air 10/17/23 14:25 93 Room Air 10/17/23 14:20 10/17/23 14:15 94 Room Air 10/17/23 14:05 93 Room Air 10/17/23 13:55 97 Nasal Cannula 2 10/17/23 13:50 10/17/23 13:45 98 Nasal Cannula 4 10/17/23 13:39 93 Nasal Cannula 4 10/17/23 08:27 92 Room Air 10/17/23 06:59 10/17/23 03:00 95 10/17/23 02:31 95 10/17/23 02:31 10/17/23 02:00 96 10/17/23 02:00 98 Room Air 10/17/23 01:30 96 10/17/23 01:21 97 10/17/23 01:05 10/17/23 00:36 97 10/17/23 00:06 98 10/17/23 00:00 98 10/17/23 00:00 98 Room Air 10/16/23 23:30 98 10/16/23 23:00 100 10/16/23 23:00 98 Nasal Cannula 2 10/16/23 22:30 99 Room Air 10/16/23 22:00 99 Nasal Cannula 2 10/16/23 22:00 98 Nasal Cannula 2 10/16/23 21:51 89 L Room Air, Nasal Cannula 10/16/23 21:30 98 Room Air 10/16/23 21:16 95 Room Air 10/16/23 21:15 97 Room Air 10/16/23 20:33 10/16/23 20:24 98 Room Air 10/16/23 20:24 98 Room Air 10/16/23 20:24 98 Room Air 10/16/23 20:24 98 Room Air Pain Intensity Head: Pain Intensity: 8 Transfer of Care Handoff Completed per policy Notes Mental Status: alert / awake / arousable and participated in evaluation Patient Amnestic to Procedure: Yes Nausea / Vomiting: adequately controlled Pain: adequately controlled Airway Patency, RR, SpO2: stable & adequate BP & HR: stable & adequate Hydration State: stable & adequate Anesthetic Complications: no major complications apparent and Pt Satisfied with anesthetic care
[2023-10-17] MEDS: FAMOTIDINE/PF 20 MG/2 ML VIAL IV ONE (15:38)
[2023-10-17] MEDS ORDERED: Nursing to Pharmacy Communication SCH (15:45)
[2023-10-17] MEDS: SODIUM CHLORIDE 0.9% 1,000 ML IV SCH (16:44)
[2023-10-17] MEDS: SODIUM CHLORIDE 0.9% 500 ML IV ONE (17:01)
--- NOTE | 2023-10-17 17:14 | Hospitalist Progress Note ---
Date of Service October 17, 2023 Assessment & Plan (1) Contaminated complex laceration of scalp: Plan: Per admitting service Notes with addendum: Traumatic scalp laceration Traumatic left knee injury -- Evaluated by Dr. Dorsey, wound looks good Continue IV Unasyn, transition to amoxicillin upon discharge Patient up to date with tetanus vaccine, last was in 2019 Continue pain control Marginal blood pressure Likely multifactorial secondary to anesthesia, narcotics, dehydration Additional IV fluid bolus given Continue IV NSS Monitor closely Hyperlipidemia -- on statin Rx Hypothyroidism - outpatient TSH from 4 months ago noted to be low at 0.15 - TSH 1.8 prediabetes, hemoglobin A1c of 5.9 from July 2023 [id number], outpatient sleep study to be scheduled ADHD/anxiety/mood disorder, stable DVT prophylaxis. SCDs Re: Traumatic scalp wound Full code Admission and Anticipated Discharge Date Admission Date: October 17, 2023 Subjective Follow-up for scalp laceration, status post fall, etc. Seen resting in bed, sleeping, easily awakened States she feels very tired today, complaining of frontal headache as well Feels "she was run over by a truck" No shortness of breath, chest pain, palpitations No other new symptoms Review of Systems Review of Systems: all noted and negative except for above Physical Exam Physical Exam: General- oriented x 3, not in distress, speaks in sentences with no effort or accessory muscle use Head-dressing in place over scalp hematoma, no active bleeding or discharge Eyes- anicteric Neck- no JVD Lungs- clear breath sounds bilaterally, no rales/wheezes Heart- normal rate, regular rhythm; no murmurs Abdomen- normal bowel sounds, nondistended, soft, nontender Extremities- no pretibial edema, no calf tenderness Neuro- alert, oriented x 3; no gross focal neurologic deficits Skin- warm & dry Results & Data Results & Data Vital Signs (Past 12 Hours) Vital Signs Temp Pulse Pulse Pulse Resp BP Pulse Ox 10/17/23 17:03 37.2 C 87 16 97/61 L 93 10/17/23 16:12 37.2 C 86 16 98/65 L 93 10/17/23 15:46 36.9 C 89 16 97/61 L 94 10/17/23 15:07 37.1 C 92 H 16 100/62 93 10/17/23 14:40 92/49 L 10/17/23 14:35 37.2 C 91 H 18 94/57 L 96 10/17/23 14:25 89 19 86/61 L 93 10/17/23 14:20 85/51 L 10/17/23 14:15 17 L 18 79/52 L 94 10/17/23 14:05 96 H 18 93/46 L 93 10/17/23 13:55 92 H 18 98/60 L 97 10/17/23 13:50 107/63 10/17/23 13:45 90 16 92/66 L 98 10/17/23 13:39 36.3 C L 95 H 17 107/66 93 10/17/23 08:27 82 18 94/67 L 92 10/17/23 06:59 82 O2 Del Method O2 Flow Rate 10/17/23 17:03 Room Air 10/17/23 16:12 Room Air 10/17/23 15:46 Room Air 10/17/23 15:07 Room Air 10/17/23 14:40 10/17/23 14:35 Room Air 10/17/23 14:25 Room Air 10/17/23 14:20 10/17/23 14:15 Room Air 10/17/23 14:05 Room Air 10/17/23 13:55 Nasal Cannula 2 10/17/23 13:50 10/17/23 13:45 Nasal Cannula 4 10/17/23 13:39 Nasal Cannula 4 10/17/23 08:27 Room Air 10/17/23 06:59 all noted and reviewed including below
[2023-10-17] MEDS: oxyCODONE HCL IR 5 MG TAB (IMMEDIATE RELEASE) PO PRN (21:19)
[2023-10-17] MEDS: MoRPHine SULFATE 4 MG/ML 1 ML CARP\\VIAL IV PRN (22:55)
[2023-10-18 07:41] VITALS: RESP 16
--- NOTE | 2023-10-18 08:02 | Orthopedic Consultation ---
Date of Service October 18, 2023 Assessment & Plan (1) Prepatellar bursitis, right knee: 63-year-old female 7 years out from bilateral knee replacements done in [place] status post a recent fall with a right hemorrhagic prepatellar bursitis. There is no signs of damage to the underlying knee replacement. Her extensor mechanism is intact. It already looks like this is somewhat dissipated from the previous x-rays. Plan. At this point the treatment is essentially symptomatic. This will resolve on its own. May take 2 to 3 weeks. She can weight-bear as tolerated. Would recommend just avoiding and kneeling on this knee which she does not like to do any help. Can use ice at this point as needed. No need for any further intervention or workup. Any orthopedic questions can be direct me at [phone]. (2) Contusion of knee, right: (3) History of bilateral knee replacement: History of Present Illness Reason for Consultation: . Right knee pain and swelling after a fall with underlying knee replacement. Requesting Physician: . Attending Physician: Mario Bledsoe MD . Patient is a 63-year-old female who is now about 7 years out from bilateral knee replacements done in [place]. She is done well from a knee replacement but always had trouble kneeling on her knees. She stained an injury 2 days ago when she fell directly on her right knee and lacerated her scalp. She underwent repair of her scalp yesterday by Dr. Dorsey. We were asked to see her for her knee. Her knee has been functioning well. She has had increased pain in the front of her right knee since the fall. She is always had trouble kneeling on it. Allergies Allergy/AdvReac Type Severity Reaction Status Date / Time aspirin Allergy Hives Verified 10/17/23 00:40 Penicillins Allergy Hives Verified 10/17/23 03:14 Home Medications Medication Instructions Recorded Confirmed Type bupropion HCl 300 mg 24 hr tablet, 300 mg PO DAILY 10/17/23 10/17/23 History extended release duloxetine 60 mg capsule,delayed 60 mg PO DAILY 10/17/23 10/17/23 History release ergocalciferol (vitamin D2) 1,250 1,250 mcg PO DIRECTED 10/17/23 10/17/23 History mcg (50,000 unit) capsule estradiol 1 mg tablet 1 mg PO DAILY 10/17/23 10/17/23 History hydroxyzine HCl 10 mg tablet 10 mg PO DAILY PRN Itching 10/17/23 10/17/23 History levothyroxine 100 mcg tablet 100 mcg PO DAILY 10/17/23 10/17/23 History methocarbamol 500 mg tablet 500 mg PO DIRECTED PRN Pain 10/17/23 10/17/23 History pantoprazole 40 mg tablet,delayed 40 mg PO DIRECTED PRN Heartburn 10/17/23 10/17/23 History release pravastatin 80 mg tablet 80 mg PO HS 10/17/23 10/17/23 History progesterone micronized 200 mg 200 mg PO HS 10/17/23 10/17/23 History capsule triamcinolone acetonide 0.1 % 0.1 applic topical DIRECTED PRN 10/17/23 10/17/23 History topical ointment Itching Past Med/Surg History Problem List (Updated 10/18/23 @ 08:05 by Sharad Acuna MD) History of bilateral knee replacement Prepatellar bursitis, right knee Contaminated complex laceration of scalp (Acute) CHI (closed head injury) (Acute) Contusion of knee, right (Acute) Social History Smoking Status: Never smoker Hx Alcohol Use: No Hx Substance Use: No Preferred Language: Swazi Communication Ability: Effective Director Of Partner Marketing Required: No Beliefs That Will Affect Care: None Current Living Situation: Spouse and Family Feels Safe at Home: Yes Review of Systems All systems reviewed & are unremarkable except as noted in HPI & below. Physical Exam . Physical examination is a pleasant middle-age female. She is lying bed looks pretty comfortable. Cemented to the right knee reveals a well-healed incision. She does have obvious swelling in the front of her knee anterior to the patella. There is no open wounds. Minimal if any knee effusion. She can do a good straight leg raise. There is no palpable defects. Range of motion is 0-1 20. No varus or valgus instability. No pain with hip motion. Results & Data Results & Data Laboratory Results . Diagnostic Findings . X-rays of the right knee reviewed. Shows a cemented posterior stabilized total knee arthroplasty. Components look to be in okay position. No signs of problems. She does have a fairly significant soft tissue swelling in the front of her kneecap area. PG Care Time/CCT Total # of Minutes Spent Total Time Spent with Patient: Total time spent is greater than 50% in coordination of care (as documented) at patient's floor/unit and/or counseling patient: Coding Level of Care Code 77960 IN/OBS CONSULT LVL 4,60M Diagnoses Prepatellar bursitis, right knee M70.41 Contusion of knee, right S80.01XA History of bilateral knee replacement Z96.653
[2023-10-18] MEDS: ACETAMINOPHEN 325 MG TAB PO PRN (08:03)
[2023-10-18 08:54] LABS: Basophils # (auto) 0.02 K/uL (0.00-0.20); Basophils % (auto) 0.2 %; Eosinophils # (auto) 0.06 K/uL (0.00-0.50); Eosinophils % (auto) 0.5 %; Hematocrit (blood only) 31.6 % (37.0-47.0); Hemoglobin 10.5 g/dl (12.0-16.0); Immature Granulocytes # (auto) 0.05 K/uL (0.01-0.20); Immature Granulocytes % (auto) 0.4 %; Lymphocytes # (auto) 2.44 K/uL (1.20-3.40); Lymphocytes % (auto) 21.1 %; Mean Corpuscular Hemoglobin 30.7 pg (25.0-34.0); Mean Corpuscular Hgb Conc 33.2 g/dL (32.0-36.0); Mean Corpuscular Volume 92.4 fL (80.0-100.0); Monocytes # (auto) 0.55 K/uL (0.11-0.59); Monocytes % (auto) 4.8 %; Neutrophils # (auto) 8.44 K/uL (1.40-6.50); Platelet Count 187 K/uL (130-400); RDW Coefficient of Variation 13.8 % (11.5-14.5); RDW Standard Deviation 46.9 fL (36.4-46.3); Red Blood Count 3.42 M/uL (4.20-5.40); White Blood Count 11.56 K/ul (4.8-10.8)
[2023-10-18] MEDS: SODIUM CHLORIDE 0.9% 500 ML IV ONE (09:02)
[2023-10-18 09:26] LABS: Albumin Globulin Ratio 1.7 (0.9-2); Albumin Level 3.3 gm/dl (3.4-5.0); BUN Creatinine Ratio 11.1 (10-20); Bilirubin,Total 0.4 mg/dl (0.2-1.0); Calcium 7.3 mg/dl (8.6-10.3); Creatinine Clr Calc Pharmacy 72.7 ml/min; Est GFR (African American) 89.6 ml/min; Est GFR (Non-African American) 77.3 ml/min; Potassium 3.4 mmol/L (3.5-5.1); Total Protein 5.3 gm/dl (6.0-8.3)
--- NOTE | 2023-10-18 11:42 | Oral/Maxillofacial Progress Nt ---
Date of Service October 18, 2023 Assessment & Plan Admission and Anticipated Discharge Date Admission Date: October 17, 2023 Subjective Post OP note for scalp lacerations at 24 hours The repaired 9 inch scalp laceration looks great. No hematoma noted, minimal swelling, scalp is numb as expected. Moderate amount of pain as expected. The wound edges are very flat without hypertrophy. Over all the Early result is excellent. We discussed wound care, hair washing and follow up. OK for discharge from my point of view RTC to see Dr Dorsey in 10-14 days Rx Vicodin and Amoxicillin 500 for 5 days Results & Data Vital Signs (Past 12 Hours) Vital Signs Temp Pulse Resp BP Pulse Ox O2 Del Method 10/18/23 07:40 36.8 C 89 16 92/58 L 93 Room Air 10/18/23 04:44 36.5 C 93 H 18 92/58 L 97 Room Air 10/18/23 01:13 37.1 C 95 H 16 98/63 L 94 Room Air PG Care Time/CCT Total # of Minutes Spent Total Time Spent with Patient: Total time spent is greater than 50% in coordination of care (as documented) at patient's floor/unit and/or counseling patient: Coding Level of Care Code None
[2023-10-18] MEDS: ACETAMINOPHEN 500 MG TAB PO SCH (14:04)
[2023-10-18] MEDS: POTASSIUM CHLORIDE CRTAB 20 MEQ TABCR PO STA (15:46)
--- NOTE | 2023-10-18 17:36 | Hospitalist Progress Note ---
Date of Service October 18, 2023 Assessment & Plan (1) Contaminated complex laceration of scalp: Plan: Per admitting service Notes with addendum: Traumatic scalp laceration Traumatic left knee injury -- Evaluated by Dr. Dorsey, wound looks good Continue IV Unasyn, transition to amoxicillin upon discharge Patient up to date with tetanus vaccine, last was in 2019 Continue pain control Marginal blood pressure Likely multifactorial secondary to anesthesia, narcotics, dehydration Additional IV fluid bolus given Continue IV NSS Monitor closely Hyperlipidemia -- on statin Rx Hypothyroidism - outpatient TSH from 4 months ago noted to be low at 0.15 - TSH 1.8 prediabetes, hemoglobin A1c of 5.9 from July 2023 [place], outpatient sleep study to be scheduled ADHD/anxiety/mood disorder, stable DVT prophylaxis. SCDs Re: Traumatic scalp wound Full code Admission and Anticipated Discharge Date Admission Date: October 17, 2023 Subjective Chief Complaint: Bleeding head injury Primary Care Provider: KAYCEE Rivas History obtained from patient, family, and records. Medical history significant for hyperlipidemia, hypothyroidism, prediabetes, ZOHREH, ADHD/anxiety/mood disorder. Patient fell forward hitting her head and left knee on the surface of a trash can lid. No LOC. Bleeding scalp wound noted. No chest pain, no SOB. Patient brought to ER for evaluation. Ceftriaxone administered at the ER. Review of Systems Review of Systems: all noted and negative except for above Physical Exam Physical Exam: GENERAL: Pleasant, slightly uncomfortable, obese, no respiratory distress SKIN: Normal color, warm HEENT: Dressing over scalp, pink palpebral conjunctivae, no ptosis, dry buccal mucosa NECK : Supple, no tenderness CHEST : CTA, no tenderness HEART : RRR, no obvious murmurs ABDOMEN: Some distention, nontender EXTREMITIES : Tender left knee swelling, no other conspicuous deformities noted NEUROLOGIC : Coherent, no facial asymmetry, no other gross focality Results & Data Results & Data Vital Signs (Past 12 Hours) Vital Signs Temp Pulse Resp BP Pulse Ox O2 Del Method 10/18/23 14:52 37.1 C 86 16 103/65 94 Room Air 10/18/23 12:12 108/66 10/18/23 07:40 36.8 C 89 16 92/58 L 93 Room Air all noted and reviewed including below
[2023-10-18] MEDS: POLYETHYLENE (MIRALAX) 17 GM PACK PO PRN (21:13)
--- NOTE | 2023-10-18 21:39 | Electrocardiogram Report ---
Test Reason : Blood Pressure : */* mmHG Vent. Rate : 74 BPM Atrial Rate : 74 BPM P-R Int : 170 ms QRS Dur : 78 ms QT Int : 402 ms P-R-T Axes : 46 62 58 degrees QTcB Int : 446 ms Normal sinus rhythm Normal ECG No previous ECGs available Confirmed by Javi Rehman ([id number]) on 10/18/2023 9:38:49 PM Referred By: REFERRED SELF Confirmed By: Javi Rehman
[2023-10-19 07:09] LABS: Basophils # (auto) 0.03 K/uL (0.00-0.20); Basophils % (auto) 0.3 %; Eosinophils # (auto) 0.36 K/uL (0.00-0.50); Eosinophils % (auto) 3.8 %; Hematocrit (blood only) 30.7 % (37.0-47.0); Hemoglobin 10.5 g/dl (12.0-16.0); Immature Granulocytes # (auto) 0.03 K/uL (0.01-0.20); Immature Granulocytes % (auto) 0.3 %; Lymphocytes # (auto) 3.07 K/uL (1.20-3.40); Lymphocytes % (auto) 32.7 %; Mean Corpuscular Hemoglobin 30.9 pg (25.0-34.0); Mean Corpuscular Hgb Conc 34.2 g/dL (32.0-36.0); Mean Corpuscular Volume 90.3 fL (80.0-100.0); Mean Platelet Volume 9.9 fL (9.4-12.4); Monocytes # (auto) 0.61 K/uL (0.11-0.59); Monocytes % (auto) 6.5 %; Neutrophils # (auto) 5.29 K/uL (1.40-6.50); Neutrophils % (auto) 56.4 %; Platelet Count 214 K/uL (130-400); RDW Standard Deviation 46.2 fL (36.4-46.3); White Blood Count 9.39 K/ul (4.8-10.8)
[2023-10-19 07:26] LABS: Albumin Globulin Ratio 1.6 (0.9-2); Albumin Level 3.3 gm/dl (3.4-5.0); BUN Creatinine Ratio 8.9 (10-20); Bilirubin,Total 0.3 mg/dl (0.2-1.0); Calcium 7.4 mg/dl (8.6-10.3); Creatinine Clr Calc Pharmacy 74.6 ml/min; Est GFR (African American) 92.3 ml/min; Est GFR (Non-African American) 79.7 ml/min; Globulin 2.1 gm/dl (2.5-4.0); Magnesium 1.9 mg/dl (1.7-2.4); Potassium 3.7 mmol/L (3.5-5.1); Total Protein 5.4 gm/dl (6.0-8.3)
[2023-10-19 07:37] VITALS: BP 114/73; PULSE 78; TEMP 98.1; O2SAT 94
--- NOTE | 2023-10-19 12:53 | Discharge Summary ---
Discharge Summary Date of Service October 19, 2023 Principal Dx & Hospital Course #1 = Principal Diagnosis (1) Contaminated complex laceration of scalp: Per admitting service Notes with addendum: Traumatic scalp laceration Traumatic left knee injury Knee xray: no fracture 10/16 Scalp Laceration complex degloving 9 inches (23 cm) by Dr. Dorsey -- placed on Unasyn IV -- Evaluated by Dr. Dorsey on ff up, wound looks good transition to amoxicillin course upon discharge Patient up to date with tetanus vaccine, last was in 2019 [place] and Tylenol PRN -- ff up with Dr Dorsey in 1 week PCP in 1 week Marginal blood pressure Likely multifactorial secondary to anesthesia, narcotics, dehydration given IV NSS BP improved ambulating well Hyperlipidemia -- on statin Rx Hypothyroidism - outpatient TSH from 4 months ago noted to be low at 0.15 - TSH 1.8 - ff up as outpatient prediabetes, hemoglobin A1c of 5.9 from July 2023 ZOHREH, outpatient sleep study to be scheduled ADHD/anxiety/mood disorder, stable [place] home PCP ff up in [address] Dorsey ff up in 1 week Notes For Next Care Provider Medication Changes From Visit New Medications: Amoxicillin [place] PRN Admission HPI Per Admitting Provider History obtained from patient, family, and records. Medical history significant for hyperlipidemia, hypothyroidism, prediabetes, ZOHREH, ADHD/anxiety/mood disorder. Patient fell forward hitting her head and left knee on the surface of a trash can lid. No LOC. Bleeding scalp wound noted. No chest pain, no SOB. Patient brought to ER for evaluation. Ceftriaxone administered at the ER. 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 Admission Exam Per Admitting Provider GENERAL: Pleasant, slightly uncomfortable, obese, no respiratory distress SKIN: Normal color, warm HEENT: Dressing over scalp, pink palpebral conjunctivae, no ptosis, dry buccal mucosa NECK : Supple, no tenderness CHEST : CTA, no tenderness HEART : RRR, no obvious murmurs ABDOMEN: Some distention, nontender EXTREMITIES : Tender left knee swelling, no other conspicuous deformities noted NEUROLOGIC : Coherent, no facial asymmetry, no other gross focality Discharge Exam General- oriented x 3, not in distress, speaks in sentences with no effort or accessory muscle use Head- sutures intact, no surrounding erythema, bleeding or discharge Eyes- anicteric Neck- no JVD Lungs- clear breath sounds bilaterally, no rales/wheezes Heart- normal rate, regular rhythm; no murmurs Abdomen- normal bowel sounds, nondistended, soft, nontender Extremities- no pretibial edema, no calf tenderness R knee: mild hematoma, mild edema, no warmth/tenderness good ROM Neuro- alert, oriented x 3; no gross focal neurologic deficits Skin- warm & dry Updated Medication List Medication Instructions Recorded Confirmed Type bupropion HCl 300 mg 24 hr tablet, 300 mg PO DAILY 10/17/23 10/17/23 History extended release duloxetine 60 mg capsule,delayed 60 mg PO DAILY 10/17/23 10/17/23 History release ergocalciferol (vitamin D2) 1,250 1,250 mcg PO DIRECTED 10/17/23 10/17/23 History mcg (50,000 unit) capsule estradiol 1 mg tablet 1 mg PO DAILY 10/17/23 10/17/23 History hydroxyzine HCl 10 mg tablet 10 mg PO DAILY PRN Itching 10/17/23 10/17/23 History levothyroxine 100 mcg tablet 100 mcg PO DAILY 10/17/23 10/17/23 History methocarbamol 500 mg tablet 500 mg PO DIRECTED PRN Pain 10/17/23 10/17/23 History pantoprazole 40 mg tablet,delayed 40 mg PO DIRECTED PRN Heartburn 10/17/23 10/17/23 History release pravastatin 80 mg tablet 80 mg PO HS 10/17/23 10/17/23 History progesterone micronized 200 mg 200 mg PO HS 10/17/23 10/17/23 History capsule triamcinolone acetonide 0.1 % 0.1 applic topical DIRECTED PRN 10/17/23 10/17/23 History topical ointment Itching amoxicillin 500 mg capsule 500 mg PO Q8H laceration #20 caps 10/18/23 Rx hydrocodone 5 mg-acetaminophen 325 1 tab PO Q4H PRN pain #14 tabs 10/18/23 Rx mg tablet ondansetron HCl 8 mg tablet 8 mg PO Q8H PRN nausea and 10/18/23 Rx vomiting #10 tabs bacitracin 500 unit/gram topical 1 applic topical BID 7 days #30 10/19/23 Rx ointment grams Hospital Stay Data Consultations 10/17/23 00:06 ED Decision to Admit Stat 10/17/23 03:18 Consult Oromaxillofacial Surgery Routine 10/17/23 15:06 Consult Orthopedic Surgery Routine Procedures Performed Operation Date: 10/17/23 10:30 Actual Procedures p Repair of Large Deep scalp Laceration, and wash out(Not Applicable) - Tyrone Dorsey, DMD Diagnostic Imagining Performed Laboratory Results WBC 9.39 K/ul (4.8-10.8) 10/19/23 06:46 RBC 3.40 M/uL (4.20-5.40) L 10/19/23 06:46 Hgb 10.5 g/dl (12.0-16.0) L 10/19/23 06:46 POC Hgb 15.3 g/dl (12.0-16.0) 10/16/23 20:32 Hct 30.7 % (37.0-47.0) L 10/19/23 06:46 POC Hct 45 % (37-47) 10/16/23 20:32 MCV 90.3 fL (80.0-100.0) 10/19/23 06:46 MCH 30.9 pg (25.0-34.0) 10/19/23 06:46 MCHC 34.2 g/dL (32.0-36.0) 10/19/23 06:46 RDW Std Deviation 46.2 fL (36.4-46.3) 10/19/23 06:46 RDW Coeff of Robert 14.0 % (11.5-14.5) 10/19/23 06:46 Plt Count 214 K/uL (130-400) 10/19/23 06:46 MPV 9.9 fL (9.4-12.4) 10/19/23 06:46 Immature Gran % (Auto) 0.3 % 10/19/23 06:46 Neut % (Auto) 56.4 % 10/19/23 06:46 Lymph % (Auto) 32.7 % 10/19/23 06:46 [place] % (Auto) 6.5 % 10/19/23 06:46 Eos % (Auto) 3.8 % 10/19/23 06:46 Baso % (Auto) 0.3 % 10/19/23 06:46 Neut # (Auto) 5.29 K/uL (1.40-6.50) 10/19/23 06:46 Lymph # (Auto) 3.07 K/uL (1.20-3.40) 10/19/23 06:46 [place] # (Auto) 0.61 K/uL (0.11-0.59) H 10/19/23 06:46 Eos # (Auto) 0.36 K/uL (0.00-0.50) 10/19/23 06:46 Baso # (Auto) 0.03 K/uL (0.00-0.20) 10/19/23 06:46 Immature Gran # (Auto) 0.03 K/uL (0.01-0.20) 10/19/23 06:46 PT 10.6 Seconds (9.0-12.0) 10/16/23 20:31 INR 1.0 (0.9-1.1) 10/16/23 20:31 POC Sodium 140 mmol/L (135-144) 10/16/23 20:32 Sodium 144 mmol/L (136-145) 10/19/23 06:46 POC Potassium 4.1 mmol/L (3.3-5.0) 10/16/23 20:32 Potassium 3.7 mmol/L (3.5-5.1) 10/19/23 06:46 POC Chloride 106 mmol/L (101-112) 10/16/23 20:32 Chloride 114 mmol/L (98-107) H 10/19/23 06:46 Carbon Dioxide 26 mmol/L (21-32) 10/19/23 06:46 POC Total CO2 20 mmol/L (24-31) L 10/16/23 20:32 Anion Gap 4 (3-11) 10/19/23 06:46 POC Anion Gap 19.0 mmol/L (16-25) 10/16/23 20:32 POC BUN 15 mg/dl (7-18) 10/16/23 20:32 BUN 7 mg/dl (6-23) 10/19/23 06:46 Creatinine 0.79 mg/dl (0.6-1.2) 10/19/23 06:46 POC Creatinine 1.2 mg/dl (0.6-1.3) 10/16/23 20:32 Est Cr Clr Drug Dosing 74.6 ml/min 10/19/23 06:46 Est GFR ( Amer) 92.3 ml/min 10/19/23 06:46 Est GFR (Non-Af Amer) 79.7 ml/min 10/19/23 06:46 BUN/Creatinine Ratio 8.9 (10-20) L 10/19/23 06:46 Glucose 90 mg/dl (70-99(Fasting)) 10/19/23 06:46 POC Glucose (other) 100 mg/dl (70-99) H 10/16/23 20:32 Calcium 7.4 mg/dl (8.6-10.3) L 10/19/23 06:46 POC Ioniz Calcium Puneet 1.15 mmol/l (1.12-1.32) 10/16/23 20:32 Magnesium 1.9 mg/dl (1.7-2.4) 10/19/23 06:46 Total Bilirubin 0.3 mg/dl (0.2-1.0) 10/19/23 06:46 AST 21 U/L (13-39) 10/19/23 06:46 ALT 19 U/L (7-52) 10/19/23 06:46 Alkaline Phosphatase 43 U/L (34-104) 10/19/23 06:46 Total Protein 5.4 gm/dl (6.0-8.3) L 10/19/23 06:46 Albumin 3.3 gm/dl (3.4-5.0) L 10/19/23 06:46 Globulin 2.1 gm/dl (2.5-4.0) L 10/19/23 06:46 Albumin/Globulin Ratio 1.6 (0.9-2) 10/19/23 06:46 Lipase 17 U/L (11-82) 10/16/23 20:31 TSH 1.899 uIu/ml (0.300-4.500) 10/17/23 04:09 Blood Type Cancelled 10/17/23 04:09 Antibody Screen Cancelled 10/17/23 04:09 Impressions Knee X-Ray 10/16/23 20:30 XR knee RT 3V HISTORY: 63 years-old Female trauma acute right knee pain COMPARISON: None TECHNIQUE: 2 views of the right knee FINDINGS: Moderate prepatellar/infrapatellar anterior soft tissue swelling. Total arthroplasty. Trace joint effusion. No acute fracture, dislocation or osseous erosion. IMPRESSION: Anterior soft tissue swelling without acute fracture or dislocation identified. ACT 112: Negative or not required by law. The above report was generated using voice recognition software. It may contain grammatical, syntax or spelling errors. Electronically signed by: Kamron Felix M.D. 10/17/2023 8:[address] 10/16/23 20:31 Exam(s): CT C SPINE EXAM: CT Cervical Spine Without Intravenous Contrast CLINICAL HISTORY: Reason for exam: trauma. TECHNIQUE: Axial computed tomography images of the cervical spine without intravenous contrast. CTDI is 21.38 mGy and DLP is 403.33 mGy-cm. Automated exposure control was utilized for the study. A dose lowering technique was utilized adhering to the principles of ALARA. COMPARISON: No relevant prior studies available. FINDINGS: Vertebrae: Straightening of the cervical spine. No acute fracture or subluxation. Discs/spinal canal/neural foramina: Disc and uncovertebral joint degeneration at C4-C5 and C5-C6. No significant canal or foraminal narrowing. Soft tissues: Unremarkable. IMPRESSION: Straightening of the cervical spine. No acute fracture or subluxation. Electronically signed by: Bib Garcias M.D. 10/16/23 22:09 PM Chest X-Ray 10/16/23 20:31 XR chest 1V portable HISTORY: 63 years-old Female trauma acute chest trauma COMPARISON: None TECHNIQUE: AP view of the chest FINDINGS: Cardiomediastinal and hilar silhouettes are within normal limits. No pneumothorax, pleural effusion or airspace consolidation. Degenerative changes of the shoulders and spine. IMPRESSION: No acute process. ACT 112: Negative or not required by law. The above report was generated using voice recognition software. It may contain grammatical, syntax or spelling errors. Electronically signed by: Kamron Felix M.D. 10/17/2023 7:[address] 10/16/23 20:31 Exam(s): CT HEAD Without Contrast EXAM: CT Head Without Intravenous Contrast CLINICAL HISTORY: Reason for exam: trauma. TECHNIQUE: Axial computed tomography images of the head/brain without intravenous contrast. CTDI is hole 37.95 mGy and DLP is 629.85 mGy-cm. Automated exposure control was utilized for the study. A dose lowering technique was utilized adhering to the principles of ALARA. COMPARISON: No relevant prior studies available. FINDINGS: Brain: Unremarkable. No hemorrhage. No significant white matter disease. No edema. No midline shift. Kinney-white matter differentiation maintained. Ventricles: Unremarkable. No hydrocephalus. Bones/joints: Unremarkable. No acute fracture. Soft tissues: Right superior frontal scalp laceration/degloving injury with broad region of soft tissue swelling. Sinuses: Unremarkable as visualized. Mastoid air cells: Unremarkable as visualized. No mastoid effusion. IMPRESSION: Right superior frontal scalp laceration/degloving injury with broad region of soft tissue swelling. No acute intracranial findings. Electronically signed by: Bib Garcias M.D. 10/16/23 22:11 PM Pelvis X-Ray 10/16/23 20:31 XR pelvis 1-2V routine HISTORY: 63 years-old Female trauma acute pelvic trauma COMPARISON: None TECHNIQUE: AP view of the pelvis FINDINGS: Right hip arthroplasty. [id number] left hip osteoarthritis. No acute fracture, dislocation or avascular necrosis. Unremarkable soft tissues. IMPRESSION: No acute fracture or dislocation. ACT 112: Negative or not required by law. The above report was generated using voice recognition software. It may contain grammatical, syntax or spelling errors. Electronically signed by: Kamron Felix M.D. 10/17/2023 8:50 AM Pending Results Patient Have Any Pending Studies at Discharge: No Discharge Instructions Given to Patient (Per Discharging Provider) PLEASE REFER TO YOUR NEW MEDICATION LIST AND FOLLOW INSTRUCTIONS CAREFULLY. YOUR NEW MEDICATIONS INCLUDE: Amoxicillin-antibiotic Hydrocodone/acetaminophen-as needed for pain Bacitracin-antibiotic ointment You can take acetaminophen 500 mg tablet as needed in between doses of hydrocodone/acetaminophen. Do not exceed more than 3,000 mg of acetaminophen per 24 hours. Drink plenty of water. Take a probiotic and eat yogurt daily at least for 2 weeks to prevent diarrhea. PLEASE CALL YOUR PRIMARY CARE PHYSICIAN OR RETURN TO THE ER IF WITH WORSENING OF SYMPTOMS, INCLUDING Redness/bleeding/discharge on the wound site, fevers or chills, headache, nausea or vomiting, changes with vision, weakness or numbness, etc. FOLLOW UP WITH PRIMARY CARE PHYSICIAN OUTLINED ABOVE. Follow-up with Dr. Dorsey in 1 week. Total Time Total Time Spent Total Time Spent (In Minutes): 40 minutes
[2023-10-23] MEDS ORDERED: ERGOCALCIFEROL 1250 MCG (50,000 UNITS) CAP PO SCH (09:00)
--- NOTE | 2023-11-04 19:51 | Operative Report ---
PG Post Operative Report Pre & Post Diagnosis Operation Date: 10/17/23 10:30 Pre-Op Diagnosis: Scalp Laceration 9 inch 23 cm Post-Op Diagnosis: Scalp Laceration 9 inch 23 cm I identified the patient and participated in the time-out.: Yes Procedure Operation Date: 10/17/23 10:30 Actual Procedures p Repair of Large Deep scalp Laceration 9 inch 23 cm, and wash out(Not Applicable) - Tyrone Dorsey, AMANDEEP Surgeon Tyrone Dorsey, AMANDEEP Station Tender none Estimated Blood Loss 25 Findings Consistent with Post-Op Diagnosis Specimens none Drains none Complications none Disposition Accompanied Patient To Recovery: Yes Indications large deep to the bone full thickness scalp laceration 9 in or 23 cm Description of Procedure ADMITTING DIAGNOSES: 9 inch 23 cm Scalp Laceration CPT 01146 Complex scalp laceration repair up to 7.5 cm CPT 61414 Complex scalp laceration repair each addition 5 cm or less above 7.5 cm ICD 10 S01.02XD OPERATION: Repair of a large, deep, complex 9 inch 23 cm laceration involving scalp ear to ear posterior based deep to the skull bone OPERATION IN DETAIL: The patient was cleared to undergo general anesthesia. Then brought down to the operating room placed under general anesthesia via a oral intubation. After an adequate level of anesthesia was obtained, an appropriate time-out was taken to ensure that we had in our operating room Christina Herbert with the proper equipment. After everyone agreed, the operation began. At this time,the patient was deeply anesthetized and the tubes were secured. The patient was prepped and draped in the usual manner for the laceration repair. The hair was washed and the laceration was scrubbed. local anesthesia in the form of Lidocaine with a vasoconstrictor, approximately 1o cc of the local anesthesia were injected into the area to allow for local anesthetic effect. I reprepped and re gloved, and turned my attention to the 9 in 23 cm laceration. A shaver was used to remove any hair to allow for easier cleansing and repair. This was a full thickness semicircular laceration from temporal area to temporal. It was very irregular. It was a eirxhbr-opr-mralqpt laceration through all layers of the scalp. The bone of the skull was exposed. It was actually a degloving laceration exposing the the frontal bone. I used an electrocautery instrument and cauterized any bleeders. The wound was irrigated and scrubbed. I then inspected the bone and could find no displacement. The closure of the laceration was now started using 4-0 Vicryl suture to line up the deep muscles and periosteum, subcutaneous sutures were positioned with a 5-0 Vicryl and then finally the skin was closed with a combination of 6 and 5-0 nylon suture. A very nice cosmetic closure of this irregular laceration was achieved. Once the repair was completed I inspected the flap and no bleed or hematoma was noted. I placed a heavy pressure dressing on the scalp. At this time, the patient was allowed to recover in the usual manner and then once she was fully recovered she was moved to the recovery room. The patient tolerated the procedure very well. I anticipate an uneventful postoperative course. Ander: Repair of a complex 9 inch or 23 cm laceration of the scalp I attest to the content of the Intraoperative Record and any orders documented therein. Any exceptions are noted below.
== END 2023-10-19 13:45 | disposition home or self-care (01) | DRG 983 ==
LOC: ED 20:24 → EDINP 10-17 03:17 → 3W 10-17 15:04